=== PATIENT | male | born 1940 | race Caucasian/White ===

== ENCOUNTER 2017-01-02 13:23 | Inpatient (IN) | payer OTHER, MEDICARE ==
[~2017-01-02] VITALS: Ht 170.2 cm; Wt 98.6 kg
[~2017-01-02 13:23] MED LIST: AMIODARONE HCL200 M1 PO; ASPIRIN EC325 MG PO; ASPIRIN EC81 M1 PO; ATORVASTATIN CA80 M1 PO; CARDURA4 M1 PO; CLOPIDOGREL75 M1 PO; ECOTRIN81 MG PO; FOLIC ACID0.8 MG PO; FOLIC ACID1 M1 PO; HUMALOG 100U100 U/ML SC; HUMALOG100 UNIT/2 SC; LANTUS SOL100 UNIT/1 SC; LANTUS SOLOS100 U/ML SC; LANTUS100 UNIT/1 SC; LASIX20 M1 PO; LASIX80 M1 PO; LISINOPRIL40 M1 PO; LISINOPRIL40 MG PO; LOPRESSOR50 M1 PO; METOPROLOL TART50 MG PO; NITROGLYCERIN1 EACH TOP; NOVOLOG100 UNIT/2 SC; PHENAZOPYRIDIN100 M3 PO; VITAMIN B COMP1 EACH PO; VITAMIN B-650 M2 PO; VYTORIN 10 MG-81 TAB PO; VYTORIN 10-801 EACH PO; ZETIA10 M1 PO
--- NOTE | 2017-01-02 13:31 | NUR ---
76 Y/O MALE C/O "TOTAL EXHAUSTION" X 6-8 WEEKS S/P STARTING NEW MEDICATION (LASIX, AMIODARONE, METOPROLOL) S/P HEART ATTACK. STATES HE HAS BEEN FEELING WEAK, DIZZY AND TIRED. DENIES SOB. DENIES C/P. REPORTS HIGH BLOOD SUGARS WELL FINGERSTICK IN TRIAGE: 447
--- NOTE | 2017-01-02 13:31 | NUR ---
PT TAKEN FOR EKG - STATES HE HAD BLOODWORK DRAWN TODAY AT CHF CLINIC, APPROX NOONTIME. NO RESULTS LISTED IN COMPUTER YET.
--- NOTE | 2017-01-02 13:58 | ED GENERAL ADULT ---
History of Present Illness General Chief Complaint: General Adult Stated Complaint: WEAK, HIGH BLOOD SUGAR, Source: patient, family, old records Exam Limitations: no limitations Allergies Coded Allergies: NO KNOWN ALLERGIES (09/24/15) Reconcile Medications Amiodarone HCl 200 MG TABLET 1 TAB PO DAILY HEART (Reported) Aspirin (Ecotrin*) 81 MG TABLET.DR 2 TAB PO DAILY HEART/BLOOD Clopidogrel Bisulfate (Clopidogrel) 75 MG TABLET 1 TAB PO DAILY HEART HEALTH Doxazosin Mesylate (Cardura) 4 MG TABLET 4 MG PO DAILY BPH (Reported) Ezetimibe/Simvastatin (Vytorin 10-80 MG Tablet) 10 MG-80 MG TABLET 1 TAB PO DAILY CHOLESTEROL (Reported) Folic Acid 0.8 MG CAPSULE 1 CAP PO DAILY SUPPLEMENT (Reported) Furosemide (Lasix) 80 MG TABLET 1 TAB PO BID DIURETIC (Reported) Insulin Glargine,Hum.rec.anlog (Lantus Solostar) 100 UNIT/ML (3 ML) INSULN.PEN 22 UNITS SC BID DM (Reported) Insulin Lispro (Humalog) 100 UNIT/ML VIAL DM (Reported) Lisinopril 20 MG TABLET 1 TAB PO DAILY BP (Reported) Metoprolol Tartrate 25 MG TABLET 1 TAB PO BID HEART/BP (Reported) Nitroglycerin (Nitroglycerin Patch) 0.4 MG/HOUR PATCH.TD24 1 PATCH TOP DAILY HEART HEALTH 12 hours on, 12 hours off Vitamin B Complex 1 EACH CAPSULE 1 CAP PO DAILY SUPPLEMENT (Reported) Triage Note: 76 Y/O MALE C/O "TOTAL EXHAUSTION" X 6-8 WEEKS S/P STARTING NEW MEDICATION (LASIX, AMIODARONE, METOPROLOL) S/P HEART ATTACK. STATES HE HAS BEEN FEELING WEAK, DIZZY AND TIRED. DENIES SOB. DENIES C/P. REPORTS HIGH BLOOD SUGARS WELL FINGERSTICK IN TRIAGE: 447 Triage Nurses Notes Reviewed? yes Onset: Gradual Duration: getting worse Timing: recent history Injury Environment: home Severity: moderate Severity Numbers: 7 HPI: Patient is a 76-year-old male with a past medical history significant for CAD status post CABG, type 1 diabetes, chronic kidney disease stage IV, hypertension , bladder cancer status post TURBT who was recently admitted to [facility] on 08/28/2016 for concerns of non-STEMI CHF and DKA patient states that he has chronic dyspnea on exertion and leg swelling which she has no changes of his symptoms however patient was brought in to the emergency room for concerns of being at his CHF clinic today to receive IV Lasix in which blood work noted the patient had significant elevations of his BUN. Patient also has concerns of his elevated glucose where he noted today to be between 450 and 550 prior to arrival. Patient is insulin-dependent. Patient denies any fevers chills chest pain shortness of breath hemoptysis cough abdominal pain nausea vomiting Last bowel movement was in the last 24 hours no blood no melena noted. (CEM BURROWS) Vital Signs & Intake/Output Vital Signs & Intake/Output Vital Signs Date Time Temp Pulse Resp B/P B/P Pulse O2 O2 Flow FiO2 Mean Ox Delivery Rate 01/02 1534 97.1 63 24 163/70 98 Room Air 01/02 1327 96.7 57 18 109/47 97 Room Air Past History Travel History Traveled to [place] past 21 day No Medical History Any Pertinent Medical History? see below for history Neurological: NONE EENT: allergies Cardiovascular: hypertension, hyperlipidemia, CABG Respiratory: NONE Gastrointestinal: NONE Hepatic: NONE Renal: NONE Musculoskeletal: osteoarthritis Psychiatric: NONE Endocrine: diabetes Blood Disorders: NONE Cancer(s): bladder cancer DIGITAL MEDIA REPRESENTATIVE/Reproductive: NONE History of MRSA: No History of VRE: No History of CDIFF: No Pneumonia Vaccine: 09/21/15 Influenza Vaccine: 06/07/16 Surgical History Surgical History: CABG Psychosocial History Who do you live with Significant Other Services at Home None What is your primary language Luxembourgish Tobacco Use: Quit >30 days ago Family History Hx Contributory? No (CEM BURROWS) Review of Systems Review of Systems Constitutional: Reports: no symptoms. EENTM: Reports: no symptoms. Respiratory: Reports: see HPI. Cardiovascular: Reports: see HPI, peripheral edema. GI: Reports: no symptoms. Genitourinary: Reports: no symptoms. Musculoskeletal: Reports: no symptoms. Skin: Reports: no symptoms. Neurological/Psychological: Reports: no symptoms. Hematologic/Endocrine: Reports: no symptoms. Immunologic/Allergic: Reports: no symptoms. All Other Systems: Reviewed and Negative (CEM BURROWS) Physical Exam Physical Exam General Appearance: no apparent distress, obese Head: atraumatic Rectal: normal exam, heme negative stool, BROWN STOOL NOTED Comments: HEENT: Normal EENT exam, extraocular motion intact, no nystagmus. Pupils equally round and reactive to light and accommodation. Nose is atraumatic. External auditory canal and Tympanic membranes clear. Pharynx normal. No swelling or edema. Neck: Supple, no lymphadenopathy, normal range of motion without pain or tenderness Back: Nontender, no CVA tenderness. Cardiovascular: Regular rate and rhythms no murmurs rubs or gallops, normal JVP Respiratory: Chest nontender. No respiratory distress.breath sounds clear to auscultation bilaterally Abdomen: Soft, nontender nondistended, no appreciable organomegaly. Normal bowel sounds. No ascites Extremity: +2 bilateral pitting edema noted, no calf tenderness to palpation, normal and equal pulses. Neuro: Alert oriented x3, motor sensory normal, Skin: No appreciable rash on exposed skin, skin is warm and dry. Psych: Mood and affect is normal, memory and judgment is normal. Core Measures ACS in differential dx? Yes CVA/TIA Diagnosis: No Severe Sepsis Present: No Septic Shock Present: No (CEM BURROWS) Progress Differential Diagnoses I considered the following diagnoses in my evaluation of the patient: [CHF, anemia, DKA,, HHS, hyperglycemia, myocardial infarction, electrolyte abnormality , DVT] Diagnostic Imaging: Viewed by Me: Radiology Read. Radiology Impression: no acute abnormality Initial ED EKG: SINUS RHYTHM NOTED AT 57 BPM WITH FIRST-DEGREE av BLOCK Prior EKG: unchanged Comments: PATIENT: JACK WINTER PRESENT AGE: 76 PATIENT ACCOUNT NO: [id number] : 40 LOCATION: [facility] ORDERING PHYSICIAN: CEM RUIZ SERVICE DATE: 01/02/17 EXAM TYPE: RAD - XRY-PORTABLE CHEST XRAY EXAMINATION: CHEST 1 VIEW CLINICAL INFORMATION: Dyspnea upon exertion. COMPARISON: 08/29/2016. TECHNIQUE: An AP view of the chest is provided. FINDINGS: The cardiac silhouette is prominent, but stable. Intact midline sternal wires are present. The mediastinal and hilar contours are unremarkable. There are neither pleural effusions nor pneumothoraces. There are no consolidations. The osseous structures are unremarkable. IMPRESSION: No evidence for acute disease. Stable cardiomegaly. DICTATED BY: SAMIA MARTINEZ MD DATE/TIME DICTATED:01/02/17 1436 (CEM BURROWS) Plan of Care: Orders Procedure Date/time Status Consistent Carbohydrate 1 01/03 B Active LACTIC ACID 01/02 1712 Active Misc Message 01/02 1645 Active ED Holding Orders 01/02 1645 Active Admit to inpatient 01/02 1645 Active Vital Signs 01/02 1645 Active Code Status 01/02 1645 Active Patient Data 01/02 1625 Active Add-on Test (ER Only) 01/02 1514 Active PARTIAL THROMBOPLASTIN TIME 01/02 1442 Complete PROTHROMBIN TIME 01/02 1442 Complete TYPE & SCREEN (NOT X-MATCH) 01/02 1442 Complete MIXED VENOUS BLOOD GAS (GEN) 01/02 1412 Complete LACTIC ACID 01/02 1412 Complete URINALYSIS 01/02 1326 Complete TROPONIN LEVEL 01/02 1326 Complete LIPASE 01/02 1326 Complete COMPREHENSIVE METABOLIC PANEL 01/02 1326 Complete CBC WITHOUT DIFFERENTIAL 01/02 1326 Complete B-TYPE NATRIURETIC PEP (BNP) 01/02 1326 Complete AMYLASE 01/02 1326 Complete ACETONE 01/02 1326 Complete EKG 01/02 1326 Active Laboratory Tests 01/02/17 1536: Urine Color YEL, Urine Clarity CLEAR, Urine pH 6.0, Ur Specific [place] 1.010, Urine Protein NEG, Urine Ketones NEG, Urine Nitrite NEG, Urine Bilirubin NEG, Urine Urobilinogen 0.2, Ur Leukocyte Esterase LARGE H, Ur Microscopic SEDIMENT EXAMINED, Urine WBC 3-5 H, Ur Epithelial Cells FEW, Hyaline Casts RARE H, Urine Hemoglobin NEG, Urine Glucose 100 H 01/02/17 1442: Lactic Acid 1.7 01/02/17 144: Bicarbonate Actual 24, Mixed VBG pH 7.42 H, Mixed VBG pCO2 38 L, Mixed VBG O2 Saturation 36, P-50 (Temp Corrected) YES, Carboxyhemoglobin 1.3 L, O2 Concentration % RA, Temperature 96.7 L, O2 Delivery Method RA, Anion Gap 13, Estimated GFR 25 L, BUN/Creatinine Ratio 42.4 H, Glucose 407 H, Calcium 8.6, Total Bilirubin 0.9, AST 80 H, ALT 199 H, Alkaline Phosphatase 89, Troponin I 0.02, Ydb-X-Obsmuohceuw Pept 3690 H, Total Protein 5.6 L, Albumin 3.0 L, Globulin 2.6, Albumin/Globulin Ratio 1.2, Amylase 41, Lipase 276, PT 12.5, INR 1.19 H, APTT 27, CBC w Diff NO MAN DIFF REQ, RBC 2.48 L, MCV 91.3, MCH 30.1, RDW 15.7 H, MPV 9.7, Gran % 79.4 H, Lymphocytes % 9.0 L, Monocytes % 8.8, Eosinophils % 2.5, Basophils % 0.3, Absolute Granulocytes 4.4, Absolute Lymphocytes 0.5 L, Absolute Monocytes 0.5, Absolute Eosinophils 0.1, Absolute Basophils 0, PUBS MCHC 32.9 L, Phlebotomy Draw Site RAC, Acetone Level NEGATIVE Patient initially noted to have hypotension concerns and was concerned of DKA. On arrival in which she was given slow fluid resuscitation and was conservatively resuscitated due to his significant CHF concern however after her second vital sign was established patient had no concerns of hypotension and blood work was established showing no concerns of DKA. The IV fluid resuscitation was stopped Patient however did have consideration of symptomatic anemia where his hemoglobin at baseline is 12 and currently today it 7.4 and his BUN is approximately 70 at baseline and today it is 100. Cortney Garces MD was made aware of patient's admission to telemetry. Discussed patient with Dr. Gutierrez was aware of telemetry admission No source at this time of patient's anemia (CEM BURROWS) Departure Departure Disposition: STILL A PATIENT Condition: Stable Clinical Impression Primary Impression: Symptomatic anemia Secondary Impressions: Acute on chronic renal failure, Hyperglycemia Referrals: EPHRAIM VARMA,KATARZYNA Jones (PCP/Family) Departure Forms: Customer Survey General Discharge Information Admission Note Spoke With: OLVIN SANCHEZ MD Documentation of Exam: Documentation of any treatments & extenuating circumstances including Concerns Regarding Discharge (functional status, medication knowledge or non-compliance, living conditions, etc.) that warrant an admission rather than observation: [ Discussed patient with Dr. Sanchez who agrees with telemetry admission for concerns of symptomatic anemia. Patient requires telemetry monitoring, repeat labs, cardiology consultation, repeat hemoglobin and hematocrit endocrinology consultation and insulin treatment protocol. Outpatient treatment at this time would be medically harmful] (CEM BURROWS) PA/OPERATIONS AGENT Co-Sign Statement Statement: ED Attending supervision documentation- [X] I saw and evaluated the patient. I have also reviewed all the pertinent lab results and diagnostic results. I agree with the findings and the plan of care as documented in the PA's/OPERATIONS AGENT's documentation. [] I have reviewed the ED Record and agree with the PA's/OPERATIONS AGENT's documentation. [] Additions or exceptions (if any) to the PAs/OPERATIONS AGENT's note and plan are summarized below: [] (RAMOS VARMA,SHIRA Samaniego) Critical Care Note Critical Care Note Critical Care Time: 30-74 min (CEM BURROWS)
--- NOTE | 2017-01-02 14:40 | RADIOLOGY REPORT ---
EXAMINATION: CHEST 1 VIEW CLINICAL INFORMATION: Dyspnea upon exertion. COMPARISON: 08/29/2016. TECHNIQUE: An AP view of the chest is provided. FINDINGS: The cardiac silhouette is prominent, but stable. Intact midline sternal wires are present. The mediastinal and hilar contours are unremarkable. There are neither pleural effusions nor pneumothoraces. There are no consolidations. The osseous structures are unremarkable. IMPRESSION: No evidence for acute disease. Stable cardiomegaly.
[2017-01-02 15:01] LABS: ABSOLUTE BASOPHIL COUNT 0 /CUMM (0.0-0.2); ABSOLUTE EOSINOPHIL COUNT 0.1 /CUMM (0.0-0.7); ABSOLUTE GRANULOCYTE CT 4.4 /CUMM (1.4-6.5); ABSOLUTE LYMPH COUNT 0.5 /CUMM (1.2-3.4); ABSOLUTE MONOCYTE COUNT 0.5 /CUMM (0.10-0.60); BASOPHIL % 0.3 % (0.0-2.0); EOSINOPHIL % 2.5 % (0-5); GRANULOCYTE % 79.4 % (42.2-75.2); MEAN CORPUSCULAR HGB 30.1 PG (27.0-31.0); MEAN CORPUSCULAR HGB CONC 32.9 G/DL (33.0-37.0); MEAN CORPUSCULAR VOLUME 91.3 FL (80.0-94.0); MEAN PLATELET VOLUME 9.7 FL (7.4-10.4); PLATELET COUNT 213 /CUMM (130-400); RBC DISTRIBUTION WIDTH 15.7 % (11.5-14.5); RED BLOOD CELL CT 2.48 /CUMM (4.70-6.10); WHITE BLOOD CELL COUNT 5.5 /CUMM (4.8-10.8)
[2017-01-02 15:12] LABS: HEMATOCRIT 22.6 % (42-52)
--- NOTE | 2017-01-02 15:22 | NUR ---
CRITICAL TEST RESULTS [id number] JACK WINTER 76 M TESTS AND RESULTS: BUN 106 Results received and read back by: HAYDEE HDZ Results received date and time: 01/02/17 1522 The following provider was notified of the results, and read the results back: CEM White PA-C Notified date and time: 01/02/17 at 1522
[2017-01-02 15:50] LABS: PT 12.5 SEC (9.4-12.5); PTT 27 SEC (25-37)
--- NOTE | 2017-01-02 15:59 | NUR ---
PT SEEN AT BEDSIDE BY DR POZO TO DISCUSS POC. OOB WITHOUT ASSIST TO USE URINAL. NO C/O SOB OR CP. FAMILY AT BEDSIDE.
--- NOTE | 2017-01-02 16:13 | NUR ---
PER PA SETH [place] NEGATIVE. PT REPOSITIONED IN BED, RESTING COMFORTABLY ON RA. OFFERS NO OTHER COMPLAINTS AT THIS TIME
[2017-01-02] MEDS ORDERED: AMIODARONE HCL200 M1 PO (16:51)
[2017-01-02] MEDS ORDERED: VYTORIN 10-801 EACH PO (16:52)
[2017-01-02] MEDS ORDERED: FOLIC ACID0.8 M1 PO (16:53)
[2017-01-02] MEDS ORDERED: LASIX80 M1 PO (16:53)
[2017-01-02] MEDS ORDERED: HUMALOG100 UNIT/2 SC (16:54)
[2017-01-02] MEDS ORDERED: LANTUS SOL100 UNIT/1 SC (16:55)
[2017-01-02] MEDS ORDERED: METOPROLOL TART25 M1 PO (16:55)
[2017-01-02] MEDS ORDERED: LISINOPRIL20 M1 PO (16:55)
--- NOTE | 2017-01-02 16:59 | History & Physical ---
EVANGELISTA VARMA,JUAN RAMON 01/02/17 0107: General Information and [facility] MD Statement: I have seen and personally examined JACK WINTER and documented this H&P. The patient is a 76 year old M who was referred from the CHF clinic earlier today for complaints of high BUN and weakness/tiredness. Source of Information: patient, family Exam Limitations: no limitations History of Present Illness: 76-year-old male with past medical history of coronary artery disease status post CABG, recent and STEMI, type 1 diabetes uncontrolled, CK D stage IV, hypertension, bladder cancer status post TURBT, was referred from the CHF clinic earlier today after finding her BUN, high blood sugars, and worsening weakness. According to the patient, he was apparently in his usual state of health 2 months ago when he started having weakness, a little short of breath, and increased swelling of his legs. The patient found himself gradually getting weaker every day, and was visited his weekly CHF clinic earlier today when he was found to be very weak, high BUN and uncontrolled blood sugar, for which, he was immediately referred to the emergency department for further evaluation and management. He denies any chest pain, shortness of breath more than usual, palpitation, nausea, vomiting, fever, chills, abdominal pain, changes in bowel or bladder habit. Of note, he mentioned that his blood sugar has run as high as 571 and as low as 72 recently, with the lowest being last week. He follows Katarzyna Stubbs MD for his diabetes. Of note his workforce consultant is Dr. Taye Reyes. He receives 80 mg of oral Lasix twice daily and weekly visit to CHF clinic where he receives 40 mg of IV Lasix. He received only 80 mg of his oral Lasix this morning and did not receive any Lasix in the CHF clinic. Allergies/Medications Allergies: Coded Allergies: NO KNOWN ALLERGIES (09/24/15) Home Med list Amiodarone HCl 200 MG TABLET 1 TAB PO DAILY HEART (Reported) Aspirin (Ecotrin*) 81 MG TABLET. 2 TAB PO DAILY HEART/BLOOD Clopidogrel Bisulfate (Clopidogrel) 75 MG TABLET 1 TAB PO DAILY HEART HEALTH Doxazosin Mesylate (Cardura) 4 MG TABLET 4 MG PO DAILY BPH (Reported) Ezetimibe/Simvastatin (Vytorin 10-80 MG Tablet) 10 MG-80 MG TABLET 1 TAB PO DAILY CHOLESTEROL (Reported) Folic Acid 0.8 MG CAPSULE 1 CAP PO DAILY SUPPLEMENT (Reported) Furosemide (Lasix) 80 MG TABLET 1 TAB PO BID DIURETIC (Reported) Insulin Glargine,Hum.rec.anlog (Lantus Solostar) 100 UNIT/ML (3 ML) INSULN.PEN 22 UNITS SC BID DM (Reported) Insulin Lispro (Humalog) 100 UNIT/ML VIAL DM (Reported) Lisinopril 20 MG TABLET 1 TAB PO DAILY BP (Reported) Metoprolol Tartrate 25 MG TABLET 1 TAB PO BID HEART/BP (Reported) Nitroglycerin (Nitroglycerin Patch) 0.4 MG/HOUR PATCH.TD24 1 PATCH TOP DAILY HEART HEALTH 12 hours on, 12 hours off Vitamin B Complex 1 EACH CAPSULE 1 CAP PO DAILY SUPPLEMENT (Reported) Past History Travel History Traveled to [place] past 21 day No Medical History Neurological: NONE EENT: allergies Cardiovascular: hypertension, hyperlipidemia, CABG Respiratory: NONE Gastrointestinal: NONE Hepatic: NONE Renal: NONE Musculoskeletal: osteoarthritis Psychiatric: NONE Endocrine: diabetes Blood Disorders: NONE Cancer(s): bladder cancer CHEMICAL LAB TECHNICIAN/Reproductive: NONE History of MRSA: No History of VRE: No History of CDIFF: No Pneumonia Vaccine: 09/21/15 Influenza Vaccine: 06/07/16 Surgical History Surgical History: CABG Past Family/Social History Psychosocial History Where do you live? Home Who Do You Live With? spouse Services at Home: None Primary Language: [place] Smoking Status: Never Smoked ETOH Use: denies use Illicit Drug Use: denies illicit drug use Functional Ability Ambulation: cane, previously independent Review of Systems Review of Systems Constitutional: Reports: see HPI, weakness. EENTM: Reports: no symptoms. Cardiovascular: Reports: see HPI, edema, orthopena. Denies: chest pain, palpitations, syncope. Respiratory: Reports: no symptoms. GI: Reports: no symptoms. Genitourinary: Reports: no symptoms. Musculoskeletal: Reports: no symptoms. Skin: Reports: see HPI. Neurological/Psychological: Reports: no symptoms. Hematologic/Endocrine: Reports: no symptoms. All Other Systems: Reviewed and Negative Exam & Diagnostic Data Last 24 Hrs of Vital Signs/I&O Vital Signs Date Time Temp Pulse Resp B/P B/P Pulse O2 O2 Flow FiO2 Mean Ox Delivery Rate 01/023 98.0 65 20 110/48 95 Room Air 01/02 1834 97.3 64 22 144/66 97 Room Air 01/02 1534 97.1 63 24 163/70 98 Room Air 01/02 1327 96.7 57 18 109/47 97 Room Air Intake & Output 01/02 1600 01/02 0800 01/02 0000 Intake Total Output Total 250 Balance -250 Output, Urine 250 Patient 100.017 kg Weight Weight Reported by Patient Measurement Method Physical Exam General Appearance Alert, Oriented X3, Cooperative, Mild Distress Rectal Guiac Negative Last 24 Hrs of Labs/Ruben: Laboratory Tests 01/02/17 1712: Lactic Acid Cancelled 01/02/17 1536: Urine Color YEL, Urine Clarity CLEAR, Urine pH 6.0, Ur Specific [place] 1.010, Urine Protein NEG, Urine Ketones NEG, Urine Nitrite NEG, Urine Bilirubin NEG, Urine Urobilinogen 0.2, Ur Leukocyte Esterase LARGE H, Ur Microscopic SEDIMENT EXAMINED, Urine WBC 3-5 H, Ur Epithelial Cells FEW, Hyaline Casts RARE H, Urine Hemoglobin NEG, Urine Glucose 100 H 01/02/17 1442: Lactic Acid 1.7 01/02/17 1442: Bicarbonate Actual 24, Mixed VBG pH 7.42 H, Mixed VBG pCO2 38 L, Mixed VBG O2 Saturation 36, P-50 (Temp Corrected) YES, Carboxyhemoglobin 1.3 L, O2 Concentration % RA, Temperature 96.7 L, O2 Delivery Method RA, Anion Gap 13, Estimated GFR 25 L, BUN/Creatinine Ratio 42.4 H, Glucose 407 H, Hemoglobin A1c Pending, Calcium 8.6, Iron 35 L, TIBC 337, Ferritin 28.6, Total Bilirubin 0.9, AST 80 H, ALT 199 H, Alkaline Phosphatase 89, Troponin I 0.02, Pro-B- Natriuretic Pept 3690 H, Total Protein 5.6 L, Albumin 3.0 L, Globulin 2.6, Albumin/Globulin Ratio 1.2, Amylase 41, Lipase 276, Vitamin B12 339, PT 12.5, INR 1.19 H, APTT 27, CBC w Diff NO MAN DIFF REQ, RBC 2.48 L, MCV 91.3, MCH 30.1, RDW 15.7 H, MPV 9.7, Gran % 79.4 H, Lymphocytes % 9.0 L, Monocytes % 8.8, Eosinophils % 2.5, Basophils % 0.3, Absolute Granulocytes 4.4, Absolute Lymphocytes 0.5 L, Absolute Monocytes 0.5, Absolute Eosinophils 0.1, Absolute Basophils 0, PUBS MCHC 32.9 L, Phlebotomy Draw Site RAC, Acetone Level NEGATIVE Diagnostic Data EKG Results Sinus bradycardia, rate 57, QTC 483, MN prolongation 236 CXR Results IMPRESSION: No evidence for acute disease. Stable cardiomegaly. DICTATED BY: SAMIA MARTINEZ MD DATE/TIME DICTATED:01/02/171435 VEHICLE GLASS TECHNICIAN:RON DATE/TIME TRANSCRIBED:01/02/171435 Other Results Physical examnination: Head: Normocephalic, atraumatic Eyes: Pupils normal in size, regular, reacting to light and accommodation, EOM normal Ears: B/l normal on inspection Nose: Normal on inspection Throat/mouth: Moist mucosa Neck: Supple, full range of motion, no thyromegaly Heart: bradycardia, regular rhythm Lung: Decreased breath sound heard bilaterally Abd: Soft, non-tender, distention appreciated which is not new per patient Back: Normal range of motion Extremities: Normal knee exam bilaterally, pedal edema present b/l with some abrasions present, Distal neurovascular intact Neurologic: Alert, oriented x3, Cranial exam grossly intact, Speech is clear and coherent Skin: Warm and dry Psychiatric: Calm, cooperative, coherant Assessment/Plan Assessment: 76-year-old male with past medical history of coronary artery disease status post CABG, recent and STEMI, type 1 diabetes uncontrolled, CK D stage IV, hypertension, bladder cancer status post TURBT, was referred from the CHF clinic earlier today after finding her BUN, high blood sugars, and worsening weakness. He is currently being managed in the telemetry floor for the following issues: -Admit to telemetry #Symptomatic anemia -Awaiting cardiology consultation for blood transfusion, as this patient has extensive cardiac history and the target hemoglobin should be at 8 -Of note, guaiac test done in the emergency department was negative. However in this setting of symptomatic anemia with extensive history, guaiac all stools. Hold aspirin and Plavix after discussing with cardiology, awaiting cardiology input. Continue to monitor CBC, follow-up iron study. If guaiac positive at any time, consider calling gastrointestinal service STAT. #Diabetes mellitus, uncontrolled -Regular Accu-Cheks, insulin Levemir and NovoLog insulin sliding scale, and diabetic diet for now -Check his A1c -Call endocrinology consult in the morning #Acute kidney injury on CK D Patient's baseline creatinine is 2.0-2.1 considering the past 6 months, and is 2.5 currently does in acute kidney injury. Avoid nephrotoxic agents, maintain hydration, renal ultrasound in the morning to rule out any obstructions, follow- up BEP in the morning, hold RACHAEL inhibitor. Patient does not want to many consultation at this point including nephrology consultations, so please consider reassessing the need of nephrology consultation in the morning after getting the BEP results #Congestive heart failure Hold further diuretics, patient did not receive IV Lasix at CHF clinic, strict input and output monitoring, daily weight monitoring, lisinopril held due to acute kidney injury, need to resume later after ISAAC has resolved, cardiology consultation placed, will follow advice accordingly. #History of coronary artery disease, status post CABG Patient currently is not symptomatic/4 in acute coronary syndrome. The, but will trend troponin and EKG to rule out ACS. Aspirin and Plavix to hold due to concern of GI bleed. Continue beta holli and nitroglycerin patch. #History of paroxysmal atrial fibrillation Patient currently is in sinus bradycardia, was found to be in atrial fibrillation in August when he had NSTEMI, and was on amiodarone since then. Will continue for now. #Diabetic diet, mechanical DVT prophylaxis, full CODE STATUS. As Ranked By This Provider Problem List: 1. Symptomatic anemia 2. IDDM (insulin dependent diabetes mellitus) 3. Acute on chronic renal failure 4. CHF (congestive heart failure) 5. CAD (coronary artery disease) of artery bypass graft 6. Paroxysmal atrial fibrillation Core Measures/Miscellaneous Acute Coronary Syndrome ACS Diagnosis: No Cerebrovascular Accident CVA/TIA Diagnosis: No Congestive Heart Failure CHF Diagnosis: Yes Date of most recent Echo: 08/28/16 Last Known EF %: 45 Venous Thromboembolism VTE Risk Factors: Age > 40, Cancer/chemo/oth therapy, CHF or Resp failure [facility] prophylaxis d/t: No contraindications No VTE Pharm Prophylaxis d/t: No contraindications VTE Diagnosis: No VTE Type: NONE VTE Confirmed by (Test): NONE Severe Sepsis Severe Sepsis Present: No Septic Shock Septic Shock Present: No Miscellaneous Documentation Attending Case Discussed With: OLVIN WHITESIDE MD Primary Care Physician: KATARZYNA STUBBS MD Patient sees these Specialists Cardiology Level of Patient Care: Telemetry OLVIN WHITESIDE 01/02/17 1703: Attending MD Review Statement Attending Statement Attending MD Statement: examined this patient, discuss w/resident/PA/AVIATION NEUROPSYCHOLOGIST, agreed w/resident/PA/AVIATION NEUROPSYCHOLOGIST, discussed with family, reviewed EMR data (avail), discussed with nursing, discussed with case mgmt, reviewed images, amended to note Attending Assessment/Plan: 76 o/m with pmh of CAD s/p CABG, NSTEMI recently, DM on insulin poorly controlled, chronic kidney disease stage 4, htn, bladder ca s/p turp, presents with dyspnea on exertion, refererd from chf clinic after found to have high BUN. Patient found to have hyperglycemia. BNP remains elevated in past also. ASSESSMENT 1. Dyspnea on exertion. 2. Anemia 3. Acute on chronic kidney disease 4. chronic systolic CHF EF 45% 5. Elevated BUN 6. DM with hyperglycemia on insulin 7. Moderate to severe pulmonary hypertension. RVSP 55-60mm hg. 8. CAD on dual antiplatelet therapy. PLAN admit to telemetry obtain serial cardiac enzymes r/o [place], consult cardio. check guaic, serial h/h monitoring. NPO, gentle hydration. anemia multifactorial r/o blood loss. Transfuse hb target 7-8 d/w cardiology. resume antiplatlet therapy as per cards. basal insulin, RISS and titrate insulin as needed. monitor BMP and hemodynamics gi/dvt prophylaxis. full code. FAUSTINO SHELTON MD 01/02/17 9945: Resident Review Statement Resident Statement: examined this patient, discussed with internal combustion engine assembler, agreed with internal combustion engine assembler, discussed with family, reviewed EMR data (avail), reviewed images, amended to note Other Findings: This is 76-year-old male with past medical history of CAD status post CABG, HFrEF, stage IV COPD, type 2 diabetes, hypertension, transitional bladder cancer status post TURBT, chemotherapy and radiation was sent in from CHF clinic after patient home significantly anemic with elevated blood glucose level. As per the patient he has been having progressively worsening generalized weakness for pulse 2 months will show shifted with mild shortness of breath. This morning when he went to his CHF clinic for regular Lasix dose for his congestive heart failure patient formed very weak and mildly short of breath and lab workup revealed significant anemia and hyperglycemia and patient was sent to ER for further evaluation. In ER, patient denied any chest pain, shortness of breath, orthopnea, nausea, vomiting or abdominal pain. Patient reported that his blood sugar has been elevated for pulse couple weeks and he has been working with Katarzyna Stubbs MD to adjust his insulin regimen. He is on daily Lasix twice daily and goes to CHF clinic once a week and receives 40 mg every Lasix. He denies any blood in the stool or melena but also reports that she's been not watching his stool regularly. Patient has stage III CKD and but hasn't been seeing any calenderer. His vitals on admission were T 96.7, HR 57, RR 18, BP 163/70, O2 sat 97% on room air. On physical exam patient is alert oriented 3 in no acute distress, HEENT PERRLA EOMI, neck supple, no JVD, S2 NORMAL WITHOUT MURMUR, LUNGS CLEAR ON AUSCULTATION , ABDOMEN NOTED DISTENDED WITH PRESERVED BOWEL SOUNDS NONTENDER, NOTED bilateral frontal 2+ pitting edema to the level of knee, no focal request neuro deficit. Labs were significant for normocytic anemia with H&H 7.4/22.6 (baseline H&H 12.2 /36 in August 2016), MCV 91.3, platelet 213, BUN/creatinine 06, creatinine 2.5 (baseline creatinine 2.3/75), AST 80, AST 199, alkaline phosphatase 89, troponin 0.02, proBNP 3690, INR 1.19. vBG noted normal UA noted large leukocyte esterase with WBC of 3-5 and high glucose Chest x-ray was unremarkable EKG showed normal sinus rhythm with first degree AV block and T-wave flattening in the anterolateral lead Stool guaiac testing ER was negative Assessment and plan: This is a 76-year-old male with past medical history of CAD status post CABG, stage IV C daily, type I diabetes, 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 1. Symptomatic anemia ? Blood loss although patient refuses any episode of bloody stool or melena but significant drop in hematocrit to suggest blood loss as etiology. He should also help Ckd which could also be a contributing factor of anemia. - Monitor H&H - Stool guiac negative in ER, check all stool guaiac - Hold aspirin and Plavix - Repeat H&H in a.m. if it drops further consider gastroenterology evaluation - CHECK IRON STUDY 2. Hyperglycemia, type 1 diabetes - Accu-Cheks - Continue LEVEMIR 22 units twice a day and NovoLog sliding scale - check HBA1C - Endocrinology consult in a.m. 3. Acute on CKD stage 3 - Avoid nephrotoxic agent - monitor I & O's - Renal US inn am - watch renal function - Hold RACHAEL inhibitor - Consider nephrology consult 4. compensated systolic congestive heart failure - Strict I and O's - daily weight - hold diuretics due to isaac on ckd - readress diuresis regimen in am after reviewing kidney function - Held lisinopril due to ISAAC, resume if kidney function stable - Follow cardiology recommendation 5. History of CAD status post CABG Patient denies any chest pain, full set of troponin negative Serial troponin and EKG to rule out coronary event Held aspirin and Plavix due to concern of GI bleed Continue beta holli, NTG 6. History of paroxysmal A. fib - Currently normal sinus rhythm - Continue amiodarone 7. DVT prophylaxis Mechanical 8. Full code
--- NOTE | 2017-01-02 17:12 | Cons- Cardiology ---
General Information and HPI Consulting Request Date of Consult: 01/02/17 Requested By: OLVIN WHITESIDE MD Reason for Consult: LE edema; HFpEF; acute anemia of unclear etiology; hyperglycemia; worsening acute on chronic renal insufficiency Source of Information: patient, family, old records History of Present Illness: Mr Painting is a very nice 76 year old male who is known to me. 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 THe patient has a histor of HFpEF and has been going to the CHF clinic. I received a call from them today about the patient when he was there about his recent labs which have showed progressive increasing BUN and evidence of worsening hyperglycemia. In view of this fact, he was not given any IV lasix today despite his persistent LE edema. THe patient ultimately spoke to Dr. Stubbs and was sent to the ER for further evaluation. Inthe ER, the patient was noted to be hyperglycemic and significantly anemix with an elevated BUN of 106. The patient denies any new cardiovascular symptoms other than the persistent weakness, dyspnea and LE edema. Allergies/Medications Allergies: Coded Allergies: NO KNOWN ALLERGIES (09/24/15) Home Med List: Amiodarone HCl 200 MG TABLET 1 TAB PO DAILY HEART (Reported) Aspirin (Ecotrin*) 81 MG TABLET.DR 2 TAB PO DAILY HEART/BLOOD Clopidogrel Bisulfate (Clopidogrel) 75 MG TABLET 1 TAB PO DAILY HEART HEALTH Doxazosin Mesylate (Cardura) 4 MG TABLET 4 MG PO DAILY BPH (Reported) Ezetimibe/Simvastatin (Vytorin 10-80 MG Tablet) 10 MG-80 MG TABLET 1 TAB PO DAILY CHOLESTEROL (Reported) Folic Acid 0.8 MG CAPSULE 1 CAP PO DAILY SUPPLEMENT (Reported) Furosemide (Lasix) 80 MG TABLET 1 TAB PO BID DIURETIC (Reported) Insulin Glargine,Hum.rec.anlog (Lantus Solostar) 100 UNIT/ML (3 ML) INSULN.PEN 22 UNITS SC BID DM (Reported) Insulin Lispro (Humalog) 100 UNIT/ML VIAL DM (Reported) Lisinopril 20 MG TABLET 1 TAB PO DAILY BP (Reported) Metoprolol Tartrate 25 MG TABLET 1 TAB PO BID HEART/BP (Reported) Nitroglycerin (Nitroglycerin Patch) 0.4 MG/HOUR PATCH.TD24 1 PATCH TOP DAILY HEART HEALTH 12 hours on, 12 hours off Vitamin B Complex 1 EACH CAPSULE 1 CAP PO DAILY SUPPLEMENT (Reported) Past History Travel History Traveled to [place] past 21 day No Medical History Neurological: NONE EENT: allergies Cardiovascular: hypertension, hyperlipidemia, CABG Respiratory: NONE Gastrointestinal: NONE Hepatic: NONE Renal: NONE Musculoskeletal: osteoarthritis Psychiatric: NONE Endocrine: diabetes Blood Disorders: NONE Cancer(s): bladder cancer CIN[employer]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 Surgical History Surgical History: CABG Psychosocial History Services at Home: None Exam & Diagnostic Data Vital Signs and I&O Vital Signs Date Time Temp Pulse Resp B/P B/P Pulse O2 O2 Flow FiO2 Mean Ox Delivery Rate 01/02 1534 97.1 63 24 163/70 98 Room Air 01/02 1327 96.7 57 18 109/47 97 Room Air Intake & Output 01/02 1600 01/02 0800 01/02 0000 01/01 1600 01/01 0800 01/01 0000 Intake Total Output Total 250 Balance -250 Output, Urine 250 Patient 221 lb Weight Weight Reported by Patient Measurement Method Physical Exam: General: WD, WN, WM, NAD, A and O x3, VSS HEENT: Normal Neck: Supple, no lymphadenopathy, normal range of motion without pain or tenderness, JVP elevated 3 cm, carotids normal Back: Nontender, no CVA tenderness. Cardiovascular: Regular rate and rhythms , 2/6 systolc murmur Respiratory: Chest nontender. No respiratory distress.breath sounds clear to auscultation bilaterally Abdomen: Soft, nontender nondistended, no appreciable organomegaly. Normal bowel sounds. No ascites Extremity: +2 bilateral pitting edema noted, non tender , stasis changes present. Neuro: non focal Skin: No appreciable rash on exposed skin, skin is warm and dry. Labs/Ruben Results: Laboratory Tests 01/02 01/02 1536 1442 Chemistry Lactic Acid (0.7 - 2.1 mmol/L) 1.7 Urines Urine Color (YEL,AMB,STR) YEL Urine Clarity (CLEAR) CLEAR Urine pH (5.0 - 8.0) 6.0 Ur Specific [place] (1.001 - 1.035) 1.010 Urine Protein (NEG,<30 MG/DL) NEG Urine Ketones (NEG) NEG Urine Nitrite (NEG) NEG Urine Bilirubin (NEG) NEG Urine Urobilinogen (0.1 - 1.0 EU/dl) 0.2 Ur Leukocyte Esterase (NEG) LARGE H Ur Microscopic SEDIMENT EXAMINED Urine WBC (0 - 2 /HPF) 3-5 H Ur Epithelial Cells (NONE,FEW) FEW Hyaline Casts (0/LPF) RARE H Urine Hemoglobin (NEG) NEG Urine Glucose (N MG/DL) 100 H 01/02 1442 Blood Gas Bicarbonate Actual (22 - 26 MEQ/L) 24 Mixed VBG pH (7.31 - 7.41 PH) 7.42 H Mixed VBG pCO2 (41 - 51 TORR) 38 L Mixed VBG O2 Saturation (35 - 45 TORR) 36 P-50 (Temp Corrected) YES Carboxyhemoglobin (1.5 - 5.0 %) 1.3 L O2 Concentration % RA Temperature (97.0 - 100.0 FARH) 96.7 L O2 Delivery Method RA Chemistry Sodium (137 - 145 mmol/L) 135 L Potassium (3.5 - 5.1 mmol/L) 4.2 Chloride (98 - 107 mmol/L) 99 Carbon Dioxide (22 - 30 mmol/L) 23 Anion Gap (5 - 16) 13 BUN (9 - 20 mg/dL) 106 *H Creatinine (0.7 - 1.2 mg/dL) 2.5 H Estimated GFR (>60 ml/min) 25 L BUN/Creatinine Ratio (7 - 25 %) 42.4 H Glucose (65 - 99 mg/dL) 407 H Calcium (8.4 - 10.2 mg/dL) 8.6 Total Bilirubin (0.2 - 1.3 mg/dL) 0.9 AST (17 - 59 U/L) 80 H ALT (21 - 72 U/L) 199 H Alkaline Phosphatase (< 127 U/L) 89 Troponin I (<0.11 ng/ml) 0.02 Aly-V-Utgfzhpazau Pept (<125 pg/mL) 3690 H Total Protein (6.3 - 8.2 g/dL) 5.6 L Albumin (3.5 - 5.0 g/dL) 3.0 L Globulin (1.9 - 4.2 gm/dL) 2.6 Albumin/Globulin Ratio (1.1 - 2.2 %) 1.2 Amylase (30 - 110 U/L) 41 Lipase (23 - 300 U/L) 276 Coagulation PT (9.4 - 12.5 SEC) 12.5 INR (0.90 - 1.17) 1.19 H APTT (25 - 37 SEC) 27 Hematology CBC w Diff NO MAN DIFF REQ WBC (4.8 - 10.8 /CUMM) 5.5 RBC (4.70 - 6.10 /CUMM) 2.48 L Hgb (14.0 - 18.0 G/DL) 7.4 *L Hct (42 - 52 %) 22.6 L MCV (80.0 - 94.0 FL) 91.3 MCH (27.0 - 31.0 PG) 30.1 RDW (11.5 - 14.5 %) 15.7 H Plt Count (130 - 400 /CUMM) 213 MPV (7.4 - 10.4 FL) 9.7 Gran % (42.2 - 75.2 %) 79.4 H Lymphocytes % (20.5 - 51.1 %) 9.0 L Monocytes % (1.7 - 9.3 %) 8.8 Eosinophils % (0 - 5 %) 2.5 Basophils % (0.0 - 2.0 %) 0.3 Absolute Granulocytes (1.4 - 6.5 /CUMM) 4.4 Absolute Lymphocytes (1.2 - 3.4 /CUMM) 0.5 L Absolute Monocytes (0.10 - 0.60 /CUMM) 0.5 Absolute Eosinophils (0.0 - 0.7 /CUMM) 0.1 Absolute Basophils (0.0 - 0.2 /CUMM) 0 PUBS MCHC (33.0 - 37.0 G/DL) 32.9 L Miscellaneous Phlebotomy Draw Site RAC Toxicology Acetone Level (NEGATIVE) NEGATIVE Diagnostic Data CXR Results FINDINGS: The cardiac silhouette is prominent, but stable. Intact midline sternal wires are present. The mediastinal and hilar contours are unremarkable. There are neither pleural effusions nor pneumothoraces. There are no consolidations. The osseous structures are unremarkable. IMPRESSION: No evidence for acute disease. Stable cardiomegaly. Assessment/Plan Assessment/Plan Assessment: 1. Chronic HFpEF with dyspnea - no overt left heart failure on exam or CXR. 2. Stable LE edema 3. Acute anemia of unclear etiology 4. Acute on chronic renal insufficiency with worsening BUN. 5. Hyperglycemia 6. Transaminitis 7. Known significant pulmonary HTN 8. History of CAD Recommendations: - Admit to telemetry for further monitoring. - Serial troponins and ECGs - Full work up for new anemia, including labs, stool guaiac, etc. - Continue current meds if tolerated. - FOllowup BUN and Creat in am - HOld further lasix for now pending followup labs, etc. - COnsider Nephrology input - COnsider ultrasound / bladder scan to rule out any obstructive component to renal dysfunction - Endocrinology input from Dr. Stubbs for assistance with DM management. - Consider limited followup echo to reassess LV function and RVSP. Consult Acknowledgment - Thank you for your consult request.
--- NOTE | 2017-01-02 18:01 | NUR ---
PT TO ROOM 188 BED 1
--- NOTE | 2017-01-02 18:54 | NUR ---
PT GIVEN DINNER IN ER. ATE APPROXIMATELY 75%. NO CHANGE.
--- NOTE | 2017-01-02 19:03 | NUR ---
REPORT GIVEN TO ZAIRE SHEFFIELD ON 1N. PT STABLE, FAMILY REMAINS AT SIDE.
[2017-01-02 19:43] VITALS: BP 110/48
[2017-01-02 23:03] LABS: ABSOLUTE BASOPHIL COUNT 0 /CUMM (0.0-0.2); ABSOLUTE EOSINOPHIL COUNT 0.2 /CUMM (0.0-0.7); ABSOLUTE GRANULOCYTE CT 5.3 /CUMM (1.4-6.5); ABSOLUTE LYMPH COUNT 0.6 /CUMM (1.2-3.4); ABSOLUTE MONOCYTE COUNT 0.6 /CUMM (0.10-0.60); BASOPHIL % 0.3 % (0.0-2.0); EOSINOPHIL % 3.2 % (0-5); GRANULOCYTE % 79.1 % (42.2-75.2); HEMATOCRIT 22.9 % (42-52); MEAN CORPUSCULAR HGB CONC 32.8 G/DL (33.0-37.0); MEAN CORPUSCULAR VOLUME 91.7 FL (80.0-94.0); MEAN PLATELET VOLUME 10.2 FL (7.4-10.4); PLATELET COUNT 222 /CUMM (130-400); RBC DISTRIBUTION WIDTH 15.6 % (11.5-14.5); WHITE BLOOD CELL COUNT 6.7 /CUMM (4.8-10.8)
[2017-01-02 23:51] VITALS: BP 130/60
[2017-01-03] VITALS (15 sets, daily range): BP systolic 120–143; BP diastolic 40–58
--- NOTE | 2017-01-03 06:27 | PN- Housestaff ---
See Addendum Subjective Follow-up For: Symptomatic anemia CHF Complaints: no complaints Tele-Events Since Last Visit: SR-SB, no events Subjective: Patient is comfortably lying in bed. Patient denies any chest pain, shortness of breath, dizziness, palpitation, nausea, vomiting or abdominal pain.. He feels much better this morning, says he feels so energetic which he hasn't felt in past 2 weeks. Review of Systems Constitutional: Reports: see HPI. Objective Last 24 Hrs of Vital Signs/I&O Vital Signs Date Time Temp Pulse Resp B/P B/P Pulse O2 O2 Flow FiO2 Mean Ox Delivery Rate 01/02 2351 98.0 64 20 130/60 94 Room Air 01/02 2225 62 142/54 01/02 1943 98.0 65 20 110/48 95 Room Air 01/02 1940 Room Air 01/02 1834 97.3 64 22 144/66 97 Room Air 01/02 1534 97.1 63 24 163/70 98 Room Air 01/02 1327 96.7 57 18 109/47 97 Room Air Intake & Output 01/03 0800 01/03 0000 01/02 1600 Intake Total 540 Output Total 1 250 Balance 539 -250 Intake, IV 60 Intake, Oral 480 Number 1 Bowel Movements Output, Other 1 Output, Urine 250 Patient 220 lb 221 lb Weight Weight Reported by Patient Reported by Patient Measurement Method Physical Exam General Appearance: Alert, Oriented X3, Cooperative, No Acute Distress Skin: b/l le redness Skin Temp/Moisture Exam: Warm/Dry Sepsis Skin Exam (color): Normal for Ethnicity HEENT: Atraumatic, PERRLA, EOMI, Mucous Membr. moist/pink Neck: Supple Cardiovascular: Normal S1, Normal S2, No Murmurs Lungs: Normal Air Movement Abdomen: Normal Bowel Sounds, Soft, No Tenderness Neurological: Normal Speech, Strength at 5/5 X4 Ext, Normal Tone, Sensation Intact, Cranial Nerves 3-12 NL Extremities: 1-2+ pitting ledal edema b/l le Vascular: Pulses Symmetrical Current Medications: Current Medications Sig/Alejandra Start time Last Medication Dose Route Stop Time Status Admin Acetaminophen 650 MG Q6P PRN 01/02 2100 AC PO Amiodarone HCl 200 MG DAILY 01/03 1000 AC PO Atorvastatin Calcium 80 MG 1700 01/03 1700 AC PO Clopidogrel Bisulfate 75 MG DAILY 01/03 1000 AC PO Doxazosin Mesylate 4 MG DAILY 01/03 1000 AC PO Folic Acid 1 MG DAILY 01/03 1000 AC PO Furosemide 80 MG 7:30 AM, & 4:30 PM 01/03 0730 AC PO Insulin Aspart 0 TIDAC 01/03 0800 AC SC Insulin Aspart 8 UNITS ONCE ONE 01/03 0115 DC 01/03 SC 01/03 0116 0124 Insulin Detemir 22 UNITS BID 01/02 2200 AC 01/02 SC 2225 Insulin Human Regular 8 UNITS ONCE ONE 01/02 1415 DC 01/02 IV 01/02 1416 1527 Insulin Human Regular 10 UNITS ONCE ONE 01/02 1415 DC 01/02 SC 01/02 1416 1529 Metoprolol Tartrate 25 MG BID 01/02 2200 AC 01/02 PO 2225 Nitroglycerin 0.4 MG DAILY 01/03 1000 AC TOP Sodium Chloride 1,000 ML ONCE ONE 01/02 1415 DC 01/02 IV 01/02 2054 1529 Assessment/Plan Assessment: This is a 76-year-old male with past medical history of CAD status post CABG, stage IV C daily, type I diabetes, 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 1. Symptomatic anemia ? Blood loss (significant drop in Hct, elevated BUN) although patient refuses any episode of bloody stool or melena but significant drop in hematocrit to suggest blood loss as etiology. He should also help CkD which could also be a contributing factor of anemia. - Monitor H&H - Stool guiac negative in ER, check all stool guaiac - Hold aspirin and Plavix - Repeat H&H in a.m. if it drops further consider gastroenterology evaluation - IRON STUDY noted low iron, and normal ferritin suggestive of CKD etiology 2. Hyperglycemia, type 1 diabetes - Accu-Cheks - Continue LEVEMIR 22 units twice a day and NovoLog sliding scale - check HBA1C - Endocrinology consult in a.m. 3. Acute on CKD stage 3 - Avoid nephrotoxic agent - monitor I & O's - Renal US in am pending - watch renal function - Hold RACHAEL inhibitor - Consider nephrology consult 4. compensated systolic congestive heart failure - Strict I and O's - daily weight - hold diuretics due to isaac on ckd, can resume after reviewing morning kidney function - readress diuresis regimen in am after reviewing kidney function - Held lisinopril due to ISAAC, resume if kidney function stable - Follow cardiology recommendation 5. History of CAD status post CABG - Patient denies any chest pain, full set of troponin negative - Serial troponin and EKG , so far negative - Held aspirin and Plavix due to concern of GI bleed - Continue beta holli, NTG 6. History of paroxysmal A. fib - Currently normal sinus rhythm - Continue amiodarone 7. DVT prophylaxis Mechanical 8. Full code Problem List: 1. Symptomatic anemia 2. Acute on chronic renal failure 3. CAD (coronary artery disease) of artery bypass graft 4. Paroxysmal atrial fibrillation Pain Ratin Pain Location: back Pain Goal: Pain 4 or less Pain Plan: tylenol Tomorrow's Labs & Rationales: BEP, CBC
[2017-01-03 08:14] LABS: ABSOLUTE BASOPHIL COUNT 0 /CUMM (0.0-0.2); ABSOLUTE EOSINOPHIL COUNT 0.3 /CUMM (0.0-0.7); ABSOLUTE GRANULOCYTE CT 4.3 /CUMM (1.4-6.5); ABSOLUTE LYMPH COUNT 0.6 /CUMM (1.2-3.4); ABSOLUTE MONOCYTE COUNT 0.5 /CUMM (0.10-0.60); BASOPHIL % 0.3 % (0.0-2.0); EOSINOPHIL % 5.4 % (0-5); GRANULOCYTE % 74.8 % (42.2-75.2); HEMATOCRIT 21.8 % (42-52); MEAN CORPUSCULAR HGB 29.8 PG (27.0-31.0); MEAN CORPUSCULAR HGB CONC 32.9 G/DL (33.0-37.0); MEAN CORPUSCULAR VOLUME 90.6 FL (80.0-94.0); MEAN PLATELET VOLUME 9.7 FL (7.4-10.4); PLATELET COUNT 199 /CUMM (130-400); WHITE BLOOD CELL COUNT 5.8 /CUMM (4.8-10.8)
--- NOTE | 2017-01-03 09:46 | PN- Cardiology ---
Subjective Subjective: * No shortness of breath at rest although patient reports exercise intolerance characterized by shortness of breath. No chest discomfort or lightheadedness. * Persistent leg swelling * Known decreased EF * creatinine 2.4 with potassium 3.4 * sinus rhtyhm Objective Vital Signs and I&Os Vital Signs Date Time Temp Pulse Resp B/P B/P Pulse O2 O2 Flow FiO2 Mean Ox Delivery Rate 01/03 0855 98.8 57 17 121/58 97 Room Air 01/02 2351 98.0 64 20 130/60 94 Room Air 01/02 2225 62 142/54 01/02 1943 98.0 65 20 110/48 95 Room Air 01/02 1940 Room Air 01/02 1834 97.3 64 22 144/66 97 Room Air 01/02 1534 97.1 63 24 163/70 98 Room Air 01/02 1327 96.7 57 18 109/47 97 Room Air Intake & Output 01/03 1600 01/03 0800 01/03 0000 01/02 1600 01/02 0800 01/02 0000 Intake Total 540 Output Total 500 1 250 Balance -500 539 -250 Intake, IV 60 Intake, Oral 480 Number 1 Bowel Movements Output, Other 1 Output, Urine 500 250 Patient 220 lb 221 lb Weight Weight Reported by Patient Reported by Patient Measurement Method Physical Exam: General: WD/ WN male in NAD; alert and oriented x 3 Neck: no JVD Heart: RRR Lungs: clear Extremities: 2+ leg edema bilaterally Assessment/Plan Assessment/Plan * Severe anemia likely related to chronic renal insufficiency although bleeding cannot be excluded. This situation is likely causing his exercise intolerance and shortness of breath with activity. I recommend pursuing an anemia workup including a serum haptoglobin and reticulocyte count which would be elevated if bleeding. No recent chemotherapy to account for his anemia. Guaiac all stools. Continue aspirin and Plavix for now. * Elevated serum transaminases likely related to his statin since this rise was first noted on August 28 before beginning his Amiodarone. Worsening of these labs from Amiodarone cannot be excluded as a possibility. Considering his history of cancer this should also be included in the differention. This patient has no history of paroxysmal atrial fibrillation. The Amiodarone is for NSVT in the setting of a reduced EF. Continue Amiodarone for now. Hold his statin and follow his hepatic transaminases. Obtain an echocardiogram and consider an ultrasound of the liver. * Renal failure in the setting a aggressive diuresis with decreased EF. Begin a Dobutamine drip at 5mcg/kg/minute. Continue Lasix at 80mg IV daily after beginning his Dobutamine. Continue Lisinopril 20mg daily. Continue telemetry? Yes
--- NOTE | 2017-01-03 10:52 | NUR ---
TO ULTRASOUND VIA STRETCHER. OKAY TO BE OFF EKG/ECG TECHNICIAN PER DR ADHIKARI. PATIENT ALERT ORIENTED X3. NO COMPLAINTS.
--- NOTE | 2017-01-03 11:42 | ULTRASOUND REPORT ---
EXAMINATION: US RETROPERITONEAL COMPLETE (RENAL) CLINICAL INFORMATION: Renal failure. COMPARISON: None. TECHNIQUE: Real-time imaging of the kidneys and bladder. FINDINGS: RIGHT KIDNEY: 12.2 x 6.2 x 6.7 cm (SAG x AP x TRV). The kidney is normal in size, contour, and echogenicity. Renal cortical thickness is normal. No calculi or focal parenchymal lesions. No hydronephrosis. LEFT KIDNEY: 11.7 x 6.3 x 6.5 cm (SAG x AP x TRV). The kidney is normal in size, contour, and echogenicity. Renal cortical thickness is normal. No calculi or focal parenchymal lesions. No hydronephrosis. BLADDER: Well-distended and normal. There is a large prostatic impression upon the bladder base. Bilateral ureteral jets are not demonstrated. OTHER: There is prostatomegaly, with a estimated volume of 180.1 mL. IMPRESSION: 1. Unremarkable bilateral renal ultrasound examination. 2. There is marked prostatomegaly.
--- NOTE | 2017-01-03 11:50 | NUR ---
BACK FROM ULTRASOUND. PLACED BACK ON MONITOR, 1ST DEGREE AV BLOCK, HR 58. NO COMPLAINTS. PATIENT ALERT ORIENTED. SETTLED BACK INTO ROOM. CALL BEASLEY IN REACH.
--- NOTE | 2017-01-03 13:45 | NUR ---
PER [facility], ASSISTING PATIENT FROM RECLINER TO BED FOR EKG, PATIENT REPORTED DIZZINESS AND FEELING LIKE HE MAY PASS OUT. ASSISTED SAFELY TO BED. THIS NURSE IN TO ASSESS PATIENT. PATIENT REPORTED "IT FEELS LIKE AN INSULIN REACTION. BP 120/40, P 52, ACCU CHECK 281. PATIENT REPORTED FEELING BETTER ONCE BACK IN BED. EKG DONE, NOTIFIED LOCAL [place] TRUCK DRIVER DR ADHIKARI. REPORTED THIS EPISODE TO DR LIVE, AND HE REPORTS THAT IF BP DOES DROP FURTHER MAY REMOVE NTG PATCH. WILL CONTINUE TO MONITOR AND OKAY TO START DOBUTAMIN DRIP. CALL BEASLEY IN REACH. SPOUSE AT BEDSIDE FOR EMOTIONAL SUPPORT.
--- NOTE | 2017-01-03 13:58 | Cons- Endocrinology ---
General Information and HPI Consulting Request Date of Consult: 01/03/17 Requested By: medical team Reason for Consult: management of DM Source of Information: patient, old records Exam Limitations: no limitations History of Present Illness: 76-year-old male with past medical history of coronary artery disease status post CABG, recent and STEMI, diabetes uncontrolled, CK D stage IV, hypertension , bladder cancer status post TURBT, was admitted for elevated BUN, high blood sugars, and worsening weakness. He was put on Levemir 22 units twice a day, Novolog coverage before meals and his FSGs were 447, 440, 386, 381, 375, 400, 395, 234 and 273. He is going to be on Dobutamine drip to improve cardiac function. Allergies/Medications Allergies: Coded Allergies: NO KNOWN ALLERGIES (09/24/15) Home Med List: Amiodarone HCl 200 MG TABLET 1 TAB PO DAILY HEART (Reported) Aspirin (Ecotrin*) 81 MG TABLET.DR 2 TAB PO DAILY HEART/BLOOD Clopidogrel Bisulfate (Clopidogrel) 75 MG TABLET 1 TAB PO DAILY HEART HEALTH Doxazosin Mesylate (Cardura) 4 MG TABLET 4 MG PO DAILY BPH (Reported) Ezetimibe/Simvastatin (Vytorin 10-80 MG Tablet) 10 MG-80 MG TABLET 1 TAB PO DAILY CHOLESTEROL (Reported) Folic Acid 0.8 MG CAPSULE 1 CAP PO DAILY SUPPLEMENT (Reported) Furosemide (Lasix) 80 MG TABLET 1 TAB PO BID DIURETIC (Reported) Insulin Glargine,Hum.rec.anlog (Lantus Solostar) 100 UNIT/ML (3 ML) INSULN.PEN 22 UNITS SC BID DM (Reported) Insulin Lispro (Humalog) 100 UNIT/ML VIAL DM (Reported) Lisinopril 20 MG TABLET 1 TAB PO DAILY BP (Reported) Metoprolol Tartrate 25 MG TABLET 1 TAB PO BID HEART/BP (Reported) Nitroglycerin (Nitroglycerin Patch) 0.4 MG/HOUR PATCH.TD24 1 PATCH TOP DAILY HEART HEALTH 12 hours on, 12 hours off Vitamin B Complex 1 EACH CAPSULE 1 CAP PO DAILY SUPPLEMENT (Reported) Review of Systems Review of Systems Constitutional: Reports: see HPI, weakness. Cardiovascular: Reports: edema. Respiratory: Reports: short of breath. GI: Denies: abdominal pain. Hematologic/Endocrine: Denies: polyuria, polydipsia. Past History Travel History Traveled to [place] past 21 day No Medical History Blood Transfusion Hx: No Neurological: NONE EENT: allergies, hearing loss Cardiovascular: CHF, hypertension, hyperlipidemia, myocardial infarction, CABG Respiratory: NONE Gastrointestinal: NONE Hepatic: NONE Renal: NONE Musculoskeletal: osteoarthritis Psychiatric: NONE Endocrine: diabetes Blood Disorders: NONE Cancer(s): bladder cancer [employer]LEMENT[employer] SUB[employer] TE[employer]ER/Reproductive: NONE Surgical History Surgical History: CABG Psychosocial History Where Do You Live? Home Who Do You Live With? spouse Services at Home: None Primary Language: Georgian Smoking Status: Never Smoked ETOH Use: denies use Illicit Drug Use: denies illicit drug use Functional Ability Ambulation: cane, previously independent Exam & Diagnostic Data Last 24 Hrs of Vital Signs/I&O Vital Signs Date Time Temp Pulse Resp B/P B/P Pulse O2 O2 Flow FiO2 Mean Ox Delivery Rate 01/03 1021 60 130/50 01/03 0855 98.8 57 17 121/58 97 Room Air 01/02 2351 98.0 64 20 130/60 94 Room Air 01/02 2225 62 142/54 01/02 1943 98.0 65 20 110/48 95 Room Air 01/02 1940 Room Air 01/02 1834 97.3 64 22 144/66 97 Room Air 01/02 1534 97.1 63 24 163/70 98 Room Air Intake & Output 01/03 1600 01/03 0800 01/03 0000 Intake Total 540 Output Total 500 1 Balance -500 539 Intake, IV 60 Intake, Oral 480 Number 1 Bowel Movements Output, Other 1 Output, Urine 500 Patient 214 lb 220 lb Weight Weight Standing Scale Reported by Patient Measurement Method Physical Exam General Appearance: no apparent distress Respiratory: decreased breath sounds Cardiovascular: regular rate/rhythm Gastrointestinal: distention Extremities: swelling Labs/Ruben Results: Laboratory Tests 01/03 01/03 01/03 0630 0600 0500 Chemistry Sodium (137 - 145 mmol/L) 140 Potassium (3.5 - 5.1 mmol/L) 3.4 L Chloride (98 - 107 mmol/L) 103 Carbon Dioxide (22 - 30 mmol/L) 23 Anion Gap (5 - 16) 15 BUN (9 - 20 mg/dL) 104 *H Creatinine (0.7 - 1.2 mg/dL) 2.4 H Estimated GFR (>60 ml/min) 26 L BUN/Creatinine Ratio (7 - 25 %) 43.3 H Troponin I (<0.11 ng/ml) 0.03 Cancelled Hematology CBC w Diff NO MAN DIFF REQ WBC (4.8 - 10.8 /CUMM) 5.8 RBC (4.70 - 6.10 /CUMM) 2.40 L Hgb (14.0 - 18.0 G/DL) 7.2 *L Hct (42 - 52 %) 21.8 L MCV (80.0 - 94.0 FL) 90.6 MCH (27.0 - 31.0 PG) 29.8 RDW (11.5 - 14.5 %) 16.0 H Plt Count (130 - 400 /CUMM) 199 MPV (7.4 - 10.4 FL) 9.7 Gran % (42.2 - 75.2 %) 74.8 Lymphocytes % (20.5 - 51.1 %) 11.1 L Monocytes % (1.7 - 9.3 %) 8.4 Eosinophils % (0 - 5 %) 5.4 H Basophils % (0.0 - 2.0 %) 0.3 Absolute Granulocytes (1.4 - 6.5 /CUMM) 4.3 Absolute Lymphocytes (1.2 - 3.4 /CUMM) 0.6 L Absolute Monocytes (0.10 - 0.60 /CUMM) 0.5 Absolute Eosinophils (0.0 - 0.7 /CUMM) 0.3 Absolute Basophils (0.0 - 0.2 /CUMM) 0 PUBS MCHC (33.0 - 37.0 G/DL) 32.9 L Retic Count (0.5 - 2.0 %) 3.67 H Haptoglobin Pending 01/02 01/02 2220 1712 Chemistry Lactic Acid Cancelled Troponin I (<0.11 ng/ml) 0.04 Hematology CBC w Diff NO MAN DIFF REQ WBC (4.8 - 10.8 /CUMM) 6.7 RBC (4.70 - 6.10 /CUMM) 2.50 L Hgb (14.0 - 18.0 G/DL) 7.5 L Hct (42 - 52 %) 22.9 L MCV (80.0 - 94.0 FL) 91.7 MCH (27.0 - 31.0 PG) 30.0 RDW (11.5 - 14.5 %) 15.6 H Plt Count (130 - 400 /CUMM) 222 MPV (7.4 - 10.4 FL) 10.2 Gran % (42.2 - 75.2 %) 79.1 H Lymphocytes % (20.5 - 51.1 %) 8.7 L Monocytes % (1.7 - 9.3 %) 8.7 Eosinophils % (0 - 5 %) 3.2 Basophils % (0.0 - 2.0 %) 0.3 Absolute Granulocytes (1.4 - 6.5 /CUMM) 5.3 Absolute Lymphocytes (1.2 - 3.4 /CUMM) 0.6 L Absolute Monocytes (0.10 - 0.60 /CUMM) 0.6 Absolute Eosinophils (0.0 - 0.7 /CUMM) 0.2 Absolute Basophils (0.0 - 0.2 /CUMM) 0 PUBS MCHC (33.0 - 37.0 G/DL) 32.8 L 01/02 01/02 1536 1442 Chemistry Lactic Acid (0.7 - 2.1 mmol/L) 1.7 Urines Urine Color (YEL,AMB,STR) YEL Urine Clarity (CLEAR) CLEAR Urine pH (5.0 - 8.0) 6.0 Ur Specific [place] (1.001 - 1.035) 1.010 Urine Protein (NEG,<30 MG/DL) NEG Urine Ketones (NEG) NEG Urine Nitrite (NEG) NEG Urine Bilirubin (NEG) NEG Urine Urobilinogen (0.1 - 1.0 EU/dl) 0.2 Ur Leukocyte Esterase (NEG) LARGE H Ur Microscopic SEDIMENT EXAMINED Urine WBC (0 - 2 /HPF) 3-5 H Ur Epithelial Cells (NONE,FEW) FEW Hyaline Casts (0/LPF) RARE H Urine Hemoglobin (NEG) NEG Urine Glucose (N MG/DL) 100 H 01/02 1442 Blood Gas Bicarbonate Actual (22 - 26 MEQ/L) 24 Mixed VBG pH (7.31 - 7.41 PH) 7.42 H Mixed VBG pCO2 (41 - 51 TORR) 38 L Mixed VBG O2 Saturation (35 - 45 TORR) 36 P-50 (Temp Corrected) YES Carboxyhemoglobin (1.5 - 5.0 %) 1.3 L O2 Concentration % RA Temperature (97.0 - 100.0 FARH) 96.7 L O2 Delivery Method RA Chemistry Sodium (137 - 145 mmol/L) 135 L Potassium (3.5 - 5.1 mmol/L) 4.2 Chloride (98 - 107 mmol/L) 99 Carbon Dioxide (22 - 30 mmol/L) 23 Anion Gap (5 - 16) 13 BUN (9 - 20 mg/dL) 106 *H Creatinine (0.7 - 1.2 mg/dL) 2.5 H Estimated GFR (>60 ml/min) 25 L BUN/Creatinine Ratio (7 - 25 %) 42.4 H Glucose (65 - 99 mg/dL) 407 H Hemoglobin A1c (4.2 - 5.8 %) 9.6 H Calcium (8.4 - 10.2 mg/dL) 8.6 Iron (49 - 181 ug/dL) 35 L TIBC (261 - 462 ug/dL) 337 Ferritin (17.9 - 464 ng/mL) 28.6 Total Bilirubin (0.2 - 1.3 mg/dL) 0.9 AST (17 - 59 U/L) 80 H ALT (21 - 72 U/L) 199 H Alkaline Phosphatase (< 127 U/L) 89 Troponin I (<0.11 ng/ml) 0.02 [id number]-Tzciasszjux Pept (<125 pg/mL) 3690 H Total Protein (6.3 - 8.2 g/dL) 5.6 L Albumin (3.5 - 5.0 g/dL) 3.0 L Globulin (1.9 - 4.2 gm/dL) 2.6 Albumin/Globulin Ratio (1.1 - 2.2 %) 1.2 Amylase (30 - 110 U/L) 41 Lipase (23 - 300 U/L) 276 Vitamin B12 (239 - 931 pg/mL) 339 Coagulation PT (9.4 - 12.5 SEC) 12.5 INR (0.90 - 1.17) 1.19 H APTT (25 - 37 SEC) 27 Hematology CBC w Diff NO MAN DIFF REQ WBC (4.8 - 10.8 /CUMM) 5.5 RBC (4.70 - 6.10 /CUMM) 2.48 L Hgb (14.0 - 18.0 G/DL) 7.4 *L Hct (42 - 52 %) 22.6 L MCV (80.0 - 94.0 FL) 91.3 MCH (27.0 - 31.0 PG) 30.1 RDW (11.5 - 14.5 %) 15.7 H Plt Count (130 - 400 /CUMM) 213 MPV (7.4 - 10.4 FL) 9.7 Gran % (42.2 - 75.2 %) 79.4 H Lymphocytes % (20.5 - 51.1 %) 9.0 L Monocytes % (1.7 - 9.3 %) 8.8 Eosinophils % (0 - 5 %) 2.5 Basophils % (0.0 - 2.0 %) 0.3 Absolute Granulocytes (1.4 - 6.5 /CUMM) 4.4 Absolute Lymphocytes (1.2 - 3.4 /CUMM) 0.5 L Absolute Monocytes (0.10 - 0.60 /CUMM) 0.5 Absolute Eosinophils (0.0 - 0.7 /CUMM) 0.1 Absolute Basophils (0.0 - 0.2 /CUMM) 0 PUBS MCHC (33.0 - 37.0 G/DL) 32.9 L Miscellaneous Phlebotomy Draw Site RAC Toxicology Acetone Level (NEGATIVE) NEGATIVE Assessment/Plan Assessment/Plan 76-year-old male with past medical history of coronary artery disease status post CABG, recent and STEMI, diabetes uncontrolled, CK D stage IV, hypertension , bladder cancer status post TURBT, was admitted for elevated BUN, high blood sugars, and worsening weakness. his FSGs haven't been controlled. 1. continue Levemir 22 units twice a day; 2. adjust Novolog coverage before meals and add Novolog coverage at bedtime-- detail see the inpatient DM orders. 3. monitor FSGs will follow. Inpatient Diabetes Orders Before Each Meal: Bolus Insulin: Novolog < 80 mg/dl: no coverage 80-100 mg/dl: 6 units 101-120 mg/dl: 6 units 121-150 mg/dl: 6 units 151-200 mg/dl: 8 units 201-250 mg/dl: 10 units 251-300 mg/dl: 12 units 301-350 mg/dl: 14 units 351-400 mg/dl: 16 units > 400 mg/dl: 18 units Bedtime: Bolus Insulin: Novolog < 80 mg/dl: no coverage 80-100 mg/dl: no coverage 101-120 mg/dl: no coverage 121-150 mg/dl: no coverage 151-200 mg/dl: no coverage 201-250 mg/dl: no coverage 251-300 mg/dl: 2 units 301-350 mg/dl: 3 units 351-400 mg/dl: 4 units > 400 mg/dl: 5 units Consult Acknowledgment - Thank you for your consult request.
--- NOTE | 2017-01-03 14:45 | NUR ---
DOBUTAMINE DRIP STARTED 5 MCG/KG/HR, 29.1ML/HR. #20 LFA IV LOCK INTACT, NO COMPLAINTS WITH NS FLUSH. REVIEWED POC WITH PATIENT AND SPOUSE, REVIEWED MEDICATION, SIDE EFFECTS. EKG AND WEIGHT DONE PRIOR TO BEGINNING DRIP. WILL MAINTAIN PER PROTOCOL. SEE VITAL SIGN FLOWSHEET FOR FURTHER DOCUMENTATION.
[2017-01-04] VITALS (12 sets, daily range): BP systolic 80–136; BP diastolic 40–60
[2017-01-04 08:17] LABS: ABSOLUTE BASOPHIL COUNT 0 /CUMM (0.0-0.2); ABSOLUTE EOSINOPHIL COUNT 0.2 /CUMM (0.0-0.7); ABSOLUTE GRANULOCYTE CT 4.5 /CUMM (1.4-6.5); ABSOLUTE LYMPH COUNT 0.6 /CUMM (1.2-3.4); ABSOLUTE MONOCYTE COUNT 0.5 /CUMM (0.10-0.60); BASOPHIL % 0.3 % (0.0-2.0); EOSINOPHIL % 3.6 % (0-5); GRANULOCYTE % 76.7 % (42.2-75.2); HEMATOCRIT 21.9 % (42-52); MEAN CORPUSCULAR HGB 29.9 PG (27.0-31.0); MEAN CORPUSCULAR HGB CONC 32.6 G/DL (33.0-37.0); MEAN CORPUSCULAR VOLUME 91.6 FL (80.0-94.0); MEAN PLATELET VOLUME 9.7 FL (7.4-10.4); PLATELET COUNT 234 /CUMM (130-400); RBC DISTRIBUTION WIDTH 16.2 % (11.5-14.5); RED BLOOD CELL CT 2.39 /CUMM (4.70-6.10); WHITE BLOOD CELL COUNT 5.9 /CUMM (4.8-10.8)
--- NOTE | 2017-01-04 09:12 | PN- Housestaff ---
JULIO VARMA,[facility] [place] 01/04/17 0912: Subjective Follow-up For: Symptomatic anemia Acute on chronic HFpEF Uncontrolled T1DM Tele-Events Since Last Visit: Sinus rhythm HR 58-70 First degree heart block AK interval 0.22 Subjective: No acute events overnight. Patient seen and examined this morning. He feels well and has no complaints. He denies chest pain, palpitations and shortness of breath. Today around 1 PM while patient was still on IV dobutamine drip, his BP was measured at 80/40 while sitting in chair. Patient was subsequently being assisted back to bed by nursing staff, however he lost consciousness upon rising from the chair. Rapid response was called. BP was rechecked and was 56/40. HR was 58. Patient was satting 99% on room air. Accu-check was 154. Nitroglycerin patch was subsequently taken off. Patient woke up within five minutes and became responsive. Patient was seen by Dr. Aguiar at bedside and dobutamine IV drip and Lasix were discontinued according to his recommendations. 10 minutes later, repeat blood pressure was 92/40. Patient was awake, alert and interactive. Decision was made to transfer him to the ICU for closer monitoring. Once patient arrived in the ICU and settled into the bed, 20-second seizure activity was noted followed by bradycardia to low 40s and vomiting bloody emesis. Asystole was detected on the monitor. CPR was started and continued for four minutes with injection of epinephrine once. Patient regained consciousness but shortly after started vomiting again. Total volume of emesis was estimated around 1 L. Review of Systems Constitutional: Reports: see HPI. Objective Last 24 Hrs of Vital Signs/I&O Vital Signs Date Time Temp Pulse Resp B/P B/P Pulse O2 O2 Flow FiO2 Mean Ox Delivery Rate 01/05 0116 35 01/05 0000 99 Ventilator 35% 01/05 0000 96.8 63 18 110/70 99 Ventilator 35% 01/04 2200 35 01/04 2004 45 01/05 2000 99 Ventilator 45% 01/04 1618 45 01/04 1600 100 Ventilator 45% 01/04 1455 100 04 1320 92/40 04 1305 80/40 04 1140 72 124/50 01/04 1033 72 112/40 01/04 1032 72 112/40 01/04 1032 72 112/40 01/04 1030 72 112/40 04/30 0850 71 136/50 01/04 0850 70 136/50 01/04 0800 Room Air 01/04 0739 98.4 68 16 110/52 95 Room Air 01/04 0538 67 136/50 01/04 0449 71 130/60 01/04 0334 130/50 Intake & Output 05 0800 05/ 0000 01/04 1600 Intake Total 930 Output Total 280 550 Balance 650 -550 Intake, Blood 350 Product Intake, IV 580 Number 1 Bowel Movements Output, 0 Gastric Drainage Output, Urine 280 550 Physical Exam General Appearance: Alert, Oriented X3, No Acute Distress HEENT: Atraumatic, Mucous Membr. moist/pink Neck: Supple Cardiovascular: Regular Rate, Normal S1, Normal S2 Lungs: Clear to Auscultation Abdomen: Soft, No Tenderness, Positive Bowel Sounds Extremities: No Clubbing, No Cyanosis, Bilateral Lower Extremities with 2+ Pitting Edema Current Medications: Current Medications Sig/Alejandra Start time Last Medication Dose Route Stop Time Status Admin Acetaminophen 650 MG Q6P PRN 01/02 2100 AC PO Amiodarone HCl 200 MG DAILY 01/03 1000 DC 01/04 PO 1032 Ampicillin Sodium/ 1,500 MG Q12 01/04 1339 AC 01/04 Sulbactam Sodium IV 2201 Sodium Chloride 100 ML Aspirin 81 MG DAILY 01/04 1000 DC PO Clopidogrel Bisulfate 75 MG DAILY 01/03 1000 DC 01/03 PO 1253 Dextrose/Sodium 1,000 ML Q20H 01/04 1900 AC 01/04 Chloride IV 1905 Dobutamine HCl 250 MG Q9H 01/03 1300 DC 01/04 Sodium Chloride 250 ML IV 0850 Doxazosin Mesylate 4 MG DAILY 01/03 1000 AC 01/04 PO 1032 Epinephrine 1 MG ONCE ONE 01/04 1345 CAN IV 01/04 1346 Fentanyl Citrate 50 MCG ONCE ONE 01/04 1600 DC 01/04 IV 01/04 1601 1600 Fentanyl Citrate 1,000 MCG Q24H 01/04 1545 CAN Dextrose/Water 250 ML IV Fentanyl Citrate 2 MCG ONCE ONE 01/04 1545 CAN IV 01/04 1546 Fluocinonide 1 ROLAND BID 01/04 1146 AC 01/04 TOP 2159 Folic Acid 1 MG DAILY 01/03 1000 AC 01/04 PO 1032 Furosemide 80 MG DAILY 01/04 1000 DC 01/04 IV 1138 Glucagon 1 MG .Q3M 01/04 1445 DC 01/04 N/A 1 UNIT IV 01/04 1447 1445 Hydrocortisone 50 MG Q8 01/04 2200 CAN Sodium Succinate IV 01/05 1401 Hydrocortisone 50 MG Q8 01/04 1758 AC 01/04 Sodium Succinate IV 01/05 0601 2202 Hydrocortisone 100 MG Q8 01/04 1540 DC Sodium Succinate IV Insulin Aspart 0 TIDAC/HS 01/03 1700 DC 01/04 SC 1236 Insulin Detemir 20 UNITS BID 01/04 1000 AC 01/04 SC 2202 Insulin Detemir 22 UNITS BID 01/02 2200 DC 01/03 SC 2113 Insulin Human Regular 0 Q6 01/04 1800 AC 01/05 SC 0016 Levetiracetam 500 MG ONCE ONE 01/04 1545 DC 01/04 N/A 1 UNIT IV 01/04 1559 1757 Lisinopril 20 MG DAILY 01/03 1945 DC 01/04 PO 1033 Lorazepam 50 MG ONCE ONE 01/04 1445 CAN Sodium Chloride 500 ML IV 01/04 1446 Lorazepam 50 MG Q24H 01/04 1445 DC Sodium Chloride 500 ML IV Lorazepam 60 MG .STK-MED ONE 01/04 1443 DC IM 01/04 1444 Lorazepam 2 MG .STK-MED ONE 01/04 1405 DC IM 01/04 1406 Metoprolol Tartrate 25 MG BID 01/02 2200 DC 01/04 PO 1032 Nitroglycerin 0.4 MG DAILY 01/03 1000 AC 01/04 TOP 1033 Non-Formulary 0 SEE ADMIN CRITERIA 01/04 1415 CAN Medication ANY Non-Formulary 0 SEE ADMIN CRITERIA 01/04 1415 DC Medication ANY Norepinephrine 4 MG Q24H 01/04 1500 DC Sodium Chloride 250 ML IV Norepinephrine 4 MG .STK-MED ONE 01/04 1452 DC IV 01/04 1453 Ondansetron HCl 4 MG Q6P PRN 01/04 1345 AC 01/04 IV 1347 Pantoprazole Sodium 40 MG DAILY 01/04 1346 AC 01/04 IV 1622 Propofol 1,000 MG Q12H 01/04 1500 CAN N/A 100 ML IV Propofol 1,000 MG .STK-MED ONE 01/04 1415 DC IV 01/04 1416 Sodium Chloride 1,000 ML BOLUS ONE 01/04 1500 DC 01/04 IV 01/04 1559 1500 Sodium Chloride 1,000 ML BOLUS ONE 01/04 1345 DC IV 01/04 1444 Sodium Chloride 1,000 ML Q13H 01/04 1345 DC 01/04 IV 01/05 1544 1349 Last 24 Hrs of Lab/Ruben Results Last 24 Hrs of Labs/Mics: Laboratory Tests 01/05/17 0125: Troponin I 2.53 *H 01/04/17 1950: Anion Gap 11, Estimated GFR 26 L, Glucose 79, Lactic Acid 1.7, Calcium 8.9, Phosphorus 4.9 H, Magnesium 2.6 H, Total Bilirubin 2.8 H, AST 141 H, ALT 199 H, Troponin I 1.96 *H, Albumin 3.1 L, CBC w Diff NO MAN DIFF REQ, RBC 3.02 L, MCV 91.6, MCH 29.9, RDW 16.2 H, MPV 9.7, Gran % 86.5 H, Lymphocytes % 3.8 L, Monocytes % 8.7, Eosinophils % 0.7, Basophils % 0.3, Absolute Granulocytes 6.2, Absolute Lymphocytes 0.3 L, Absolute Monocytes 0.6, Absolute Eosinophils 0, Absolute Basophils 0, PUBS MCHC 32.7 L 01/04/17 1350: Total Bilirubin Cancelled, Direct Bilirubin Cancelled, AST Cancelled, ALT Cancelled, Alkaline Phosphatase Cancelled, Total Protein Cancelled, Albumin Cancelled 01/04/17 1350: pH 7.43, pCO2 28 L, pO2 96, HCO3 18 L, ABG O2 Sat (Measured) 95.0 L, P-50 ( Temp Corrected) N, Carboxyhemoglobin 1.4 L, O2 Concentration % .21, Temperature 98.4, O2 Delivery Method RA, Anion Gap 14, Estimated GFR 26 L, BUN/Creatinine Ratio 37.5 H, Lactic Acid 4.3 H, Magnesium 2.6 H, Total Bilirubin 0.9, Direct Bilirubin 0.3, AST 94 H, ALT 168 H, Alkaline Phosphatase 79, Troponin I 1.13 * H, Total Protein 5.7 L, Albumin 2.9 L, TSH 3.970, Free T4 1.30, PT 11.7, INR 1.12, CBC w Diff NO MAN DIFF REQ, RBC 2.27 L, MCV 92.4, MCH 29.8, RDW 16.2 H, MPV 9.8, Gran % 80.2 H, Lymphocytes % 9.5 L, Monocytes % 7.5, Eosinophils % 2.6, Basophils % 0.2, Absolute Granulocytes 5.2, Absolute Lymphocytes 0.6 L, Absolute Monocytes 0.5, Absolute Eosinophils 0.2, Absolute Basophils 0, PUBS MCHC 32.2 L, Phlebotomy Draw Site LEFT RADIAL 01/04/17 0650: Anion Gap 11, Estimated GFR 26 L, BUN/Creatinine Ratio 40.0 H, Cortisol AM Sample 13.0, CBC w Diff NO MAN DIFF REQ, RBC 2.39 L, MCV 91.6, MCH 29.9, RDW 16.2 H, MPV 9.7, Gran % 76.7 H, Lymphocytes % 10.2 L, Monocytes % 9.2, Eosinophils % 3.6, Basophils % 0.3, Absolute Granulocytes 4.5, Absolute Lymphocytes 0.6 L, Absolute Monocytes 0.5, Absolute Eosinophils 0.2, Absolute Basophils 0, PUBS MCHC 32.6 L Microbiology 01/04 2050 GI: Surveillance Culture - RECD 01/04 1628 LOWER RESP: Respiratory Culture - COLB 01/04 1628 LOWER RESP: Gram Stain - COLB 01/04 1440 UPPER RESP: Surveillance Culture - RECD 01/04 1440 BLOOD: Blood Culture - RECD 01/04 1422 URINE ROUT: Urine Culture - RECD 01/04 1400 BLOOD: Blood Culture - RECD Orders Radiology Findings: RUQ US: 1. There is mild hepatomegaly. 2. There is a relatively stable left hepatic lobe mass, previously described. Again, this can be more fully evaluated with dynamic MRI, if clinically indicated. 3. There is biliary sludge, without cholelithiasis, cholecystitis or choledocholithiasis. Assessment/Plan Assessment: 76 y/o M with PMHx of CAD s/b CABG, T1DM, CKD stage IV and HFpEF who is admitted for further evaluation of progressively increasing BUN and worsening hyperglycemia. #Cardiopulmonary arrest: Following syncopal episode. Patient was hypotensive during both episodes. S/p CPR. * Transfer to the ICU. Further management per ICU team. * Stat CBC, BMP, LFTs, Mg, troponin and EKG ordered. * Cardiology following. Appreciate their recs. #Symptomatic anemia: Likely multifactorial secondary to CKD with superimposed GI blood loss component in view of guaiac positive stools and increased reticulocyte count. Likely explanation for patient's dyspnea on exertion. * GI consulted. Appreciate their recs. * Hold off oral anticoagulation. Discontinue Plavix and aspirin. * Transfuse 2 units of pRBCs. * Guaiac all stools. #HFpEF: Most recent ECHO in August 2016 with LVEF of 45-50%. * ECHO pending. * Dobutamine IV drip and Lasix stopped secondary to hypotension. * Monitor I/Os and daily BMPs. #Elevated LFTs: Likely related to statin use although amiodarone toxicity is on the differential as well. RUQ US with mild hepatomegaly and relatively stable left hepatic lobe mass. * Hold statin. * Monitor LFTs. #CKD stage IV: Cr stable at 2.4 today. * Nephrology consulted. Appreciate their recs. * Avoid nephrotoxic agents. #T1DM: * Endocrinology following. Appreciate their recs. * Decrease Levemir to 20 units SQ daily. * Accu-checks and sliding scale insulin. Diet: NPO DVT PPx: ALPs CODE: FULL Problem List: 1. T1DM (type 1 diabetes mellitus) 2. HFrEF (heart failure with reduced ejection fraction) 3. Asystole 4. Cardiopulmonary arrest 5. Symptomatic anemia 6. Stage 4 chronic kidney disease 7. Transaminitis Pain Ratin Pain Location: N/A Pain Goal: Remain pain free Pain Plan: Tylenol 650 mg PO Q6H Tomorrow's Labs & Rationales: CBC and ICU bundle KARLI VARMA,[facility] 01/04/17 1352: Attending MD Review Statement Attending Statement Attending MD Statement: examined this patient, discuss w/resident/PA/RENT CONTROL OFFICE MANAGER, agreed w/resident/PA/RENT CONTROL OFFICE MANAGER, discussed with family, reviewed EMR data (avail), discussed with nursing, discussed with case mgmt, reviewed images, amended to note Attending Assessment/Plan: 76-year-old male with past medical history significant for CAD status post CABG, and STEMI, poorly controlled diabetes mellitus, CK D stage IV, hypertension, CA bladder status post TURP who has been admitted with shortness of breath in the setting of elevated BUN, hyperglycemia and symptomatic anemia. Patient was seen and examined on the bedside and reports no shortness of breath while sitting in chair in the morning. Vitals stable and labs were reviewed. Patient currently is being worked up for anemia, though he has CKD. His anemia is also contributing to his shortness of breath along with CHF exacerbation. Cardiology on board and recommended to continue with aspirin and Plavix for now. His statins were discontinued given his elevated LFTs. His amiodarone will be continued and will get a new echocardiogram. Patient was also begun on a low- dose dobutamine drip at 5 mcg/kg/m and continued on Lasix 80 mg IV daily. We will closely monitor the patient. update: pt had a rapid response around noon time while he was standing from a sitting position and passed out. He demonstrated no arrhythmias at the time of passing out. His dobutamine drip was discontinued and was transferred out to the ICU where he once again coded/passed out. Patient was hypotensice at the time and was flushed with IV saline. Patient also had bloody vomitus and given guaiac positive stools. CPR was done, patient was stabilized and the condition of the patient and further course of action discussed with the patient as well. We'll transfuse him 2 units of packed RBCs and will call GI consult for possible upper GI endoscopy. Will continue to follow up on H&H. We'll start him on a PPI, no beta blockers, no anticoagulation,
--- NOTE | 2017-01-04 09:53 | ULTRASOUND REPORT ---
EXAMINATION: US ABDOMEN LIMITED CLINICAL INFORMATION: Elevated transaminase levels; amiodarone therapy. COMPARISON: Renal ultrasound dated 01/03/2017; PET/CT dated 08/12/2016; abdominal ultrasound dated 07/18/0807/15/2016; CT abdomen and pelvis dated 05/20/2016. TECHNIQUE: Real-time imaging of the right upper quadrant abdominal viscera. FINDINGS: PANCREAS: Normal. LIVER: There is mild hepatomegaly, with a longitudinal dimension of 17.9 cm. Within the medial segment of the left hepatic lobe, an isoechoic 2.6 x 3.1 x 3.9 cm mass is seen. This shows no central scar. Ultrasound dimensions on 07/15/2016 were 2.8 x 2.0 x 4.7 cm. The liver demonstrates normal size, contour and echogenicity. No focal lesion or intrahepatic biliary duct dilatation. GALLBLADDER: There is echogenic layering, nonshadowing biliary sludge. The gallbladder is physiologically distended without evidence of stones, polyps, wall thickening or pericholecystic fluid. COMMON BILE DUCT: Normal in caliber measuring 0.4 cm in diameter. RIGHT KIDNEY: Normal. No hydronephrosis. No renal calculi or focal parenchymal lesions. The kidney measures 11.6 cm in maximum dimension. FREE FLUID: None. IMPRESSION: 1. There is mild hepatomegaly. 2. There is a relatively stable left hepatic lobe mass, previously described. Again, this can be more fully evaluated with dynamic MRI, if clinically indicated. 3. There is biliary sludge, without cholelithiasis, cholecystitis or choledocholithiasis.
--- NOTE | 2017-01-04 10:23 | PN- Diabetes ---
Assessment/Plan Assessment: 76-year-old male with past medical history of coronary artery disease status post CABG, recent and STEMI, diabetes uncontrolled, CK D stage IV, hypertension , bladder cancer status post TURBT, was admitted for elevated BUN, high blood sugars, and worsening weakness. He is on Dobutamine drip. He was put on Levemir 22 units twice a day. Novolog coverage before meals was adjusted. In addition, he is on Novolog coverage at bedtime. His FSGs were 281, 222, 231 and 90. Plan: 1. decrease Levemir to 20 units twice a day; 2. continue the current Novolog coverage before meals and Novolog coverage at bedtime; 3. monitor FSGs. will follow. Subjective Subjective: He is having ECHO done at this moment. Objective Last 24 Hrs of Vital Signs/I&O Vital Signs Date Time Temp Pulse Resp B/P B/P Pulse O2 O2 Flow FiO2 Mean Ox Delivery Rate 01/04 0850 71 136/50 01/04 0800 Room Air 01/04 0739 98.4 68 16 110/52 95 Room Air 01/04 0538 67 136/50 01/04 0449 71 130/60 01/04 0334 130/50 01/04 0238 67 114/46 01/04 0132 65 122/48 01/04 0023 62 108/42 01/03 2311 71 120/50 01/03 2300 71 120/50 01/03 2200 69 126/48 01/03 2120 79 138/54 01/03 2112 79 138/54 01/03 2112 79 138/54 01/03 2000 78 126/50 01/03 1900 74 132/56 01/03 1752 74 130/48 01/03 1700 74 138/56 01/03 1619 98.2 70 15 143/57 97 Room Air 01/03 1545 68 138/50 01/03 1530 70 134/44 01/03 1515 66 132/46 01/03 1500 62 130/46 01/03 1445 54 124/48 01/03 1443 54 124/48 01/03 1345 52 120/40 Intake & Output 01/04 1600 01/04 0800 01/04 0000 Intake Total 200 952 Output Total 600 1000 Balance -400 -48 Intake, IV 200 232 Intake, Oral 720 Number 1 Bowel Movements Output, Urine 600 1000 Findings Pertinent Lab/Ruben Results: Laboratory Tests 01/04 0650 Chemistry Sodium (137 - 145 mmol/L) 147 H Potassium (3.5 - 5.1 mmol/L) 4.0 Chloride (98 - 107 mmol/L) 111 H Carbon Dioxide (22 - 30 mmol/L) 24 Anion Gap (5 - 16) 11 BUN (9 - 20 mg/dL) 96 H Creatinine (0.7 - 1.2 mg/dL) 2.4 H Estimated GFR (>60 ml/min) 26 L BUN/Creatinine Ratio (7 - 25 %) 40.0 H Hematology CBC w Diff NO MAN DIFF REQ WBC (4.8 - 10.8 /CUMM) 5.9 RBC (4.70 - 6.10 /CUMM) 2.39 L Hgb (14.0 - 18.0 G/DL) 7.1 *L Hct (42 - 52 %) 21.9 L MCV (80.0 - 94.0 FL) 91.6 MCH (27.0 - 31.0 PG) 29.9 RDW (11.5 - 14.5 %) 16.2 H Plt Count (130 - 400 /CUMM) 234 MPV (7.4 - 10.4 FL) 9.7 Gran % (42.2 - 75.2 %) 76.7 H Lymphocytes % (20.5 - 51.1 %) 10.2 L Monocytes % (1.7 - 9.3 %) 9.2 Eosinophils % (0 - 5 %) 3.6 Basophils % (0.0 - 2.0 %) 0.3 Absolute Granulocytes (1.4 - 6.5 /CUMM) 4.5 Absolute Lymphocytes (1.2 - 3.4 /CUMM) 0.6 L Absolute Monocytes (0.10 - 0.60 /CUMM) 0.5 Absolute Eosinophils (0.0 - 0.7 /CUMM) 0.2 Absolute Basophils (0.0 - 0.2 /CUMM) 0 PUBS MCHC (33.0 - 37.0 G/DL) 32.6 L
--- NOTE | 2017-01-04 12:04 | PN- Cardiology ---
Subjective Subjective: * No shortness of breath at rest although patient reports exercise intolerance characterized by shortness of breath. No chest discomfort or lightheadedness. * Persistent leg swelling * Known decreased EF * creatinine 2.4 with potassium 4.0 * sinus rhtyhm * decreased H/H with increased reticulocyte count Objective Vital Signs and I&Os Vital Signs Date Time Temp Pulse Resp B/P B/P Pulse O2 O2 Flow FiO2 Mean Ox Delivery Rate 01/04 1140 72 124/50 01/04 1033 72 112/40 01/04 1032 72 112/40 01/04 1032 72 112/40 01/04 0850 71 136/50 01/04 0800 Room Air 01/04 0739 98.4 68 16 110/52 95 Room Air 01/04 0538 67 136/50 01/04 0449 71 130/60 01/04 0334 130/50 01/04 0238 67 114/46 01/04 0132 65 122/48 01/04 0023 62 108/42 01/03 2311 71 120/50 01/03 2300 71 120/50 01/03 2200 69 126/48 01/03 2120 79 138/54 01/03 2112 79 138/54 01/03 2112 79 138/54 01/03 2000 78 126/50 01/03 1900 74 132/56 01/03 1752 74 130/48 01/03 1700 74 138/56 01/03 1619 98.2 70 15 143/57 97 Room Air 01/03 1545 68 138/50 01/03 1530 70 134/44 01/03 1515 66 132/46 01/03 1500 62 130/46 01/03 1445 54 124/48 01/03 1443 54 124/48 01/03 1345 52 120/40 Intake & Output 01/04 1600 01/04 0000 01/03 1600 01/03 0000 Intake Total 200 952 560 540 Output Total 600 1000 500 500 1 Balance -400 -48 60 -500 539 Intake, IV 200 232 60 Intake, Oral 720 560 480 Number 1 1 1 Bowel Movements Output, Other 1 Output, Urine 600 1000 500 500 Patient 214 lb 220 lb Weight Weight Standing Scale Reported by Patient Measurement Method Physical Exam: General: WD/ WN male in NAD; alert and oriented x 3 Neck: no JVD Heart: RRR Lungs: clear Extremities: 2+ leg edema bilaterally Assessment/Plan Assessment/Plan * Severe anemia likely related to chronic renal insufficiency although bleeding cannot be excluded. An acute drop in his H/H with with guaiac positive stool and increased reticulocyte count argues in favor of bleeding although his anemia may be multifactorial. This situation is likely causing his exercise intolerance and shortness of breath with activity. No recent chemotherapy to account for his anemia. Continue to guaiac all stools. Continue aspirin and Plavix for now. * Elevated serum transaminases likely related to his statin since this rise was first noted on August 28 before beginning his Amiodarone. Worsening of these labs from Amiodarone cannot be excluded as a possibility. Considering his history of cancer this should also be included in the differention. This patient has no history of paroxysmal atrial fibrillation. The Amiodarone is for NSVT in the setting of a reduced EF. Continue Amiodarone for now. Hold his statin and follow his hepatic transaminases. Obtain an echocardiogram and consider an ultrasound of the liver. * Renal failure in the setting a aggressive diuresis with decreased EF. Begin a Dobutamine drip at 5mcg/kg/minute and continue concurrent diuresis with Lasix at 80mg IV BID to help his leg edema while avoiding a pre-renal state. Continue Lisinopril 20mg daily. Continue telemetry? Yes
[2017-01-04] MEDS ORDERED: TOPICORT60 G1 TOP (12:27)
--- NOTE | 2017-01-04 13:05 | NUR ---
1305: BP CHECKED PRIOR TO GIVING 2ND HALF OF TOTAL 80MG IV LASIX. PATIENT SITTING IN CHAIR, FINISHED LUNCH. BP SITTING IN CHAIR 80/40. ASSISTED BACK TO BED AND PATIENT LOST CONSCIOUSNESS. 1308: RAPID RESPONSE CALLED. SPOUSE AT BEDSIDE. BP CHECKED 56/40. HR 58. ACCU CHECK 154. 99 % ON ROOM AIR. NITROGLYCERIN PATCH TAKEN OFF. 1310: PATIENT AWAKE RESPONDING. DR LIVE ORDERING TO STOP DOBUTAMINE DRIP AND IV LASIX. 1320: REPEAT BP 92/40. PATIENT AWAKE RESPONDING AND TALKING. PATIENT TRANSFERED TO ICU ROOM 104. FAMILY ESCORTED TO WAITING AREA.
--- NOTE | 2017-01-04 13:20 | NUR ---
SONIA FROM 1N POST RAPID RESPONSE FOR SYNCOPAL EPISODE WITH HYPOTENSION. PT. SETTLED INTO BED, 20 SECOND SEIZURE ACTIVITY NOTED, PT. PAUL'D DOWN TO LOW 40'S, VOMITED, THEN PEA, CPR STARTED (SEE CODE SHEET) PT. STABILIZED. PT. THEN SEIZED AGAIN, MORE VOMITING, THEN PEA AGAIN, CPR STARTED AGAIN (SEE CODE SHEET) DR. LIVE RAN BOTH CODES. PT. INTUBATED BY ANESTHESIA WITH #8 TO RIGHT AT 24CM, SEE FLOW SHEET, OGT, FLOR PLACED; CHEST XRAY CONFIRMED PLACEMENT OF BOTH, 2L NS BOLUS FOR SYSTOLIC BP IN 70'S; CURRENT SYSTOLIC BP IN THE 90'S. 2U PRBC'S FOR H&h OF 6.8, 21.0. IV PROTONIX GIVEN, UNASYN GIVEN, IV ATIVAN FOR SEIZURES GIVEN. SOFT BILAT. UE RESTRAINTS STARTED ORDERED, FAMILY AWARE AND IN AGREEMENT WITH NEED. LABS DRAWN AND SENT, WITH MORE LABS AT 2000 TONITE. PT. HR STABLIZED IN 60'S-70'S, FAMILY AT BEDSIDE.
--- NOTE | 2017-01-04 13:44 | PN- Cardiology ---
Subjective Subjective: * Patient arose from a sitting position in the presence of his nurse and passed out. He did not demonstrate any dysrhythmia related to this event. After lying on his bed he improved but upon being transfered to the ICU he again passed out. No arrhythmias were noted on telemetry. In both instances the patient was hypotensive. He has been guaiac positive x 2 and demonstrated bloody vomitus. We will transfuse 2 units of pRBC's and give NS wide open x 1 liter. Follow H/H. No anticoagulation of any kind. GI consult. Objective Vital Signs and I&Os Vital Signs Date Time Temp Pulse Resp B/P B/P Pulse O2 O2 Flow FiO2 Mean Ox Delivery Rate 01/04 1140 72 124/50 01/04 1033 72 112/40 01/04 1032 72 112/40 01/04 1032 72 112/40 01/04 0850 71 136/50 01/04 0800 Room Air 01/04 0739 98.4 68 16 110/52 95 Room Air 01/04 0538 67 136/50 01/04 0449 71 130/60 01/04 0334 130/50 01/04 0238 67 114/46 01/04 0132 65 122/48 01/04 0023 62 108/42 01/03 2311 71 120/50 01/03 2300 71 120/50 01/03 2200 69 126/48 01/03 2120 79 138/54 01/03 2112 79 138/54 01/03 2112 79 138/54 01/03 2000 78 126/50 01/03 1900 74 132/56 01/03 1752 74 130/48 01/03 1700 74 138/56 01/03 1619 98.2 70 15 143/57 97 Room Air 01/03 1545 68 138/50 01/03 1530 70 134/44 01/03 1515 66 132/46 01/03 1500 62 130/46 01/03 1445 54 124/48 01/03 1443 54 124/48 01/03 1345 52 120/40 Intake & Output 01/04 1600 01/04 0801/04 0000 01/03 1600 01/03 0000 Intake Total 200 952 560 540 Output Total 014 560 2553 500 500 1 Balance -200 -600 -48 60 -500 539 Intake, IV 200 232 60 Intake, Oral 720 560 480 Number 1 1 1 Bowel Movements Output, Other 1 Output, Urine 872 573 4845 500 500 Patient 214 lb 220 lb Weight Weight Standing Scale Reported by Patient Measurement Method Assessment/Plan Assessment/Plan As above. Continue telemetry? Yes
--- NOTE | 2017-01-04 14:19 | Event Note ---
Event Note Event Note: Code 3: 1) 13:30 pm: Patient was just brought in from tele after a rapid response (due to LOC) that went asystole on the monitor. CPR was started and continued for 4 minutes with 1 injection of epinephrine at minute 2. He gained consciousness right after however started to vomit a few seconds later; he brought up gastric contents mixed with blood. Total of vomit was estimated at around 1L, accumulated in the suction. 2) 14:04 pm, patient became unresponsive and pulses became not palpable again. We were in the middle of putting an NG tube that he became unresponsive. He was pavel to 40s on the monitor and central pulses were absent. CPR was performed for two minutes during which he received one dose of Epinephrine and also Atropine. Pulses were palpated afterwards. Anesthesiology was called stat for intubation, patient was also started on pRBC infusion and bolus of IV NS. Patient is kept intubated, BP initially at 80s systolic which was brought up to 100s with IV boluses of NS. He also received total of 2 units of pRBC. He remains intubated, however alert and awake and following directions. * will order Fentanyl and Ativan as needed. * NPO, continued on maintenance fluids at 50 cc/hour, cautious as the pt has EF of 40-45% * OGT placed, suction is off to avoid injury to the stomach * CBC, ICU bundle, EKG, troponin, lactic acid ordered for 8 pm and will follow * rolfer, cardiology, GI, general Sx are on board (the latter for possible intra-abdominal bleed) * beta holli and anticoagulation are on hold * received IV hydrocortisone 50 mg IV Q8 * received on loading dose of Keppra (due to seizure like activity when had LOC on tele) * received Glucagon 1 mg IV * continue IV protonix * Continue unasyn continue zofran as needed for N/V Family were updated regarding the events.
[2017-01-04 14:31] LABS: ABSOLUTE BASOPHIL COUNT 0 /CUMM (0.0-0.2); ABSOLUTE EOSINOPHIL COUNT 0.2 /CUMM (0.0-0.7); ABSOLUTE GRANULOCYTE CT 5.2 /CUMM (1.4-6.5); ABSOLUTE LYMPH COUNT 0.6 /CUMM (1.2-3.4); ABSOLUTE MONOCYTE COUNT 0.5 /CUMM (0.10-0.60); BASOPHIL % 0.2 % (0.0-2.0); EOSINOPHIL % 2.6 % (0-5); GRANULOCYTE % 80.2 % (42.2-75.2); MEAN CORPUSCULAR HGB 29.8 PG (27.0-31.0); MEAN CORPUSCULAR HGB CONC 32.2 G/DL (33.0-37.0); MEAN CORPUSCULAR VOLUME 92.4 FL (80.0-94.0); MEAN PLATELET VOLUME 9.8 FL (7.4-10.4); PLATELET COUNT 216 /CUMM (130-400); RBC DISTRIBUTION WIDTH 16.2 % (11.5-14.5); RED BLOOD CELL CT 2.27 /CUMM (4.70-6.10); WHITE BLOOD CELL COUNT 6.4 /CUMM (4.8-10.8)
[2017-01-04 14:37] LABS: PT 11.7 SEC (9.4-12.5)
--- NOTE | 2017-01-04 15:07 | RADIOLOGY REPORT ---
EXAMINATION: XR PORTABLE CHEST CLINICAL INFORMATION: Status post aspiration. Evaluate for pneumonia. Placement of nasogastric tube. COMPARISON: Multiple priors, most recent chest radiograph dated 01/02/2017. TECHNIQUE: Portable AP semiupright view of the chest was obtained. FINDINGS: There has been interval placement of an endotracheal tube with its tip located approximately 4.3 cm proximal to the vicki. Sternal wires are unchanged. No nasogastric tube is identified. Evaluation of the right costophrenic angle is limited as it is not included on the examination. There are bibasilar atelectatic changes. There is no pneumothorax or significant left-sided pleural effusion. The heart appears mildly enlarged. IMPRESSION: 1. Interval placement of an endotracheal tube with its tip approximately 4.3 cm proximal to the vicki. 2. Bibasilar atelectasis. Mild cardiomegaly.
--- NOTE | 2017-01-04 16:00 | Cons- CRCU ---
General Information and HPI Consulting Request Date of Consult: 01/04/17 Requested By: med team History of Present Illness: Inital history upon admission 76-year-old male with past medical history of coronary artery disease status post CABG, recent and STEMI, type 1 diabetes uncontrolled, CK D stage IV, hypertension, bladder cancer status post TURBT, was referred from the CHF clinic earlier today after finding her BUN, high blood sugars, and worsening weakness. According to the patient, he was apparently in his usual state of health 2 months ago when he started having weakness, a little short of breath, and increased swelling of his legs. The patient found himself gradually getting weaker every day, and was visited his weekly CHF clinic earlier today when he was found to be very weak, high BUN and uncontrolled blood sugar, for which, he was immediately referred to the emergency department for further evaluation and management. He denies any chest pain, shortness of breath more than usual, palpitation, nausea, vomiting, fever, chills, abdominal pain, changes in bowel or bladder habit. Of note, he mentioned that his blood sugar has run as high as 571 and as low as 72 recently, with the lowest being last week. He follows Greg Stubbs MD for his diabetes. Of note his raw shellfish preparer is Dr. Taye Reyes. He receives 80 mg of oral Lasix twice daily and weekly visit to CHF clinic where he receives 40 mg of IV Lasix. He received only 80 mg of his oral Lasix this morning and did not receive any Lasix in the CHF clinic. SInce he came in He was started on dobutamine and was on amiodarone Pt had multiple episodes of near syncope today and in the ICU went into CPA with sig pavel noted. Pt receive cardiac resusitation now with return of sontaneous ventilation and is making urine. Now awake alert It was also noted that pt may have had seizure like acitivity or myoclonic jerks during the cpa When I saw him he was alert awake and oriented Following commands and was moving all ext No fever Pt also had sig vomiting during the cpr and og tube has yellow brown food material Vent setting reviewed as per flow sheet Allergies/Medications Allergies: Coded Allergies: NO KNOWN ALLERGIES (09/24/15) Home Med List: Amiodarone HCl 200 MG TABLET 1 TAB PO DAILY HEART (Reported) Aspirin (Ecotrin*) 81 MG TABLET.DR 2 TAB PO DAILY HEART/BLOOD Clopidogrel Bisulfate (Clopidogrel) 75 MG TABLET 1 TAB PO DAILY HEART HEALTH Desoximetasone (Topicort) 0.25 % OINT...G. 1 ROLAND TOP BID SKIN PROBLEMS ( Reported) apply to affected area(s) Doxazosin Mesylate (Cardura) 4 MG TABLET 4 MG PO DAILY BPH (Reported) Ezetimibe/Simvastatin (Vytorin 10-80 MG Tablet) 10 MG-80 MG TABLET 1 TAB PO DAILY CHOLESTEROL (Reported) Folic Acid 0.8 MG CAPSULE 1 CAP PO DAILY SUPPLEMENT (Reported) Furosemide (Lasix) 80 MG TABLET 1 TAB PO BID DIURETIC (Reported) Insulin Glargine,Hum.rec.anlog (Lantus Solostar) 100 UNIT/ML (3 ML) INSULN.PEN 22 UNITS SC BID DM (Reported) Insulin Lispro (Humalog) 100 UNIT/ML VIAL DM (Reported) Lisinopril 20 MG TABLET 1 TAB PO DAILY BP (Reported) Metoprolol Tartrate 25 MG TABLET 1 TAB PO BID HEART/BP (Reported) Nitroglycerin (Nitroglycerin Patch) 0.4 MG/HOUR PATCH.TD24 1 PATCH TOP DAILY HEART HEALTH 12 hours on, 12 hours off Vitamin B Complex 1 EACH CAPSULE 1 CAP PO DAILY SUPPLEMENT (Reported) Review of Systems Review of Systems Constitutional: Reports: see HPI. Comments could not be obtained pt intubated Past History Travel History Traveled to [place] past 21 day No Medical History Blood Transfusion Hx: No Neurological: NONE EENT: allergies, hearing loss Cardiovascular: CHF, hypertension, hyperlipidemia, myocardial infarction, CABG Respiratory: NONE Gastrointestinal: NONE Hepatic: NONE Renal: NONE Musculoskeletal: osteoarthritis Psychiatric: NONE Endocrine: diabetes Blood Disorders: NONE Cancer(s): bladder cancer [employer] WORK[employer]/Reproductive: NONE Surgical History Surgical History: CABG Psychosocial History Where Do You Live? Home Who Do You Live With? spouse Services at Home: None Primary Language: Telugu Smoking Status: Never Smoked ETOH Use: denies use Illicit Drug Use: denies illicit drug use Functional Ability Ambulation: cane, previously independent Exam & Diagnostic Data Last 24 Hrs of Vital Signs/I&O Vital Signs Date Time Temp Pulse Resp B/P B/P Pulse O2 O2 Flow FiO2 Mean Ox Delivery Rate 01/04 1455 100 01/04 1320 92/40 01/04 1305 80/40 01/04 1140 72 124/50 01/04 1033 72 112/40 01/04 1032 72 112/40 01/04 1032 72 112/40 01/04 0850 71 136/50 01/04 0850 70 136/50 01/04 0800 Room Air 01/04 0739 98.4 68 16 110/52 95 Room Air 01/04 0538 67 136/50 01/04 0449 71 130/60 01/04 0334 130/50 01/04 0238 67 114/46 01/04 0132 65 122/48 01/04 0023 62 108/42 01/03 2311 71 120/50 01/03 2300 71 120/50 01/03 2200 69 126/48 01/03 2120 79 138/54 01/03 2112 79 138/54 01/03 2112 79 138/54 01/03 2000 78 126/50 01/03 1900 74 132/56 01/03 1752 74 130/48 01/03 1700 74 138/56 01/03 1619 98.2 70 15 143/57 97 Room Air 01/03 1545 68 138/50 Intake & Output 01/04 1600 01/04 0800 01/04 0000 Intake Total 200 952 Output Total 732 971 8571 Balance -200 -600 -48 Intake, IV 200 232 Intake, Oral 720 Number 1 Bowel Movements Output, Urine 699 004 3670 Last 48 Hrs of Labs/Ruben: Laboratory Tests 01/04/17 1350: Total Bilirubin Cancelled, Direct Bilirubin Cancelled, AST Cancelled, ALT Cancelled, Alkaline Phosphatase Cancelled, Total Protein Cancelled, Albumin Cancelled 01/04/17 1350: pH 7.43, pCO2 28 L, pO2 96, HCO3 18 L, ABG O2 Sat (Measured) 95.0 L, P-50 ( Temp Corrected) N, Carboxyhemoglobin 1.4 L, O2 Concentration % .21, Temperature 98.4, O2 Delivery Method RA, Anion Gap 14, Estimated GFR 26 L, BUN/Creatinine Ratio 37.5 H, Lactic Acid 4.3 H, Magnesium 2.6 H, Total Bilirubin 0.9, Direct Bilirubin 0.3, AST 94 H, ALT 168 H, Alkaline Phosphatase 79, Troponin I 1.13 * H, Total Protein 5.7 L, Albumin 2.9 L, TSH Pending, Free T4 Pending, PT 11.7, INR 1.12, CBC w Diff NO MAN DIFF REQ, RBC 2.27 L, MCV 92.4, MCH 29.8, RDW 16.2 H, MPV 9.8, Gran % 80.2 H, Lymphocytes % 9.5 L, Monocytes % 7.5, Eosinophils % 2.6, Basophils % 0.2, Absolute Granulocytes 5.2, Absolute Lymphocytes 0.6 L, Absolute Monocytes 0.5, Absolute Eosinophils 0.2, Absolute Basophils 0, PUBS MCHC 32.2 L, Phlebotomy Draw Site LEFT RADIAL 01/04/17 0650: Anion Gap 11, Estimated GFR 26 L, BUN/Creatinine Ratio 40.0 H, CBC w Diff NO MAN DIFF REQ, RBC 2.39 L, MCV 91.6, MCH 29.9, RDW 16.2 H, MPV 9.7, Gran % 76.7 H, Lymphocytes % 10.2 L, Monocytes % 9.2, Eosinophils % 3.6, Basophils % 0.3, Absolute Granulocytes 4.5, Absolute Lymphocytes 0.6 L, Absolute Monocytes 0.5, Absolute Eosinophils 0.2, Absolute Basophils 0, PUBS MCHC 32.6 L 01/03/17 0630: Anion Gap 15, Estimated GFR 26 L, BUN/Creatinine Ratio 43.3 H, Troponin I 0.03 , CBC w Diff NO MAN DIFF REQ, RBC 2.40 L, MCV 90.6, MCH 29.8, RDW 16.0 H, MPV 9.7, Gran % 74.8, Lymphocytes % 11.1 L, Monocytes % 8.4, Eosinophils % 5.4 H, Basophils % 0.3, Absolute Granulocytes 4.3, Absolute Lymphocytes 0.6 L, Absolute Monocytes 0.5, Absolute Eosinophils 0.3, Absolute Basophils 0, PUBS MCHC 32.9 L, Retic Count 3.67 H 01/03/17 0600: Haptoglobin Pending 01/03/17 0500: Troponin I Cancelled 01/02/17 2220: Troponin I 0.04, CBC w Diff NO MAN DIFF REQ, RBC 2.50 L, MCV 91.7, MCH 30.0, RDW 15.6 H, MPV 10.2, Gran % 79.1 H, Lymphocytes % 8.7 L, Monocytes % 8.7, Eosinophils % 3.2, Basophils % 0.3, Absolute Granulocytes 5.3, Absolute Lymphocytes 0.6 L, Absolute Monocytes 0.6, Absolute Eosinophils 0.2, Absolute Basophils 0, PUBS MCHC 32.8 L 01/02/171711: Lactic Acid Cancelled Assessment/Plan Impression/Plan: General Appearance: Alert, Oriented X3, Cooperative, No Acute Distress, Intubated Skin: b/l le redness Skin Temp/Moisture Exam: Warm/Dry Sepsis Skin Exam (color): Normal for Ethnicity HEENT: Atraumatic, PERRLA, EOMI, Mucous Membr. 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 Pt was being treated with dobutamine and was on amiodarone etc and was sig anemic with heme positive stool. Pt did appear to be stable this am but went into syncope and upon transfer to the icu went into sig pavel prob asystole with cpa ISSues * S/P CPR due to sig pavel and asytole now with rapid recovery and improvement * Pt has Sig history of low ef and diastolic chf aswell with recurrent chf, with pafib with multiple episodes of nstmi and his cardiac cath did not reveal stentable disease (s/p cabg) * Sig pulm htn (secondary) * Sig anemia unclear etiology - pt has agg bladder ca and on chemo and this could be the main issue for anemia. he also has heme positive stool * Seizure like activity related to low flow state now fully stable * Insulin requring DM with previous ketosis * Previous steroid use and prob cortisol def * Bladder Ca * Transaminitis with lesions in the liver in the recent pet scan * CKD with Arf * CAD sig REC COnt vent Low dose ativan Low dose fentanyl if bp is low Increase vt to 550 Reduce fio2 Cont prbc and dc ivf after the current litre if pt is stable Follow [place] loading dose for now Hold dobutamine and amio (due to sig pavel) Rule out mi Iv hydrocortizone 50 q r x 3 doses Add random cortisol to this mornings lab Strict sugar control with frequent sugar monitoring Hold anti htn meds and anti platelets and anticoag Sputum culture Recheck all his blood work and keep potassium more than 4 and mag at 2 Keep intubated OG tube and decompressi stomach and if no sig discharge then keep to air Rpt cxr TLC cath if he decompensates and would need norepi if needed PRBC Watch for pulm edema Rule out mi EKG again Will follow Pt critically ill TTS 60 mins Consult Acknowledgment - Thank you for your consult request.
--- NOTE | 2017-01-04 16:29 | RADIOLOGY REPORT ---
EXAMINATION: XR PORTABLE CHEST CLINICAL INFORMATION: Evaluate orogastric tube placement. COMPARISON: Multiple priors, most recent chest radiograph done 01/04/2017 at 1:41 PM. TECHNIQUE: Portable frontal view of the chest was obtained. FINDINGS: An endotracheal tube is redemonstrated with its tip approximately 5.5 cm proximal to the vicki. There has been interval placement of an orogastric tube with its tip terminating below the left hemidiaphragm. Sternal wires are redemonstrated. Evaluation of the upper lung aponte is limited secondary to technique. There is no airspace consolidation or pleural effusion. The cardiomediastinal silhouette and osseous structures are unchanged. IMPRESSION: Interval placement of an orogastric tube with its tip terminating below the left hemidiaphragm. Endotracheal tube in similar position when compared to the prior examination.
--- NOTE | 2017-01-04 17:23 | ECHOCARDIOGRAM REPORT ---
JACK WINTER Age: 76 : 1940 Gender: M Exam Date: 01/04/2017 11:01 Exam Location: [place] Ht (in): 67 Wt (lb): 213 BSA: 2.17 BP: 110 / 52 Ordering Physician: FAUSTINO SHELTON MD Referring Physician: Taye Reyes MD Chief, SoC Technologist: Brenna Kinney [facility] Room Number: 189-01 Indications: PULMONARY HYPERTENSION Rhythm: Sinus Technical Quality: FINDINGS Left Ventricle Normal size left ventricle. Left ventricular wall thickness increased. Hypokinetic inferior wall. Emerado hypokinetic. Mildly abnormal left ventricular ejection fraction estimated at 45-50%. Right Ventricle Right ventricle not well visualized, grossly normal. Right Atrium Right atrium not well visualized, grossly normal. Left Atrium Left atrial dilatation. Mitral Valve Mitral valve thickened. Mild thickening/calcification of the anterior mitral valve leaflet. [id number] mitral regurgitation. Aortic Valve Trileaflet aortic valve. Diffuse thickening (sclerosis) of the aortic valve cusps without reduced excursion. No aortic stenosis. No aortic regurgitation. Tricuspid Valve Tricuspid valve not well visualized, grossly normal. Mild-to- moderate tricuspid regurgitation. Right ventricular systolic pressure estimated at 40 mmHg. Pulmonic Valve Pulmonic valve not well visualized, grossly normal. Pericardium No pericardial effusion. Great Vessels Aortic root and proximal ascending aorta not well visualized, grossly normal. CONCLUSIONS 1. MIld aortic sclerosis is present with no valvular stenosis or insufficiency. 2. Thickening and calcification of the mitral leaflets is present with mild to moderate mitral insuffciiency and left atrial enlargement. 3. There is no significnat pericardail fluid present. 4. The left ventricular chamber size is normal. There is hypokinesia of the inferoposterior and inferoapical segments with an ejectino fraction of 40-45%. 5. THe right heart structures are grossly normal with mild to moderate tricuspid insufficiency and an estimated RV systolic pressure of 40 mmHg. Cortney Garces M.D. (Electronically Signed) Final Date: 04 January 2017 17:23 MEASUREMENTS (Male / Female) Normal Values 2D ECHO LV Diastolic Diameter PLAX 5.1 cm 4.2 - 5.9 / 3.9 - 5.3 cm LV Systolic Diameter PLAX 3.6 cm 2.1 - 4.0 cm LV Fractional Shortening PLAX 29.4 % 25 - 46 % LV Ejection Fraction 2D Teich 56.0 % IVS Diastolic Thickness 1.4 cm LVPW Diastolic Thickness 1.2 cm LV Relative Wall Thickness 0.5 RV Internal Dim ED PLAX 2.6 cm 1.9 - 3.8 cm LA Volume 57.0 cm 18 - 58 / 22 - 52 cm DOPPLER MV Peak Velocity 157.0 cm/s MV Peak Gradient 9.9 mmHg MV Mean Velocity 79.3 cm/s MV Mean Gradient 3.0 mmHg Mitral E Point Velocity 136.0 cm/s Mitral A Point Velocity 52.1 cm/s Mitral E to A Ratio 2.6 MV PHT Velocity 158.0 cm/s MV Deceleration Alger 654.0 cm/s MV Pressure Half Time 72.5 ms MV Area PHT 3.0 cm MV Deceleration Time 158.0 ms TR Peak Velocity 315.0 cm/s TR Peak Gradient 39.7 mmHg Right Atrial Pressure 5.0 mmHg Pulmonary Artery Systolic Pressu 44.7 mmHg Right Ventricular Systolic Press 44.7 mmHg LV E' Lateral Velocity 10.0 cm/s Mitral E to LV E' Lateral Ratio 13.6 LV E' Septal Velocity 4.7 cm/s Mitral E to LV E' Septal Ratio 29.1
--- NOTE | 2017-01-04 18:29 | Cons- Gastroenterology ---
General Information and HPI Consulting Request Date of Consult: 01/04/17 Requested By: MIESHA VARMA,OLVIN Reason for Consult: Anemia. Source of Information: patient Exam Limitations: no limitations History of Present Illness: 76-year-old male with past medical history of coronary artery disease status post CABG, recent and STEMI, type 1 diabetes uncontrolled, CK D stage IV, hypertension, bladder cancer status post TURBT, was referred from the CHF clinic earlier today after finding her BUN, high blood sugars, and worsening weakness. From chart. Patient started having weakness, a little short of breath, and increased swelling of his legs gradually over the last 2 months. The patient found himself gradually getting weaker every day, and was visited his weekly CHF clinic earlier today when he was found to be very weak, high BUN and uncontrolled blood sugar, for which, he was immediately referred to the emergency department for further evaluation and management. He denies any chest pain, shortness of breath more than usual, palpitation, nausea, vomiting, fever, chills, abdominal pain, changes in bowel or bladder habit. Of note, he mentioned that his blood sugar has run as high as 571 and as low as 72 recently, with the lowest being last week. He follows Greg Stubbs MD for his diabetes. Of note his linter drier operator is Dr. Taye Reyes. Allergies/Medications Allergies: Coded Allergies: NO KNOWN ALLERGIES (09/24/15) Home Med List: Amiodarone HCl 200 MG TABLET 1 TAB PO DAILY HEART (Reported) Aspirin (Ecotrin*) 81 MG TABLET.DR 2 TAB PO DAILY HEART/BLOOD Clopidogrel Bisulfate (Clopidogrel) 75 MG TABLET 1 TAB PO DAILY HEART HEALTH Desoximetasone (Topicort) 0.25 % OINT...G. 1 ROLAND TOP BID SKIN PROBLEMS ( Reported) apply to affected area(s) Doxazosin Mesylate (Cardura) 4 MG TABLET 4 MG PO DAILY BPH (Reported) Ezetimibe/Simvastatin (Vytorin 10-80 MG Tablet) 10 MG-80 MG TABLET 1 TAB PO DAILY CHOLESTEROL (Reported) Folic Acid 0.8 MG CAPSULE 1 CAP PO DAILY SUPPLEMENT (Reported) Furosemide (Lasix) 80 MG TABLET 1 TAB PO BID DIURETIC (Reported) Insulin Glargine,Hum.rec.anlog (Lantus Solostar) 100 UNIT/ML (3 ML) INSULN.PEN 22 UNITS SC BID DM (Reported) Insulin Lispro (Humalog) 100 UNIT/ML VIAL DM (Reported) Lisinopril 20 MG TABLET 1 TAB PO DAILY BP (Reported) Metoprolol Tartrate 25 MG TABLET 1 TAB PO BID HEART/BP (Reported) Nitroglycerin (Nitroglycerin Patch) 0.4 MG/HOUR PATCH.TD24 1 PATCH TOP DAILY HEART HEALTH 12 hours on, 12 hours off Vitamin B Complex 1 EACH CAPSULE 1 CAP PO DAILY SUPPLEMENT (Reported) Past History Travel History Traveled to [place] past 21 day No Medical History Blood Transfusion Hx: No Neurological: NONE EENT: allergies, hearing loss Cardiovascular: CHF, hypertension, hyperlipidemia, myocardial infarction, CABG Respiratory: NONE Gastrointestinal: NONE Hepatic: NONE Renal: NONE Musculoskeletal: osteoarthritis Psychiatric: NONE Endocrine: diabetes Blood Disorders: NONE Cancer(s): bladder cancer REPAIR SERVICE CLERK/Reproductive: NONE Surgical History Surgical History: CABG Psychosocial History Where Do You Live? Home Who Do You Live With? spouse Services at Home: None Primary Language: Djiboutian Smoking Status: Never Smoked ETOH Use: denies use Illicit Drug Use: denies illicit drug use Functional Ability Ambulation: dmitri, sujit independent Review of Systems Review of Systems: Patient in medical ICU intubated. Exam & Diagnostic Data Vital Signs and I&O Vital Signs Date Time Temp Pulse Resp B/P B/P Pulse O2 O2 Flow FiO2 Mean Ox Delivery Rate 01/04 1618 45 01/04 1600 100 Ventilator 45% 01/04 1455 100 01/04 1320 92/40 01/04 1305 80/40 01/04 1140 72 124/50 01/04 1033 72 112/40 01/04 1032 72 112/40 01/04 1032 72 112/40 01/04 1030 72 112/40 01/04 0850 71 136/50 01/04 0850 70 136/50 01/04 0800 Room Air 01/04 0739 98.4 68 16 110/52 95 Room Air 01/04 0538 67 136/50 01/04 0449 71 130/60 01/04 0334 130/50 01/04 0238 67 114/46 01/04 0132 65 122/48 01/04 0023 62 108/42 01/03 2311 71 120/50 01/03 2300 71 120/50 01/03 2200 69 126/48 01/03 2120 79 138/54 04/29 2112 79 138/54 01/04 2112 79 138/54 01/04 2000 78 126/50 01/03 1900 74 132/56 Intake & Output 01/04 0400 Intake Total 200 952 560 540 Output Total 1150 1000 1000 1 250 Balance -950 -48 -440 539 -250 Intake, IV 200 232 60 Intake, Oral 720 560 480 Number 1 1 1 1 Bowel Movements Output, Other 1 Output, Urine 1150 1000 1000 250 Patient 214 lb 220 lb 221 lb Weight Weight Standing Scale Reported by Patient Reported by Patient Measurement Method Patient intubated. Head: Normocephalic, atraumatic Eyes: Pupils normal in size, regular, reacting to light and accommodation, EOM normal Ears: B/l normal on inspection Nose: Normal on inspection Neck: Supple, full range of motion, no thyromegaly Heart: bradycardia, regular rhythm Lung: Decreased breath sound heard bilaterally. Ventilator sounds Abd: Soft, non-tender, distended Extremities: Normal knee exam bilaterally, pedal edema present b/l with some abrasions present, Distal neurovascular intact Skin: Warm and dry Assessment/Plan Assessment/Recommendations: In summary we have a 76-year-old gentleman who was on aspirin and Plavix and presents with anemia over a period of 3 months. Clinically this is a presentation of chronic anemia. Likely due to slow GI blood loss as the patient is on aspirin and Plavix. Patient has been guaiac negative on a number of occasions and this admission further confirming the slow nature of this blood loss.. Today the patient had a significant hypotensive episode which required resuscitation. During recovery from the resuscitation patient vomited up his last meal. This did not contain any bloody material. Subsequently the patient was bagged and intubated. At this time Yankauer suction did produce bloody material from the oropharynx. This however is likely due to trauma and not a significant GI bleed. As patient is unable to give a history, and there is no medical record of any endoscopic procedures it is uncertain when the patient's most recent colonoscopy was. As there is no evidence for an acute GI bleed, agree with current plans for stopping aspirin and Plavix, transfusing to hematocrit above 27. We will continue to follow with you but at present there is no urgency for an endoscopic exam. Consult Acknowledgment - Thank you for your consult request.
[2017-01-04 20:20] LABS: ABSOLUTE BASOPHIL COUNT 0 /CUMM (0.0-0.2); ABSOLUTE EOSINOPHIL COUNT 0 /CUMM (0.0-0.7); ABSOLUTE GRANULOCYTE CT 6.2 /CUMM (1.4-6.5); ABSOLUTE LYMPH COUNT 0.3 /CUMM (1.2-3.4); ABSOLUTE MONOCYTE COUNT 0.6 /CUMM (0.10-0.60); BASOPHIL % 0.3 % (0.0-2.0); EOSINOPHIL % 0.7 % (0-5); GRANULOCYTE % 86.5 % (42.2-75.2); MEAN CORPUSCULAR HGB 29.9 PG (27.0-31.0); MEAN CORPUSCULAR HGB CONC 32.7 G/DL (33.0-37.0); MEAN CORPUSCULAR VOLUME 91.6 FL (80.0-94.0); MEAN PLATELET VOLUME 9.7 FL (7.4-10.4); PLATELET COUNT 211 /CUMM (130-400); RBC DISTRIBUTION WIDTH 16.2 % (11.5-14.5); WHITE BLOOD CELL COUNT 7.2 /CUMM (4.8-10.8)
[2017-01-04 20:23] LABS: RED BLOOD CELL CT 3.02 /CUMM (4.70-6.10)
[2017-01-04 20:31] LABS: HEMATOCRIT 27.6 % (42-52)
--- NOTE | 2017-01-04 20:45 | NUR ---
PATIENT TO CAT SCAN FOR ABD, PELVIS AND HEAD CT. RN AND RT IN ATTENDANCE DURING TRANSPORT AND PROCEDURE. PATIENT TOLERATED TRANSPORT AND PROCEDURE WELL. VS STABLE OXYGEN SATS STABLE AT 98%. MONITOR REMAINED NSR ENTIRE TIME AND BP STABLE. RETURNED TO ROOM 104.
--- NOTE | 2017-01-04 21:16 | CT SCAN REPORT ---
EXAMINATION: CT HEAD WITHOUT CONTRAST CLINICAL INFORMATION: Confusion. Cardiac arrest. COMPARISON: None TECHNIQUE: Contiguous axial imaging was performed from the skull base to vertex without intravenous administration of contrast. DLP: 600.71 mGy-cm FINDINGS: There is no evidence of acute intracranial hemorrhage or territorial infarction. No abnormal mass effect or midline shift is seen. Green to white matter differentiation is well preserved. No extra-axial fluid collections are identified. There is atrophy with prominence of the ventricles and the sulci and hypodensity of the periventricular white matter due to chronic small vessel ischemic disease. There is vascular calcifications of the internal carotid arteries bilaterally. The osseous structures and soft tissues are normal. There is air-fluid level in the left maxillary and left sphenoid sinus. Mucosal thickening in the ethmoid sinuses bilateral. The mastoid air cells and middle ear cavities are normally aerated. IMPRESSION: 1. No acute intracranial pathology. 2. Sinus disease.
--- NOTE | 2017-01-04 21:23 | CT SCAN REPORT ---
EXAMINATION: CT ABDOMEN AND PELVIS WITHOUT CONTRAST CLINICAL INFORMATION: Decreasing H\T\H. Abdominal distention. Bloody vomitus. COMPARISON: CT abdomen pelvis 05/20/2016 TECHNIQUE: Multidetector volumetric imaging was performed from the superior aspect of the liver through the pubic symphysis. Sagittal and coronal reformatted images were obtained on the technologist's workstation. DLP: 1214.44 mGy-cm FINDINGS: Patient was scanned with hands over the abdomen. This causes artifact in the upper abdomen. LUNG BASES: Layering bilateral pleural effusions with bibasilar consolidation/atelectasis. Coronary artery calcifications present calcifications of aorta wall. Nasogastric tube in stomach. LIVER, GALLBLADDER, AND BILIARY TREE: No focal liver lesion. The area of low attenuation in the peripheral left lobe of liver seen on the CAT scan of 05/20/2016 is not apparent on current study. No intrahepatic bile duct dilatation. The gallbladder is unremarkable with no evidence of radiopaque gallstones, gallbladder wall thickening, or obvious pericholecystic inflammatory changes. PANCREAS: Unremarkable. SPLEEN: Unremarkable. ADRENAL GLANDS: Unremarkable. KIDNEYS AND URETERS: The kidneys are normal in size, shape, and attenuation. No hydronephrosis, hydroureter, or calculi seen. No perinephric stranding. BLADDER: Diaz catheter within the bladder. GASTROINTESTINAL TRACT: There is mild diverticulosis of left colon sigmoid. No diverticulitis. No bowel wall thickening or obstruction. No bowel obstruction. No dilated bowel loops. Small volume of stool in the colon. The appendix is not seen. The small bowel loops are unremarkable. Nasogastric tube in stomach. MESENTERY AND RETROPERITONEUM: No free air or free fluid. No intraabdominal or intrapelvic hematoma. ABDOMINAL WALL: No significant hernia is appreciated. Small amount of edema in the subcutaneous tissue anterior abdomen. No air or abscess. This is similar to prior CAT scan of 05/20/2016. LYMPH NODES: Normal. VASCULAR: Atherosclerotic vascular calcifications of the aorta iliac vessels SMA and celiac axis PELVIC VISCERA: Prostate enlarged. OSSEOUS STRUCTURES: Degenerative disc height narrowing L4-L5. Status post median sternotomy. IMPRESSION: 1. No intra-abdominal or intrapelvic hematoma. No acute abnormality of the abdomen or the pelvis. 2. Layering bilateral pleural effusions with bibasilar consolidation. 3. Enlarged prostate. Diaz catheter within the bladder.
--- NOTE | 2017-01-04 21:37 | Event Note ---
Event Note Event Note: Troponin up to 1.96 from 1.13, his H&H improved after a total of 2 unit of blood to 06/03.6. Case was discussed with oncall sanitation worker cleaning machinery was informed, the increase in troponin is mild, will hold on anticoagulation for now. A troponin and EKG was ordered at 1:30 am, will F/U
[2017-01-05] VITALS: BP 110/70
--- NOTE | 2017-01-05 00:48 | NUR ---
0000 PATIENT RECEIVED ALERT AND RESPONDING APPROPRIATELY, SKIN PALE, WARM AND DRY, HOUSE CLEANER SUPERVISOR SINUS WITHOUT ECTOPY, HEART RATE 60'S/MIN, ETT TO VENTILATOR WITH FIO2 35%, BREATHE SOUNDS COARSE BUT NO AUDIBLE CRACKLES/WHEEZES, , ABDOMEN DISTENDED BUT SOFT, +BS, OGT IN PLACE AND CLAMPED ORDERED, FLOR TO GRAVITY WITH CLEAR YELLOW UO NOTED, PATIENT DENIES PAIN OTHER THAN MIDSTERNAL SORENESS NOTED EARLIER- HS AWARE, SETTLED FOR SLEEP, AT BEDSIDE
[2017-01-05 05:17] LABS: ABSOLUTE BASOPHIL COUNT 0 /CUMM (0.0-0.2); ABSOLUTE EOSINOPHIL COUNT 0 /CUMM (0.0-0.7); ABSOLUTE GRANULOCYTE CT 8.4 /CUMM (1.4-6.5); ABSOLUTE LYMPH COUNT 0.2 /CUMM (1.2-3.4); ABSOLUTE MONOCYTE COUNT 0.4 /CUMM (0.10-0.60); BASOPHIL % 0.1 % (0.0-2.0); EOSINOPHIL % 0.1 % (0-5); HEMATOCRIT 25.5 % (42-52); MEAN CORPUSCULAR HGB 30.1 PG (27.0-31.0); MEAN CORPUSCULAR VOLUME 91.2 FL (80.0-94.0); MEAN PLATELET VOLUME 10.8 FL (7.4-10.4); RBC DISTRIBUTION WIDTH 16.2 % (11.5-14.5); RED BLOOD CELL CT 2.79 /CUMM (4.70-6.10)
--- NOTE | 2017-01-05 05:36 | NUR ---
ETS DONE PRN- SECRETIONS THIS AM OLD BLOOD TINGED, ALSO ORAL SECRETIONS OLD BLOODY AT TIMES, MILD EXPIRATORY WHEEZE ALSO NOTED ON EXERTION OF MOVING AND TURNING- AM CXR SCHEDULED
[2017-01-05 05:53] LABS: GRANULOCYTE % 93.3 % (42.2-75.2); PLATELET COUNT 158 /CUMM (130-400)
--- NOTE | 2017-01-05 06:11 | RADIOLOGY REPORT ---
EXAMINATION: XR PORTABLE CHEST CLINICAL INFORMATION: Intubation COMPARISON: 01/04/2017 TECHNIQUE: Portable frontal view of the chest was obtained. FINDINGS: Endotracheal tube tip lies approximately 5 cm above the vicki. Enteric tube is also present, though the tip is not well delineated. Lung volumes are symmetric. There is mild haziness at the bilateral lung bases. No pneumothorax is seen. Small pleural effusions are suspected. The cardiac silhouette is mildly enlarged for technique. No acute osseous findings are seen. IMPRESSION: Endotracheal tube tip approximately 5 cm above the vicki. Hazy bibasilar opacities and suspected small pleural effusions. Enlarged cardiac silhouette.
--- NOTE | 2017-01-05 06:46 | NUR ---
POLYSOMNOGRAPHIC TECHNICIAN CONTINUES SINUS WITHOUT ECTOPY, HOWEVER VT INTERVAL VARIES BETWEEN .20 AND .22 FOR FIRST DEGREE AVB AT TIMES, PATIENT SLEEPING IN NAPS, REMAINS APPROPRIATE AND COOPERATIVE WITH CARE, FAMILY AT BEDSIDE, AWAITING AM MD ROUNDS
--- NOTE | 2017-01-05 07:23 | PN- Resident CRCU ---
Subjective HPI/CRCU Issues: 1. s/p asystole and cardiopulmonary arrest 2. Symptomatic anemia and bloody vomitus 3. HFrEF (heart failure with reduced ejection fraction) 4. Stage 4 chronic kidney disease 5. T1DM (type 1 diabetes mellitus) 6. Transaminitis 24 Hour Events: Patient has been hemodynamically stable overnight. Intubated, no overnight events reported. He is alert and awake and oriented, in no distress. Is able to follow commands. Objective Vital Signs & I&O Last 8 Hrs of Vitals and I&O: Intake & Output 01/05 1600 Intake Total Output Total Balance Patient 98.6 kg Weight Max temp 97.6 OK 63-67/SR BP 110 to 146 systolic BP 58-67 diastolic Ventilator setting: rate 18/VT 500/FiO2 35/PEEP 5/ 98-100% SO2 Exam General Appearance: well developed/nourished, no apparent distress, intubated, obese Head: atraumatic, normal appearance, small amount of blood tinged discharge around the mouth and at the site of the OG tube. Ears, Nose, Throat: normal ENT inspection Neck: normal inspection, supple, full range of motion Respiratory: chest non-tender, no respiratory distress, quiet respiration, spontaneous respiration, scattered rhonchi on both sides. Cardiovascular: regular rate/rhythm Gastrointestinal: soft, non-tender, distended Extremities: normal capillary refill, normal range of motion, 2+ pitting edema on both lower extremities Cranial Nerves: normal hearing, normal speech, PERRL Skin: intact, normal color, warm/dry Skin Temp/Moisture Exam: Warm/Dry Sepsis Skin Exam (color): Normal for Ethnicity Back: normal range of motion Current Medications: Current Medications Sig/Alejandra Start time Last Medication Dose Route Stop Time Status Admin Acetaminophen 650 MG Q6P PRN 01/02 2100 AC PO Amiodarone HCl 200 MG DAILY 01/03 1000 DC 01/04 PO 1032 Ampicillin Sodium/ 1,500 MG Q12 01/04 1339 AC 01/05 Sulbactam Sodium IV 0837 Sodium Chloride 100 ML Aspirin 81 MG DAILY 01/04 1000 DC PO Clopidogrel Bisulfate 75 MG DAILY 01/03 1000 DC 01/03 PO 1253 Dextrose/Sodium 1,000 ML Q20H 01/04 1900 AC 01/05 Chloride IV 1200 Doxazosin Mesylate 2 MG DAILY 01/06 1000 AC PO Doxazosin Mesylate 4 MG DAILY 01/03 1000 DC 01/04 PO 1032 Fentanyl Citrate 50 MCG ONCE ONE 01/04 1600 DC 01/04 IV 01/04 1601 1600 Fentanyl Citrate 1,000 MCG Q24H 01/04 1545 CAN Dextrose/Water 250 ML IV Fentanyl Citrate 2 MCG ONCE ONE 01/04 1545 CAN IV 01/04 1546 Fluocinonide 1 ROLAND BID 01/04 1146 AC 01/05 TOP 1056 Folic Acid 1 MG DAILY 01/03 1000 AC 01/04 PO 1032 Furosemide 40 MG ONCE ONE 01/05 1015 DC 01/05 IV 01/05 1016 1056 Hydrocortisone 50 MG Q8 01/04 2200 CAN Sodium Succinate IV 01/05 1401 Hydrocortisone 50 MG Q8 01/04 1758 DC 01/05 Sodium Succinate IV 01/05 0601 0602 Hydrocortisone 100 MG Q8 01/04 1540 DC Sodium Succinate IV Insulin Aspart 0 TIDAC/HS 01/03 1700 DC 01/04 SC 1236 Insulin Detemir 20 UNITS BID 01/04 1000 AC 01/05 SC 0841 Insulin Human Regular 0 Q6 01/04 1800 AC 01/05 SC 1200 Levetiracetam 500 MG ONCE ONE 01/04 1545 DC 01/04 N/A 1 UNIT IV 01/04 1559 1757 Lisinopril 20 MG DAILY 01/03 1945 DC 01/04 PO 1033 Nitroglycerin 0.4 MG DAILY 01/03 1000 AC 01/04 TOP 1033 Norepinephrine 4 MG Q24H 01/04 1500 DC Sodium Chloride 250 ML IV Ondansetron HCl 4 MG Q6P PRN 01/04 1345 AC 01/04 IV 1347 Pantoprazole Sodium 40 MG DAILY 01/04 1346 AC 01/05 IV 0837 Sodium Chloride 1,000 ML BOLUS ONE 01/04 1500 DC 01/04 IV 01/04 1559 1500 Sodium Chloride 1,000 ML Q13H 01/04 1345 DC 01/04 IV 01/05 1544 1349 Impression/Plan Impression/Problem List Impression: 76 y/o M with PMHx of CAD s/b CABG, T1DM, CKD stage IV and HFpEF who was admitted to [facility] for further evaluation of progressively increasing BUN and worsening hyperglycemia. He was brought in to the ICU after episodes of syncope, accompanied by bradycardia and hypotension. Diaz insertion day: 01/04/17 - day 2 Intubated on 01/04/17 and extubated on 01/05/17 Respiratory Patient started vomiting after the first CPR (for 4 min duration), we attempted to put the NGT but in the meantime he became unresponsive and coded for a second time. He received CPR and was intubated right after to secure the airway. He became completely alert and oriented after 2 min of CPR. * Patient is extubated today, he is breathing comfortably, kept on 3L NC * repeat CXR tomorrow for follow up of pleural effusion and also for possible aspiration PNA (he was vomiting when lost consciousness on 01/04/17) Cardiac #Cardiopulmonary arrest: Following syncopal episode. Patient was hypotensive during both episodes. Transferred to the ICU from [facility]. Received CPR twice, please see the event note. Currently hemodynamically stable, did not require pressors. max BP 146/67 today. Troponin elevated to 2.53, trended down to 2.40 * Cardiology following. Appreciate their recs. #HFpEF: Most recent ECHO in August 2016 with LVEF of 40-45%. * ECHO pending. * Dobutamine IV drip and Lasix stopped secondary to hypotension, patient became unresponsive right after, required CPR. please see event note. * Monitor I/Os and daily BMPs. * Will give one dose of IV lasix as the patient received 4 liters of NS and 2 units of pRBC yesterday and CXR this am reports mild pleural effusion. Heme/Onc #Symptomatic anemia: -Likely multifactorial secondary to CKD with superimposed GI blood loss component in view of guaiac positive stools and increased reticulocyte count. -Also underlying malignancy may contribute to anemia,. Patient is recently diagnosed with bladder cancer, has got two cycles of chemotherapy. -Transfused 2 units of pRBCs on 01/04/17 post-resuscitation. -H/H 8.4/25.5 today, slightly lower than yesterday. GI consulted. We talked to Dr. Reyes today, he is not planning for an EGD right now. * Hold off oral anticoagulation. Discontinued Plavix and aspirin. * Guaiac all stools. * monitor CBC this pm * follow up GI recommendations #Bladder cancer: Underwent TURBT on 06/09/16, received 2 cycles of chemotherapy last session was 2 -3 weeks prior to admission. * follow up outpatient with Heme/Onc Metabolic #Hypernatremia * Na up to 148 this afternoon. * recheck BEP at 10 pm * continue D5W 1/2 NS at 50 cc/hour, will adjust fluids per Na #CKD stage IV: Cr improved from 2.4 to 2.3 today * Nephrology consulted. Appreciate their recs. * Avoid nephrotoxic agents. #T1DM: * Endocrinology following * Levemir to 20 units SQ daily * Accu-checks and sliding scale insulin #Questionable hypothyroidism: was considered as the patient was bradycardic, TFT is in normal range, we also confirmed with Dr. Kaplan's office, the patients TFTs have been WNL in the past as well. Diet: NPO DVT PPx: ALPs CODE: FULL Problem List: 1. Transaminitis 2. Stage 4 chronic kidney disease 3. Cardiopulmonary arrest 4. Asystole 5. HFrEF (heart failure with reduced ejection fraction) 6. T1DM (type 1 diabetes mellitus) 7. CAD (coronary artery disease) of artery bypass graft 8. Bladder cancer Pain Ratin Tomorrow's Labs & Rationales: CBC (anemia) ICU bundle (monitor electrolytes and kidney function) Plan DVT/Prophylaxis: mechanical
[2017-01-05 08:00] VITALS: BP 130/60
--- NOTE | 2017-01-05 09:44 | NUR ---
PER DRIVING SCHOOL INSTRUCTOR DR. LIVE, DO NOT GIVE TRANSDERM NITOBID FOR TODAY
--- NOTE | 2017-01-05 10:02 | PN- Diabetes ---
See Addendum Assessment/Plan Assessment: 76-year-old male with past medical history of coronary artery disease status post CABG, recent and STEMI, diabetes uncontrolled, CK D stage IV, hypertension , bladder cancer status post TURBT, was admitted for elevated BUN, high blood sugars, and worsening weakness. He is on Dobutamine drip. He was put on Levemir 22 units twice a day, Novolog coverage before meals and Novolog coverage at bedtime. patient had cardiac arrest and was transfered to ICU. He was intubated. Currently he is on D5 1/2 NS at 50 ml/hour. He is still on Levemir 20 units twice a day, RISS every 6 hours. His FSGs were 132, 132, 132 , 133 and 224. Currently he is alert and awake and most likely he will be extubated. Plan: continue the current insulin regimen for now; please let me know after he is extubated and then his insulin regimen will be adjusted. will follow. Subjective Subjective: He remains intubated at this [facility] [place]. Bu he is alert and awake. Objective Last 24 Hrs of Vital Signs/I&O Vital Signs Date Time Temp Pulse Resp B/P B/P Pulse O2 O2 Flow FiO2 Mean Ox Delivery Rate 01/05 0810 35 01/05 0800 100 Ventilator 35% 01/05 0800 97.1 68 20 130/60 100 Ventilator 35% 01/05 0601 35 01/05 0400 98 Ventilator 35% 01/05 0351 35 01/05 0116 35 05/ 0000 99 Ventilator 35% 05 0000 96.8 63 18 110/70 99 Ventilator 35% 01/04 2200 35 01/04 2004 45 01/04 2000 99 Ventilator 45% 01/04 1618 45 01/04 1600 100 Ventilator 45% 01/04 1455 100 01/04 1320 92/40 01/04 1305 80/40 01/04 1140 72 124/50 01/04 1033 72 112/40 01/04 1032 72 112/40 01/04 1032 72 112/40 01/04 1030 72 112/40 Intake & Output 01/05 1600 01/05 0800 05 0000 Intake Total 392 930 Output Total 720 280 Balance -328 650 Intake, Blood 350 Product Intake, IV 392 580 Number 0 Bowel Movements Output, 0 Gastric Drainage Output, Urine 720 280 Patient 217 lb 217 lb Weight Weight Bed scale Measurement Method Findings Pertinent Lab/Ruben Results: Laboratory Tests 01/05 01/05 01/05 0758 0600 0445 Chemistry Sodium (137 - 145 mmol/L) Cancelled 144 Potassium (3.5 - 5.1 mmol/L) Cancelled 5.2 H Chloride (98 - 107 mmol/L) Cancelled 111 H Carbon Dioxide (22 - 30 mmol/L) Cancelled 21 L Anion Gap (5 - 16) Cancelled 12 BUN (9 - 20 mg/dL) Cancelled 88 H Creatinine (0.7 - 1.2 mg/dL) Cancelled 2.3 H Estimated GFR (>60 ml/min) 28 L BUN/Creatinine Ratio Cancelled Glucose (65 - 99 mg/dL) 169 H Calcium (8.4 - 10.2 mg/dL) 8.9 Phosphorus (2.5 - 4.5 mg/dL) 5.3 H Magnesium (1.6 - 2.3 mg/dL) 2.5 H Total Bilirubin (0.2 - 1.3 mg/dL) 2.7 H AST (17 - 59 U/L) 106 H ALT (21 - 72 U/L) 180 H Troponin I (<0.11 ng/ml) 2.40 *H Albumin (3.5 - 5.0 g/dL) 3.0 L Hematology CBC w Diff NO MAN DIFF REQ WBC (4.8 - 10.8 /CUMM) 9.0 RBC (4.70 - 6.10 /CUMM) 2.79 L Hgb (14.0 - 18.0 G/DL) 8.4 L Hct (42 - 52 %) 25.5 L MCV (80.0 - 94.0 FL) 91.2 MCH (27.0 - 31.0 PG) 30.1 RDW (11.5 - 14.5 %) 16.2 H Plt Count (130 - 400 /CUMM) 158 MPV (7.4 - 10.4 FL) 10.8 H Gran % (42.2 - 75.2 %) 93.3 H Lymphocytes % (20.5 - 51.1 %) 2.0 L Monocytes % (1.7 - 9.3 %) 4.5 Eosinophils % (0 - 5 %) 0.1 Basophils % (0.0 - 2.0 %) 0.1 Absolute Granulocytes (1.4 - 6.5 /CUMM) 8.4 H Absolute Lymphocytes (1.2 - 3.4 /CUMM) 0.2 L Absolute Monocytes (0.10 - 0.60 /CUMM) 0.4 Absolute Eosinophils (0.0 - 0.7 /CUMM) 0 Absolute Basophils (0.0 - 0.2 /CUMM) 0 PUBS MCHC (33.0 - 37.0 G/DL) 33.0 01/05 01/04 01/04 0125 1950 1350 Chemistry Sodium (137 - 145 mmol/L) 145 Potassium (3.5 - 5.1 mmol/L) 4.5 Chloride (98 - 107 mmol/L) 110 H Carbon Dioxide (22 - 30 mmol/L) 23 Anion Gap (5 - 16) 11 BUN (9 - 20 mg/dL) 88 H Creatinine (0.7 - 1.2 mg/dL) 2.4 H Estimated GFR (>60 ml/min) 26 L Glucose (65 - 99 mg/dL) 79 Lactic Acid (0.7 - 2.1 mmol/L) 1.7 Calcium (8.4 - 10.2 mg/dL) 8.9 Phosphorus (2.5 - 4.5 mg/dL) 4.9 H Magnesium (1.6 - 2.3 mg/dL) 2.6 H Total Bilirubin (0.2 - 1.3 mg/dL) 2.8 H Cancelled Direct Bilirubin Cancelled AST (17 - 59 U/L) 141 H Cancelled ALT (21 - 72 U/L) 199 H Cancelled Alkaline Phosphatase Cancelled Troponin I (<0.11 ng/ml) 2.53 *H 1.96 *H Total Protein Cancelled Albumin (3.5 - 5.0 g/dL) 3.1 L Cancelled Hematology CBC w Diff NO MAN DIFF REQ WBC (4.8 - 10.8 /CUMM) 7.2 RBC (4.70 - 6.10 /CUMM) 3.02 L Hgb (14.0 - 18.0 G/DL) 9.0 L Hct (42 - 52 %) 27.6 L MCV (80.0 - 94.0 FL) 91.6 MCH (27.0 - 31.0 PG) 29.9 RDW (11.5 - 14.5 %) 16.2 H Plt Count (130 - 400 /CUMM) 211 MPV (7.4 - 10.4 FL) 9.7 Gran % (42.2 - 75.2 %) 86.5 H Lymphocytes % (20.5 - 51.1 %) 3.8 L Monocytes % (1.7 - 9.3 %) 8.7 Eosinophils % (0 - 5 %) 0.7 Basophils % (0.0 - 2.0 %) 0.3 Absolute Granulocytes (1.4 - 6.5 /CUMM) 6.2 Absolute Lymphocytes (1.2 - 3.4 /CUMM) 0.3 L Absolute Monocytes (0.10 - 0.60 /CUMM) 0.6 Absolute Eosinophils (0.0 - 0.7 /CUMM) 0 Absolute Basophils (0.0 - 0.2 /CUMM) 0 PUBS MCHC (33.0 - 37.0 G/DL) 32.7 L 01/04 1350 Blood Gas pH (7.35 - 7.45 PH) 7.43 pCO2 (35 - 45 TORR) 28 L pO2 (80 - 100 TORR) 96 HCO3 (21 - 28 MEQ/L) 18 L ABG O2 Sat (Measured) (>96.0 %) 95.0 L P-50 (Temp Corrected) N Carboxyhemoglobin (1.5 - 5.0 %) 1.4 L O2 Concentration % .21 Temperature (97.0 - 100.0 FARH) 98.4 O2 Delivery Method RA Chemistry Sodium (137 - 145 mmol/L) 144 Potassium (3.5 - 5.1 mmol/L) 4.0 Chloride (98 - 107 mmol/L) 109 H Carbon Dioxide (22 - 30 mmol/L) 20 L Anion Gap (5 - 16) 14 BUN (9 - 20 mg/dL) 90 H Creatinine (0.7 - 1.2 mg/dL) 2.4 H Estimated GFR (>60 ml/min) 26 L BUN/Creatinine Ratio (7 - 25 %) 37.5 H Lactic Acid (0.7 - 2.1 mmol/L) 4.3 H Magnesium (1.6 - 2.3 mg/dL) 2.6 H Total Bilirubin (0.2 - 1.3 mg/dL) 0.9 Direct Bilirubin (< 0.4 mg/dL) 0.3 AST (17 - 59 U/L) 94 H ALT (21 - 72 U/L) 168 H Alkaline Phosphatase (< 127 U/L) 79 Troponin I (<0.11 ng/ml) 1.13 *H Total Protein (6.3 - 8.2 g/dL) 5.7 L Albumin (3.5 - 5.0 g/dL) 2.9 L TSH (0.270 - 4.200 uIU/mL) 3.970 Free T4 (0.78 - 2.44 ng/dL) 1.30 Coagulation PT (9.4 - 12.5 SEC) 11.7 INR (0.90 - 1.17) 1.12 Hematology CBC w Diff NO MAN DIFF REQ WBC (4.8 - 10.8 /CUMM) 6.4 RBC (4.70 - 6.10 /CUMM) 2.27 L Hgb (14.0 - 18.0 G/DL) 6.8 *L Hct (42 - 52 %) 21.0 L MCV (80.0 - 94.0 FL) 92.4 MCH (27.0 - 31.0 PG) 29.8 RDW (11.5 - 14.5 %) 16.2 H Plt Count (130 - 400 /CUMM) 216 MPV (7.4 - 10.4 FL) 9.8 Gran % (42.2 - 75.2 %) 80.2 H Lymphocytes % (20.5 - 51.1 %) 9.5 L Monocytes % (1.7 - 9.3 %) 7.5 Eosinophils % (0 - 5 %) 2.6 Basophils % (0.0 - 2.0 %) 0.2 Absolute Granulocytes (1.4 - 6.5 /CUMM) 5.2 Absolute Lymphocytes (1.2 - 3.4 /CUMM) 0.6 L Absolute Monocytes (0.10 - 0.60 /CUMM) 0.5 Absolute Eosinophils (0.0 - 0.7 /CUMM) 0.2 Absolute Basophils (0.0 - 0.2 /CUMM) 0 PUBS MCHC (33.0 - 37.0 G/DL) 32.2 L Miscellaneous Phlebotomy Draw Site LEFT RADIAL
--- NOTE | 2017-01-05 10:05 | PN- CRCU ---
Subjective HPI/Critical Care Issues: Doing much better Awake alert and oriented 3 Does not complain of anything other than being thirsty Afebrile Adequate urine output Family was at the bedside Patient was intubated and could not give any history No nausea vomiting or diarrhea Review of symptoms otherwise unremarkable All the blood work was reviewed As noted below his anion gap is normal his acetone was negative his liver enzymes are still elevated troponin did peak at 2.53 now it's trending down his A1c was 9.6 his cortisol level yesterday in the morning was 13 His BNP was 3690. Hemoglobin and hematocrit has relatively been stabilized but patient did get 2 units of transfusion Objective Current Medications: Current Medications Sig/Alejandra Start time Last Medication Dose Route Stop Time Status Admin Acetaminophen 650 MG Q6P PRN 01/02 2100 AC PO Amiodarone HCl 200 MG DAILY 01/03 1000 DC 01/04 PO 1032 Ampicillin Sodium/ 1,500 MG Q12 01/04 1339 AC 01/05 Sulbactam Sodium IV 0837 Sodium Chloride 100 ML Aspirin 81 MG DAILY 01/04 1000 DC PO Clopidogrel Bisulfate 75 MG DAILY 01/03 1000 DC 01/03 PO 1253 Dextrose/Sodium 1,000 ML Q20H 01/04 1900 AC 01/04 Chloride IV 1905 Dobutamine HCl 250 MG Q9H 01/03 1300 DC 01/04 Sodium Chloride 250 ML IV 0850 Doxazosin Mesylate 4 MG DAILY 01/03 1000 AC 01/04 PO 1032 Epinephrine 1 MG ONCE ONE 01/04 1345 CAN IV 01/04 1346 Fentanyl Citrate 50 MCG ONCE ONE 01/04 1600 DC 01/04 IV 01/04 1601 1600 Fentanyl Citrate 1,000 MCG Q24H 01/04 1545 CAN Dextrose/Water 250 ML IV Fentanyl Citrate 2 MCG ONCE ONE 01/04 1545 CAN IV 01/04 1546 Fluocinonide 1 ROLAND BID 01/04 1146 AC 01/04 TOP 2159 Folic Acid 1 MG DAILY 01/03 1000 AC 01/04 PO 1032 Furosemide 80 MG DAILY 01/04 1000 DC 01/04 IV 1138 Glucagon 1 MG .Q3M 01/04 1445 DC 01/04 N/A 1 UNIT IV 01/04 1447 1445 Hydrocortisone 50 MG Q8 01/04 2200 CAN Sodium Succinate IV 01/05 1401 Hydrocortisone 50 MG Q8 01/04 1758 DC 01/05 Sodium Succinate IV 01/05 0601 0602 Hydrocortisone 100 MG Q8 01/04 1540 DC Sodium Succinate IV Insulin Aspart 0 TIDAC/HS 01/03 1700 DC 01/04 SC 1236 Insulin Detemir 20 UNITS BID 01/04 1000 AC 01/05 SC 0841 Insulin Human Regular 0 Q6 01/04 1800 AC 01/05 SC 0554 Levetiracetam 500 MG ONCE ONE 01/04 1545 DC 01/04 N/A 1 UNIT IV 01/04 1559 1757 Lisinopril 20 MG DAILY 01/03 1945 DC 01/04 PO 1033 Lorazepam 50 MG ONCE ONE 01/04 1445 CAN Sodium Chloride 500 ML IV 01/04 1446 Lorazepam 50 MG Q24H 01/04 1445 DC Sodium Chloride 500 ML IV Lorazepam 60 MG .STK-MED ONE 01/04 1443 DC IM 01/04 1444 Lorazepam 2 MG .STK-MED ONE 01/04 1405 DC IM 01/04 1406 Metoprolol Tartrate 25 MG BID 01/02 2200 DC 01/04 PO 1032 Nitroglycerin 0.4 MG DAILY 01/03 1000 AC 01/04 TOP 1033 Non-Formulary 0 SEE ADMIN CRITERIA 01/04 1415 CAN Medication ANY Non-Formulary 0 SEE ADMIN CRITERIA 01/04 1415 DC Medication ANY Norepinephrine 4 MG Q24H 01/04 1500 DC Sodium Chloride 250 ML IV Norepinephrine 4 MG .STK-MED ONE 01/04 1452 DC IV 01/04 1453 Ondansetron HCl 4 MG Q6P PRN 01/04 1345 AC 01/04 IV 1347 Pantoprazole Sodium 40 MG DAILY 01/04 1346 AC 01/05 IV 0837 Propofol 1,000 MG Q12H 01/04 1500 CAN N/A 100 ML IV Propofol 1,000 MG .STK-MED ONE 01/04 1415 DC IV 01/04 1416 Sodium Chloride 1,000 ML BOLUS ONE 01/04 1500 DC 01/04 IV 01/04 1559 1500 Sodium Chloride 1,000 ML BOLUS ONE 01/04 1345 DC IV 01/04 1444 Sodium Chloride 1,000 ML Q13H 01/04 1345 DC 01/04 IV 01/05 1544 1349 Vital Signs & I&O Last 24 Hrs of Vitals and I&O: Laboratory Tests 01/05 01/05 01/05 0758 0600 0445 Chemistry Sodium (137 - 145 mmol/L) Cancelled 144 Potassium (3.5 - 5.1 mmol/L) Cancelled 5.2 H Chloride (98 - 107 mmol/L) Cancelled 111 H Carbon Dioxide (22 - 30 mmol/L) Cancelled 21 L Anion Gap (5 - 16) Cancelled 12 BUN (9 - 20 mg/dL) Cancelled 88 H Creatinine (0.7 - 1.2 mg/dL) Cancelled 2.3 H Estimated GFR (>60 ml/min) 28 L BUN/Creatinine Ratio Cancelled Glucose (65 - 99 mg/dL) 169 H Calcium (8.4 - 10.2 mg/dL) 8.9 Phosphorus (2.5 - 4.5 mg/dL) 5.3 H Magnesium (1.6 - 2.3 mg/dL) 2.5 H Total Bilirubin (0.2 - 1.3 mg/dL) 2.7 H AST (17 - 59 U/L) 106 H ALT (21 - 72 U/L) 180 H Troponin I (<0.11 ng/ml) 2.40 *H Albumin (3.5 - 5.0 g/dL) 3.0 L Hematology CBC w Diff NO MAN DIFF REQ WBC (4.8 - 10.8 /CUMM) 9.0 RBC (4.70 - 6.10 /CUMM) 2.79 L Hgb (14.0 - 18.0 G/DL) 8.4 L Hct (42 - 52 %) 25.5 L MCV (80.0 - 94.0 FL) 91.2 MCH (27.0 - 31.0 PG) 30.1 RDW (11.5 - 14.5 %) 16.2 H Plt Count (130 - 400 /CUMM) 158 MPV (7.4 - 10.4 FL) 10.8 H Gran % (42.2 - 75.2 %) 93.3 H Lymphocytes % (20.5 - 51.1 %) 2.0 L Monocytes % (1.7 - 9.3 %) 4.5 Eosinophils % (0 - 5 %) 0.1 Basophils % (0.0 - 2.0 %) 0.1 Absolute Granulocytes (1.4 - 6.5 /CUMM) 8.4 H Absolute Lymphocytes (1.2 - 3.4 /CUMM) 0.2 L Absolute Monocytes (0.10 - 0.60 /CUMM) 0.4 Absolute Eosinophils (0.0 - 0.7 /CUMM) 0 Absolute Basophils (0.0 - 0.2 /CUMM) 0 PUBS MCHC (33.0 - 37.0 G/DL) 33.0 0501/04 0125 1950 1350 Chemistry Sodium (137 - 145 mmol/L) 145 Potassium (3.5 - 5.1 mmol/L) 4.5 Chloride (98 - 107 mmol/L) 110 H Carbon Dioxide (22 - 30 mmol/L) 23 Anion Gap (5 - 16) 11 BUN (9 - 20 mg/dL) 88 H Creatinine (0.7 - 1.2 mg/dL) 2.4 H Estimated GFR (>60 ml/min) 26 L Glucose (65 - 99 mg/dL) 79 Lactic Acid (0.7 - 2.1 mmol/L) 1.7 Calcium (8.4 - 10.2 mg/dL) 8.9 Phosphorus (2.5 - 4.5 mg/dL) 4.9 H Magnesium (1.6 - 2.3 mg/dL) 2.6 H Total Bilirubin (0.2 - 1.3 mg/dL) 2.8 H Cancelled Direct Bilirubin Cancelled AST (17 - 59 U/L) 141 H Cancelled ALT (21 - 72 U/L) 199 H Cancelled Alkaline Phosphatase Cancelled Troponin I (<0.11 ng/ml) 2.53 *H 1.96 *H Total Protein Cancelled Albumin (3.5 - 5.0 g/dL) 3.1 L Cancelled Hematology CBC w Diff NO MAN DIFF REQ WBC (4.8 - 10.8 /CUMM) 7.2 RBC (4.70 - 6.10 /CUMM) 3.02 L Hgb (14.0 - 18.0 G/DL) 9.0 L Hct (42 - 52 %) 27.6 L MCV (80.0 - 94.0 FL) 91.6 MCH (27.0 - 31.0 PG) 29.9 RDW (11.5 - 14.5 %) 16.2 H Plt Count (130 - 400 /CUMM) 211 MPV (7.4 - 10.4 FL) 9.7 Gran % (42.2 - 75.2 %) 86.5 H Lymphocytes % (20.5 - 51.1 %) 3.8 L Monocytes % (1.7 - 9.3 %) 8.7 Eosinophils % (0 - 5 %) 0.7 Basophils % (0.0 - 2.0 %) 0.3 Absolute Granulocytes (1.4 - 6.5 /CUMM) 6.2 Absolute Lymphocytes (1.2 - 3.4 /CUMM) 0.3 L Absolute Monocytes (0.10 - 0.60 /CUMM) 0.6 Absolute Eosinophils (0.0 - 0.7 /CUMM) 0 Absolute Basophils (0.0 - 0.2 /CUMM) 0 PUBS MCHC (33.0 - 37.0 G/DL) 32.7 L 01/04 01/04 1350 0650 Blood Gas pH (7.35 - 7.45 PH) 7.43 pCO2 (35 - 45 TORR) 28 L pO2 (80 - 100 TORR) 96 HCO3 (21 - 28 MEQ/L) 18 L ABG O2 Sat (Measured) (>96.0 %) 95.0 L P-50 (Temp Corrected) N Carboxyhemoglobin (1.5 - 5.0 %) 1.4 L O2 Concentration % .21 Temperature (97.0 - 100.0 FARH) 98.4 O2 Delivery Method RA Chemistry Sodium (137 - 145 mmol/L) 144 147 H Potassium (3.5 - 5.1 mmol/L) 4.0 4.0 Chloride (98 - 107 mmol/L) 109 H 111 H Carbon Dioxide (22 - 30 mmol/L) 20 L 24 Anion Gap (5 - 16) 14 11 BUN (9 - 20 mg/dL) 90 H 96 H Creatinine (0.7 - 1.2 mg/dL) 2.4 H 2.4 H Estimated GFR (>60 ml/min) 26 L 26 L BUN/Creatinine Ratio (7 - 25 %) 37.5 H 40.0 H Lactic Acid (0.7 - 2.1 mmol/L) 4.3 H Magnesium (1.6 - 2.3 mg/dL) 2.6 H Total Bilirubin (0.2 - 1.3 mg/dL) 0.9 Direct Bilirubin (< 0.4 mg/dL) 0.3 AST (17 - 59 U/L) 94 H ALT (21 - 72 U/L) 168 H Alkaline Phosphatase (< 127 U/L) 79 Troponin I (<0.11 ng/ml) 1.13 *H Total Protein (6.3 - 8.2 g/dL) 5.7 L Albumin (3.5 - 5.0 g/dL) 2.9 L TSH (0.270 - 4.200 uIU/mL) 3.970 Free T4 (0.78 - 2.44 ng/dL) 1.30 Cortisol AM Sample (4.46 - 22.7 ug/dL) 13.0 Coagulation PT (9.4 - 12.5 SEC) 11.7 INR (0.90 - 1.17) 1.12 Hematology CBC w Diff NO MAN DIFF REQ NO MAN DIFF REQ WBC (4.8 - 10.8 /CUMM) 6.4 5.9 RBC (4.70 - 6.10 /CUMM) 2.27 L 2.39 L Hgb (14.0 - 18.0 G/DL) 6.8 *L 7.1 *L Hct (42 - 52 %) 21.0 L 21.9 L MCV (80.0 - 94.0 FL) 92.4 91.6 MCH (27.0 - 31.0 PG) 29.8 29.9 RDW (11.5 - 14.5 %) 16.2 H 16.2 H Plt Count (130 - 400 /CUMM) 216 234 MPV (7.4 - 10.4 FL) 9.8 9.7 Gran % (42.2 - 75.2 %) 80.2 H 76.7 H Lymphocytes % (20.5 - 51.1 %) 9.5 L 10.2 L Monocytes % (1.7 - 9.3 %) 7.5 9.2 Eosinophils % (0 - 5 %) 2.6 3.6 Basophils % (0.0 - 2.0 %) 0.2 0.3 Absolute Granulocytes (1.4 - 6.5 /CUMM) 5.2 4.5 Absolute Lymphocytes (1.2 - 3.4 /CUMM) 0.6 L 0.6 L Absolute Monocytes (0.10 - 0.60 /CUMM) 0.5 0.5 Absolute Eosinophils (0.0 - 0.7 /CUMM) 0.2 0.2 Absolute Basophils (0.0 - 0.2 /CUMM) 0 0 PUBS MCHC (33.0 - 37.0 G/DL) 32.2 L 32.6 L Miscellaneous Phlebotomy Draw Site LEFT RADIAL Microbiology Date/Time Procedure - Status Source Growth 01/04 2050 Surveillance Culture - RECD GI 01/04 162 Respiratory Culture - COLB LOWER RESP 01/04 162 Gram Stain - COLB LOWER RESP 01/04 144 Surveillance Culture - RECD UPPER RESP 01/04 144 Blood Culture - RECD BLOOD 01/04 142 Urine Culture - RECD URINE ROUT 01/04 1400 Blood Culture - RECD BLOOD Vital Signs Date Time Temp Pulse Resp B/P B/P Pulse O2 O2 Flow FiO2 Mean Ox Delivery Rate 01/05 0810 35 01/05 0800 100 Ventilator 35% 01/05 08 97.1 68 20 130/60 100 Ventilator 35% 01/05 0601 35 01/05 0400 98 Ventilator 35% 01/05 0351 35 01/05 0116 35 05 0000 99 Ventilator 35% 01/05 0000 96.8 63 18 110/70 99 Ventilator 35% 01/04 2200 35 01/04 2004 45 01/04 2000 99 Ventilator 45% 01/04 1618 45 01/04 1600 100 Ventilator 45% 01/04 1455 100 01/04 1320 92/40 01/04 1305 80/40 01/04 1140 72 124/50 01/04 1033 72 112/40 01/04 1032 72 112/40 01/04 1032 72 112/40 01/04 1030 72 112/40 Intake & Output 01/05 1600 01/05 0800 05 0000 Intake Total 392 930 Output Total 720 280 Balance -328 650 Intake, Blood 350 Product Intake, IV 392 580 Number 0 Bowel Movements Output, 0 Gastric Drainage Output, Urine 720 280 Patient 217 lb 217 lb Weight Weight Bed scale Measurement Method Impression/Plan Impression/Plan Impression/Plan: General Appearance: Alert, Oriented X3, Cooperative, No Acute Distress, Intubated Skin: b/l le redness Skin Temp/Moisture Exam: Warm/Dry Sepsis Skin Exam (color): Normal for Ethnicity HEENT: Atraumatic, PERRLA, EOMI, Mucous Membr. 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 Pt was being treated with dobutamine and was on amiodarone etc and was sig anemic with heme positive stool. Pt did appear to be stable this am but went into syncope and upon transfer to the icu went into sig pavel prob asystole with cpa ISSues * S/P CPR due to sig pavel and asytole now with rapid recovery and improvement * Pt has Sig history of low ef and diastolic chf aswell with recurrent chf, with pafib with multiple episodes of nstmi and his cardiac cath did not reveal stentable disease (s/p cabg) * Sig pulm htn (secondary) * Sig anemia unclear etiology - pt has agg bladder ca and on chemo and this could be the main issue for anemia. he also has heme positive stool. Now has coffee ground in the og tube * Seizure like activity related to low flow state now fully stable * Insulin requring DM with previous ketosis * Previous steroid use and prob cortisol def * Bladder Ca * Transaminitis with lesions in the liver in the recent pet scan * CKD with Arf * CAD sig REC COnt vent and extubate Watch for seizures One dose of lasix GI has no plans for endoscopy Follow crit keppra loading dose for now cont random cortisol Strict sugar control with frequent sugar monitoring Hold anti htn meds and anti platelets and anticoag Sputum culture Will eval for anemia with GI on board aswell Cont all meds Reduce dose of doxazosin to 2 Cont bagley for now COnt iv ppi Watch for pulm edema Rule out mi Pt critically ill [id number]
[2017-01-05 14:23] LABS: ABSOLUTE BASOPHIL COUNT 0 /CUMM (0.0-0.2); ABSOLUTE EOSINOPHIL COUNT 0 /CUMM (0.0-0.7); ABSOLUTE GRANULOCYTE CT 7.8 /CUMM (1.4-6.5); ABSOLUTE LYMPH COUNT 0.2 /CUMM (1.2-3.4); ABSOLUTE MONOCYTE COUNT 0.4 /CUMM (0.10-0.60); BASOPHIL % 0 % (0.0-2.0); EOSINOPHIL % 0 % (0-5); HEMATOCRIT 26.8 % (42-52); MEAN CORPUSCULAR HGB 29.5 PG (27.0-31.0); MEAN CORPUSCULAR HGB CONC 32.7 G/DL (33.0-37.0); MEAN CORPUSCULAR VOLUME 90.4 FL (80.0-94.0); MEAN PLATELET VOLUME 10.3 FL (7.4-10.4); PLATELET COUNT 215 /CUMM (130-400); RBC DISTRIBUTION WIDTH 16.4 % (11.5-14.5); RED BLOOD CELL CT 2.97 /CUMM (4.70-6.10); WHITE BLOOD CELL COUNT 8.4 /CUMM (4.8-10.8)
[2017-01-05 14:55] LABS: GRANULOCYTE % 92.2 % (42.2-75.2)
[2017-01-05 16:00] VITALS: BP 118/50
--- NOTE | 2017-01-05 18:45 | PN- Cardiology ---
Subjective Subjective: The patient is feeling much better. No further syncope or hypotension. Shortness of breath improving. The patient reports mild chest discomfort secondary to CPR. Objective Vital Signs and I&Os Vital Signs Date Time Temp Pulse Resp B/P B/P Pulse O2 O2 Flow FiO2 Mean Ox Delivery Rate 01/05 1600 97 Nasal 2.0L Cannula 01/05 1600 97.5 64 27 118/50 97 Nasal 2.0L Cannula 01/05 1200 96 Nasal 2.0L Cannula 01/05 1127 Nasal 3.0L Cannula 01/05 0810 35 01/05 0800 100 Ventilator 35% 01/05 0800 97.1 68 20 130/60 100 Ventilator 35% 01/05 0601 35 01/05 0400 98 Ventilator 35% 01/05 0351 35 01/05 0116 35 01/05 0000 99 Ventilator 35% 01/05 0000 96.8 63 18 110/70 99 Ventilator 35% 01/04 2200 35 01/04 2004 45 01/04 2000 99 Ventilator 45% Intake & Output 01/05 1600 01/05 0800 01/05 0000 01/04 1600 01/04 0800 01/04 0000 Intake Total 540 392 930 200 952 Output Total 1000 720 280 271 807 8330 Balance -460 -328 650 -350 -600 -48 Intake, Blood 350 Product Intake, IV 540 392 580 200 232 Intake, Oral 0 720 Number 0 0 1 1 Bowel Movements Output, 0 Gastric Drainage Output, Urine 1000 720 280 802 304 9530 Patient 217 lb 217 lb Weight Weight Bed scale Measurement Method Physical Exam: Gen: NAD HEENT: normal Lungs: clear to auscultation, normal resp. effort Heart: RRR, S1, S2, no murmurs Abdomen: Soft, nontender, no masses Extremities: No clubbing, cyanosis, or edema. Neuro: Alert and oriented x 3, cranial nerves intact Current Medications: Current Medications Sig/Alejandra Start time Last Medication Dose Route Stop Time Status Admin Acetaminophen 650 MG Q6P PRN 01/02 2100 AC PO Ampicillin Sodium/ 1,500 MG Q12 01/04 1339 AC 01/05 Sulbactam Sodium IV 0837 Sodium Chloride 100 ML Dextrose/Sodium 1,000 ML Q20H 01/04 1900 AC 01/05 Chloride IV 1838 Doxazosin Mesylate 2 MG DAILY 01/06 1000 AC PO Doxazosin Mesylate 4 MG DAILY 01/03 1000 DC 01/04 PO 1032 Fluocinonide 1 ROLAND BID 01/04 1146 AC 01/05 TOP 1056 Folic Acid 1 MG DAILY 01/03 1000 AC 01/04 PO 1032 Furosemide 40 MG ONCE ONE 01/05 1015 DC 01/05 IV 01/05 1016 1056 Hydrocortisone 50 MG Q8 01/04 1758 DC 01/05 Sodium Succinate IV 01/05 0601 0602 Insulin Aspart 0 Q4 01/05 1800 AC 01/05 SC 1839 Insulin Detemir 15 UNITS BID 01/05 2200 AC SC Insulin Detemir 20 UNITS BID 01/04 1000 DC 01/05 SC 0841 Insulin Human Regular 0 Q6 01/04 1800 DC 01/05 SC 1200 Nitroglycerin 0.4 MG DAILY 01/03 1000 AC 01/04 TOP 1033 Ondansetron HCl 4 MG Q6P PRN 01/04 1345 AC 01/04 IV 1347 Pantoprazole Sodium 40 MG DAILY 01/04 1346 AC 01/05 IV 0837 Results Last 48 Hrs of Labs/Mics: Laboratory Tests 01/05/17 1300: Anion Gap 13, Estimated GFR 28 L, Glucose 206 H, Calcium 9.0, Phosphorus 5.5 H, Magnesium 2.4 H, Total Bilirubin 1.9 H, AST 81 H, ALT 168 H, Albumin 3.0 L, Cortisol PM Sample 36.0 H, CBC w Diff NO MAN DIFF REQ, RBC 2.97 L, MCV 90.4 , MCH 29.5, RDW 16.4 H, MPV 10.3, Gran % 92.2 H, Lymphocytes % 2.5 L, Monocytes % 5.3, Eosinophils % 0, Basophils % 0 L, Absolute Granulocytes 7.8 H , Absolute Lymphocytes 0.2 L, Absolute Monocytes 0.4, Absolute Eosinophils 0, Absolute Basophils 0, PUBS MCHC 32.7 L 01/05/17 1025: pH 7.45, pCO2 30 L, pO2 98, HCO3 20 L, ABG O2 Sat (Measured) 98.0, P-50 (Temp Corrected) YES, Carboxyhemoglobin 0.9 L, O2 Concentration % 35, Temperature 97.1, O2 Delivery Method VENT, Vent Mode CPAP, Expiratory Pressure 5, Pressure Support 6, Phlebotomy Draw Site RIGHT BRACHIAL 01/05/17 0758: Lactate Dehydrogenase 779 H, Troponin I 2.40 *H 01/05/17 0600: Sodium Cancelled, Potassium Cancelled, Chloride Cancelled, Carbon Dioxide Cancelled, Anion Gap Cancelled, BUN Cancelled, Creatinine Cancelled, BUN/ Creatinine Ratio Cancelled 01/05/17 0445: Anion Gap 12, Estimated GFR 28 L, Glucose 169 H, Calcium 8.9, Phosphorus 5.3 H, Magnesium 2.5 H, Total Bilirubin 2.7 H, AST 106 H, ALT 180 H, Albumin 3.0 L, CBC w Diff NO MAN DIFF REQ, RBC 2.79 L, MCV 91.2, MCH 30.1, RDW 16.2 H, MPV 10.8 H, Gran % 93.3 H, Lymphocytes % 2.0 L, Monocytes % 4.5, Eosinophils % 0.1, Basophils % 0.1, Absolute Granulocytes 8.4 H, Absolute Lymphocytes 0.2 L, Absolute Monocytes 0.4, Absolute Eosinophils 0, Absolute Basophils 0, PUBS MCHC 33.0 01/05/17 0125: Troponin I 2.53 *H 01/04/17 1950: Anion Gap 11, Estimated GFR 26 L, Glucose 79, Lactic Acid 1.7, Calcium 8.9, Phosphorus 4.9 H, Magnesium 2.6 H, Total Bilirubin 2.8 H, AST 141 H, ALT 199 H, Troponin I 1.96 *H, Albumin 3.1 L, CBC w Diff NO MAN DIFF REQ, RBC 3.02 L, MCV 91.6, MCH 29.9, RDW 16.2 H, MPV 9.7, Gran % 86.5 H, Lymphocytes % 3.8 L, Monocytes % 8.7, Eosinophils % 0.7, Basophils % 0.3, Absolute Granulocytes 6.2, Absolute Lymphocytes 0.3 L, Absolute Monocytes 0.6, Absolute Eosinophils 0, Absolute Basophils 0, PUBS MCHC 32.7 L 01/04/17 1350: Total Bilirubin Cancelled, Direct Bilirubin Cancelled, AST Cancelled, ALT Cancelled, Alkaline Phosphatase Cancelled, Total Protein Cancelled, Albumin Cancelled 01/04/17 1350: pH 7.43, pCO2 28 L, pO2 96, HCO3 18 L, ABG O2 Sat (Measured) 95.0 L, P-50 ( Temp Corrected) N, Carboxyhemoglobin 1.4 L, O2 Concentration % .21, Temperature 98.4, O2 Delivery Method RA, Anion Gap 14, Estimated GFR 26 L, BUN/Creatinine Ratio 37.5 H, Lactic Acid 4.3 H, Magnesium 2.6 H, Total Bilirubin 0.9, Direct Bilirubin 0.3, AST 94 H, ALT 168 H, Alkaline Phosphatase 79, Troponin I 1.13 * H, Total Protein 5.7 L, Albumin 2.9 L, TSH 3.970, Free T4 1.30, PT 11.7, INR 1.12, CBC w Diff NO MAN DIFF REQ, RBC 2.27 L, MCV 92.4, MCH 29.8, RDW 16.2 H, MPV 9.8, Gran % 80.2 H, Lymphocytes % 9.5 L, Monocytes % 7.5, Eosinophils % 2.6, Basophils % 0.2, Absolute Granulocytes 5.2, Absolute Lymphocytes 0.6 L, Absolute Monocytes 0.5, Absolute Eosinophils 0.2, Absolute Basophils 0, PUBS MCHC 32.2 L, Phlebotomy Draw Site LEFT RADIAL 01/04/17 0650: Anion Gap 11, Estimated GFR 26 L, BUN/Creatinine Ratio 40.0 H, Cortisol AM Sample 13.0, CBC w Diff NO MAN DIFF REQ, RBC 2.39 L, MCV 91.6, MCH 29.9, RDW 16.2 H, MPV 9.7, Gran % 76.7 H, Lymphocytes % 10.2 L, Monocytes % 9.2, Eosinophils % 3.6, Basophils % 0.3, Absolute Granulocytes 4.5, Absolute Lymphocytes 0.6 L, Absolute Monocytes 0.5, Absolute Eosinophils 0.2, Absolute Basophils 0, PUBS MCHC 32.6 L Recent Imaging Studies: Chest x-ray: Endotracheal tube tip approximately 5 cm above the vicki. Hazy bibasilar opacities and suspected small pleural effusions. Enlarged cardiac silhouette. Echocardiogram: 1. MIld aortic sclerosis is present with no valvular stenosis or insufficiency. 2. Thickening and calcification of the mitral leaflets is present with mild to moderate mitral insuffciiency and left atrial enlargement. 3. There is no significnat pericardail fluid present. 4. The left ventricular chamber size is normal. There is hypokinesia of the inferoposterior and inferoapical segments with an ejectino fraction of 40-45%. 5. THe right heart structures are grossly normal with mild to moderate tricuspid insufficiency and an estimated RV systolic pressure of 40 mmHg. Assessment/Plan Assessment/Plan Assessment: 1. CAD, status post CABG 2. Diabetes mellitus 3. Chronic kidney disease 4. Bladder cancer 5. Chronic heart failure with reduced ejection fraction 6. Recent bradycardia and asystole, improved Plan: * Continue current cardiac medications. * Continue to monitor for further with this. Continue telemetry? Yes
--- NOTE | 2017-01-05 20:28 | PN- Gastroenterology ---
Assessment/Plan Assessment/Recommendations: 1. Anemia, with low iron saturation. H/H stable after transfusion. No overt bleeding, and indeed apparently Hemoccult negative stool during this admission. Hematemesis was reported. The anemia is early multifactorial, including components of CKD, chemotherapy, etc. 2. Abnormal liver function tests. Probably related to flow/hemodynamics ( congestive heart failure, pulmonary hypertension, new ischemia, etc.). Differential diagnoses includes medication induced such as chemotherapy; infiltrative disease; etc. 3. Liver lesion on PET scan and ultrasound, not demonstrated on most recent noncontrast CT. Recommendations * Regular diet as tolerated * MRI of the liver with IV contrast/mass protocol * Alpha-fetoprotein * Follow-up liver function tests including alkaline phosphatase and direct bilirubin * Follow-up INR * CBC in the morning * Eventual EGD and colonoscopy although this is not urgent. Will clear with cardiology beforehand. Subjective Subjective: The patient has been extubated. He denies preadmission heartburn, nausea, dysphagia, dyspepsia, abdominal pain, abnormal or altered bowel habits, melena, blood per rectum. He has never had colonoscopy/colorectal cancer screening or endoscopy. Objective Vital Signs and I&Os Vital Signs Date Time Temp Pulse Resp B/P B/P Pulse O2 O2 Flow FiO2 Mean Ox Delivery Rate 01/06 2000 99 Nasal 2.0L Cannula 01/05 1600 97 Nasal 2.0L Cannula 01/05 1600 97.5 64 27 118/50 97 Nasal 2.0L Cannula 01/05 1200 96 Nasal 2.0L Cannula 01/05 1127 Nasal 3.0L Cannula 01/05 0810 35 01/05 0800 100 Ventilator 35% 01/05 0800 97.1 68 20 130/60 100 Ventilator 35% 01/05 0601 35 01/05 0400 98 Ventilator 35% 01/05 0351 35 01/05 0116 35 01/05 0000 99 Ventilator 35% 01/05 0000 96.8 63 18 110/70 99 Ventilator 35% 01/04 2200 35 Intake & Output 01/05 04001/040 01/03 040 Intake Total 932 930 200 952 560 540 Output Total 1375 633 9433 1000 1000 1 Balance -788 650 -950 -48 -440 539 Intake, Blood 350 Product Intake, IV 932 580 200 232 60 Intake, Oral 0 720 560 480 Number 0 1 1 1 1 Bowel Movements Output, 0 Gastric Drainage Output, Other 1 Output, Urine 5338 825 0262 1000 1000 Patient 217 lb 214 lb 220 lb Weight Weight Bed scale Standing Scale Reported by Patient Measurement Method Physical Exam: Sclera anicteric. Abdomen is soft and nondistended with normal bowel sounds, and no tenderness, masses or organomegaly Current Medications: Current Medications Sig/Alejandra Start time Last Medication Dose Route Stop Time Status Admin Acetaminophen 650 MG Q6P PRN 01/02 2100 AC PO Ampicillin Sodium/ 1,500 MG Q12 01/04 1339 AC 01/05 Sulbactam Sodium IV 0837 Sodium Chloride 100 ML Dextrose/Sodium 1,000 ML Q20H 01/04 1900 AC 01/05 Chloride IV 1838 Doxazosin Mesylate 2 MG DAILY 01/06 1000 AC PO Doxazosin Mesylate 4 MG DAILY 01/03 1000 DC 01/04 PO 1032 Fluocinonide 1 ROLAND BID 01/04 1146 AC 01/05 TOP 1056 Folic Acid 1 MG DAILY 01/03 1000 AC 01/04 PO 1032 Furosemide 40 MG ONCE ONE 01/05 1015 DC 01/05 IV 01/05 1016 1056 Hydrocortisone 50 MG Q8 01/04 1758 DC 01/05 Sodium Succinate IV 01/05 0601 0602 Insulin Aspart 0 Q4 01/05 1800 AC 01/05 SC 1839 Insulin Detemir 15 UNITS BID 01/05 2200 AC SC Insulin Detemir 20 UNITS BID 01/04 1000 DC 01/05 NV 0841 Insulin Human Regular 0 Q6 01/04 1800 HI 01/05 SC 1200 Nitroglycerin 0.4 MG DAILY 01/03 1000 AC 01/04 TOP 1033 Ondansetron HCl 4 MG Q6P PRN 01/04 1345 AC 01/04 IV 1347 Pantoprazole Sodium 40 MG DAILY 01/04 1346 AC 01/05 IV 0837 Results Pertinent Lab Results: Laboratory Tests 01/05 01/05 1900 1300 Chemistry Sodium (137 - 145 mmol/L) Cancelled 148 H Potassium (3.5 - 5.1 mmol/L) Cancelled 4.4 Chloride (98 - 107 mmol/L) Cancelled 112 H Carbon Dioxide (22 - 30 mmol/L) Cancelled 23 Anion Gap (5 - 16) Cancelled 13 BUN (9 - 20 mg/dL) Cancelled 78 H Creatinine (0.7 - 1.2 mg/dL) Cancelled 2.3 H Estimated GFR (>60 ml/min) 28 L Glucose (65 - 99 mg/dL) Cancelled 206 H Calcium (8.4 - 10.2 mg/dL) Cancelled 9.0 Phosphorus (2.5 - 4.5 mg/dL) Cancelled 5.5 H Magnesium (1.6 - 2.3 mg/dL) Cancelled 2.4 H Total Bilirubin (0.2 - 1.3 mg/dL) Cancelled 1.9 H AST (17 - 59 U/L) Cancelled 81 H ALT (21 - 72 U/L) Cancelled 168 H Albumin (3.5 - 5.0 g/dL) Cancelled 3.0 L Cortisol PM Sample (1.7 - 14.1) 36.0 H Hematology CBC w Diff NO MAN DIFF REQ WBC (4.8 - 10.8 /CUMM) 8.4 RBC (4.70 - 6.10 /CUMM) 2.97 L Hgb (14.0 - 18.0 G/DL) 8.8 L Hct (42 - 52 %) 26.8 L MCV (80.0 - 94.0 FL) 90.4 MCH (27.0 - 31.0 PG) 29.5 RDW (11.5 - 14.5 %) 16.4 H Plt Count (130 - 400 /CUMM) 215 MPV (7.4 - 10.4 FL) 10.3 Gran % (42.2 - 75.2 %) 92.2 H Lymphocytes % (20.5 - 51.1 %) 2.5 L Monocytes % (1.7 - 9.3 %) 5.3 Eosinophils % (0 - 5 %) 0 Basophils % (0.0 - 2.0 %) 0 L Absolute Granulocytes (1.4 - 6.5 /CUMM) 7.8 H Absolute Lymphocytes (1.2 - 3.4 /CUMM) 0.2 L Absolute Monocytes (0.10 - 0.60 /CUMM) 0.4 Absolute Eosinophils (0.0 - 0.7 /CUMM) 0 Absolute Basophils (0.0 - 0.2 /CUMM) 0 PUBS MCHC (33.0 - 37.0 G/DL) 32.7 L 01/05 01/05 01/05 1025 0968 0600 Blood Gas pH (7.35 - 7.45 PH) 7.45 pCO2 (35 - 45 TORR) 30 L pO2 (80 - 100 TORR) 98 HCO3 (21 - 28 MEQ/L) 20 L ABG O2 Sat (Measured) (>96.0 %) 98.0 P-50 (Temp Corrected) YES Carboxyhemoglobin (1.5 - 5.0 %) 0.9 L O2 Concentration % 35 Temperature (97.0 - 100.0 FARH) 97.1 O2 Delivery Method VENT Vent Mode CPAP Expiratory Pressure (CMH2O/P) 5 Pressure Support (CMH2O/P) 6 Chemistry Sodium Cancelled Potassium Cancelled Chloride Cancelled Carbon Dioxide Cancelled Anion Gap Cancelled BUN Cancelled Creatinine Cancelled BUN/Creatinine Ratio Cancelled Lactate Dehydrogenase (313 - 618 U/L) 779 H Troponin I (<0.11 ng/ml) 2.40 *H Miscellaneous Phlebotomy Draw Site RIGHT BRACHIAL 01/05 01/05 7956 0121 Chemistry Sodium (137 - 145 mmol/L) 144 Potassium (3.5 - 5.1 mmol/L) 5.2 H Chloride (98 - 107 mmol/L) 111 H Carbon Dioxide (22 - 30 mmol/L) 21 L Anion Gap (5 - 16) 12 BUN (9 - 20 mg/dL) 88 H Creatinine (0.7 - 1.2 mg/dL) 2.3 H Estimated GFR (>60 ml/min) 28 L Glucose (65 - 99 mg/dL) 169 H Calcium (8.4 - 10.2 mg/dL) 8.9 Phosphorus (2.5 - 4.5 mg/dL) 5.3 H Magnesium (1.6 - 2.3 mg/dL) 2.5 H Total Bilirubin (0.2 - 1.3 mg/dL) 2.7 H AST (17 - 59 U/L) 106 H ALT (21 - 72 U/L) 180 H Troponin I (<0.11 ng/ml) 2.53 *H Albumin (3.5 - 5.0 g/dL) 3.0 L Hematology CBC w Diff NO MAN DIFF REQ WBC (4.8 - 10.8 /CUMM) 9.0 RBC (4.70 - 6.10 /CUMM) 2.79 L Hgb (14.0 - 18.0 G/DL) 8.4 L Hct (42 - 52 %) 25.5 L MCV (80.0 - 94.0 FL) 91.2 MCH (27.0 - 31.0 PG) 30.1 RDW (11.5 - 14.5 %) 16.2 H Plt Count (130 - 400 /CUMM) 158 MPV (7.4 - 10.4 FL) 10.8 H Gran % (42.2 - 75.2 %) 93.3 H Lymphocytes % (20.5 - 51.1 %) 2.0 L Monocytes % (1.7 - 9.3 %) 4.5 Eosinophils % (0 - 5 %) 0.1 Basophils % (0.0 - 2.0 %) 0.1 Absolute Granulocytes (1.4 - 6.5 /CUMM) 8.4 H Absolute Lymphocytes (1.2 - 3.4 /CUMM) 0.2 L Absolute Monocytes (0.10 - 0.60 /CUMM) 0.4 Absolute Eosinophils (0.0 - 0.7 /CUMM) 0 Absolute Basophils (0.0 - 0.2 /CUMM) 0 PUBS MCHC (33.0 - 37.0 G/DL) 33.0 30 01/04 1950 1350 Chemistry Sodium (137 - 145 mmol/L) 145 Potassium (3.5 - 5.1 mmol/L) 4.5 Chloride (98 - 107 mmol/L) 110 H Carbon Dioxide (22 - 30 mmol/L) 23 Anion Gap (5 - 16) 11 BUN (9 - 20 mg/dL) 88 H Creatinine (0.7 - 1.2 mg/dL) 2.4 H Estimated GFR (>60 ml/min) 26 L Glucose (65 - 99 mg/dL) 79 Lactic Acid (0.7 - 2.1 mmol/L) 1.7 Calcium (8.4 - 10.2 mg/dL) 8.9 Phosphorus (2.5 - 4.5 mg/dL) 4.9 H Magnesium (1.6 - 2.3 mg/dL) 2.6 H Total Bilirubin (0.2 - 1.3 mg/dL) 2.8 H Cancelled Direct Bilirubin Cancelled AST (17 - 59 U/L) 141 H Cancelled ALT (21 - 72 U/L) 199 H Cancelled Alkaline Phosphatase Cancelled Troponin I (<0.11 ng/ml) 1.96 *H Total Protein Cancelled Albumin (3.5 - 5.0 g/dL) 3.1 L Cancelled Hematology CBC w Diff NO MAN DIFF REQ WBC (4.8 - 10.8 /CUMM) 7.2 RBC (4.70 - 6.10 /CUMM) 3.02 L Hgb (14.0 - 18.0 G/DL) 9.0 L Hct (42 - 52 %) 27.6 L MCV (80.0 - 94.0 FL) 91.6 MCH (27.0 - 31.0 PG) 29.9 RDW (11.5 - 14.5 %) 16.2 H Plt Count (130 - 400 /CUMM) 211 MPV (7.4 - 10.4 FL) 9.7 Gran % (42.2 - 75.2 %) 86.5 H Lymphocytes % (20.5 - 51.1 %) 3.8 L Monocytes % (1.7 - 9.3 %) 8.7 Eosinophils % (0 - 5 %) 0.7 Basophils % (0.0 - 2.0 %) 0.3 Absolute Granulocytes (1.4 - 6.5 /CUMM) 6.2 Absolute Lymphocytes (1.2 - 3.4 /CUMM) 0.3 L Absolute Monocytes (0.10 - 0.60 /CUMM) 0.6 Absolute Eosinophils (0.0 - 0.7 /CUMM) 0 Absolute Basophils (0.0 - 0.2 /CUMM) 0 PUBS MCHC (33.0 - 37.0 G/DL) 32.7 L 01/04 01/04 1350 0650 Blood Gas pH (7.35 - 7.45 PH) 7.43 pCO2 (35 - 45 TORR) 28 L pO2 (80 - 100 TORR) 96 HCO3 (21 - 28 MEQ/L) 18 L ABG O2 Sat (Measured) (>96.0 %) 95.0 L P-50 (Temp Corrected) N Carboxyhemoglobin (1.5 - 5.0 %) 1.4 L O2 Concentration % .21 Temperature (97.0 - 100.0 FARH) 98.4 O2 Delivery Method RA Chemistry Sodium (137 - 145 mmol/L) 144 147 H Potassium (3.5 - 5.1 mmol/L) 4.0 4.0 Chloride (98 - 107 mmol/L) 109 H 111 H Carbon Dioxide (22 - 30 mmol/L) 20 L 24 Anion Gap (5 - 16) 14 11 BUN (9 - 20 mg/dL) 90 H 96 H Creatinine (0.7 - 1.2 mg/dL) 2.4 H 2.4 H Estimated GFR (>60 ml/min) 26 L 26 L BUN/Creatinine Ratio (7 - 25 %) 37.5 H 40.0 H Lactic Acid (0.7 - 2.1 mmol/L) 4.3 H Magnesium (1.6 - 2.3 mg/dL) 2.6 H Total Bilirubin (0.2 - 1.3 mg/dL) 0.9 Direct Bilirubin (< 0.4 mg/dL) 0.3 AST (17 - 59 U/L) 94 H ALT (21 - 72 U/L) 168 H Alkaline Phosphatase (< 127 U/L) 79 Troponin I (<0.11 ng/ml) 1.13 *H Total Protein (6.3 - 8.2 g/dL) 5.7 L Albumin (3.5 - 5.0 g/dL) 2.9 L TSH (0.270 - 4.200 uIU/mL) 3.970 Free T4 (0.78 - 2.44 ng/dL) 1.30 Cortisol AM Sample (4.46 - 22.7 ug/dL) 13.0 Coagulation PT (9.4 - 12.5 SEC) 11.7 INR (0.90 - 1.17) 1.12 Hematology CBC w Diff NO MAN DIFF REQ NO MAN DIFF REQ WBC (4.8 - 10.8 /CUMM) 6.4 5.9 RBC (4.70 - 6.10 /CUMM) 2.27 L 2.39 L Hgb (14.0 - 18.0 G/DL) 6.8 *L 7.1 *L Hct (42 - 52 %) 21.0 L 21.9 L MCV (80.0 - 94.0 FL) 92.4 91.6 MCH (27.0 - 31.0 PG) 29.8 29.9 RDW (11.5 - 14.5 %) 16.2 H 16.2 H Plt Count (130 - 400 /CUMM) 216 234 MPV (7.4 - 10.4 FL) 9.8 9.7 Gran % (42.2 - 75.2 %) 80.2 H 76.7 H Lymphocytes % (20.5 - 51.1 %) 9.5 L 10.2 L Monocytes % (1.7 - 9.3 %) 7.5 9.2 Eosinophils % (0 - 5 %) 2.6 3.6 Basophils % (0.0 - 2.0 %) 0.2 0.3 Absolute Granulocytes (1.4 - 6.5 /CUMM) 5.2 4.5 Absolute Lymphocytes (1.2 - 3.4 /CUMM) 0.6 L 0.6 L Absolute Monocytes (0.10 - 0.60 /CUMM) 0.5 0.5 Absolute Eosinophils (0.0 - 0.7 /CUMM) 0.2 0.2 Absolute Basophils (0.0 - 0.2 /CUMM) 0 0 PUBS MCHC (33.0 - 37.0 G/DL) 32.2 L 32.6 L Miscellaneous Phlebotomy Draw Site LEFT RADIAL 01/03 01/03 01/03 0630 0600 0500 Chemistry Sodium (137 - 145 mmol/L) 140 Potassium (3.5 - 5.1 mmol/L) 3.4 L Chloride (98 - 107 mmol/L) 103 Carbon Dioxide (22 - 30 mmol/L) 23 Anion Gap (5 - 16) 15 BUN (9 - 20 mg/dL) 104 *H Creatinine (0.7 - 1.2 mg/dL) 2.4 H Estimated GFR (>60 ml/min) 26 L BUN/Creatinine Ratio (7 - 25 %) 43.3 H Troponin I (<0.11 ng/ml) 0.03 Cancelled Hematology CBC w Diff NO MAN DIFF REQ WBC (4.8 - 10.8 /CUMM) 5.8 RBC (4.70 - 6.10 /CUMM) 2.40 L Hgb (14.0 - 18.0 G/DL) 7.2 *L Hct (42 - 52 %) 21.8 L MCV (80.0 - 94.0 FL) 90.6 MCH (27.0 - 31.0 PG) 29.8 RDW (11.5 - 14.5 %) 16.0 H Plt Count (130 - 400 /CUMM) 199 MPV (7.4 - 10.4 FL) 9.7 Gran % (42.2 - 75.2 %) 74.8 Lymphocytes % (20.5 - 51.1 %) 11.1 L Monocytes % (1.7 - 9.3 %) 8.4 Eosinophils % (0 - 5 %) 5.4 H Basophils % (0.0 - 2.0 %) 0.3 Absolute Granulocytes (1.4 - 6.5 /CUMM) 4.3 Absolute Lymphocytes (1.2 - 3.4 /CUMM) 0.6 L Absolute Monocytes (0.10 - 0.60 /CUMM) 0.5 Absolute Eosinophils (0.0 - 0.7 /CUMM) 0.3 Absolute Basophils (0.0 - 0.2 /CUMM) 0 PUBS MCHC (33.0 - 37.0 G/DL) 32.9 L Retic Count (0.5 - 2.0 %) 3.67 H Haptoglobin Pending 01/020 Chemistry Troponin I (<0.11 ng/ml) 0.04 Hematology CBC w Diff NO MAN DIFF REQ WBC (4.8 - 10.8 /CUMM) 6.7 RBC (4.70 - 6.10 /CUMM) 2.50 L Hgb (14.0 - 18.0 G/DL) 7.5 L Hct (42 - 52 %) 22.9 L MCV (80.0 - 94.0 FL) 91.7 MCH (27.0 - 31.0 PG) 30.0 RDW (11.5 - 14.5 %) 15.6 H Plt Count (130 - 400 /CUMM) 222 MPV (7.4 - 10.4 FL) 10.2 Gran % (42.2 - 75.2 %) 79.1 H Lymphocytes % (20.5 - 51.1 %) 8.7 L Monocytes % (1.7 - 9.3 %) 8.7 Eosinophils % (0 - 5 %) 3.2 Basophils % (0.0 - 2.0 %) 0.3 Absolute Granulocytes (1.4 - 6.5 /CUMM) 5.3 Absolute Lymphocytes (1.2 - 3.4 /CUMM) 0.6 L Absolute Monocytes (0.10 - 0.60 /CUMM) 0.6 Absolute Eosinophils (0.0 - 0.7 /CUMM) 0.2 Absolute Basophils (0.0 - 0.2 /CUMM) 0 PUBS MCHC (33.0 - 37.0 G/DL) 32.8 L
[2017-01-06] VITALS: BP 126/64
[2017-01-06 04:20] LABS: ABSOLUTE BASOPHIL COUNT 0 /CUMM (0.0-0.2); ABSOLUTE EOSINOPHIL COUNT 0.1 /CUMM (0.0-0.7); ABSOLUTE GRANULOCYTE CT 4.9 /CUMM (1.4-6.5); ABSOLUTE LYMPH COUNT 0.6 /CUMM (1.2-3.4); ABSOLUTE MONOCYTE COUNT 0.8 /CUMM (0.10-0.60); BASOPHIL % 0.3 % (0.0-2.0); EOSINOPHIL % 1.7 % (0-5); GRANULOCYTE % 75.2 % (42.2-75.2); HEMATOCRIT 26.3 % (42-52); MEAN CORPUSCULAR HGB 29.8 PG (27.0-31.0); MEAN CORPUSCULAR HGB CONC 32.6 G/DL (33.0-37.0); MEAN CORPUSCULAR VOLUME 91.6 FL (80.0-94.0); MEAN PLATELET VOLUME 9.7 FL (7.4-10.4); PLATELET COUNT 216 /CUMM (130-400); RED BLOOD CELL CT 2.88 /CUMM (4.70-6.10); WHITE BLOOD CELL COUNT 6.5 /CUMM (4.8-10.8)
--- NOTE | 2017-01-06 07:14 | PN- Resident CRCU ---
Subjective HPI/CRCU Issues: 1. s/p asystole and cardiopulmonary arrest 2. chest tenderness and soreness post CPR 3. anemia and upper GIB/bloody vomitus 4. bibasilar crackles in the lungs- HFrEF (heart failure with reduced ejection fraction) 5. Stage 4 chronic kidney disease - stable 6. T1DM (type 1 diabetes mellitus) 7. Transaminitis - improving 24 Hour Events: Patient is alert and oriented, no overnight events reported except for soreness in the lower chest for which he was given tramadol which helped him. Patient reported to me that he is claustrophobic and is unwilling to do an MRI ( recommended by GI), but will be probably ok with an open MRI. Patient is kept NPO pending swallow eval s/p extubation since yesterday. He still reports edema in the lower legs but improved compared to yesterday. Telemetry recorded bradycardia to 50s at 5-6 am this morning. Vital Signs Date Time Temp Pulse Resp B/P B/P Pulse O2 O2 Flow FiO2 Mean Ox Delivery Rate 01/07 800 96 Nasal 2.0L Cannula 01/06 08 96.7 54 30 122/68 96 Nasal 2.0L Cannula 01/06 0420 99 Nasal 2.0L Cannula 01/06 0000 99 Nasal 2.0L Cannula 01/06 0000 97.9 60 16 126/64 99 Nasal 2.0L Cannula 01/05 2000 99 Nasal 2.0L Cannula 01/05 1600 97 Nasal 2.0L Cannula 01/05 1600 97.5 64 27 118/50 97 Nasal 2.0L Cannula 01/05 1200 96 Nasal 2.0L Cannula 01/05 1127 Nasal 3.0L Cannula Intake & Output 01/06 1600 01/06 0800 01/06 0000 Intake Total 641 939 Output Total 390 655 Balance 251 284 Intake, IV 521 839 Intake, Oral 120 100 Number 0 0 Bowel Movements Output, 0 Gastric Drainage Output, Urine 390 655 Objective Vital Signs & I&O Last 8 Hrs of Vitals and I&O: Max temp 97.9 NH 52-60 RR 14-24 first degree AVB BP 96/48 to 125/53 SO2 95-99% on 2L NC I 641 O 390 Exam General Appearance: well developed/nourished, no apparent distress, alert, awake , comfortable Head: atraumatic, normal appearance Ears, Nose, Throat: normal pharynx, normal ENT inspection, hearing grossly normal Neck: normal inspection, supple, full range of motion Respiratory: no respiratory distress, bibasilar crackles, chest tenderness on the ribs of on the lower chest , Right more than left. Cardiovascular: regular rate/rhythm Gastrointestinal: soft, non-tender, decreased bowel sounds, distended (present from before admission) Extremities: normal inspection, normal capillary refill, normal range of motion, 2+ pitting edema on both lower extremities Cranial Nerves: normal hearing, normal speech, PERRL Skin: intact, normal color, warm/dry Skin Temp/Moisture Exam: Warm/Dry Sepsis Skin Exam (color): Normal for Ethnicity Back: normal inspection, normal range of motion Weaning Parameters NIF: 40 Minute Volume: 8.0 Resp rate: 19 Vt: 550 Heart Rate: 75 Weaning Schedule Start Time: 0815 Minute Volume: 8.0 Resp Rate: 18 Vt: 550 Heart Rate: 75 End Time: 1110 Minute Volume: 7.63 Resp Rate: 22 Vt: 590 Heart Rate: 75 Current Medications: Current Medications Sig/Alejandra Start time Last Medication Dose Route Stop Time Status Admin Acetaminophen 650 MG Q6P PRN 01/02 2100 AC PO Ampicillin Sodium/ 1,500 MG Q12 01/04 1339 AC 01/05 Sulbactam Sodium IV 2102 Sodium Chloride 100 ML Dextrose 25 GM ONCE ONE 01/06 0600 DC 01/06 IV 01/06 0601 0652 Dextrose/Sodium 1,000 ML Q20H 01/04 1900 AC 01/05 Chloride IV 1838 Doxazosin Mesylate 2 MG DAILY 01/06 1000 AC PO Doxazosin Mesylate 4 MG DAILY 01/03 1000 DC 01/04 PO 1032 Fluocinonide 1 ROLAND BID 01/04 1146 AC 01/05 TOP 2101 Folic Acid 1 MG DAILY 01/03 1000 AC 01/04 PO 1032 Furosemide 40 MG ONCE ONE 01/05 1015 DC 01/05 IV 01/05 1016 1056 Insulin Aspart 0 Q4 01/05 1800 AC 01/05 SC 2141 Insulin Detemir 12 UNITS BID 01/06 1000 AC SC Insulin Detemir 15 UNITS BID 01/05 2200 DC 01/05 SC 2101 Insulin Detemir 20 UNITS BID 01/04 1000 DC 01/05 SC 0841 Insulin Human Regular 0 Q6 01/04 1800 DC 01/05 SC 1200 Melatonin 5 MG .STK-MED ONE 01/06 0006 DC PO 01/06 0007 Melatonin 5 MG ONCE ONE 01/05 2345 DC 01/06 PO 01/05 234 0006 Nitroglycerin 0.4 MG DAILY 01/03 1000 AC 01/04 TOP 1033 Ondansetron HCl 4 MG Q6P PRN 01/04 1345 AC 01/04 IV 1347 Oxycodone/ 1 TAB ONCE ONE 01/06 330 CAN Acetaminophen PO 01/06 033 Pantoprazole Sodium 40 MG DAILY 01/04 1346 AC 01/05 IV 0837 Tramadol HCl 50 MG ONCE ONE 01/06 0330 DC 01/06 PO 01/06 033 0336 Impression/Plan Impression/Problem List Impression: 76 y/o M with PMHx of CAD s/b CABG, T1DM, CKD stage IV and HFpEF who was admitted to [facility] for further evaluation of progressively increasing BUN and worsening hyperglycemia. He was brought in to the ICU after episodes of syncope, accompanied by bradycardia and hypotension. Diaz insertion day: 01/04/17 - DC'd today Intubated on 01/04/17 and extubated on 01/05/17 Respiratory Breathing comfortably, on 2L NC Repeat CXR today: Bony structures unremarkable (for possible rib fracture), there is increasing bibasilar opacities with small effusions. Mild central vascular congestion. No overt pulmonary edema. * one dose of IV lasix 40 mg * Unasyn for possible aspiration PNA, will discontinue if continues to be afebrile and WBC in normal range * Lidocaine patch for the chest soreness * Will give tramadol PRN for severe pain Cardiac #Cardiopulmonary arrest on 01/04/17 Currently hemodynamically stable. max BP 125/53 today. No events on the monitor overnight except for bradycardia to 50s around 5-6 am. Patient had Troponin elevated to 2.53 after CPR which trended down. * Cardiology following. Appreciate their recs. #HFpEF: Echo: ejection fraction of 40-45%. Estimated RV systolic pressure of 40 mmHg. Stopped Dobutamine IV drip and Lasix On 01/04/17, secondary to hypotension and bradycardia, patient became unresponsive right after and required CPR. please see the event note. * Monitor I/Os, daily weight and daily BMPs * One dose of IV lasix 40 mg today * Per cardiology will eventually need to restart lasix when BP stabilizes Heme/Onc #Symptomatic anemia - stable Likely multifactorial: CKD, GI blood loss, underlying malignancy Transfused 2 units of pRBCs on 01/04/17 post-resuscitation. H/H stable GI consulted. Dr. Reyes reccomended EGD/colonoscopy outpatient, also MRI of the liver. Patient reports claustrophobia and refuses to get MRI while in the hospital, he will have it done as outpatient as well. * continue to hold oral anticoagulation, Plavix and aspirin. * Guaiac all stools. * monitor CBC in am #Bladder cancer: Underwent TURBT on 06/09/16, received 2 cycles of chemotherapy before his heart attack in August. Then he did 7 weeks of radiotherapy until 2 weeks prior to admission. * continue to follow up outpatient with Heme/Onc (Dr. Meléndez) and Urology (Dr. Proctor) Metabolic #Hypernatremia * Na up to 149 today * discontinued IV fludis as the pt is starting diet this am * will monitor BEP and repeat in am #CKD stage IV: Cr improved from 2.3 to 2.2 today * Nephrology consulted. Appreciate their recs * Avoid nephrotoxic agents #T1DM: * Endocrinology following * Levemir to decreased to 12 units SQ BID * Novolog insulin ordered per Dr. Kaplan recommendations * Accu-checks TID AC and HS #Questionable hypothyroidism: was considered as the patient was bradycardic, TFT is in normal range, we also confirmed with Dr. Kaplan's office, the patients TFTs have been WNL in the past as well. Diet: NPO DVT PPx: ALPs CODE: FULL Problem List: 1. Transaminitis 2. Cardiopulmonary arrest 3. Stage 4 chronic kidney disease 4. HFrEF (heart failure with reduced ejection fraction) 5. T1DM (type 1 diabetes mellitus) 6. Paroxysmal atrial fibrillation 7. CAD (coronary artery disease) of artery bypass graft 8. Symptomatic anemia 9. Bladder cancer Pain Ratin Pain Location: lower chest with tenderness Pain Goal: Pain 4 or less Pain Plan: Lidocaine patch for chest soreness, if severe pain will give tramadol. Tomorrow's Labs & Rationales: CBC (anemia) BEP and Mg (monitor electrolytes) LFTs (monitor liver enzymes) Plan DVT/Prophylaxis: mechanical
[2017-01-06 08:00] VITALS: BP 122/68
--- NOTE | 2017-01-06 08:05 | PN- Gastroenterology ---
Assessment/Plan Assessment/Recommendations: 1. Anemia, with low iron saturation. No overt bleeding, and indeed apparently Hemoccult negative stool during this admission. Hematemesis was reported. The anemia is early multifactorial, including components of CKD, chemotherapy, etc. H/H stable today. 2. Abnormal liver function tests. Probably related to flow/hemodynamics ( congestive heart failure, pulmonary hypertension, new ischemia, etc.). Improved today. 3. Liver lesion on PET scan and ultrasound, not demonstrated on most recent noncontrast CT. Recommendations * Regular diet as tolerated * MRI of the liver with IV contrast/mass protocol * Alpha-fetoprotein * Follow-up liver function tests tomorrow * Follow-up INR * CBC tomorrow * Eventual EGD and colonoscopy although this is not urgent. Will clear with cardiology beforehand. Subjective Subjective: Patient denies nausea, abdominal pain, movement/blood per rectum. Objective Vital Signs and I&Os Vital Signs Date Time Temp Pulse Resp B/P B/P Pulse O2 O2 Flow FiO2 Mean Ox Delivery Rate 01/06 0420 99 Nasal 2.0L Cannula 01/06 0000 99 Nasal 2.0L Cannula 01/06 0000 97.9 60 16 126/64 99 Nasal 2.0L Cannula 01/05 2000 99 Nasal 2.0L Cannula 01/05 1600 97 Nasal 2.0L Cannula 01/05 1600 97.5 64 27 118/50 97 Nasal 2.0L Cannula 01/05 1200 96 Nasal 2.0L Cannula 01/05 1127 Nasal 3.0L Cannula 01/05 0810 35 Intake & Output 01/06 1600 01/06 0400 01/05 1600 01/05 0400 01/04 1600 01/04 0400 Intake Total 641 939 932 930 200 952 Output Total 691 451 6984 280 1150 1000 Balance 251 284 -788 650 -950 -48 Intake, Blood 350 Product Intake, IV 521 839 932 580 200 232 Intake, Oral 120 100 0 720 Number 0 0 0 1 1 Bowel Movements Output, 0 0 Gastric Drainage Output, Urine 962 009 9211 280 1150 1000 Patient 217 lb Weight Weight Bed scale Measurement Method Physical Exam: Sclera anicteric. Abdomen obese, benign. Positive pretibial edema. Current Medications: Current Medications Sig/Alejandra Start time Last Medication Dose Route Stop Time Status Admin Acetaminophen 650 MG Q6P PRN 01/02 2100 AC PO Ampicillin Sodium/ 1,500 MG Q12 01/04 1339 AC 01/05 Sulbactam Sodium IV 2102 Sodium Chloride 100 ML Dextrose 25 GM ONCE ONE 01/06 0600 DC 01/06 IV 01/06 0601 0652 Dextrose/Sodium 1,000 ML Q20H 01/04 1900 AC 01/05 Chloride IV 1838 Doxazosin Mesylate 2 MG DAILY 01/06 1000 AC PO Doxazosin Mesylate 4 MG DAILY 01/03 1000 DC 01/04 PO 1032 Fluocinonide 1 ROLAND BID 01/04 1146 AC 01/05 TOP 2101 Folic Acid 1 MG DAILY 01/03 1000 AC 01/04 PO 1032 Furosemide 40 MG ONCE ONE 01/05 1015 DC 01/05 IV 01/05 1016 1056 Insulin Aspart 0 Q4 01/05 1800 AC 01/05 SC 2141 Insulin Detemir 12 UNITS BID 01/06 1000 AC SC Insulin Detemir 15 UNITS BID 01/05 2200 DC 01/05 SC 2101 Insulin Detemir 20 UNITS BID 01/04 1000 DC 01/05 FL 0841 Insulin Human Regular 0 Q6 01/04 1800 CA 01/05 FL 1200 Melatonin 5 MG ONCE ONE 01/05 2345 DC 01/06 PO 01/05 2346 0006 Nitroglycerin 0.4 MG DAILY 01/03 1000 AC 01/04 TOP 1033 Ondansetron HCl 4 MG Q6P PRN 01/04 1345 AC 01/04 IV 1347 Oxycodone/ 1 TAB ONCE ONE 01/06 0330 CAN Acetaminophen PO 01/06 0331 Pantoprazole Sodium 40 MG DAILY 01/04 1346 AC 01/05 IV 0837 Tramadol HCl 50 MG ONCE ONE 01/06 0330 DC 01/06 PO 01/06 0331 0336 Results Pertinent Lab Results: Laboratory Tests 01/06 01/06 01/06 0400 0345 0345 Chemistry Sodium (137 - 145 mmol/L) 149 H Potassium (3.5 - 5.1 mmol/L) 3.8 Chloride (98 - 107 mmol/L) 114 H Carbon Dioxide (22 - 30 mmol/L) 23 Anion Gap (5 - 16) 12 BUN (9 - 20 mg/dL) 75 H Creatinine (0.7 - 1.2 mg/dL) 2.2 H Estimated GFR (>60 ml/min) 29 L BUN/Creatinine Ratio (7 - 25 %) 34.1 H Total Bilirubin (0.2 - 1.3 mg/dL) Cancelled 1.3 Direct Bilirubin (< 0.4 mg/dL) Cancelled 0.3 AST (17 - 59 U/L) Cancelled 54 ALT (21 - 72 U/L) Cancelled 143 H Alkaline Phosphatase (< 127 U/L) Cancelled 76 Total Protein (6.3 - 8.2 g/dL) Cancelled 5.8 L Albumin (3.5 - 5.0 g/dL) Cancelled 2.8 L Vit D 1,25-Dihyd Total Pending 1,25 Dihydroxy Vit D2 Pending 1,25 Dihydroxy Vit D3 Pending Hematology CBC w Diff NO MAN DIFF REQ WBC (4.8 - 10.8 /CUMM) 6.5 RBC (4.70 - 6.10 /CUMM) 2.88 L Hgb (14.0 - 18.0 G/DL) 8.6 L Hct (42 - 52 %) 26.3 L MCV (80.0 - 94.0 FL) 91.6 MCH (27.0 - 31.0 PG) 29.8 RDW (11.5 - 14.5 %) 17.0 H Plt Count (130 - 400 /CUMM) 216 MPV (7.4 - 10.4 FL) 9.7 Gran % (42.2 - 75.2 %) 75.2 Lymphocytes % (20.5 - 51.1 %) 9.8 L Monocytes % (1.7 - 9.3 %) 13.0 H Eosinophils % (0 - 5 %) 1.7 Basophils % (0.0 - 2.0 %) 0.3 Absolute Granulocytes (1.4 - 6.5 /CUMM) 4.9 Absolute Lymphocytes (1.2 - 3.4 /CUMM) 0.6 L Absolute Monocytes (0.10 - 0.60 /CUMM) 0.8 H Absolute Eosinophils (0.0 - 0.7 /CUMM) 0.1 Absolute Basophils (0.0 - 0.2 /CUMM) 0 PUBS MCHC (33.0 - 37.0 G/DL) 32.6 L 01/05 01/05 01/05 2140 1900 1300 Chemistry Sodium (137 - 145 mmol/L) 145 Cancelled 148 H Potassium (3.5 - 5.1 mmol/L) 4.1 Cancelled 4.4 Chloride (98 - 107 mmol/L) 108 H Cancelled 112 H Carbon Dioxide (22 - 30 mmol/L) 26 Cancelled 23 Anion Gap (5 - 16) 11 Cancelled 13 BUN (9 - 20 mg/dL) 78 H Cancelled 78 H Creatinine (0.7 - 1.2 mg/dL) 2.3 H Cancelled 2.3 H Estimated GFR (>60 ml/min) 28 L 28 L Glucose (65 - 99 mg/dL) 140 H Cancelled 206 H Calcium (8.4 - 10.2 mg/dL) 9.0 Cancelled 9.0 Phosphorus (2.5 - 4.5 mg/dL) 5.1 H Cancelled 5.5 H Magnesium (1.6 - 2.3 mg/dL) 2.6 H Cancelled 2.4 H Total Bilirubin (0.2 - 1.3 mg/dL) 1.4 H Cancelled 1.9 H AST (17 - 59 U/L) 65 H Cancelled 81 H ALT (21 - 72 U/L) 156 H Cancelled 168 H Albumin (3.5 - 5.0 g/dL) 3.0 L Cancelled 3.0 L Cortisol PM Sample (1.7 - 14.1) 36.0 H Hematology CBC w Diff NO MAN DIFF REQ WBC (4.8 - 10.8 /CUMM) 8.4 RBC (4.70 - 6.10 /CUMM) 2.97 L Hgb (14.0 - 18.0 G/DL) 8.8 L Hct (42 - 52 %) 26.8 L MCV (80.0 - 94.0 FL) 90.4 MCH (27.0 - 31.0 PG) 29.5 RDW (11.5 - 14.5 %) 16.4 H Plt Count (130 - 400 /CUMM) 215 MPV (7.4 - 10.4 FL) 10.3 Gran % (42.2 - 75.2 %) 92.2 H Lymphocytes % (20.5 - 51.1 %) 2.5 L Monocytes % (1.7 - 9.3 %) 5.3 Eosinophils % (0 - 5 %) 0 Basophils % (0.0 - 2.0 %) 0 L Absolute Granulocytes (1.4 - 6.5 /CUMM) 7.8 H Absolute Lymphocytes (1.2 - 3.4 /CUMM) 0.2 L Absolute Monocytes (0.10 - 0.60 /CUMM) 0.4 Absolute Eosinophils (0.0 - 0.7 /CUMM) 0 Absolute Basophils (0.0 - 0.2 /CUMM) 0 PUBS MCHC (33.0 - 37.0 G/DL) 32.7 L 01/05 01/05 01/05 1025 0758 0600 Blood Gas pH (7.35 - 7.45 PH) 7.45 pCO2 (35 - 45 TORR) 30 L pO2 (80 - 100 TORR) 98 HCO3 (21 - 28 MEQ/L) 20 L ABG O2 Sat (Measured) (>96.0 %) 98.0 P-50 (Temp Corrected) YES Carboxyhemoglobin (1.5 - 5.0 %) 0.9 L O2 Concentration % 35 Temperature (97.0 - 100.0 FARH) 97.1 O2 Delivery Method VENT Vent Mode CPAP Expiratory Pressure (CMH2O/P) 5 Pressure Support (CMH2O/P) 6 Chemistry Sodium Cancelled Potassium Cancelled Chloride Cancelled Carbon Dioxide Cancelled Anion Gap Cancelled BUN Cancelled Creatinine Cancelled BUN/Creatinine Ratio Cancelled Lactate Dehydrogenase (313 - 618 U/L) 779 H Troponin I (<0.11 ng/ml) 2.40 *H Miscellaneous Phlebotomy Draw Site RIGHT BRACHIAL 01/05 01/05 8589 3079 Chemistry Sodium (137 - 145 mmol/L) 144 Potassium (3.5 - 5.1 mmol/L) 5.2 H Chloride (98 - 107 mmol/L) 111 H Carbon Dioxide (22 - 30 mmol/L) 21 L Anion Gap (5 - 16) 12 BUN (9 - 20 mg/dL) 88 H Creatinine (0.7 - 1.2 mg/dL) 2.3 H Estimated GFR (>60 ml/min) 28 L Glucose (65 - 99 mg/dL) 169 H Calcium (8.4 - 10.2 mg/dL) 8.9 Phosphorus (2.5 - 4.5 mg/dL) 5.3 H Magnesium (1.6 - 2.3 mg/dL) 2.5 H Total Bilirubin (0.2 - 1.3 mg/dL) 2.7 H AST (17 - 59 U/L) 106 H ALT (21 - 72 U/L) 180 H Troponin I (<0.11 ng/ml) 2.53 *H Albumin (3.5 - 5.0 g/dL) 3.0 L Hematology CBC w Diff NO MAN DIFF REQ WBC (4.8 - 10.8 /CUMM) 9.0 RBC (4.70 - 6.10 /CUMM) 2.79 L Hgb (14.0 - 18.0 G/DL) 8.4 L Hct (42 - 52 %) 25.5 L MCV (80.0 - 94.0 FL) 91.2 MCH (27.0 - 31.0 PG) 30.1 RDW (11.5 - 14.5 %) 16.2 H Plt Count (130 - 400 /CUMM) 158 MPV (7.4 - 10.4 FL) 10.8 H Gran % (42.2 - 75.2 %) 93.3 H Lymphocytes % (20.5 - 51.1 %) 2.0 L Monocytes % (1.7 - 9.3 %) 4.5 Eosinophils % (0 - 5 %) 0.1 Basophils % (0.0 - 2.0 %) 0.1 Absolute Granulocytes (1.4 - 6.5 /CUMM) 8.4 H Absolute Lymphocytes (1.2 - 3.4 /CUMM) 0.2 L Absolute Monocytes (0.10 - 0.60 /CUMM) 0.4 Absolute Eosinophils (0.0 - 0.7 /CUMM) 0 Absolute Basophils (0.0 - 0.2 /CUMM) 0 PUBS MCHC (33.0 - 37.0 G/DL) 33.0 30 01/04 1950 1350 Chemistry Sodium (137 - 145 mmol/L) 145 Potassium (3.5 - 5.1 mmol/L) 4.5 Chloride (98 - 107 mmol/L) 110 H Carbon Dioxide (22 - 30 mmol/L) 23 Anion Gap (5 - 16) 11 BUN (9 - 20 mg/dL) 88 H Creatinine (0.7 - 1.2 mg/dL) 2.4 H Estimated GFR (>60 ml/min) 26 L Glucose (65 - 99 mg/dL) 79 Lactic Acid (0.7 - 2.1 mmol/L) 1.7 Calcium (8.4 - 10.2 mg/dL) 8.9 Phosphorus (2.5 - 4.5 mg/dL) 4.9 H Magnesium (1.6 - 2.3 mg/dL) 2.6 H Total Bilirubin (0.2 - 1.3 mg/dL) 2.8 H Cancelled Direct Bilirubin Cancelled AST (17 - 59 U/L) 141 H Cancelled ALT (21 - 72 U/L) 199 H Cancelled Alkaline Phosphatase Cancelled Troponin I (<0.11 ng/ml) 1.96 *H Total Protein Cancelled Albumin (3.5 - 5.0 g/dL) 3.1 L Cancelled Hematology CBC w Diff NO MAN DIFF REQ WBC (4.8 - 10.8 /CUMM) 7.2 RBC (4.70 - 6.10 /CUMM) 3.02 L Hgb (14.0 - 18.0 G/DL) 9.0 L Hct (42 - 52 %) 27.6 L MCV (80.0 - 94.0 FL) 91.6 MCH (27.0 - 31.0 PG) 29.9 RDW (11.5 - 14.5 %) 16.2 H Plt Count (130 - 400 /CUMM) 211 MPV (7.4 - 10.4 FL) 9.7 Gran % (42.2 - 75.2 %) 86.5 H Lymphocytes % (20.5 - 51.1 %) 3.8 L Monocytes % (1.7 - 9.3 %) 8.7 Eosinophils % (0 - 5 %) 0.7 Basophils % (0.0 - 2.0 %) 0.3 Absolute Granulocytes (1.4 - 6.5 /CUMM) 6.2 Absolute Lymphocytes (1.2 - 3.4 /CUMM) 0.3 L Absolute Monocytes (0.10 - 0.60 /CUMM) 0.6 Absolute Eosinophils (0.0 - 0.7 /CUMM) 0 Absolute Basophils (0.0 - 0.2 /CUMM) 0 PUBS MCHC (33.0 - 37.0 G/DL) 32.7 L 01/04 01/04 1350 0650 Blood Gas pH (7.35 - 7.45 PH) 7.43 pCO2 (35 - 45 TORR) 28 L pO2 (80 - 100 TORR) 96 HCO3 (21 - 28 MEQ/L) 18 L ABG O2 Sat (Measured) (>96.0 %) 95.0 L P-50 (Temp Corrected) N Carboxyhemoglobin (1.5 - 5.0 %) 1.4 L O2 Concentration % .21 Temperature (97.0 - 100.0 FARH) 98.4 O2 Delivery Method RA Chemistry Sodium (137 - 145 mmol/L) 144 147 H Potassium (3.5 - 5.1 mmol/L) 4.0 4.0 Chloride (98 - 107 mmol/L) 109 H 111 H Carbon Dioxide (22 - 30 mmol/L) 20 L 24 Anion Gap (5 - 16) 14 11 BUN (9 - 20 mg/dL) 90 H 96 H Creatinine (0.7 - 1.2 mg/dL) 2.4 H 2.4 H Estimated GFR (>60 ml/min) 26 L 26 L BUN/Creatinine Ratio (7 - 25 %) 37.5 H 40.0 H Lactic Acid (0.7 - 2.1 mmol/L) 4.3 H Magnesium (1.6 - 2.3 mg/dL) 2.6 H Total Bilirubin (0.2 - 1.3 mg/dL) 0.9 Direct Bilirubin (< 0.4 mg/dL) 0.3 AST (17 - 59 U/L) 94 H ALT (21 - 72 U/L) 168 H Alkaline Phosphatase (< 127 U/L) 79 Troponin I (<0.11 ng/ml) 1.13 *H Total Protein (6.3 - 8.2 g/dL) 5.7 L Albumin (3.5 - 5.0 g/dL) 2.9 L TSH (0.270 - 4.200 uIU/mL) 3.970 Free T4 (0.78 - 2.44 ng/dL) 1.30 Cortisol AM Sample (4.46 - 22.7 ug/dL) 13.0 Coagulation PT (9.4 - 12.5 SEC) 11.7 INR (0.90 - 1.17) 1.12 Hematology CBC w Diff NO MAN DIFF REQ NO MAN DIFF REQ WBC (4.8 - 10.8 /CUMM) 6.4 5.9 RBC (4.70 - 6.10 /CUMM) 2.27 L 2.39 L Hgb (14.0 - 18.0 G/DL) 6.8 *L 7.1 *L Hct (42 - 52 %) 21.0 L 21.9 L MCV (80.0 - 94.0 FL) 92.4 91.6 MCH (27.0 - 31.0 PG) 29.8 29.9 RDW (11.5 - 14.5 %) 16.2 H 16.2 H Plt Count (130 - 400 /CUMM) 216 234 MPV (7.4 - 10.4 FL) 9.8 9.7 Gran % (42.2 - 75.2 %) 80.2 H 76.7 H Lymphocytes % (20.5 - 51.1 %) 9.5 L 10.2 L Monocytes % (1.7 - 9.3 %) 7.5 9.2 Eosinophils % (0 - 5 %) 2.6 3.6 Basophils % (0.0 - 2.0 %) 0.2 0.3 Absolute Granulocytes (1.4 - 6.5 /CUMM) 5.2 4.5 Absolute Lymphocytes (1.2 - 3.4 /CUMM) 0.6 L 0.6 L Absolute Monocytes (0.10 - 0.60 /CUMM) 0.5 0.5 Absolute Eosinophils (0.0 - 0.7 /CUMM) 0.2 0.2 Absolute Basophils (0.0 - 0.2 /CUMM) 0 0 PUBS MCHC (33.0 - 37.0 G/DL) 32.2 L 32.6 L Miscellaneous Phlebotomy Draw Site LEFT RADIAL
--- NOTE | 2017-01-06 09:09 | PN- Diabetes ---
Assessment/Plan Assessment: 76-year-old male with past medical history of coronary artery disease status post CABG, recent and STEMI, diabetes uncontrolled, CK D stage IV, hypertension , bladder cancer status post TURBT, was admitted for elevated BUN, high blood sugars, and worsening weakness. patient had cardiac arrest and was transfered to ICU. He was extubated yesterday. Currently he is on D5 1/2 NS at 50 ml/hour and is waiting for swallow evaluation. Levemir was decreased to 15 units twice a day and he is on NISS every 4 hours. His FSGs were 192, 79, 55 and 84. Plan: 1. decrease Levemir to 12 units twice a day; 2. if he passes swallow evaulation, IVF and NISS every 4 hours will be discontinued. 3. will start him on Novolog coverage before meals and Novolog coverage at bedtime when he is ready to eat-- detail see the inpatient insulin orders. 4. monitor FSGs. will follow. Inpatient Diabetes Orders Before Each Meal: Bolus Insulin: Novolog < 80 mg/dl: no coverage 80-100 mg/dl: 4 units 101-120 mg/dl: 4 units 121-150 mg/dl: 4 units 151-200 mg/dl: 6 units 201-250 mg/dl: 8 units 251-300 mg/dl: 10 units 301-350 mg/dl: 12 units 351-400 mg/dl: 14 units > 400 mg/dl: 16 units Bedtime: Bolus Insulin: Novolog < 80 mg/dl: no coverage 80-100 mg/dl: no coverage 101-120 mg/dl: no coverage 121-150 mg/dl: no coverage 151-200 mg/dl: no coverage 201-250 mg/dl: no coverage 251-300 mg/dl: 2 units 301-350 mg/dl: 3 units 351-400 mg/dl: 4 units > 400 mg/dl: 5 units Subjective Subjective: He feels hungry and would like to eat. Objective Last 24 Hrs of Vital Signs/I&O Vital Signs Date Time Temp Pulse Resp B/P B/P Pulse O2 O2 Flow FiO2 Mean Ox Delivery Rate 01/07 800 96 Nasal 2.0L Cannula 01/06 08 96.7 54 30 122/68 96 Nasal 2.0L Cannula 01/06 0420 99 Nasal 2.0L Cannula 01/06 0000 99 Nasal 2.0L Cannula 01/06 0000 97.9 60 16 126/64 99 Nasal 2.0L Cannula 01/06 2000 99 Nasal 2.0L Cannula 01/06 1600 97 Nasal 2.0L Cannula 01/06 1600 97.5 64 27 118/50 97 Nasal 2.0L Cannula 01/05 1200 96 Nasal 2.0L Cannula 01/05 1127 Nasal 3.0L Cannula Intake & Output 01/06 1600 01/06 0800 01/06 0000 Intake Total 641 939 Output Total 390 655 Balance 251 284 Intake, IV 521 839 Intake, Oral 120 100 Number 0 0 Bowel Movements Output, 0 Gastric Drainage Output, Urine 390 655
--- NOTE | 2017-01-06 09:28 | PN- Pulmonary ---
Subjective HPI/Critical Care Issues: DOing well extubated fatigued afebrile Complains of chest pain in the rt side from chest compressions Objective Current Medications: Current Medications Sig/Alejandra Start time Last Medication Dose Route Stop Time Status Admin Acetaminophen 650 MG Q6P PRN 01/02 2100 AC PO Ampicillin Sodium/ 1,500 MG Q12 01/04 1339 AC 01/05 Sulbactam Sodium IV 2102 Sodium Chloride 100 ML Dextrose 25 GM ONCE ONE 01/06 0600 DC 01/06 IV 01/06 0601 0652 Dextrose/Sodium 1,000 ML Q20H 01/04 1900 AC 01/05 Chloride IV 1838 Doxazosin Mesylate 2 MG DAILY 01/06 1000 AC PO Doxazosin Mesylate 4 MG DAILY 01/03 1000 DC 01/04 PO 1032 Fluocinonide 1 ROLAND BID 01/04 1146 AC 01/05 TOP 2101 Folic Acid 1 MG DAILY 01/03 1000 AC 01/04 PO 1032 Furosemide 40 MG ONCE ONE 01/05 1015 DC 01/05 IV 01/05 1016 1056 Insulin Aspart 0 Q4 01/05 1800 AC 01/05 SC 2141 Insulin Detemir 12 UNITS BID 01/06 1000 AC SC Insulin Detemir 15 UNITS BID 01/05 2200 DC 01/05 SC 2101 Insulin Detemir 20 UNITS BID 01/04 1000 DC 01/05 SC 0841 Insulin Human Regular 0 Q6 01/04 1800 DC 01/05 SC 1200 Melatonin 5 MG .STK-MED ONE 01/06 0006 DC PO 01/06 0007 Melatonin 5 MG ONCE ONE 01/05 2345 DC 01/06 PO 01/05 2346 0006 Nitroglycerin 0.4 MG DAILY 01/03 1000 AC 01/04 TOP 1033 Ondansetron HCl 4 MG Q6P PRN 01/04 1345 AC 01/04 IV 1347 Oxycodone/ 1 TAB ONCE ONE 01/06 0330 CAN Acetaminophen PO 01/06 0331 Pantoprazole Sodium 40 MG DAILY 01/04 1346 AC 01/05 IV 0837 Tramadol HCl 50 MG ONCE ONE 01/06 0330 DC 01/06 PO 01/06 0331 0336 Vital Signs & I&O Last 24 Hrs of Vitals and I&O: Vital Signs Date Time Temp Pulse Resp B/P B/P Pulse O2 O2 Flow FiO2 Mean Ox Delivery Rate 01/06 0800 96 Nasal 2.0L Cannula 01/06 0800 96.7 54 30 122/68 96 Nasal 2.0L Cannula 01/06 0420 99 Nasal 2.0L Cannula 01/06 0000 99 Nasal 2.0L Cannula 01/06 0000 97.9 60 16 126/64 99 Nasal 2.0L Cannula 01/05 2000 99 Nasal 2.0L Cannula 01/05 1600 97 Nasal 2.0L Cannula 01/05 1600 97.5 64 27 118/50 97 Nasal 2.0L Cannula 01/05 1200 96 Nasal 2.0L Cannula 01/05 1127 Nasal 3.0L Cannula Intake & Output 01/06 1600 01/06 0800 05 0000 Intake Total 641 939 Output Total 390 655 Balance 251 284 Intake, IV 521 839 Intake, Oral 120 100 Number 0 0 Bowel Movements Output, 0 Gastric Drainage Output, Urine 390 655 Impression/Plan Impression/Plan Impression/Plan: General Appearance: Alert, Oriented X3, Cooperative, No Acute Distress, Skin: b/l le redness Skin Temp/Moisture Exam: Warm/Dry Sepsis Skin Exam (color): Normal for Ethnicity HEENT: Atraumatic, PERRLA, EOMI, Mucous Membr. 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 Pt was being treated with dobutamine and was on amiodarone etc and was sig anemic with heme positive stool. Pt did appear to be stable this am but went into syncope and upon transfer to the icu went into sig pavel prob asystole with cpa now intubated and subsequently extubated ISSues * S/P CPR due to sig pavel and asytole now with rapid recovery and improvement s /p extubation now has mild chest pain from the chest compression * Pt has Sig history of low ef and diastolic chf aswell with recurrent chf, with pafib with multiple episodes of nstmi and his cardiac cath did not reveal stentable disease (s/p cabg) * Sig pulm htn (secondary) * Sig anemia unclear etiology - pt has agg bladder ca and on chemo and this could be the main issue for anemia. he also has heme positive stool. Had coffee ground in the og tube while intubated and gi onboard * Seizure like activity related to low flow state now fully stable * Insulin requring DM with previous ketosis * Previous steroid use and prob cortisol def * Bladder Ca * Transaminitis with lesions in the liver in the recent pet scan * CKD with Arf * CAD sig REC Cxr Wean oxygen DC bagley and cont doxazosin INsulin per endo Watch for seizures Increase free water po IF swallowing ok does not need a swallow eval GI following and see their rec Follow crit Slowly resume cardiac meds - ask cardio for guidance Anticoag and antiplatelet rx per cardio and gi PPI per gi Watch for pulm edema, use lasix prn for now When able to take po adequately dc ivf OK to the floor tele under hospitalist and cardio
--- NOTE | 2017-01-06 09:51 | RADIOLOGY REPORT ---
EXAMINATION: XR PORTABLE CHEST CLINICAL INFORMATION: Extubated. Rhonchi on exam. Follow-up of pleural effusion. Possible atelectasis. COMPARISON: Several prior chest x-rays, most recent of which is dated 01/05/2017. TECHNIQUE: Portable AP semierect view of the chest was obtained. FINDINGS: Previously seen endotracheal and enteric tubes have been removed. Multiple extrinsic EKG leads overlie the chest obscuring assessment. The patient is status post median sternotomy. Cardiomediastinal silhouette is enlarged, unchanged. Low lung volumes are again noted with bibasilar opacities, which lead to obscuration of the hemidiaphragms. Findings have progressed when compared to prior exam and may be related to atelectasis/pneumonia with associated small effusions. Upper lungs remain clear. Central vascular congestion is seen. Bony structures are unremarkable. IMPRESSION: 1. Increasing bibasilar opacities, nonspecific, possibly due to atelectasis/pneumonia with associated small effusions. 2. Mild central vascular congestion. No overt pulmonary edema. 3. Enlarged cardiac mediastinal silhouette, unchanged.
--- NOTE | 2017-01-06 11:49 | PN- Cardiology ---
Subjective Subjective: The patient is feeling better. He is awake and alert. He is taking some by mouth nourishment. He is eager to get out of bed. His blood pressure is maintained today. Amiodarone and Lasix have been discontinued. He is also no longer on his lipid-lowering medications due to elevated liver functions tests. BUN is slowly improving. The creatinine is stable. Troponin was elevated to a maximum of 2.53. Objective Vital Signs and I&Os Vital Signs Date Time Temp Pulse Resp B/P B/P Pulse O2 O2 Flow FiO2 Mean Ox Delivery Rate 01/07 800 96 Nasal 2.0L Cannula 01/06 08 96.7 54 30 122/68 96 Nasal 2.0L Cannula 01/06 0420 99 Nasal 2.0L Cannula 01/06 0000 99 Nasal 2.0L Cannula 01/06 0000 97.9 60 16 126/64 99 Nasal 2.0L Cannula 01/05 2000 99 Nasal 2.0L Cannula 01/05 1600 97 Nasal 2.0L Cannula 01/05 1600 97.5 64 27 118/50 97 Nasal 2.0L Cannula 01/05 1200 96 Nasal 2.0L Cannula Intake & Output 01/06 1600 01/06 0800 01/06 0000 01/05 1600 01/05 0800 05 0000 Intake Total 641 939 540 392 930 Output Total 567 089 0487 720 280 Balance 251 284 -460 -328 650 Intake, Blood 350 Product Intake, IV 521 839 540 392 580 Intake, Oral 120 100 0 Number 0 0 0 0 Bowel Movements Output, 0 0 Gastric Drainage Output, Urine 711 900 8494 720 280 Patient 217 lb 217 lb Weight Weight Bed scale Measurement Method Physical Exam: He is in no distress. HEENT exam is normal Chest reveals decreased breath sounds otherwise clear Heart reveals regular rhythm and no murmurs Extremities reveal 1+ edema Current Medications: Current Medications Sig/Alejandra Start time Last Medication Dose Route Stop Time Status Admin Acetaminophen 650 MG Q6P PRN 01/02 2100 AC PO Ampicillin Sodium/ 1,500 MG Q12 01/04 1339 AC 01/06 Sulbactam Sodium IV 0944 Sodium Chloride 100 ML Dextrose 25 GM ONCE ONE 01/06 06 DC 01/06 IV 01/06 0601 0652 Dextrose/Sodium 1,000 ML Q20H 01/04 1900 DC 01/05 Chloride IV 1838 Doxazosin Mesylate 2 MG DAILY 01/06 1000 AC 01/06 PO 0944 Fluocinonide 1 ROLAND BID 01/04 1146 AC 01/06 TOP 0944 Folic Acid 1 MG DAILY 01/03 1000 AC 01/06 PO 0944 Furosemide 40 MG ONCE ONE 01/06 1030 DC IV 01/06 1031 Insulin Aspart 0 AT BEDTIME 01/06 2200 AC SC Insulin Aspart 0 TIDAC 01/06 1200 AC SC Insulin Aspart 0 Q4 01/05 1800 DC 01/05 SC 2141 Insulin Detemir 12 UNITS BID 01/06 1000 AC 01/06 SC 0947 Insulin Detemir 15 UNITS BID 01/05 2200 DC 01/05 SC 2101 Insulin Detemir 20 UNITS BID 01/04 1000 DC 01/05 SC 0841 Insulin Human Regular 0 Q6 01/04 1800 DC 01/05 SC 1200 Lidocaine 1 PAT DAILY 01/06 1000 AC 01/06 EXT 1141 Melatonin 5 MG .STK-MED ONE 01/06 0006 DC PO 01/06 0007 Melatonin 5 MG ONCE ONE 01/05 2345 DC 01/06 PO 01/05 2346 0006 Nitroglycerin 0.4 MG DAILY 01/03 1000 AC 01/04 TOP 1033 Ondansetron HCl 4 MG Q6P PRN 01/04 1345 AC 01/04 IV 1347 Oxycodone/ 1 TAB ONCE ONE 01/06 0330 CAN Acetaminophen PO 01/06 0331 Pantoprazole Sodium 40 MG DAILY 01/04 1346 AC 01/06 IV 0944 Tramadol HCl 25 MG Q12 PRN 01/06 1115 AC PO Tramadol HCl 50 MG ONCE ONE 01/06 0330 DC 01/06 PO 01/06 0331 0336 Results Last 48 Hrs of Labs/Mics: Laboratory Tests 01/06/17 0400: Total Bilirubin Cancelled, Direct Bilirubin Cancelled, AST Cancelled, ALT Cancelled, Alkaline Phosphatase Cancelled, Total Protein Cancelled, Albumin Cancelled 01/06/17 0345: Anion Gap 12, Estimated GFR 29 L, BUN/Creatinine Ratio 34.1 H, Total Bilirubin 1.3, Direct Bilirubin 0.3, AST 54, ALT 143 H, Alkaline Phosphatase 76, Total Protein 5.8 L, Albumin 2.8 L 01/06/17 0345: Vit D 1,25-Dihyd Total Pending, 1,25 Dihydroxy Vit D2 Pending, 1,25 Dihydroxy Vit D3 Pending, CBC w Diff NO MAN DIFF REQ, RBC 2.88 L, MCV 91.6, MCH 29.8, RDW 17.0 H, MPV 9.7, Gran % 75.2, Lymphocytes % 9.8 L, Monocytes % 13.0 H, Eosinophils % 1.7, Basophils % 0.3, Absolute Granulocytes 4.9, Absolute Lymphocytes 0.6 L, Absolute Monocytes 0.8 H, Absolute Eosinophils 0.1, Absolute Basophils 0, PUBS MCHC 32.6 L 01/05/17 2140: Anion Gap 11, Estimated GFR 28 L, Glucose 140 H, Calcium 9.0, Phosphorus 5.1 H, Magnesium 2.6 H, Total Bilirubin 1.4 H, AST 65 H, ALT 156 H, Albumin 3.0 L 01/05/17 1900: Sodium Cancelled, Potassium Cancelled, Chloride Cancelled, Carbon Dioxide Cancelled, Anion Gap Cancelled, BUN Cancelled, Creatinine Cancelled, Glucose Cancelled, Calcium Cancelled, Phosphorus Cancelled, Magnesium Cancelled, Total Bilirubin Cancelled, AST Cancelled, ALT Cancelled, Albumin Cancelled 01/05/17 1300: Anion Gap 13, Estimated GFR 28 L, Glucose 206 H, Calcium 9.0, Phosphorus 5.5 H, Magnesium 2.4 H, Total Bilirubin 1.9 H, AST 81 H, ALT 168 H, Albumin 3.0 L, Cortisol PM Sample 36.0 H, CBC w Diff NO MAN DIFF REQ, RBC 2.97 L, MCV 90.4 , MCH 29.5, RDW 16.4 H, MPV 10.3, Gran % 92.2 H, Lymphocytes % 2.5 L, Monocytes % 5.3, Eosinophils % 0, Basophils % 0 L, Absolute Granulocytes 7.8 H , Absolute Lymphocytes 0.2 L, Absolute Monocytes 0.4, Absolute Eosinophils 0, Absolute Basophils 0, PUBS MCHC 32.7 L 01/05/17 1025: pH 7.45, pCO2 30 L, pO2 98, HCO3 20 L, ABG O2 Sat (Measured) 98.0, P-50 (Temp Corrected) YES, Carboxyhemoglobin 0.9 L, O2 Concentration % 35, Temperature 97.1, O2 Delivery Method VENT, Vent Mode CPAP, Expiratory Pressure 5, Pressure Support 6, Phlebotomy Draw Site RIGHT BRACHIAL 01/05/17 0758: Lactate Dehydrogenase 779 H, Troponin I 2.40 *H 01/05/17 0600: Sodium Cancelled, Potassium Cancelled, Chloride Cancelled, Carbon Dioxide Cancelled, Anion Gap Cancelled, BUN Cancelled, Creatinine Cancelled, BUN/ Creatinine Ratio Cancelled 01/05/17 0445: Anion Gap 12, Estimated GFR 28 L, Glucose 169 H, Calcium 8.9, Phosphorus 5.3 H, Magnesium 2.5 H, Total Bilirubin 2.7 H, AST 106 H, ALT 180 H, Albumin 3.0 L, CBC w Diff NO MAN DIFF REQ, RBC 2.79 L, MCV 91.2, MCH 30.1, RDW 16.2 H, MPV 10.8 H, Gran % 93.3 H, Lymphocytes % 2.0 L, Monocytes % 4.5, Eosinophils % 0.1, Basophils % 0.1, Absolute Granulocytes 8.4 H, Absolute Lymphocytes 0.2 L, Absolute Monocytes 0.4, Absolute Eosinophils 0, Absolute Basophils 0, PUBS MCHC 33.0 01/05/17 0125: Troponin I 2.53 *H 01/04/17 1950: Anion Gap 11, Estimated GFR 26 L, Glucose 79, Lactic Acid 1.7, Calcium 8.9, Phosphorus 4.9 H, Magnesium 2.6 H, Total Bilirubin 2.8 H, AST 141 H, ALT 199 H, Troponin I 1.96 *H, Albumin 3.1 L, CBC w Diff NO MAN DIFF REQ, RBC 3.02 L, MCV 91.6, MCH 29.9, RDW 16.2 H, MPV 9.7, Gran % 86.5 H, Lymphocytes % 3.8 L, Monocytes % 8.7, Eosinophils % 0.7, Basophils % 0.3, Absolute Granulocytes 6.2, Absolute Lymphocytes 0.3 L, Absolute Monocytes 0.6, Absolute Eosinophils 0, Absolute Basophils 0, PUBS MCHC 32.7 L 01/04/17 1350: Total Bilirubin Cancelled, Direct Bilirubin Cancelled, AST Cancelled, ALT Cancelled, Alkaline Phosphatase Cancelled, Total Protein Cancelled, Albumin Cancelled 01/04/17 1350: pH 7.43, pCO2 28 L, pO2 96, HCO3 18 L, ABG O2 Sat (Measured) 95.0 L, P-50 ( Temp Corrected) N, Carboxyhemoglobin 1.4 L, O2 Concentration % .21, Temperature 98.4, O2 Delivery Method RA, Anion Gap 14, Estimated GFR 26 L, BUN/Creatinine Ratio 37.5 H, Lactic Acid 4.3 H, Magnesium 2.6 H, Total Bilirubin 0.9, Direct Bilirubin 0.3, AST 94 H, ALT 168 H, Alkaline Phosphatase 79, Troponin I 1.13 * H, Total Protein 5.7 L, Albumin 2.9 L, TSH 3.970, Free T4 1.30, PT 11.7, INR 1.12, CBC w Diff NO MAN DIFF REQ, RBC 2.27 L, MCV 92.4, MCH 29.8, RDW 16.2 H, MPV 9.8, Gran % 80.2 H, Lymphocytes % 9.5 L, Monocytes % 7.5, Eosinophils % 2.6, Basophils % 0.2, Absolute Granulocytes 5.2, Absolute Lymphocytes 0.6 L, Absolute Monocytes 0.5, Absolute Eosinophils 0.2, Absolute Basophils 0, PUBS MCHC 32.2 L, Phlebotomy Draw Site LEFT RADIAL Microbiology 01/04 2050 GI: Surveillance Culture - COMP 01/04 1440 UPPER RESP: Surveillance Culture - COMP Recent Imaging Studies: PATIENT: JACK WINTER PRESENT AGE: 76 PATIENT ACCOUNT NO: [id number] : 40 LOCATION: [facility] ORDERING PHYSICIAN: HAZEL MOSES MD SERVICE DATE: 01/06/17-06 EXAM TYPE: RAD - XRY-PORTABLE CHEST XRAY EXAMINATION: XR PORTABLE CHEST CLINICAL INFORMATION: Extubated. Rhonchi on exam. Follow-up of pleural effusion. Possible atelectasis. COMPARISON: Several prior chest x-rays, most recent of which is dated 01/05/2017. TECHNIQUE: Portable AP semierect view of the chest was obtained. FINDINGS: Previously seen endotracheal and enteric tubes have been removed. Multiple extrinsic EKG leads overlie the chest obscuring assessment. The patient is status post median sternotomy. Cardiomediastinal silhouette is enlarged, unchanged. Low lung volumes are again noted with bibasilar opacities, which lead to obscuration of the hemidiaphragms. Findings have progressed when compared to prior exam and may be related to atelectasis/pneumonia with associated small effusions. Upper lungs remain clear. Central vascular congestion is seen. Bony structures are unremarkable. IMPRESSION: 1. Increasing bibasilar opacities, nonspecific, possibly due to atelectasis/pneumonia with associated small effusions. 2. Mild central vascular congestion. No overt pulmonary edema. 3. Enlarged cardiac mediastinal silhouette, unchanged. DICTATED BY: DANILO CROUCH MD DATE/TIME DICTATED:01/06/17944 FREIGHT ADJUSTER:RON DATE/TIME TRANSCRIBED:01/06/17944 CONFIDENTIAL, DO NOT COPY WITHOUT APPROPRIATE AUTHORIZATION. <Electronically signed in Other Vendor System> SIGNED BY: DANILO CROUCH MD. 0951 Assessment/Plan Assessment/Plan The patient is improved at this point. His renal function and liver functions are improving slowly. His blood pressure is maintained. He has chronic edema but I don't think this is due to congestive heart failure. His LV function was stable and his pulmonary artery pressures mildly elevated. I recommend continuing the same treatment for now. Eventually we will have to restart him on Lasix as he has a tendency to retain a lot of fluid. His activity should be increased gradually. There is no indication for cardiac catheterization at this point as we know that he has inoperable disease from previous catheterizations. Continue telemetry? Yes
[2017-01-06 16:00] VITALS: BP 110/52
[2017-01-07 00:01] VITALS: BP 132/58
[2017-01-07 06:40] LABS: ABSOLUTE BASOPHIL COUNT 0 /CUMM (0.0-0.2); ABSOLUTE EOSINOPHIL COUNT 0.3 /CUMM (0.0-0.7); ABSOLUTE GRANULOCYTE CT 3.7 /CUMM (1.4-6.5); ABSOLUTE LYMPH COUNT 0.5 /CUMM (1.2-3.4); ABSOLUTE MONOCYTE COUNT 0.6 /CUMM (0.10-0.60); BASOPHIL % 0.4 % (0.0-2.0); EOSINOPHIL % 5.4 % (0-5); GRANULOCYTE % 73.1 % (42.2-75.2); HEMATOCRIT 26.4 % (42-52); MEAN CORPUSCULAR HGB 29.7 PG (27.0-31.0); MEAN CORPUSCULAR HGB CONC 32.3 G/DL (33.0-37.0); MEAN PLATELET VOLUME 9.4 FL (7.4-10.4); PLATELET COUNT 224 /CUMM (130-400); RBC DISTRIBUTION WIDTH 16.5 % (11.5-14.5); RED BLOOD CELL CT 2.87 /CUMM (4.70-6.10); WHITE BLOOD CELL COUNT 5.1 /CUMM (4.8-10.8)
[2017-01-07 07:02] LABS: PT 11.5 SEC (9.4-12.5); PTT 24 SEC (25-37)
--- NOTE | 2017-01-07 07:11 | PN- Housestaff ---
Subjective Follow-up For: 1. chest tenderness and soreness post CPR 2. Bibasilar crackles in lungs and b/l LE edema 3. Anemia - stable 4. Stage 4 chronic kidney disease - stable 5. T1DM (type 1 diabetes mellitus) 6. Transaminitis - improving 7. Hypernatremia - improving Tele-Events Since Last Visit: no overnight events on telemetry. Subjective: I saw and examined Mr. Painting this am, he is sitting in bed, alert and oriented , in no distress, he is eating breakfast. states he has 6/10 pain when moving on the right side of the chest, lidocaine patch did not work for the pain but Tylenol did. States no other complaints. Review of Systems Constitutional: Denies: chills, fever. EENTM: Reports: no symptoms. Cardiovascular: Reports: peripheral edema (improving). Denies: chest pain, palpitations. Respiratory: Reports: cough, sputum production. Denies: short of breath (white phlegm). Gastrointestinal: Denies: abdominal pain, changes in stool. Genitourinary: Reports: no symptoms. Skin: Reports: no symptoms. Neurological/Psychological: Reports: no symptoms. Objective Last 24 Hrs of Vital Signs/I&O Vital Signs Date Time Temp Pulse Resp B/P B/P Pulse O2 O2 Flow FiO2 Mean Ox Delivery Rate 01/07 0001 98.2 65 20 132/58 95 Nasal 2.0L Cannula 01/07 0000 95 Nasal 2.0L Cannula 01/06 1600 96.8 57 22 110/52 95 Nasal 2.0L Cannula Intake & Output 01/07 1600 /03 0800 01/07 0000 Intake Total 400 530 Output Total 300 350 Balance 100 180 Intake, IV 130 Intake, Oral 400 400 Number 0 Bowel Movements Output, Urine 300 350 Physical Exam General Appearance: Alert, Oriented X3, Cooperative, No Acute Distress Skin: No Significant Lesion Skin Temp/Moisture Exam: Warm/Dry Sepsis Skin Exam (color): Normal for Ethnicity HEENT: Atraumatic, Mucous Membr. moist/pink Neck: Supple Cardiovascular: Regular Rate, Normal S1, Normal S2 Lungs: Normal Air Movement, crackles bibasilar Abdomen: Soft, No Tenderness, distended, chronic Neurological: Normal Speech, Normal Tone Extremities: Normal Pulses, 2+ pitting edema, slightly improved compared to yesterday Vascular: Pulses Symmetrical Current Medications: Current Medications Sig/Alejandra Start time Last Medication Dose Route Stop Time Status Admin Acetaminophen 650 MG .STK-MED ONE 01/06 2353 DC PO 01/06 2354 Acetaminophen 650 MG Q6P PRN 01/02 2100 AC 01/06 PO 2352 Ampicillin Sodium/ 1,500 MG Q12 01/04 1339 AC 01/06 Sulbactam Sodium IV 2132 Sodium Chloride 100 ML Dextrose/Sodium 1,000 ML Q20H 01/04 1900 DC 01/05 Chloride IV 1838 Doxazosin Mesylate 2 MG DAILY 01/06 1000 AC 01/06 PO 0944 Fluocinonide 1 ROLAND BID 01/04 1146 AC 01/06 TOP 2131 Folic Acid 1 MG DAILY 01/03 1000 AC 01/06 PO 0944 Furosemide 40 MG ONCE ONE 01/06 1030 DC 01/06 IV 01/06 1031 1201 Insulin Aspart 0 AT BEDTIME 01/06 2200 AC SC Insulin Aspart 0 TIDAC 01/06 1200 AC 01/06 SC 1158 Insulin Aspart 0 Q4 01/05 1800 DC 01/05 SC 2141 Insulin Detemir 10 UNITS BID 01/07 1000 AC SC Insulin Detemir 12 UNITS BID 01/06 1000 DC 01/06 SC 2131 Lidocaine 1 PAT DAILY 01/06 1000 AC 01/06 EXT 1141 Nitroglycerin 0.4 MG DAILY 01/03 1000 AC 01/04 TOP 1033 Ondansetron HCl 4 MG Q6P PRN 01/04 1345 AC 01/04 IV 1347 Pantoprazole Sodium 40 MG DAILY 01/04 1346 AC 01/06 IV 0944 Tramadol HCl 25 MG Q12 PRN 01/06 1115 AC PO Last 24 Hrs of Lab/Ruben Results Last 24 Hrs of Labs/Mics: Laboratory Tests 01/07/17 0610: Anion Gap 9, Estimated GFR 28 L, BUN/Creatinine Ratio 32.6 H, Magnesium 2.6 H , Total Bilirubin 1.0, Direct Bilirubin 0.3, AST 49, ALT 133 H, Alkaline Phosphatase 74, Total Protein 5.7 L, Albumin 2.9 L, PT 11.5, INR 1.10, APTT 24 L, CBC w Diff NO MAN DIFF REQ, RBC 2.87 L, MCV 92.0, MCH 29.7, RDW 16.5 H, MPV 9.4, Gran % 73.1, Lymphocytes % 9.7 L, Monocytes % 11.4 H, Eosinophils % 5.4 H, Basophils % 0.4, Absolute Granulocytes 3.7, Absolute Lymphocytes 0.5 L, Absolute Monocytes 0.6, Absolute Eosinophils 0.3, Absolute Basophils 0, PUBS MCHC 32.3 L 01/06/17 1000: Alpha Fetoprotein Pending Assessment/Plan Assessment: 76 y/o M with PMHx of CAD s/b CABG, T1DM, CKD stage IV and HFpEF who was admitted to [facility] for further evaluation of progressively increasing BUN and worsening hyperglycemia. He was brought in to the ICU after episodes of syncope, accompanied by bradycardia and hypotension. Diaz insertion day: 01/04/17 - 01/05/17 Intubated on 01/04/17 and extubated on 01/05/17 Respiratory Breathing comfortably on 2L NC Lung exam still has bibasilar crarckles * Will give 40 mg IV lasix again today * changed Unasyn to Augmentin today (day 4 of antibiotic therapy), will DC ABx tomorrow * Will give tramadol PRN if severe pain on the chest (post CPR) Cardiac #Cardiopulmonary arrest on 01/04/17 Remains hemodynamically stable. max BP 132/58 today. No events on the monitor overnight. * Per cardiology we are restarting him on home dose of metoprolol, furosemide 40 mg PO BID, aspirin 81 mg daily. will keep off amiodarone and plavix. * Regarding lisinopril we consulted nephrology, per Dr. Cedillo we can restart it at a lower dose and repeat K and Cr in 2 weeks and have him follow up with him in the office. #HFpEF: Echo: ejection fraction of 40-45%. Estimated RV systolic pressure of 40 mmHg. * restarted on lasix at a lower dose of 40 mg PO BID Heme/Onc #Symptomatic anemia - stable Likely multifactorial: CKD, GI blood loss, underlying malignancy Transfused 2 units of pRBCs on 01/04/17 post-resuscitation. H/H stable GI consulted. Dr. Reyes reccomended EGD/colonoscopy outpatient, also MRI of the liver (to better assess the hypodense lesion in the liver) will be done outpt with open MRI as he is claustrophobic and refused to get MRI while in the hospital. * continue to hold oral anticoagulation and Plavix, restarted aspirin * Guaiac all stools * monitor CBC in am #Bladder cancer: Underwent TURBT on 06/09/16, received 2 cycles of chemotherapy before his heart attack in August. Then he did 7 weeks of radiotherapy until 2 weeks prior to admission. * continue to follow up outpatient with Heme/Onc (Dr. Meléndez) and Urology (Dr. Proctor) Metabolic #Hypernatremia * Na 146 today down from 149 * off IV fludis and eating and drinking adequately * will repeat BEP in am #CKD stage IV: Cr 2.3 today * Nephrology consulted. Appreciate their recs * Avoid nephrotoxic agents #T1DM: * BS during the last 12 hours: 76-126 * Endocrinology following * Levemir 12 units SQ BID * Novolog insulin ordered per Dr. Kaplan recommendations * Accu-checks TID AC and HS #Questionable hypothyroidism: was considered as the patient was bradycardic, TFT is in normal range, we also confirmed with Dr. Kaplan's office, the patients TFTs have been WNL in the past as well. Diet: Regular DVT PPx: ALPs CODE: FULL Problem List: 1. Acute exacerbation of congestive heart failure 2. Bladder cancer 3. Diabetes mellitus 4. Hypertension 5. Transaminitis 6. Stage 4 chronic kidney disease 7. Cardiopulmonary arrest 8. HFrEF (heart failure with reduced ejection fraction) Pain Ratin Pain Location: right sided chest pain and tenderness post CPR Pain Goal: Pain 4 or less Pain Plan: Tylenol adn IV acetaminophen for mild-mod pain Traamdol for severe pain Tomorrow's Labs & Rationales: CBC (anemia) BEP and Mg (monitor kidney function and electrolytes on diuresis)
[2017-01-07 08:00] VITALS: BP 132/58
--- NOTE | 2017-01-07 08:46 | PN- Diabetes ---
Assessment/Plan Assessment: 76-year-old male with past medical history of coronary artery disease status post CABG, recent and STEMI, diabetes uncontrolled, CK D stage IV, hypertension , bladder cancer status post TURBT, was admitted for elevated BUN, high blood sugars, and worsening weakness. patient had cardiac arrest and was transfered to ICU. Now he is alert and awake. His appetite is not great. Levemir was decreased to 12 units twice a day and he is on Novolog coverage before meals and Novolog coverage at bedtime. His FSGs were 84, 76, 126 and 84. Plan: 1. decrease Levemir to 10 units twice a day; 2. monitor FSGs; 3. continue the current Novolog coverage before meals and Novolog coverage at bedtime; 4. monitor FSGs; will follow. Subjective Subjective: Overall, he feels better. Objective Last 24 Hrs of Vital Signs/I&O Vital Signs Date Time Temp Pulse Resp B/P B/P Pulse O2 O2 Flow FiO2 Mean Ox Delivery Rate 01/07 0001 98.2 65 20 132/58 95 Nasal 2.0L Cannula 01/07 0000 95 Nasal 2.0L Cannula 01/06 1600 96.8 57 22 110/52 95 Nasal 2.0L Cannula Intake & Output 01/07 1600 01/07 0800 01/07 0000 Intake Total 400 530 Output Total 300 350 Balance 100 180 Intake, IV 130 Intake, Oral 400 400 Number 0 Bowel Movements Output, Urine 300 350 Findings Pertinent Lab/Ruben Results: Laboratory Tests 01/07 01/06 0610 UNK Chemistry Sodium (137 - 145 mmol/L) 146 H Potassium (3.5 - 5.1 mmol/L) 4.2 Chloride (98 - 107 mmol/L) 114 H Carbon Dioxide (22 - 30 mmol/L) 23 Anion Gap (5 - 16) 9 BUN (9 - 20 mg/dL) 75 H Creatinine (0.7 - 1.2 mg/dL) 2.3 H Estimated GFR (>60 ml/min) 28 L BUN/Creatinine Ratio (7 - 25 %) 32.6 H Magnesium (1.6 - 2.3 mg/dL) 2.6 H Total Bilirubin (0.2 - 1.3 mg/dL) 1.0 Direct Bilirubin (< 0.4 mg/dL) 0.3 AST (17 - 59 U/L) 49 ALT (21 - 72 U/L) 133 H Alkaline Phosphatase (< 127 U/L) 74 Total Protein (6.3 - 8.2 g/dL) 5.7 L Albumin (3.5 - 5.0 g/dL) 2.9 L Alpha Fetoprotein Pending Coagulation PT (9.4 - 12.5 SEC) 11.5 INR (0.90 - 1.17) 1.10 APTT (25 - 37 SEC) 24 L Hematology CBC w Diff NO MAN DIFF REQ WBC (4.8 - 10.8 /CUMM) 5.1 RBC (4.70 - 6.10 /CUMM) 2.87 L Hgb (14.0 - 18.0 G/DL) 8.5 L Hct (42 - 52 %) 26.4 L MCV (80.0 - 94.0 FL) 92.0 MCH (27.0 - 31.0 PG) 29.7 RDW (11.5 - 14.5 %) 16.5 H Plt Count (130 - 400 /CUMM) 224 MPV (7.4 - 10.4 FL) 9.4 Gran % (42.2 - 75.2 %) 73.1 Lymphocytes % (20.5 - 51.1 %) 9.7 L Monocytes % (1.7 - 9.3 %) 11.4 H Eosinophils % (0 - 5 %) 5.4 H Basophils % (0.0 - 2.0 %) 0.4 Absolute Granulocytes (1.4 - 6.5 /CUMM) 3.7 Absolute Lymphocytes (1.2 - 3.4 /CUMM) 0.5 L Absolute Monocytes (0.10 - 0.60 /CUMM) 0.6 Absolute Eosinophils (0.0 - 0.7 /CUMM) 0.3 Absolute Basophils (0.0 - 0.2 /CUMM) 0 PUBS MCHC (33.0 - 37.0 G/DL) 32.3 L
--- NOTE | 2017-01-07 09:31 | PN- Cardiology ---
Subjective Subjective: The patient is feeling better. He is still having some right-sided chest pain from his CPR. He is not short of breath. He's had no other chest pains. His vital signs are stable. He has not yet been out of bed. The BUN is 75, which is just slightly over his baseline. Objective Vital Signs and I&Os Vital Signs Date Time Temp Pulse Resp B/P B/P Pulse O2 O2 Flow FiO2 Mean Ox Delivery Rate 01/07 0001 98.2 65 20 132/58 95 Nasal 2.0L Cannula 01/07 0000 95 Nasal 2.0L Cannula 01/06 1600 96.8 57 22 110/52 95 Nasal 2.0L Cannula Intake & Output 01/07 1600 01/07 0800 01/07 0000 01/06 1600 01/06 0800 01/06 0000 Intake Total 055 749 1826 641 939 Output Total 300 350 120 390 655 Balance 100 180 880 251 284 Intake, IV 130 200 521 839 Intake, Oral 400 400 800 120 100 Number 0 0 0 0 Bowel Movements Output, 0 Gastric Drainage Output, Urine 300 350 120 390 655 Physical Exam: He is in no distress Chest is clear Heart reveals regular rhythm and soft heart sounds and no murmurs Extremities reveal 1-2+ edema of the ankles Current Medications: Current Medications Sig/Alejandra Start time Last Medication Dose Route Stop Time Status Admin Acetaminophen 650 MG .STK-MED ONE 01/08 0147 DC PO 01/08 0148 Acetaminophen 650 MG .STK-MED ONE 01/07 1533 DC PO 01/07 1534 Acetaminophen 650 MG Q6P PRN 01/02 2100 AC 01/08 PO 0146 Amoxicillin/ 500 MG Q12 01/07 1000 AC 01/08 Clavulanate Potassium PO 01/09 0000 0957 Aspirin 81 MG DAILY 01/07 1000 AC 01/08 PO 0957 Atorvastatin Calcium 80 MG 1700 01/07 1700 AC 01/07 PO 1534 Doxazosin Mesylate 2 MG DAILY 01/06 1000 AC 01/08 PO 0957 Ezetimibe 10 MG DAILY 01/07 1000 AC 01/08 PO 0957 Fluocinonide 1 ROLAND BID 01/04 1146 AC 01/08 TOP 0958 Folic Acid 1 MG DAILY 01/03 1000 AC 01/08 PO 0957 Furosemide 40 MG 7:30 AM, & 4:30 PM 01/07 0930 AC 01/08 PO 0738 Insulin Aspart 0 AT BEDTIME 01/06 2200 AC SC Insulin Aspart 0 TIDAC 01/06 1200 AC 01/07 SC 1636 Insulin Detemir 10 UNITS DAILY 01/08 1000 AC 01/08 SC 0957 Insulin Detemir 10 UNITS BID 01/07 1000 DC 01/07 SC 2144 Lisinopril 10 MG DAILY 01/08 1000 AC 01/08 PO 1001 Lisinopril 5 MG DAILY 01/07 1457 DC 01/07 PO 1534 Metoprolol Tartrate 25 MG BID 01/07 1000 AC 01/08 PO 0957 Nitroglycerin 0.4 MG DAILY 01/03 1000 AC 01/08 TOP 1001 Ondansetron HCl 4 MG Q6P PRN 01/04 1345 AC 01/04 IV 1347 Oxycodone/ 1 TAB Q6P PRN 01/08 0845 AC Acetaminophen PO Oxycodone/ 1 TAB ONCE ONE 01/08 0430 DC 01/08 Acetaminophen PO 01/08 0431 0435 Pantoprazole Sodium 40 MG DAILY 01/04 1346 AC 01/07 IV 0928 Tramadol HCl 25 MG Q12 PRN 01/06 1115 DC PO Results Last 48 Hrs of Labs/Mics: Laboratory Tests 01/08/17 0446: Anion Gap 10, Estimated GFR 29 L, BUN/Creatinine Ratio 31.8 H, Magnesium 2.5 H, Total Bilirubin 1.2, Direct Bilirubin 0.4, AST 52, ALT 130 H, Alkaline Phosphatase 83, Total Protein 5.7 L, Albumin 2.8 L, CBC w Diff NO MAN DIFF REQ , RBC 2.77 L, MCV 91.4, MCH 29.8, RDW 16.3 H, MPV 9.3, Gran % 76.2 H, Lymphocytes % 7.1 L, Monocytes % 11.0 H, Eosinophils % 5.3 H, Basophils % 0.4 , Absolute Granulocytes 4.4, Absolute Lymphocytes 0.4 L, Absolute Monocytes 0.6 , Absolute Eosinophils 0.3, Absolute Basophils 0, PUBS MCHC 32.6 L, Ur Random Creatinine 27.9, Ur Random Sodium 96 H, Ur Random Potassium 21.1, Fraction Sodium Excret 5.2 H 01/07/17 0610: Anion Gap 9, Estimated GFR 28 L, BUN/Creatinine Ratio 32.6 H, Magnesium 2.6 H , Total Bilirubin 1.0, Direct Bilirubin 0.3, AST 49, ALT 133 H, Alkaline Phosphatase 74, Total Protein 5.7 L, Albumin 2.9 L, PT 11.5, INR 1.10, APTT 24 L, CBC w Diff NO MAN DIFF REQ, RBC 2.87 L, MCV 92.0, MCH 29.7, RDW 16.5 H, MPV 9.4, Gran % 73.1, Lymphocytes % 9.7 L, Monocytes % 11.4 H, Eosinophils % 5.4 H, Basophils % 0.4, Absolute Granulocytes 3.7, Absolute Lymphocytes 0.5 L, Absolute Monocytes 0.6, Absolute Eosinophils 0.3, Absolute Basophils 0, PUBS MCHC 32.3 L Assessment/Plan Assessment/Plan The patient is improved at this point. His renal function and liver functions are improving slowly. His blood pressure is maintained. He has chronic edema but I don't think this is due to congestive heart failure. His LV function was stable and his pulmonary artery pressures mildly elevated. I recommend restarting him on most of his usual medications. I would discontinue amiodarone. I think we can restart him on his statin and oral Lasix. I don't think he needs clopidogrel at this point. I recommend a nephrology consultation and opinion on whether we can restart him on RACHAEL inhibitor or not. For now I would hold it. I recommend getting him out of bed and ambulating him. Hopefully he can be discharged in the next couple of days. Continue telemetry? Yes
--- NOTE | 2017-01-07 10:12 | PN- Pulmonary ---
Subjective HPI/Critical Care Issues: I saw and examined Mr. Painting this am, he is sitting in bed, alert and oriented , in no distress, he is eating breakfast. states he has 6/10 pain when moving on the right side of the chest, lidocaine patch did not work for the pain but Tylenol did. States no other complaints. Review of Systems Constitutional: Denies: chills, fever. EENTM: Reports: no symptoms. Cardiovascular: Reports: peripheral edema (improving). Denies: chest pain, palpitations. Respiratory: Reports: cough, sputum production. Denies: short of breath (white phlegm). Gastrointestinal: Denies: abdominal pain, changes in stool. Genitourinary: Reports: no symptoms. Skin: Reports: no symptoms. Neurological/Psychological: Reports: no symptoms. Objective Current Medications: Current Medications Sig/Alejandra Start time Last Medication Dose Route Stop Time Status Admin Acetaminophen 650 MG .STK-MED ONE 01/06 2353 DC PO 01/06 2354 Acetaminophen 650 MG Q6P PRN 01/02 2100 AC 01/06 PO 2352 Amoxicillin/ 500 MG Q12 01/07 1000 AC Clavulanate Potassium PO Ampicillin Sodium/ 1,500 MG Q12 01/04 1339 DC 01/06 Sulbactam Sodium IV 2132 Sodium Chloride 100 ML Aspirin 81 MG DAILY 01/07 1000 AC PO Atorvastatin Calcium 80 MG 1700 01/07 1700 AC PO Dextrose/Sodium 1,000 ML Q20H 01/04 1900 DC 01/05 Chloride IV 1838 Doxazosin Mesylate 2 MG DAILY 01/06 1000 AC 01/07 PO 0928 Ezetimibe 10 MG DAILY 01/07 1000 AC PO Fluocinonide 1 ROLAND BID 01/04 1146 AC 01/07 TOP 0929 Folic Acid 1 MG DAILY 01/03 1000 AC 01/07 PO 0928 Furosemide 40 MG 7:30 AM, & 4:30 PM 01/07 0930 AC PO Furosemide 40 MG ONCE ONE 01/06 1030 DC 01/06 IV 01/06 1031 1201 Insulin Aspart 0 AT BEDTIME 01/06 2200 AC SC Insulin Aspart 0 TIDAC 01/06 1200 AC 01/07 SC 0929 Insulin Aspart 0 Q4 01/05 1800 DC 01/05 SC 2141 Insulin Detemir 10 UNITS BID 01/07 1000 AC 01/07 SC 0928 Insulin Detemir 12 UNITS BID 01/06 1000 DC 01/06 SC 2131 Lidocaine 1 PAT DAILY 01/06 1000 DC 01/06 EXT 1141 Metoprolol Tartrate 25 MG DAILY 01/07 1000 UNVr PO Nitroglycerin 0.4 MG DAILY 01/03 1000 AC 01/07 TOP 0928 Ondansetron HCl 4 MG Q6P PRN 01/04 1345 AC 01/04 IV 1347 Pantoprazole Sodium 40 MG DAILY 01/04 1346 AC 01/07 IV 0928 Tramadol HCl 25 MG Q12 PRN 01/06 1115 AC PO Vital Signs & I&O Last 24 Hrs of Vitals and I&O: Vital Signs Date Time Temp Pulse Resp B/P B/P Pulse O2 O2 Flow FiO2 Mean Ox Delivery Rate 01/07 0001 98.2 65 20 132/58 95 Nasal 2.0L Cannula 01/07 0000 95 Nasal 2.0L Cannula 01/06 1600 96.8 57 22 110/52 95 Nasal 2.0L Cannula Intake & Output 01/07 1600 01/07 0800 01/07 0000 Intake Total 400 530 Output Total 300 350 Balance 100 180 Intake, IV 130 Intake, Oral 400 400 Number 0 Bowel Movements Output, Urine 300 350 Laboratory Tests 01/07 01/06 01/06 0610 UNK 0400 Chemistry Sodium (137 - 145 mmol/L) 146 H Potassium (3.5 - 5.1 mmol/L) 4.2 Chloride (98 - 107 mmol/L) 114 H Carbon Dioxide (22 - 30 mmol/L) 23 Anion Gap (5 - 16) 9 BUN (9 - 20 mg/dL) 75 H Creatinine (0.7 - 1.2 mg/dL) 2.3 H Estimated GFR (>60 ml/min) 28 L BUN/Creatinine Ratio (7 - 25 %) 32.6 H Magnesium (1.6 - 2.3 mg/dL) 2.6 H Total Bilirubin (0.2 - 1.3 mg/dL) 1.0 Cancelled Direct Bilirubin (< 0.4 mg/dL) 0.3 Cancelled AST (17 - 59 U/L) 49 Cancelled ALT (21 - 72 U/L) 133 H Cancelled Alkaline Phosphatase (< 127 U/L) 74 Cancelled Total Protein (6.3 - 8.2 g/dL) 5.7 L Cancelled Albumin (3.5 - 5.0 g/dL) 2.9 L Cancelled Alpha Fetoprotein Pending Coagulation PT (9.4 - 12.5 SEC) 11.5 INR (0.90 - 1.17) 1.10 APTT (25 - 37 SEC) 24 L Hematology CBC w Diff NO MAN DIFF REQ WBC (4.8 - 10.8 /CUMM) 5.1 RBC (4.70 - 6.10 /CUMM) 2.87 L Hgb (14.0 - 18.0 G/DL) 8.5 L Hct (42 - 52 %) 26.4 L MCV (80.0 - 94.0 FL) 92.0 MCH (27.0 - 31.0 PG) 29.7 RDW (11.5 - 14.5 %) 16.5 H Plt Count (130 - 400 /CUMM) 224 MPV (7.4 - 10.4 FL) 9.4 Gran % (42.2 - 75.2 %) 73.1 Lymphocytes % (20.5 - 51.1 %) 9.7 L Monocytes % (1.7 - 9.3 %) 11.4 H Eosinophils % (0 - 5 %) 5.4 H Basophils % (0.0 - 2.0 %) 0.4 Absolute Granulocytes (1.4 - 6.5 /CUMM) 3.7 Absolute Lymphocytes (1.2 - 3.4 /CUMM) 0.5 L Absolute Monocytes (0.10 - 0.60 /CUMM) 0.6 Absolute Eosinophils (0.0 - 0.7 /CUMM) 0.3 Absolute Basophils (0.0 - 0.2 /CUMM) 0 PUBS MCHC (33.0 - 37.0 G/DL) 32.3 L 01/06 01/06 01/05 0345 0345 2140 Chemistry Sodium (137 - 145 mmol/L) 149 H 145 Potassium (3.5 - 5.1 mmol/L) 3.8 4.1 Chloride (98 - 107 mmol/L) 114 H 108 H Carbon Dioxide (22 - 30 mmol/L) 23 26 Anion Gap (5 - 16) 12 11 BUN (9 - 20 mg/dL) 75 H 78 H Creatinine (0.7 - 1.2 mg/dL) 2.2 H 2.3 H Estimated GFR (>60 ml/min) 29 L 28 L BUN/Creatinine Ratio (7 - 25 %) 34.1 H Glucose (65 - 99 mg/dL) 140 H Calcium (8.4 - 10.2 mg/dL) 9.0 Phosphorus (2.5 - 4.5 mg/dL) 5.1 H Magnesium (1.6 - 2.3 mg/dL) 2.6 H Total Bilirubin (0.2 - 1.3 mg/dL) 1.3 1.4 H Direct Bilirubin (< 0.4 mg/dL) 0.3 AST (17 - 59 U/L) 54 65 H ALT (21 - 72 U/L) 143 H 156 H Alkaline Phosphatase (< 127 U/L) 76 Total Protein (6.3 - 8.2 g/dL) 5.8 L Albumin (3.5 - 5.0 g/dL) 2.8 L 3.0 L Vit D 1,25-Dihyd Total Pending 1,25 Dihydroxy Vit D2 Pending 1,25 Dihydroxy Vit D3 Pending Hematology CBC w Diff NO MAN DIFF REQ WBC (4.8 - 10.8 /CUMM) 6.5 RBC (4.70 - 6.10 /CUMM) 2.88 L Hgb (14.0 - 18.0 G/DL) 8.6 L Hct (42 - 52 %) 26.3 L MCV (80.0 - 94.0 FL) 91.6 MCH (27.0 - 31.0 PG) 29.8 RDW (11.5 - 14.5 %) 17.0 H Plt Count (130 - 400 /CUMM) 216 MPV (7.4 - 10.4 FL) 9.7 Gran % (42.2 - 75.2 %) 75.2 Lymphocytes % (20.5 - 51.1 %) 9.8 L Monocytes % (1.7 - 9.3 %) 13.0 H Eosinophils % (0 - 5 %) 1.7 Basophils % (0.0 - 2.0 %) 0.3 Absolute Granulocytes (1.4 - 6.5 /CUMM) 4.9 Absolute Lymphocytes (1.2 - 3.4 /CUMM) 0.6 L Absolute Monocytes (0.10 - 0.60 /CUMM) 0.8 H Absolute Eosinophils (0.0 - 0.7 /CUMM) 0.1 Absolute Basophils (0.0 - 0.2 /CUMM) 0 PUBS MCHC (33.0 - 37.0 G/DL) 32.6 L 01/05 01/05 1900 1300 Chemistry Sodium (137 - 145 mmol/L) Cancelled 148 H Potassium (3.5 - 5.1 mmol/L) Cancelled 4.4 Chloride (98 - 107 mmol/L) Cancelled 112 H Carbon Dioxide (22 - 30 mmol/L) Cancelled 23 Anion Gap (5 - 16) Cancelled 13 BUN (9 - 20 mg/dL) Cancelled 78 H Creatinine (0.7 - 1.2 mg/dL) Cancelled 2.3 H Estimated GFR (>60 ml/min) 28 L Glucose (65 - 99 mg/dL) Cancelled 206 H Calcium (8.4 - 10.2 mg/dL) Cancelled 9.0 Phosphorus (2.5 - 4.5 mg/dL) Cancelled 5.5 H Magnesium (1.6 - 2.3 mg/dL) Cancelled 2.4 H Total Bilirubin (0.2 - 1.3 mg/dL) Cancelled 1.9 H AST (17 - 59 U/L) Cancelled 81 H ALT (21 - 72 U/L) Cancelled 168 H Albumin (3.5 - 5.0 g/dL) Cancelled 3.0 L Cortisol PM Sample (1.7 - 14.1) 36.0 H Hematology CBC w Diff NO MAN DIFF REQ WBC (4.8 - 10.8 /CUMM) 8.4 RBC (4.70 - 6.10 /CUMM) 2.97 L Hgb (14.0 - 18.0 G/DL) 8.8 L Hct (42 - 52 %) 26.8 L MCV (80.0 - 94.0 FL) 90.4 MCH (27.0 - 31.0 PG) 29.5 RDW (11.5 - 14.5 %) 16.4 H Plt Count (130 - 400 /CUMM) 215 MPV (7.4 - 10.4 FL) 10.3 Gran % (42.2 - 75.2 %) 92.2 H Lymphocytes % (20.5 - 51.1 %) 2.5 L Monocytes % (1.7 - 9.3 %) 5.3 Eosinophils % (0 - 5 %) 0 Basophils % (0.0 - 2.0 %) 0 L Absolute Granulocytes (1.4 - 6.5 /CUMM) 7.8 H Absolute Lymphocytes (1.2 - 3.4 /CUMM) 0.2 L Absolute Monocytes (0.10 - 0.60 /CUMM) 0.4 Absolute Eosinophils (0.0 - 0.7 /CUMM) 0 Absolute Basophils (0.0 - 0.2 /CUMM) 0 PUBS MCHC (33.0 - 37.0 G/DL) 32.7 L 01/05 1025 Blood Gas pH (7.35 - 7.45 PH) 7.45 pCO2 (35 - 45 TORR) 30 L pO2 (80 - 100 TORR) 98 HCO3 (21 - 28 MEQ/L) 20 L ABG O2 Sat (Measured) (>96.0 %) 98.0 P-50 (Temp Corrected) YES Carboxyhemoglobin (1.5 - 5.0 %) 0.9 L O2 Concentration % 35 Temperature (97.0 - 100.0 FARH) 97.1 O2 Delivery Method VENT Vent Mode CPAP Expiratory Pressure (CMH2O/P) 5 Pressure Support (CMH2O/P) 6 Miscellaneous Phlebotomy Draw Site RIGHT BRACHIAL Microbiology Date/Time Procedure - Status Source Growth 01/04 2050 Surveillance Culture - COMP GI 01/04 1628 Respiratory Culture - CAN LOWER RESP Cancelled: SPECIMEN NOT RECEIVED IN LABORATORY 01/04 162 Gram Stain - CAN LOWER RESP Cancelled: SPECIMEN NOT RECEIVED IN LABORATORY 01/04 1440 Surveillance Culture - COMP UPPER RESP 01/04 1440 Blood Culture - RES BLOOD 01/04 1422 Urine Culture - COMP URINE ROUT ENTEROCOCCUS 01/04 1400 Blood Culture - RES BLOOD Impression/Plan Impression/Plan Impression/Plan: General Appearance: Alert, Oriented X3, Cooperative, No Acute Distress, Skin: b/l le redness Skin Temp/Moisture Exam: Warm/Dry Sepsis Skin Exam (color): Normal for Ethnicity HEENT: Atraumatic, PERRLA, EOMI, Mucous Membr. 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 Pt was being treated with dobutamine and was on amiodarone etc and was sig anemic with heme positive stool. Pt did appear to be stable this am but went into syncope and upon transfer to the icu went into sig pavel prob asystole with cpa now intubated and subsequently extubated ISSues * S/P CPR due to sig pavel and asytole now with rapid recovery and improvement s /p extubation now has mild chest pain from the chest compression, rule out rib fracture * Pt has Sig history of low ef and diastolic chf aswell with recurrent chf, with pafib with multiple episodes of nstmi and his cardiac cath did not reveal stentable disease (s/p cabg) * Sig pulm htn (secondary) * Sig anemia unclear etiology - pt has agg bladder ca and on chemo and this could be the main issue for anemia. he also has heme positive stool. Had coffee ground in the og tube while intubated and gi onboard * Seizure like activity related to low flow state now fully stable * Insulin requring DM with previous ketosis * Previous steroid use and prob cortisol def * Bladder Ca * Transaminitis with lesions in the liver in the recent pet scan * CKD with Arf * CAD sig REC Cxr Wean oxygen Cont current meds INsulin per endo Watch for seizures Increase free water po GI following and see their rec Follow crit Slowly resume cardiac meds - ask cardio for guidance Anticoag and antiplatelet rx per cardio and gi PPI per gi Watch for pulm edema, use lasix prn for now DC ivf OK to the floor tele under hospitalist and cardio
--- NOTE | 2017-01-07 14:55 | NUR ---
RECEIVED PT IN BED. A+OX3, ON 2L NC, TITRATED DOWN TO 1L NC SAT 94%, ON RA PT SAT 90%, PLACED BACK ON 1L NC. FIRST DEGREE AV BLOCK AND BBB. VSS. AFEBRILE. LUNGS CLEAR. ABDOMEN D/S +BS. DENIES NAUSEA. TOLERATING PO. VOIDING IN URINAL, PO LASIX, SOME SCROTAL EDEMA NOTED. BLE EDEMA +3. PT OOB TO [facility] WITH ASSISTANCE.
[2017-01-07 16:00] VITALS: BP 130/70
--- NOTE | 2017-01-07 19:06 | Cons- Nephrology ---
General Information and HPI Consulting Request Date of Consult: 01/07/17 Requested By: JENNIFER VARMA,ANT Meredith Reason for Consult: Elevated serum creatinine History of Present Illness: 76-year-old man with known chronic kidney disease stage IV with baseline serum creatinine level in the low to mid 2 mg percent range, with no apparent previous renal workup (nor has he ever seen a green material value added assessor), admitted on 01/02/17 with exacerbation of congestive heart failure and worsening renal failure. BUN was 106 although it has since come down to 75. Creatinine was 2.5 and has come down slightly to 2.3. Electrolytes have not been a problem. Because of the elevation in BUN and creatinine, his lisinopril was held and I'm being asked to assess whether it can or should be restarted. Past medical history is extensive and includes coronary artery disease status post CABG, recent non-ST elevation CA, HFrEF(40-50%), poorly controlled diabetes mellitus, CKD as noted, hypertension and bladder cancer status post TURBT. Current medications: See below Allergies: No known drug allergies Family history: Positive for end-stage renal disease in his father who is , no other family history for kidney disease Social history: Retired salesman, lives with his , former smoker (very remote), no history of alcohol or drug abuse Allergies/Medications Allergies: Coded Allergies: NO KNOWN ALLERGIES (09/24/15) Home Med List: Amiodarone HCl 200 MG TABLET 1 TAB PO DAILY HEART (Reported) Aspirin (Ecotrin*) 81 MG TABLET.DR 2 TAB PO DAILY HEART/BLOOD Clopidogrel Bisulfate (Clopidogrel) 75 MG TABLET 1 TAB PO DAILY HEART HEALTH Desoximetasone (Topicort) 0.25 % OINT...G. 1 ROLAND TOP BID SKIN PROBLEMS ( Reported) apply to affected area(s) Doxazosin Mesylate (Cardura) 4 MG TABLET 4 MG PO DAILY BPH (Reported) Ezetimibe/Simvastatin (Vytorin 10-80 MG Tablet) 10 MG-80 MG TABLET 1 TAB PO DAILY CHOLESTEROL (Reported) Folic Acid 0.8 MG CAPSULE 1 CAP PO DAILY SUPPLEMENT (Reported) Furosemide (Lasix) 80 MG TABLET 1 TAB PO BID DIURETIC (Reported) Insulin Glargine,Hum.rec.anlog (Lantus Solostar) 100 UNIT/ML (3 ML) INSULN.PEN 22 UNITS SC BID DM (Reported) Insulin Lispro (Humalog) 100 UNIT/ML VIAL DM (Reported) Lisinopril 20 MG TABLET 1 TAB PO DAILY BP (Reported) Metoprolol Tartrate 25 MG TABLET 1 TAB PO BID HEART/BP (Reported) Nitroglycerin (Nitroglycerin Patch) 0.4 MG/HOUR PATCH.TD24 1 PATCH TOP DAILY HEART HEALTH 12 hours on, 12 hours off Vitamin B Complex 1 EACH CAPSULE 1 CAP PO DAILY SUPPLEMENT (Reported) Review of Systems Review of Systems: Constitutional: Reports: see HPI, weakness. EENTM: Reports: no symptoms. Cardiovascular: Reports: see HPI, edema, orthopena. Denies: chest pain, palpitations, syncope. Respiratory: Reports: no symptoms. GI: Reports: no symptoms. Genitourinary: Reports: no symptoms. Musculoskeletal: Reports: no symptoms. Skin: Reports: see HPI. Neurological/Psychological: Reports: no symptoms. Hematologic/Endocrine: Reports: no symptoms. All Other Systems: Reviewed and Negative Past History Travel History Traveled to [place] past 21 day No Medical History Blood Transfusion Hx: No Neurological: NONE EENT: allergies, hearing loss Cardiovascular: CHF, hypertension, hyperlipidemia, myocardial infarction, CABG Respiratory: NONE Gastrointestinal: NONE Hepatic: NONE Renal: NONE Musculoskeletal: osteoarthritis Psychiatric: NONE Endocrine: diabetes Blood Disorders: NONE Cancer(s): bladder cancer GROUP HOME SUPERVISOR/Reproductive: NONE Surgical History Surgical History: CABG Psychosocial History Where Do You Live? Home Who Do You Live With? spouse Services at Home: None Primary Language: Singaporean Smoking Status: Never Smoked ETOH Use: denies use Illicit Drug Use: denies illicit drug use Functional Ability Ambulation: cane, previously independent Exam & Diagnostic Data Vital Signs and I&O Vital Signs Date Time Temp Pulse Resp B/P B/P Pulse O2 O2 Flow FiO2 Mean Ox Delivery Rate 01/07 1600 Nasal 1.0L Cannula 01/07 1600 96.9 54 18 130/70 93 Nasal 1.0L Cannula 01/07 1534 54 130/70 01/07 1228 62 122/60 01/07 0800 Nasal 2.0L Cannula 01/07 0800 96.8 59 20 132/58 95 Nasal 2.0L Cannula 01/07 0001 98.2 65 20 132/58 95 Nasal 2.0L Cannula 01/07 0000 95 Nasal 2.0L Cannula Intake & Output 01/07 01/07 0400 01/06 0400 01/05 1600 01/05 0400 Intake Total 8630 212 5324 939 932 930 Output Total 1195 350 033 874 2244 280 Balance -238 298 7267 284 -788 650 Intake, Blood 350 Product Intake, IV 20 130 721 839 932 580 Intake, Oral 1000 400 920 100 0 Number 0 0 0 0 0 Bowel Movements Output, 0 0 Gastric Drainage Output, Urine 1195 350 555 918 7000 280 Patient 217 lb Weight Weight Bed scale Measurement Method Physical Exam: General: Well-developed white male in NAD Skin: No rash or jaundice HEENT: Conjunctivae pink, sclerae anicteric, mucous membranes moist Neck: Without masses or thyromegaly, no supraclavicular or cervical adenopathy Chest: Few rales left base, otherwise clear Heart: Regular rate and rhythm without S3 or rub Abdomen: Obese, soft and nontender without palpable masses or organomegaly Extremities: 2-3+ lower extremity edema without cyanosis or livedo Neuro: No focal findings, no asterixis or myoclonus Assessment/Plan Assessment/Recommendations Assessment: 76-year-old man with a multitude of comorbidities as noted above including coronary artery disease, congestive heart failure with reduced EF (40-50%) and chronic kidney disease stage IV, who was now admitted with worsening of CHF and an elevation in his BUN likely related to prerenal factors - in this case primarily CHF. He has improved both symptomatically and chemically. Given his cardiac status, he should benefit from reintroduction of RACHAEL inhibitor therapy. However at CKD stage IV, we have to be vigilant about any significant change in creatinine or potassium levels. With regard to his CKD, etiology remains to be determined but is likely on the basis of his underlying diabetes and hypertension - presumably nephrosclerosis. No evidence for diabetic nephropathy in the absence of proteinuria on current urine analysis. No obstructive disease based on recent CT scan. Recommendations: 1. Can reintroduce lisinopril therapy at a dose of 10 mg daily 2. Recheck BMP in 1-2 weeks 3. Spot urine for protein to creatinine ratio 4. Anemia workup if not already done 5. Patient should have outpatient renal follow-up. This has been discussed with the patient and his family. Thank you. Will follow with you while he is in the hospital.
--- NOTE | 2017-01-07 20:43 | NUR ---
@2000 PT AWAKE AND ORIENTED, FAMILY AT BEDSIDE VISITING. HR 1ST DEGREE AV BLOCK W/BBB RATE OF 57, NO C/O PAIN AT THIS TIME. ON 1LNC SAT 94% NO DISTRESS. BLLE +3 EDEMA, BUE TRACE TO +1 EDEMA. DISCUSSED POC FOR NIGHT, PT VERBALIZED UNDERSTANDING.
[2017-01-08] VITALS: BP 132/54
[2017-01-08 05:03] LABS: ABSOLUTE BASOPHIL COUNT 0 /CUMM (0.0-0.2); ABSOLUTE EOSINOPHIL COUNT 0.3 /CUMM (0.0-0.7); ABSOLUTE GRANULOCYTE CT 4.4 /CUMM (1.4-6.5); ABSOLUTE LYMPH COUNT 0.4 /CUMM (1.2-3.4); ABSOLUTE MONOCYTE COUNT 0.6 /CUMM (0.10-0.60); BASOPHIL % 0.4 % (0.0-2.0); EOSINOPHIL % 5.3 % (0-5); GRANULOCYTE % 76.2 % (42.2-75.2); HEMATOCRIT 25.3 % (42-52); MEAN CORPUSCULAR HGB 29.8 PG (27.0-31.0); MEAN CORPUSCULAR HGB CONC 32.6 G/DL (33.0-37.0); MEAN CORPUSCULAR VOLUME 91.4 FL (80.0-94.0); MEAN PLATELET VOLUME 9.3 FL (7.4-10.4); PLATELET COUNT 234 /CUMM (130-400); RBC DISTRIBUTION WIDTH 16.3 % (11.5-14.5); RED BLOOD CELL CT 2.77 /CUMM (4.70-6.10); WHITE BLOOD CELL COUNT 5.8 /CUMM (4.8-10.8)
--- NOTE | 2017-01-08 07:14 | PN- Housestaff ---
JOSUÉ VARMA,[facility] 01/08/17 0714: Subjective Follow-up For: 1. Chest tenderness post CPR 2. Diastolic CHF. LE edema 3. Stage 4 chronic kidney disease - stable 4. Chronic anemia of unclear etiology - stable 5. PAF, CAD s/p CABGs 6. T1DM (type 1 diabetes mellitus) 7. Transaminitis - improving 8. Hypernatremia - improved Tele-Events Since Last Visit: no overnight events on tele. 12:35 pm today patient had 6 seconds of Vtach 8 beats total. asymptomatic during that period, vital signs remains stable. Subjective: I saw and examined Mr. Painting this am, he is alert and oriented in no distress, comfortably sitting in bed. Reports he had pain on the right side of the chest last night that did not go away with tylenol but percocet helped him and he could sleep afterwards. reports left hand swelling is improving and has been elevating using pillows most of the time. Review of Systems Constitutional: Denies: chills, fever, weakness. EENTM: Reports: no symptoms. Cardiovascular: Reports: peripheral edema (improving). Denies: chest pain, palpitations. Respiratory: Denies: cough, short of breath, sputum production. Gastrointestinal: Reports: distention (chronic). Denies: abdominal pain, changes in stool. Genitourinary: Reports: no symptoms. Musculoskeletal: Reports: no symptoms. Skin: Reports: no symptoms. Objective Last 24 Hrs of Vital Signs/I&O Vital Signs Date Time Temp Pulse Resp B/P B/P Pulse O2 O2 Flow FiO2 Mean Ox Delivery Rate 01/08 1001 67 138/70 01/08 0957 67 138/70 01/08 0810 97.6 61 20 136/60 95 Nasal 1.0L Cannula 01/08 0800 Nasal 1.0L Cannula 01/08 0000 95 Nasal 1.0L Cannula 01/08 0000 98.1 65 26 132/54 95 Nasal 1.0L Cannula 01/07 1600 Nasal 1.0L Cannula 01/07 1600 96.9 54 18 130/70 93 Nasal 1.0L Cannula 01/07 1534 54 130/70 Intake & Output 01/08 1600 01/08 0800 01/08 0000 Intake Total 120 720 Output Total 860 007 3036 Balance -500 -705 -505 Intake, IV 0 0 Intake, Oral 120 720 Number 0 0 Bowel Movements Output, Urine 288 577 1457 Physical Exam General Appearance: Alert, Oriented X3, Cooperative, No Acute Distress Skin: No Significant Lesion Skin Temp/Moisture Exam: Warm/Dry Sepsis Skin Exam (color): Normal for Ethnicity HEENT: Atraumatic, Mucous Membr. moist/pink Neck: Supple, No JVD Cardiovascular: Regular Rate, Normal S1, Normal S2, No Murmurs Lungs: fine bibasilar crackles Abdomen: Soft, No Tenderness, distended Neurological: Normal Speech, Normal Tone Extremities: 2+ pitting edema, slightly improved comapred to yesterday Vascular: Pulses Symmetrical Last 24 Hrs of Lab/Ruben Results Last 24 Hrs of Labs/Mics: Laboratory Tests 01/08/17 0446: Anion Gap 10, Estimated GFR 29 L, BUN/Creatinine Ratio 31.8 H, Magnesium 2.5 H, Total Bilirubin 1.2, Direct Bilirubin 0.4, AST 52, ALT 130 H, Alkaline Phosphatase 83, Total Protein 5.7 L, Albumin 2.8 L, CBC w Diff NO MAN DIFF REQ , RBC 2.77 L, MCV 91.4, MCH 29.8, RDW 16.3 H, MPV 9.3, Gran % 76.2 H, Lymphocytes % 7.1 L, Monocytes % 11.0 H, Eosinophils % 5.3 H, Basophils % 0.4 , Absolute Granulocytes 4.4, Absolute Lymphocytes 0.4 L, Absolute Monocytes 0.6 , Absolute Eosinophils 0.3, Absolute Basophils 0, PUBS MCHC 32.6 L, Ur Random Creatinine 27.9, Ur Random Sodium 96 H, Ur Random Potassium 21.1, Fraction Sodium Excret 5.2 H Assessment/Plan Assessment: 76 y/o M with PMHx of CAD s/b CABG, T1DM, CKD stage IV and HFpEF who was admitted to [facility] for further evaluation of progressively increasing BUN and worsening hyperglycemia. He was brought in to the ICU after episodes of syncope, accompanied by bradycardia and hypotension. Respiratory Post CPR on 01/04/17 Breathing comfortably on 1L O2 NC Lung exam has fine bibasilar crackles * Continue 40 mg BID with close monitoring of BP * discontinue augmentin tonight (was given as continuation of Unasyn for possible aspiration PNA) * Percocet, if severe chest wall pain * ordered Xray of the ribs for fracture and CXR due to bibasilar crackles, will follow Cardiac #Cardiopulmonary arrest on 01/04/17 Remains hemodynamically stable. max BP 138/70 today. No events on the monitor overnight. 12:35 pm today patient had 6 seconds of Vtach, 8 beats total. asymptomatic during that period, vital signs remains stable. * yesterday restarted Metoprolol 25 mg BID, Furosemide 40 mg PO BID, aspirin 81 mg daily. will keep him off of amiodarone and plavix. * yesterday restarted lisinopril at a lower dose of 10 mg daily per nephrology #HFpEF: Echo: ejection fraction of 40-45%. Pulmonary HTN with Estimated RV systolic pressure of 40 mmHg. * continue lasix 40 mg PO BID with close monitoring Heme/Onc #Symptomatic anemia - stable Likely multifactorial: CKD, GI blood loss, underlying malignancy Transfused 2 units of pRBCs on 01/04/17 post-resuscitation. H/H stable GI consulted. Dr. Reyes reccomended EGD/colonoscopy outpatient, also MRI of the liver (to better assess the hypodense lesion in the liver) will be done outpt with open MRI as he is claustrophobic and refused to get MRI while in the hospital. * continue to hold oral anticoagulation and Plavix, restarted aspirin * will continue to monitor H/H #Bladder cancer: Underwent TURBT on 06/09/16, received 2 cycles of chemotherapy before his heart attack in August. Then he did 7 weeks of radiotherapy until 2 weeks prior to admission. * continue to follow up outpatient with Heme/Onc (Dr. Meléndez) and Urology (Dr. Proctor) Metabolic #Hypernatremia - improved * Na 146 today - stable * off IV fludis and eating and drinking adequately * will monitor BEP #CKD stage IV: Cr 2.2 today (improved) * Nephrology on board * Avoid nephrotoxic agents #T1DM: * BS during the last 12 hours: 63-209 * Endocrinology following * Levemir decreased to 10 units SQ BID * Novolog insulin ordered per Dr. Kaplan recommendations * Accu-checks TID AC and HS #Questionable hypothyroidism: was considered as the patient was bradycardic, TFT is in normal range, we also confirmed with Dr. Kaplan's office, the patients TFTs have been WNL in the past as well. Diet: Regular DVT PPx: ALPs CODE: FULL Problem List: 1. Transaminitis 2. Stage 4 chronic kidney disease 3. Cardiopulmonary arrest 4. Asystole 5. HFrEF (heart failure with reduced ejection fraction) 6. T1DM (type 1 diabetes mellitus) 7. Paroxysmal atrial fibrillation 8. CAD (coronary artery disease) of artery bypass graft Pain Ratin Pain Location: right chest wall pain Pain Goal: Pain 4 or less Pain Plan: mild-mod pain with acetaminophen severe pain with percocet Tomorrow's Labs & Rationales: CBC (anemia) BEP, LFT and Mg (monitor electrolytes, pt has transaminitis) JENNIFER VARMA,[facility] 01/08/17 1356: Attending MD Review Statement Attending Statement Attending MD Statement: examined this patient, discuss w/resident/PA/PHYSICIAN OFFICE REP, agreed w/resident/PA/PHYSICIAN OFFICE REP, discussed with family, reviewed EMR data (avail), discussed with nursing, discussed with case mgmt, reviewed images, amended to note Attending Assessment/Plan: General Appearance: Alert, Oriented X3, Cooperative, No Acute Distress, Skin: b/l le redness Skin Temp/Moisture Exam: Warm/Dry Sepsis Skin Exam (color): Normal for Ethnicity HEENT: Atraumatic, PERRLA, EOMI, Mucous Membr. 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 Pt was being treated with dobutamine and was on amiodarone etc and was sig anemic with heme positive stool. Pt did appear to be stable this am but went into syncope and upon transfer to the icu went into sig pavel prob asystole with cpa now intubated and subsequently extubated ISSues * S/P CPR due to sig pavel and asytole now with rapid recovery and improvement s /p extubation now has mild chest pain from the chest compression, rule out rib fracture * Pt has Sig history of low ef and diastolic chf aswell with recurrent chf, with pafib with multiple episodes of nstmi and his cardiac cath did not reveal stentable disease (s/p cabg) * Sig pulm htn (secondary) * Sig anemia unclear etiology - pt has agg bladder ca and on chemo and this could be the main issue for anemia. he also has heme positive stool. Had coffee ground in the og tube while intubated and gi onboard * Seizure like activity related to low flow state now fully stable * Insulin requring DM with previous ketosis * Previous steroid use and prob cortisol def * Bladder Ca * Transaminitis with lesions in the liver in the recent pet scan * CKD with Arf * CAD sig REC Cxr with rib films Wean oxygen Cont current meds INsulin per endo Watch for seizures Follow renal eval GI following Follow crit cardiac meds and anticoag per cardio PPI per gi Watch for pulm edema, use lasix daily OK to the floor tele under hospitalist and cardio OK to the floor tele under hospitalist and cardio
[2017-01-08 08:10] VITALS: BP 136/60
--- NOTE | 2017-01-08 08:19 | PN- Diabetes ---
Assessment/Plan Assessment: 76-year-old male with past medical history of coronary artery disease status post CABG, recent and STEMI, diabetes uncontrolled, CK D stage IV, hypertension , bladder cancer status post TURBT, was admitted for elevated BUN, high blood sugars, and worsening weakness. patient had cardiac arrest and was transfered to ICU. Now he is alert and awake. His appetite is not great. Levemir was decreased to 10 units twice a day and he is on Novolog coverage before meals and Novolog coverage at bedtime. His FSGs were 84, 176, 111, 130 and 63. Plan: 1. decrease Levemir to 10 units daily; 2. continue the current Novolog coverage before meals and Novolog coverage at bedtime; 3. monitor FSGs. will follow. Subjective Subjective: His am FSG was only 63. Objective Last 24 Hrs of Vital Signs/I&O Vital Signs Date Time Temp Pulse Resp B/P B/P Pulse O2 O2 Flow FiO2 Mean Ox Delivery Rate 01/08 0810 97.6 61 20 136/60 95 Nasal 1.0L Cannula 01/08 0000 95 Nasal 1.0L Cannula 01/08 0000 98.1 65 26 132/54 95 Nasal 1.0L Cannula 01/07 1600 Nasal 1.0L Cannula 01/07 1600 96.9 54 18 130/70 93 Nasal 1.0L Cannula 01/07 1534 54 130/70 01/07 1228 62 122/60 Intake & Output 01/08 1600 01/08 0800 01/08 0000 Intake Total 120 720 Output Total 825 1225 Balance -705 -505 Intake, IV 0 0 Intake, Oral 120 720 Number 0 0 Bowel Movements Output, Urine 825 1225 Findings Pertinent Lab/Ruben Results: Laboratory Tests 01/08 0446 Chemistry Sodium (137 - 145 mmol/L) 146 H Potassium (3.5 - 5.1 mmol/L) 3.8 Chloride (98 - 107 mmol/L) 111 H Carbon Dioxide (22 - 30 mmol/L) 25 Anion Gap (5 - 16) 10 BUN (9 - 20 mg/dL) 70 H Creatinine (0.7 - 1.2 mg/dL) 2.2 H Estimated GFR (>60 ml/min) 29 L BUN/Creatinine Ratio (7 - 25 %) 31.8 H Magnesium (1.6 - 2.3 mg/dL) 2.5 H Total Bilirubin (0.2 - 1.3 mg/dL) 1.2 Direct Bilirubin (< 0.4 mg/dL) 0.4 AST (17 - 59 U/L) 52 ALT (21 - 72 U/L) 130 H Alkaline Phosphatase (< 127 U/L) 83 Total Protein (6.3 - 8.2 g/dL) 5.7 L Albumin (3.5 - 5.0 g/dL) 2.8 L Hematology CBC w Diff NO MAN DIFF REQ WBC (4.8 - 10.8 /CUMM) 5.8 RBC (4.70 - 6.10 /CUMM) 2.77 L Hgb (14.0 - 18.0 G/DL) 8.2 L Hct (42 - 52 %) 25.3 L MCV (80.0 - 94.0 FL) 91.4 MCH (27.0 - 31.0 PG) 29.8 RDW (11.5 - 14.5 %) 16.3 H Plt Count (130 - 400 /CUMM) 234 MPV (7.4 - 10.4 FL) 9.3 Gran % (42.2 - 75.2 %) 76.2 H Lymphocytes % (20.5 - 51.1 %) 7.1 L Monocytes % (1.7 - 9.3 %) 11.0 H Eosinophils % (0 - 5 %) 5.3 H Basophils % (0.0 - 2.0 %) 0.4 Absolute Granulocytes (1.4 - 6.5 /CUMM) 4.4 Absolute Lymphocytes (1.2 - 3.4 /CUMM) 0.4 L Absolute Monocytes (0.10 - 0.60 /CUMM) 0.6 Absolute Eosinophils (0.0 - 0.7 /CUMM) 0.3 Absolute Basophils (0.0 - 0.2 /CUMM) 0 PUBS MCHC (33.0 - 37.0 G/DL) 32.6 L Urines Ur Random Creatinine (mg/dL) 27.9 Ur Random Sodium (30 - 90 mmol/L) 96 H Ur Random Potassium (mmol/L) 21.1 Fraction Sodium Excret (<1% %) 5.2 H
--- NOTE | 2017-01-08 08:23 | NUR ---
0800: RECEIVED PT IN BED. A+OX3, ON 1L NC. IN 1ST DEGREE AV BLOCK WITH BBB ON MONITOR, RATE IN THE 50-60'S. B/P WNL. AFEBRILE. LUNGS CLEAR IN UPPER LOBES, SLIGHT CRACKLES IN BASES, SLIGHT SOB WITH EXERTION. ON PO LASIX. ABDOMEN D/S +BS. DENIES NAUSEA. COMPLAINS OF SOME CHEST SORENESS TO THE RIGHT SIDE. VOIDING IN TOILET/URINAL. BLE +3, SLIGHT EDEMA UNDERNEATH PENIS. PT OOB TO CHAIR WITH ROLLING WALKER WITH MINIMAL ASSIST. ACCU CHECK 63, DENIES LIGHTHEADEDNESS. GIVEN BREAKFAST, WILL REASSES.
--- NOTE | 2017-01-08 10:10 | PN- Cardiology ---
Subjective Subjective: The patient is feeling better today. He is up in a chair. He is not having any shortness of breath. He remains on nasal oxygen. His edema is improving. He is still moderately anemic. His BUN is down to 70 and creatinine is 2.2 today. Objective Vital Signs and I&Os Vital Signs Date Time Temp Pulse Resp B/P B/P Pulse O2 O2 Flow FiO2 Mean Ox Delivery Rate 01/08 1001 67 138/70 01/08 0957 67 138/70 01/08 0810 97.6 61 20 136/60 95 Nasal 1.0L Cannula 01/08 0800 Nasal 1.0L Cannula 01/08 0000 95 Nasal 1.0L Cannula 01/08 0000 98.1 65 26 132/54 95 Nasal 1.0L Cannula 01/07 1600 Nasal 1.0L Cannula 01/07 1600 96.9 54 18 130/70 93 Nasal 1.0L Cannula 01/07 1534 54 130/70 01/07 1228 62 122/60 Intake & Output 01/08 1600 01/08 0800 01/08 0000 01/07 1600 01/07 0800 01/07 0000 Intake Total 120 720 620 400 530 Output Total 825 1225 895 300 350 Balance -705 -505 -275 100 180 Intake, IV 0 0 20 130 Intake, Oral 120 720 600 400 400 Number 0 0 0 0 Bowel Movements Output, Urine 825 1225 895 300 350 Physical Exam: He is in no distress HEENT exam is normal Chest is clear Heart reveals regular rhythm and no murmurs Extremities reveal 1+ edema Current Medications: Current Medications Sig/Alejandra Start time Last Medication Dose Route Stop Time Status Admin Acetaminophen 650 MG .STK-MED ONE 01/08 0147 DC PO 01/08 0148 Acetaminophen 650 MG .STK-MED ONE 01/07 1533 DC PO 01/07 1534 Acetaminophen 650 MG Q6P PRN 01/02 2100 AC 01/08 PO 0146 Amoxicillin/ 500 MG Q12 01/07 1000 AC 01/08 Clavulanate Potassium PO 01/09 0000 0957 Aspirin 81 MG DAILY 01/07 1000 AC 01/08 PO 0957 Atorvastatin Calcium 80 MG 1700 / 1700 AC 01/07 PO 1534 Doxazosin Mesylate 2 MG DAILY 01/06 1000 AC 01/08 PO 0957 Ezetimibe 10 MG DAILY 05/03 1000 AC 01/08 PO 0957 Fluocinonide 1 ROLAND BID 01/04 1146 AC 01/08 TOP 0958 Folic Acid 1 MG DAILY 01/03 1000 AC 01/08 PO 0957 Furosemide 40 MG 7:30 AM, & 4:30 PM 01/07 0930 AC 01/08 PO 0738 Insulin Aspart 0 AT BEDTIME 01/06 2200 AC SC Insulin Aspart 0 TIDAC 01/06 1200 AC 01/07 SC 1636 Insulin Detemir 10 UNITS DAILY 01/08 1000 AC 01/08 SC 0957 Insulin Detemir 10 UNITS BID 01/07 1000 DC 01/07 SC 2144 Lisinopril 10 MG DAILY 01/08 1000 AC 01/08 PO 1001 Lisinopril 5 MG DAILY 01/07 1457 DC 01/07 PO 1534 Metoprolol Tartrate 25 MG BID 01/07 1000 AC 01/08 PO 0957 Nitroglycerin 0.4 MG DAILY 01/03 1000 AC 01/08 TOP 1001 Ondansetron HCl 4 MG Q6P PRN 01/04 1345 AC 01/04 IV 1347 Oxycodone/ 1 TAB Q6P PRN 01/08 0845 AC Acetaminophen PO Oxycodone/ 1 TAB ONCE ONE 01/08 0430 DC 01/08 Acetaminophen PO 01/08 0431 0435 Pantoprazole Sodium 40 MG DAILY 01/04 1346 AC 01/07 IV 0928 Tramadol HCl 25 MG Q12 PRN 01/06 1115 DC PO Results Last 48 Hrs of Labs/Mics: Laboratory Tests 01/08/17 0446: Anion Gap 10, Estimated GFR 29 L, BUN/Creatinine Ratio 31.8 H, Magnesium 2.5 H, Total Bilirubin 1.2, Direct Bilirubin 0.4, AST 52, ALT 130 H, Alkaline Phosphatase 83, Total Protein 5.7 L, Albumin 2.8 L, CBC w Diff NO MAN DIFF REQ , RBC 2.77 L, MCV 91.4, MCH 29.8, RDW 16.3 H, MPV 9.3, Gran % 76.2 H, Lymphocytes % 7.1 L, Monocytes % 11.0 H, Eosinophils % 5.3 H, Basophils % 0.4 , Absolute Granulocytes 4.4, Absolute Lymphocytes 0.4 L, Absolute Monocytes 0.6 , Absolute Eosinophils 0.3, Absolute Basophils 0, PUBS MCHC 32.6 L, Ur Random Creatinine 27.9, Ur Random Sodium 96 H, Ur Random Potassium 21.1, Fraction Sodium Excret 5.2 H 01/07/17 0610: Anion Gap 9, Estimated GFR 28 L, BUN/Creatinine Ratio 32.6 H, Magnesium 2.6 H , Total Bilirubin 1.0, Direct Bilirubin 0.3, AST 49, ALT 133 H, Alkaline Phosphatase 74, Total Protein 5.7 L, Albumin 2.9 L, PT 11.5, INR 1.10, APTT 24 L, CBC w Diff NO MAN DIFF REQ, RBC 2.87 L, MCV 92.0, MCH 29.7, RDW 16.5 H, MPV 9.4, Gran % 73.1, Lymphocytes % 9.7 L, Monocytes % 11.4 H, Eosinophils % 5.4 H, Basophils % 0.4, Absolute Granulocytes 3.7, Absolute Lymphocytes 0.5 L, Absolute Monocytes 0.6, Absolute Eosinophils 0.3, Absolute Basophils 0, PUBS MCHC 32.3 L Assessment/Plan Assessment/Plan The patient is improved at this point. His renal function and liver functions are improving slowly. His blood pressure is maintained. He has chronic edema but I don't think this is due to congestive heart failure. His LV function was stable and his pulmonary artery pressures mildly elevated. He has been ambulatory and. He is still in the ICU as a telemetry hold. He is back on most of his usual medications and tolerating them well. His vital signs are normal. His labs are improving. I recommend continuing to ambulate him. Hopefully he will continue to improve and be ready for discharge in a day or 2. Continue telemetry? Yes
--- NOTE | 2017-01-08 12:39 | NUR ---
PATIENT HAD A 4 BEAT RUN OF V-TACH, FOLLOWED BY 2 SETS OF 2 BEATS OF V-TACH. STRIP PRINTED AND SHOWN TO MD MOSES. PATIENT SITTING IN CHAIR AT TIME OF EPISODE, ASYMPTOMATIC. DENIES CHEST PAIN.
--- NOTE | 2017-01-08 12:55 | RADIOLOGY REPORT ---
EXAMINATION: XR RIBS, BILATERAL XR CHEST CLINICAL INFORMATION: Crackles in lung bases, tenderness on the left chest wall. Status post CPR. Presumptive diagnosis of pulmonary edema, atelectasis and rib fracture. COMPARISON: Chest x-ray dated 01/06/2017. TECHNIQUE: Frontal and lateral views of the chest and 5 views of the bilateral ribs. FINDINGS: BILATERAL RIBS AND CHEST: The patient is status post median sternotomy and CABG surgery. Cardiomediastinal silhouette is enlarged, unchanged. Low lung volumes are seen with bibasilar subsegmental atelectasis again noted. Central vascular congestion and bilateral small pleural effusions are seen. No pulmonary edema. No pneumothorax or significant pleural effusion. Osseous structures are unremarkable. Ribs are intact. No fractures are identified. IMPRESSION: 1. No rib fracture or pneumothorax identified. 2. Cardiomegaly with central vascular congestion and small bilateral pleural effusions. No overt pulmonary edema. 3. Bibasilar mild subsegmental atelectasis.
[2017-01-08 16:00] VITALS: BP 128/60
[2017-01-08 23:19] VITALS: BP 148/60
[2017-01-09 05:26] LABS: ABSOLUTE BASOPHIL COUNT 0 /CUMM (0.0-0.2); ABSOLUTE EOSINOPHIL COUNT 0.3 /CUMM (0.0-0.7); ABSOLUTE GRANULOCYTE CT 3.2 /CUMM (1.4-6.5); ABSOLUTE LYMPH COUNT 0.7 /CUMM (1.2-3.4); ABSOLUTE MONOCYTE COUNT 0.6 /CUMM (0.10-0.60); BASOPHIL % 0.3 % (0.0-2.0); EOSINOPHIL % 5.9 % (0-5); GRANULOCYTE % 66.4 % (42.2-75.2); HEMATOCRIT 27.1 % (42-52); MEAN CORPUSCULAR HGB 29.7 PG (27.0-31.0); MEAN CORPUSCULAR HGB CONC 32.6 G/DL (33.0-37.0); MEAN CORPUSCULAR VOLUME 91.2 FL (80.0-94.0); PLATELET COUNT 266 /CUMM (130-400); RBC DISTRIBUTION WIDTH 15.5 % (11.5-14.5); RED BLOOD CELL CT 2.97 /CUMM (4.70-6.10); WHITE BLOOD CELL COUNT 4.8 /CUMM (4.8-10.8)
--- NOTE | 2017-01-09 07:11 | PN- Housestaff ---
See Addendum Subjective Follow-up For: 1. Chest tenderness post CPR 2. Diastolic CHF. LE edema 3. Stage 4 chronic kidney disease - stable 4. Chronic anemia of unclear etiology - stable 5. PAF, CAD s/p CABGs 6. T1DM (type 1 diabetes mellitus) 7. Transaminitis - improving 8. Hypernatremia - improved Tele-Events Since Last Visit: no events overnight on telemonitoring Subjective: I saw and examined Mr. Painting at bedside today. He is alert and oriented in no distress, reports he had a good night sleep and percocet is controlling the pain. Reports breathing comfortably, however sometimes feels he has crackles. Reports sporadic coughs with some phlegm. Left arm swelling has improved, IV line site was changed yesterday evening. Also Lower extremity edema has improved. Review of Systems Constitutional: Denies: chills, fever, malaise, weakness. EENTM: Reports: no symptoms. Cardiovascular: Reports: peripheral edema. Denies: chest pain, palpitations. Respiratory: Reports: cough, sputum production. Denies: short of breath. Gastrointestinal: Denies: abdominal pain, changes in stool. Genitourinary: Reports: no symptoms. Musculoskeletal: Reports: see HPI (pain on right chest wall). Objective Last 24 Hrs of Vital Signs/I&O Vital Signs Date Time Temp Pulse Resp B/P B/P Pulse O2 O2 Flow FiO2 Mean Ox Delivery Rate 01/09 0800 93 Nasal 1.0L Cannula 01/09 0800 97.9 63 18 138/72 93 Nasal 1.0L Cannula 01/09 0000 93 Nasal 1.0L Cannula 01/08 2319 98.2 60 19 148/60 93 Nasal 1.0L Cannula 01/08 2108 67 25 122/52 / 2000 91 Nasal 1.0L Cannula 01/08 1600 Nasal 1.0L Cannula 01/08 1600 97.7 57 19 128/60 94 Nasal 1.0L Cannula 01/08 1001 67 138/70 01/08 0957 67 138/70 Intake & Output 01/09 1600 01/09 0800 01/09 0000 Intake Total 120 720 Output Total 400 775 Balance -280 -55 Intake, IV 0 Intake, Oral 120 720 Number 0 Bowel Movements Output, Urine 400 775 Physical Exam General Appearance: Alert, Oriented X3, Cooperative, No Acute Distress Skin: No Significant Lesion Skin Temp/Moisture Exam: Warm/Dry Sepsis Skin Exam (color): Normal for Ethnicity HEENT: Atraumatic, EOMI, Mucous Membr. moist/pink Neck: Supple Cardiovascular: Regular Rate, Normal S1, Normal S2, No Murmurs Lungs: Normal Air Movement, left basilar crackles Abdomen: Soft, No Tenderness, distended Neurological: Normal Speech, Normal Tone Extremities: 2+pitting edema Vascular: Pulses Symmetrical Current Medications: Current Medications Sig/Alejandra Start time Last Medication Dose Route Stop Time Status Admin Acetaminophen 650 MG Q6P PRN 01/02 2100 AC 01/08 PO 0146 Amoxicillin/ 500 MG Q12 01/07 1000 DC 01/08 Clavulanate Potassium PO 01/09 0000 2108 Aspirin 81 MG DAILY 01/07 1000 AC 01/08 PO 0957 Atorvastatin Calcium 80 MG 1700 01/07 1700 AC 01/08 PO 1615 Doxazosin Mesylate 2 MG DAILY 01/06 1000 AC 01/08 PO 0957 Ezetimibe 10 MG DAILY 01/07 1000 AC 01/08 PO 0957 Fluocinonide 1 ROLAND BID 01/04 1146 AC 01/08 TOP 2109 Folic Acid 1 MG DAILY 01/03 1000 AC 01/08 PO 0957 Furosemide 40 MG 7:30 AM, & 4:30 PM 01/07 0930 AC 01/09 PO 0758 Insulin Aspart 0 AT BEDTIME 01/06 2200 AC SC Insulin Aspart 0 TIDAC 01/06 1200 AC 01/09 SC 0758 Insulin Detemir 10 UNITS DAILY 01/08 1000 AC 01/08 SC 0957 Lisinopril 10 MG DAILY 01/08 1000 AC 01/08 PO 1001 Metoprolol Tartrate 25 MG BID 01/07 1000 AC 01/08 PO 2108 Nitroglycerin 0.4 MG DAILY 01/03 1000 AC 01/08 TOP 1001 Omeprazole 40 MG DAILY AC 01/08 1131 AC 01/09 PO 0648 Ondansetron HCl 4 MG Q6P PRN 01/04 1345 AC 01/04 IV 1347 Oxycodone/ 1 TAB Q6P PRN 01/08 0845 AC 01/09 [place] PO 0650 Pantoprazole Sodium 40 MG DAILY 01/04 1346 DC 05 IV 0928 Last 24 Hrs of Lab/Ruben Results Last 24 Hrs of Labs/Mics: Laboratory Tests 01/09/17 0514: Anion Gap 14, Estimated GFR 31 L, BUN/Creatinine Ratio 31.0 H, Magnesium 2.5 H, Total Bilirubin 1.7 H, Direct Bilirubin 0.4, AST 42, ALT 120 H, Alkaline Phosphatase 89, Total Protein 6.1 L, Albumin 3.2 L, CBC w Diff NO MAN DIFF REQ , RBC 2.97 L, MCV 91.2, MCH 29.7, RDW 15.5 H, MPV 9.0, Gran % 66.4, Lymphocytes % 14.0 L, Monocytes % 13.4 H, Eosinophils % 5.9 H, Basophils % 0.3, Absolute Granulocytes 3.2, Absolute Lymphocytes 0.7 L, Absolute Monocytes 0.6, Absolute Eosinophils 0.3, Absolute Basophils 0, PUBS MCHC 32.6 L Assessment/Plan Assessment: 76 y/o M with PMHx of CAD s/b CABG, T1DM, CKD stage IV and HFpEF who was admitted [facility] for further evaluation of progressively increasing BUN and worsening hyperglycemia. He was brought in to the ICU after episodes of syncope, accompanied by bradycardia and hypotension. Respiratory Post CPR on 01/04/17 * Breathing comfortably on 1L O2 NC, will take him off O2 supplementation and see how he does * Less crackles are heard today, only some fine crackles on the left lung base * Continue lasix 40 mg BID with close monitoring of BP * Off antibiotics * Percocet for severe chest wall pain, pain has subsided and percocet has been very effective - no rib fracture noticed on the Xray Cardiac #HFpEF s/p Cardiopulmonary arrest on 01/04/17 Echo: ejection fraction of 40-45%. Pulmonary HTN with Estimated RV systolic pressure of 40 mmHg. Remains hemodynamically stable. max BP 148/60 today. No events on the monitor overnight. 12:35 pm yesterday patient had 6 seconds of Vtach, 8 beats total. asymptomatic during that period, vital signs remains stable. * Continue Metoprolol 25 mg BID, Furosemide 40 mg PO BID, aspirin 81 mg daily. will keep him off of amiodarone and plavix. (per cardiology) * Continue lisinopril 10 mg daily per nephrology Heme/Onc #Symptomatic anemia - stable Likely multifactorial: CKD, GI blood loss (bloody vomitus on 01/04/17 with prior guaiac (+) stool), underlying malignancy Transfused 2 units of pRBCs on 01/04/17 post-resuscitation. H/H remains stable. GI consulted. Dr. Reyes reccomended EGD/colonoscopy outpatient, also MRI of the liver (to better assess the hypodense lesion in the liver) will be done outpt with open MRI as he is claustrophobic and refused to get MRI while in the hospital. * continue to hold oral anticoagulation and Plavix, restarted aspirin * will continue to monitor H/H #Bladder cancer: Underwent TURBT on 06/09/16, received 2 cycles of chemotherapy before his heart attack in August. Then he did 7 weeks of radiotherapy until 2 weeks prior to admission. * continue to follow up outpatient with Heme/Onc (Dr. Meléndez) and Urology (Dr. Proctor) Metabolic #Hypernatremia - improved * Na 147 today - stable * off IV fludis and eating and drinking adequately * will monitor BEP #CKD stage IV: Cr 2.1 today (improved from 2.2) * Nephrology on board * Avoid nephrotoxic agents #T1DM: * BS during the last 12 hours: 63-209 * Endocrinology following * Levemir decreased to 10 units SQ BID * Novolog insulin ordered per Dr. Kaplan recommendations * Accu-checks TID AC and HS #Questionable hypothyroidism: was considered as the patient was bradycardic, TFT is in normal range, we also confirmed with Dr. Kaplan's office, the patients TFTs have been WNL in the past as well. Diet: CC2 with 2 gram Na restriction DVT PPx: ALPs CODE: FULL Problem List: 1. Transaminitis 2. Stage 4 chronic kidney disease 3. Cardiopulmonary arrest 4. HFrEF (heart failure with reduced ejection fraction) 5. T1DM (type 1 diabetes mellitus) 6. Paroxysmal atrial fibrillation 7. Bladder cancer 8. Chronic anemia Pain Ratin Pain Location: right sided chest wall pain Pain Goal: Pain 4 or less Pain Plan: percocet for severe pain, acetaminophen Tomorrow's Labs & Rationales: CBC (monitor anemia) and BEP and Mg (monitor kidney function and electrolytes)
[2017-01-09 08:00] VITALS: BP 138/72
--- NOTE | 2017-01-09 10:05 | PN- Cardiology ---
Subjective Subjective: The patient is feeling okay today. He is still on oxygen 1 L and satting at rest in the mid 90s. However he apparently dropped his saturation with ambulation. He has no chest pain and is not excessively short of breath. His BUN is down to 65 and creatinine 2.1. He is back on lisinopril at a lower dose as per nephrology recommendation. Objective Vital Signs and I&Os Vital Signs Date Time Temp Pulse Resp B/P B/P Pulse O2 O2 Flow FiO2 Mean Ox Delivery Rate 01/10 800 93 Nasal 1.0L Cannula 01/10 800 97.9 63 18 138/72 93 Nasal 1.0L Cannula 01/09 0000 93 Nasal 1.0L Cannula 01/08 2319 98.2 60 19 148/60 93 Nasal 1.0L Cannula 01/08 2108 67 25 122/52 01/08 2000 91 Nasal 1.0L Cannula 01/08 1600 Nasal 1.0L Cannula 01/08 1600 97.7 57 19 128/60 94 Nasal 1.0L Cannula Intake & Output 01/09 0801/09 0000 01/08 1600 01/08 0800 01/08 0000 Intake Total 120 720 720 120 720 Output Total 400 775 144 081 0923 Balance -280 -55 -30 -705 -505 Intake, IV 0 0 0 Intake, Oral 120 720 720 120 720 Number 0 0 0 0 Bowel Movements Output, Urine 400 775 487 107 8107 Physical Exam: He is in no distress HEENT exam is normal Chest reveals a few bibasilar crackles Heart reveals regular rhythm and no murmurs Extremities trace to 1+ edema Current Medications: Current Medications Sig/Alejandra Start time Last Medication Dose Route Stop Time Status Admin Acetaminophen 650 MG Q6P PRN 01/02 2100 AC 01/08 PO 0146 Amoxicillin/ 500 MG Q12 01/07 1000 DC 01/08 Clavulanate Potassium PO 01/09 0000 2108 Aspirin 81 MG DAILY 01/07 1000 AC 01/08 PO 0957 Atorvastatin Calcium 80 MG 1700 01/07 1700 AC 01/08 PO 1615 Doxazosin Mesylate 2 MG DAILY 01/06 1000 AC 01/08 PO 0957 Ezetimibe 10 MG DAILY 01/07 1000 AC 01/08 PO 0957 Fluocinonide 1 ROLAND BID 01/04 1146 AC 01/08 TOP 2109 Folic Acid 1 MG DAILY 01/03 1000 AC 01/08 PO 0957 Furosemide 40 MG 7:30 AM, & 4:30 PM 01/07 0930 AC 01/09 PO 0758 Insulin Aspart 0 AT BEDTIME 01/06 2200 [facility] Insulin Aspart 0 TIDAC 01/06 1200 AC 01/09 SC 0758 Insulin Detemir 10 UNITS DAILY 01/08 1000 AC 01/08 SC 0957 Lisinopril 10 MG DAILY 01/08 1000 AC 01/08 PO 1001 Metoprolol Tartrate 25 MG BID 01/07 1000 AC 01/08 PO 2108 Nitroglycerin 0.4 MG DAILY 01/03 1000 AC 01/08 TOP 1001 Omeprazole 40 MG DAILY AC 01/08 1131 AC 01/09 PO 0648 Ondansetron HCl 4 MG Q6P PRN 01/04 1345 AC 01/04 IV 1347 Oxycodone/ 1 TAB Q6P PRN 01/08 0845 AC 01/09 Acetaminophen PO 0650 Pantoprazole Sodium 40 MG DAILY 01/04 1346 DC 01/07 IV 0928 Results Last 48 Hrs of Labs/Mics: Laboratory Tests 01/09/17 0514: Anion Gap 14, Estimated GFR 31 L, BUN/Creatinine Ratio 31.0 H, Magnesium 2.5 H, Total Bilirubin 1.7 H, Direct Bilirubin 0.4, AST 42, ALT 120 H, Alkaline Phosphatase 89, Total Protein 6.1 L, Albumin 3.2 L, CBC w Diff NO MAN DIFF REQ , RBC 2.97 L, MCV 91.2, MCH 29.7, RDW 15.5 H, MPV 9.0, Gran % 66.4, Lymphocytes % 14.0 L, Monocytes % 13.4 H, Eosinophils % 5.9 H, Basophils % 0.3, Absolute Granulocytes 3.2, Absolute Lymphocytes 0.7 L, Absolute Monocytes 0.6, Absolute Eosinophils 0.3, Absolute Basophils 0, PUBS MCHC 32.6 L 01/08/17 0446: Anion Gap 10, Estimated GFR 29 L, BUN/Creatinine Ratio 31.8 H, Magnesium 2.5 H, Total Bilirubin 1.2, Direct Bilirubin 0.4, AST 52, ALT 130 H, Alkaline Phosphatase 83, Total Protein 5.7 L, Albumin 2.8 L, CBC w Diff NO MAN DIFF REQ , RBC 2.77 L, MCV 91.4, MCH 29.8, RDW 16.3 H, MPV 9.3, Gran % 76.2 H, Lymphocytes % 7.1 L, Monocytes % 11.0 H, Eosinophils % 5.3 H, Basophils % 0.4 , Absolute Granulocytes 4.4, Absolute Lymphocytes 0.4 L, Absolute Monocytes 0.6 , Absolute Eosinophils 0.3, Absolute Basophils 0, PUBS MCHC 32.6 L, Ur Random Creatinine 27.9, Ur Random Sodium 96 H, Ur Random Potassium 21.1, Fraction Sodium Excret 5.2 H Recent Imaging Studies: PATIENT: JACK WINTER PRESENT AGE: 76 PATIENT ACCOUNT NO: [id number] : 40 LOCATION: [facility] ORDERING PHYSICIAN: HAZEL MOSES MD SERVICE DATE: 01/08/17- EXAM TYPE: RAD - XRY-CHEST XRAY, PA AND LATERAL; XRY-RIBS BILATERAL EXAMINATION: XR RIBS, BILATERAL XR CHEST CLINICAL INFORMATION: Crackles in lung bases, tenderness on the left chest wall. Status post CPR. Presumptive diagnosis of pulmonary edema, atelectasis and rib fracture. COMPARISON: Chest x-ray dated 01/06/2017. TECHNIQUE: Frontal and lateral views of the chest and 5 views of the bilateral ribs. FINDINGS: BILATERAL RIBS AND CHEST: The patient is status post median sternotomy and CABG surgery. Cardiomediastinal silhouette is enlarged, unchanged. Low lung volumes are seen with bibasilar subsegmental atelectasis again noted. Central vascular congestion and bilateral small pleural effusions are seen. No pulmonary edema. No pneumothorax or significant pleural effusion. Osseous structures are unremarkable. Ribs are intact. No fractures are identified. IMPRESSION: 1. No rib fracture or pneumothorax identified. 2. Cardiomegaly with central vascular congestion and small bilateral pleural effusions. No overt pulmonary edema. 3. Bibasilar mild subsegmental atelectasis. DICTATED BY: DANILO CROUCH MD DATE/TIME DICTATED:01/08/171245 HEEL SEAT TRIMMER:RON DATE/TIME TRANSCRIBED:01/08/171245 CONFIDENTIAL, DO NOT COPY WITHOUT APPROPRIATE AUTHORIZATION. <Electronically signed in Other Vendor System> SIGNED BY: DANILO CROUCH MD 1255 Assessment/Plan Assessment/Plan The patient is improved at this point. His renal function and liver functions continue to improve. His blood pressure is maintained. He has chronic edema but I don't think this is due to congestive heart failure. His LV function was stable and his pulmonary artery pressures mildly elevated. He has been ambulatory. He is still in the ICU as a telemetry hold. He is back on most of his usual medications and tolerating them well. Lisinopril has been restarted and he is on oral Lasix twice daily. He is still desaturating with ambulation. He probably will need oxygen on discharge. I recommend continuing to ambulate him. Hopefully he will continue to improve and be ready for discharge in a day or 2. Continue telemetry? Yes
--- NOTE | 2017-01-09 11:29 | NUR ---
Patient is drowsey but easily arousable to verbal stimuli, SAS 3-4, able to follow commands and can shake head yes and no appropriately to questions. Hx of paraplegia. Fentanyl gtt infusing at 100mcg and a one time dose of 1mg IV ativan given this morning for c/o anxiety. Soft bilateral wrist restraints are in place. ST on tele monitor, HR= 100-120's. SBP: 120-150's- patient denies chest pain. Left radial a-line in place and site is WNL but is positional. CVP raning from 13-15. Remains intubated with a #7.5 ETT taped to the right at 24cm, Vent settings currently AC 16/500/35/5. Lungs clear and some scattered rhonchi. O2 sats stable at 95-99%. Suctioned frequently for a moderate amount of thick montoya secretions. OGT in place to low wall suction with green output. Abdomen is distended and soft with very hypoactive bowel sounds. Remains NPO. Diaz in place draining clear yellow urine. A healing wound is noted to the right flores. A surgical dressing is noted at the perineum and extends around to the left ischium and buttocks. Dressing is intact at this time. A full thickness wound is also noted to the right ischium which was present on admission. Patient is followed by Dr. Mera in the wound care center for chronic non healing wounds. Scrotum appears macerated. He was placed on a clinatron bed yesterday. TPN and lipids infusing per order. NS has been d/c. Iv abx per ID. Plan is for another debridement with a dressing change in the OR this afternoon followed by a spurapubic tube placement. PICC line placement also being discussed by house staff with Dr. Lozano. Fentanyl gtt was titrated up for c/o pain. Vitals currently stable. Will continue to closely monitor patient.
--- NOTE | 2017-01-09 11:51 | PN- Diabetes ---
Assessment/Plan Assessment: 76-year-old male with past medical history of coronary artery disease status post CABG, recent and STEMI, diabetes uncontrolled, CK D stage IV, hypertension , bladder cancer status post TURBT, was admitted for elevated BUN, high blood sugars, and worsening weakness. patient had cardiac arrest and was transfered to ICU. Now he is alert and awake. Levemir was decreased to 10 units once a day and he is on Novolog coverage before meals and Novolog coverage at bedtime. His FSGs were 63, 130, 209, 276, 147 and 92. Plan: continue the current insulin regimen for now; monitor FSGs; will follow. Subjective Subjective: He feels improving. Objective Last 24 Hrs of Vital Signs/I&O Vital Signs Date Time Temp Pulse Resp B/P B/P Pulse O2 O2 Flow FiO2 Mean Ox Delivery Rate 01/09 1032 65 142/60 01/09 1031 65 142/60 01/09 0800 93 Nasal 1.0L Cannula 01/09 0800 97.9 63 18 138/72 93 Nasal 1.0L Cannula 01/09 0000 93 Nasal 1.0L Cannula 01/08 2319 98.2 60 19 148/60 93 Nasal 1.0L Cannula 01/08 2108 67 25 122/52 01/08 2000 91 Nasal 1.0L Cannula 01/08 1600 Nasal 1.0L Cannula 01/08 1600 97.7 57 19 128/60 94 Nasal 1.0L Cannula Intake & Output 01/09 1600 01/09 0800 01/09 0000 Intake Total 120 720 Output Total 400 775 Balance -280 -55 Intake, IV 0 Intake, Oral 120 720 Number 0 Bowel Movements Output, Urine 400 775 Findings Pertinent Lab/Ruben Results: Laboratory Tests 01/09 0514 Chemistry Sodium (137 - 145 mmol/L) 147 H Potassium (3.5 - 5.1 mmol/L) 3.9 Chloride (98 - 107 mmol/L) 108 H Carbon Dioxide (22 - 30 mmol/L) 25 Anion Gap (5 - 16) 14 BUN (9 - 20 mg/dL) 65 H Creatinine (0.7 - 1.2 mg/dL) 2.1 H Estimated GFR (>60 ml/min) 31 L BUN/Creatinine Ratio (7 - 25 %) 31.0 H Magnesium (1.6 - 2.3 mg/dL) 2.5 H Total Bilirubin (0.2 - 1.3 mg/dL) 1.7 H Direct Bilirubin (< 0.4 mg/dL) 0.4 AST (17 - 59 U/L) 42 ALT (21 - 72 U/L) 120 H Alkaline Phosphatase (< 127 U/L) 89 Total Protein (6.3 - 8.2 g/dL) 6.1 L Albumin (3.5 - 5.0 g/dL) 3.2 L Hematology CBC w Diff NO MAN DIFF REQ WBC (4.8 - 10.8 /CUMM) 4.8 RBC (4.70 - 6.10 /CUMM) 2.97 L Hgb (14.0 - 18.0 G/DL) 8.8 L Hct (42 - 52 %) 27.1 L MCV (80.0 - 94.0 FL) 91.2 MCH (27.0 - 31.0 PG) 29.7 RDW (11.5 - 14.5 %) 15.5 H Plt Count (130 - 400 /CUMM) 266 MPV (7.4 - 10.4 FL) 9.0 Gran % (42.2 - 75.2 %) 66.4 Lymphocytes % (20.5 - 51.1 %) 14.0 L Monocytes % (1.7 - 9.3 %) 13.4 H Eosinophils % (0 - 5 %) 5.9 H Basophils % (0.0 - 2.0 %) 0.3 Absolute Granulocytes (1.4 - 6.5 /CUMM) 3.2 Absolute Lymphocytes (1.2 - 3.4 /CUMM) 0.7 L Absolute Monocytes (0.10 - 0.60 /CUMM) 0.6 Absolute Eosinophils (0.0 - 0.7 /CUMM) 0.3 Absolute Basophils (0.0 - 0.2 /CUMM) 0 PUBS MCHC (33.0 - 37.0 G/DL) 32.6 L
[2017-01-09] MEDS ORDERED: DOXAZOSIN MESYLA2 M1 PO (14:34)
[2017-01-09] MEDS ORDERED: LISINOPRIL10 M1 PO (14:34)
[2017-01-09] MEDS ORDERED: LASIX40 M1 PO (14:34)
[2017-01-09] MEDS ORDERED: OMEPRAZOLE20 M2 PO (14:34)
[2017-01-09] MEDS ORDERED: PERCOCET 5-3251 EACH PO (14:34)
--- NOTE | 2017-01-09 14:41 | NUR ---
Patient oxygen saturation was noted to be 84% on room air at rest and with ambulation. Patient was then placed on 1L nc- O2 sats increased to 93% on 1L nc at rest, and 91% with ambulation.
--- NOTE | 2017-01-09 14:42 | Patient Discharge Instructions ---
Discharge Instructions General Discharge Information You were seen/treated for: Acute CHF ecaxerbation Hypotension and bradycardia, status post CPR Hyperglycemia Chronic kidney disease Acute on chronic anemia Special Instructions: Please: 1. Follow up with Dr. Taye Reyes, cardiology, in the office in 1 week. Your amiodarone and plavix are stopped during this hospital stay, also you are on a lower dose of lasix, please see below for instructions. 2. Use O2 on ambulation and follow up with Dr. Stahl, pulmonary and critical care, in a week of discharge. 3. Follow up with Dr. Jim Reyes, Gastroenterology regarding possible endoscopy as well as an open MRI for the evaluation of the lesion previously seen in the liver. 4. We have adjusted you insulin coverage, please follow instructions below. Also , follow up with Dr. Stubbs, endocrinology and PCP within 1-2 weeks after discharge 5. Have a blood work done for kidney function in a week and follow up with Dr. Cedillo, nephrology, within 2 weeks 6. Come back to the ED if you experience dizziness, shortness of breath, chest pain, palpitations. Diet Recommended Diet: Diabetic, Heart Healthy, CHF diet with 2 gr sodium restriction Activity Activity Self Limited: Yes Activity Limited to: Walking with Assistance Acute Coronary Syndrome Inclusion Criteria At DC or during hospital stay patient has or had the following: ACS DIAGNOSIS No Discharge Core Measures Meds if any: Prescribed or Continued at Discharge Meds if any: NOT Prescribed or Continued at Discharge Congestive Heart Failure Inclusion Criteria At DC or during hospital stay patient has or had the following: CHF DIAGNOSIS Yes Discharge Core Measures Meds if any: Prescribed or Continued at Discharge RACHAEL/ARB for EF <40% No Meds if any: NOT Prescribed or Continued at Discharge Cerebrovascular accident Inclusion Criteria At DC or during hospital stay patient has or had the following: CVA/TIA Diagnosis No Discharge Core Measures Meds if any: Prescribed or Continued at Discharge Meds if any: NOT Prescribed or Continued at Discharge Venous thromboembolism Inclusion Criteria VTE Diagnosis No VTE Type NONE VTE Confirmed by (Test) NONE Discharge Core Measures - Per Current guidelines, there needs to be overlap - treatment for the first 5 days of Warfarin therapy. - If discharged on Warfarin prior to 5 days of - overlap therapy, the patient will need to be - assessed for post discharge needs including - *Post discharge parental anticoagulation - *Warfarin and/or parental anticoagulation education - *Follow up date to check INR post discharge At least 5 days overlap therapy as Inpatient No Meds if any: Prescribed or Continued at Discharge Note: Overlap Therapy is Warfarin and Anticoagulant Meds if any: NOT Prescribed or Continued at Discharge
[2017-01-09 16:00] VITALS: BP 116/60
[2017-01-10] VITALS: BP 138/68
[2017-01-10 06:35] LABS: ABSOLUTE BASOPHIL COUNT 0 /CUMM (0.0-0.2); ABSOLUTE EOSINOPHIL COUNT 0.4 /CUMM (0.0-0.7); ABSOLUTE GRANULOCYTE CT 3.4 /CUMM (1.4-6.5); ABSOLUTE LYMPH COUNT 0.7 /CUMM (1.2-3.4); ABSOLUTE MONOCYTE COUNT 0.7 /CUMM (0.10-0.60); BASOPHIL % 0.4 % (0.0-2.0); EOSINOPHIL % 7.3 % (0-5); GRANULOCYTE % 64.7 % (42.2-75.2); HEMATOCRIT 26.6 % (42-52); MEAN CORPUSCULAR HGB 29.9 PG (27.0-31.0); MEAN CORPUSCULAR VOLUME 90.7 FL (80.0-94.0); MEAN PLATELET VOLUME 9.3 FL (7.4-10.4); PLATELET COUNT 273 /CUMM (130-400); RED BLOOD CELL CT 2.93 /CUMM (4.70-6.10); WHITE BLOOD CELL COUNT 5.2 /CUMM (4.8-10.8)
--- NOTE | 2017-01-10 08:05 | PN- Housestaff ---
JOSUÉ VARMA,[facility] 01/10/17 0805: Subjective Follow-up For: 1. Chest tenderness post CPR 2. Diastolic CHF. LE edema 3. Stage 4 chronic kidney disease - stable 4. Chronic anemia of unclear etiology - stable 5. PAF, CAD s/p CABGs 6. T1DM (type 1 diabetes mellitus) with hyperglycemia 7. Transaminitis - improving 8. Hypernatremia - improved Tele-Events Since Last Visit: bradycardia to 46 overnight Subjective: I saw and examined Mr Painting this morning, he is doing well and comfortably sitting in bed, he still reports some pain on the right side of the chest when moving. LE edema has improved, also his left hand edema has resolved after IV line position was changed. Reports no SOB at rest on ambulation, reports no dizziness, chest pain, palpitations. Review of Systems Constitutional: Denies: chills, fever, malaise, weakness. EENTM: Reports: no symptoms. Cardiovascular: Reports: peripheral edema. Denies: chest pain, palpitations. Respiratory: Denies: cough, short of breath, sputum production. Gastrointestinal: Reports: no symptoms. Genitourinary: Reports: no symptoms. Musculoskeletal: Reports: see HPI (pain on the Rt chest wall). Skin: Reports: no symptoms. Objective Last 24 Hrs of Vital Signs/I&O Vital Signs Date Time Temp Pulse Resp B/P B/P Pulse O2 O2 Flow FiO2 Mean Ox Delivery Rate 01/10 0808 97.0 60 19 132/58 93 Nasal 1.0L Cannula 01/10 0800 93 Nasal 1.0L Cannula 01/10 0000 94 Nasal 1.0L Cannula 01/10 0000 98.1 74 22 138/68 94 Nasal 1.0L Cannula 01/09 2250 78 138/68 01/09 1600 99 Nasal 1.0L Cannula 01/09 1600 97.1 61 18 116/60 99 Nasal 1.0L Cannula Intake & Output 01/10 1600 / 0800 05/06 0000 Intake Total 240 480 Output Total 1200 400 Balance -960 80 Intake, Oral 240 480 Output, Urine 1200 400 Physical Exam General Appearance: Alert, Oriented X3, Cooperative, No Acute Distress Skin: No Significant Lesion Skin Temp/Moisture Exam: Warm/Dry Sepsis Skin Exam (color): Normal for Ethnicity HEENT: Atraumatic, EOMI, Mucous Membr. moist/pink Neck: No JVD Cardiovascular: Normal S1, Normal S2, No Murmurs Lungs: Normal Air Movement, no crackles heard at bases, no wheezing or rhonchi Abdomen: Normal Bowel Sounds, Soft Neurological: Normal Speech, Normal Tone Extremities: Normal Pulses, 2+ pitting edema, improved compared to yesterday Vascular: Pulses Symmetrical Current Medications: Current Medications Sig/Alejandra Start time Last Medication Dose Route Stop Time Status Admin Acetaminophen 650 MG Q6P PRN 01/02 2100 AC 01/08 PO 0146 Aspirin 81 MG DAILY 01/07 1000 AC 01/10 PO 0918 Atorvastatin Calcium 80 MG 1700 01/07 1700 AC 01/09 PO 1712 Doxazosin Mesylate 2 MG DAILY 01/06 1000 AC 01/10 PO 0918 Ezetimibe 10 MG DAILY 01/07 1000 AC 01/10 PO 0918 Fluocinonide 1 ROLAND BID 01/04 1146 AC 01/10 TOP 0919 Folic Acid 1 MG DAILY 01/03 1000 AC 01/10 PO 0918 Furosemide 40 MG 7:30 AM, & 4:30 PM 01/07 0930 AC 01/10 PO 0808 Insulin Aspart 0 AT BEDTIME 01/06 2200 AC AR Insulin Aspart 0 TIDAC 01/06 1200 AC 01/10 SC 1301 Insulin Detemir 10 UNITS DAILY 01/08 1000 AC 01/10 SC 0919 Lisinopril 10 MG DAILY 01/08 1000 AC 01/10 PO 0918 Metoprolol Tartrate 25 MG BID 01/07 1000 AC 01/10 PO 0918 Nitroglycerin 0.4 MG DAILY 01/03 1000 AC 01/10 TOP 0918 Omeprazole 40 MG DAILY AC 01/08 1131 AC 01/10 PO 0604 Ondansetron HCl 4 MG Q6P PRN 01/04 1345 AC 01/04 IV 1347 Oxycodone/ 1 TAB Q6P PRN 01/08 0845 AC 01/09 Acetaminophen PO 2251 Last 24 Hrs of Lab/Ruben Results Last 24 Hrs of Labs/Mics: Laboratory Tests 01/10/17 0600: Anion Gap 14, Estimated GFR 33 L, BUN/Creatinine Ratio 30.5 H, Magnesium 2.4 H, Total Bilirubin 1.3, Direct Bilirubin 0.4, AST 33, ALT 106 H, CBC w Diff NO MAN DIFF REQ, RBC 2.93 L, MCV 90.7, MCH 29.9, RDW 16.0 H, MPV 9.3, Gran % 64.7 , Lymphocytes % 14.0 L, Monocytes % 13.6 H, Eosinophils % 7.3 H, Basophils % 0.4, Absolute Granulocytes 3.4, Absolute Lymphocytes 0.7 L, Absolute Monocytes 0.7 H, Absolute Eosinophils 0.4, Absolute Basophils 0, PUBS MCHC 33.0 Assessment/Plan Assessment: 76 y/o M with PMHx of CAD s/b CABG, T1DM, CKD stage IV and HFpEF who [facility] evaluation of progressively increasing BUN and worsening hyperglycemia. He was brought in to the ICU after episodes of syncope, accompanied by bradycardia and hypotension. Respiratory Post CPR on 01/04/17, intubated on 01/04/17 and extubated the next day. Kept On 1L O2 NC as he desaturates on ambulation No crackles heard today in lung exam * will be discharged today on home oxygen * ontinue lasix 40 mg BID at discharge * Percocet for severe chest wall pain - no rib fracture noticed on the Xray Cardiac #HFpEF Echo: ejection fraction of 40-45%. Pulmonary HTN with Estimated RV systolic pressure of 40 mmHg. Remains hemodynamically stable. max BP 132/58 today. * Continue Metoprolol 25 mg BID, Furosemide 40 mg PO BID, aspirin 81 mg daily. will keep him off of amiodarone and plavix. (per cardiology), will follow up with cardio in 1 week * Continue lisinopril 10 mg daily per nephrology, will follow up with nephro in 2 weeks Heme/Onc #Symptomatic anemia - stable Likely multifactorial: CKD, GI blood loss (bloody vomitus on 01/04/17 with prior guaiac (+) stool), underlying malignancy Transfused 2 units of pRBCs on 01/04/17 post-resuscitation. H/H remains stable. GI consulted. Dr. Reyes reccomended EGD/colonoscopy outpatient, also MRI of the liver (to better assess the hypodense lesion in the liver) will be done outpt with open MRI as he is claustrophobic and refused to get MRI while in the hospital. * continue to hold oral anticoagulation and Plavix, continued aspirin at discharge #Bladder cancer: Underwent TURBT on 06/09/16, received 2 cycles of chemotherapy before his heart attack in August. Then he did 7 weeks of radiotherapy until 2 weeks prior to admission. * continue to follow up outpatient with Heme/Onc (Dr. Meléndez) and Urology (Dr. Proctor) Metabolic #Hypernatremia - improved * Na 147 today - stable * off IV fludis and eating and drinking adequately * will check BEP in 1 week and follow up with nephrology in 2 weeks #CKD stage IV: consistently improving, Cr 2.0 today * Avoid nephrotoxic agents * will check BEP in 1 week and follow up with nephrology in 2 weeks #T1DM: * Endocrinology following * Levemir decreased to 10 units SC daily, will be discharged on lantus 10 units daily in the am * Continue Humalog sliding scale at discharge according to current dose of Novolog #Questionable hypothyroidism: was considered as the patient was bradycardic, TFT is in normal range, we also confirmed with Dr. Kaplan's office, the patients TFTs have been WNL in the past as well. Diet: CC2 with 2 gram Na restriction DVT PPx: ALPs CODE: FULL Problem List: 1. Chronic anemia 2. Transaminitis 3. Stage 4 chronic kidney disease 4. Cardiopulmonary arrest 5. HFrEF (heart failure with reduced ejection fraction) 6. T1DM (type 1 diabetes mellitus) 7. CAD (coronary artery disease) of artery bypass graft 8. Bladder cancer Pain Ratin Pain Location: right sided chest wall pain Pain Goal: Pain 4 or less Pain Plan: percocet for severe pain Tomorrow's Labs & Rationales: no labs JOSHUA MCDOWELL MD 01/10/172054: Attending MD Review Statement Attending Statement Attending MD Statement: examined this patient, discuss w/resident/PA/AIR SUPPORT OPERATIONS OPERATOR, agreed w/resident/PA/AIR SUPPORT OPERATIONS OPERATOR, reviewed EMR data (avail) Attending Assessment/Plan: Patient is breathing comfortably and able to ambulate without difficulty, dyspnea, or chest pain. He has no complaints at this time and feels well. He appears to be euvolemic. Patient is stable for discharge home with outpatient follow up. Continue home oxygen, see CMR for medication changes, see resident note for full details.
[2017-01-10 08:08] VITALS: BP 132/58
--- NOTE | 2017-01-10 11:21 | PN- Diabetes ---
Assessment/Plan Assessment: 76-year-old male with past medical history of coronary artery disease status post CABG, recent and STEMI, diabetes uncontrolled, CK D stage IV, hypertension , bladder cancer status post TURBT, was admitted for elevated BUN, high blood sugars, and worsening weakness. patient had cardiac arrest and was transfered to ICU. Levemir was decreased to 10 units once a day and he is on Novolog coverage before meals and Novolog coverage at bedtime. His FSGs were 92, 338, 265, 138 and 121. Patient probably will go home today. Plan: continue the current insulin regimen for now; monitor FSGs; if he is medically stable for discharge, the discharge plan for DM --- Lantus 10 units daily in the morning; ---Humalog coverage before meals-- same Novolog coverage before meals as inpatient; ---monitor FSGs; ---f/u in office with Dr. Stubbs after discharge. Subjective Subjective: He feels well this morning Objective Last 24 Hrs of Vital Signs/I&O Vital Signs Date Time Temp Pulse Resp B/P B/P Pulse O2 O2 Flow FiO2 Mean Ox Delivery Rate 01/10 0808 97.0 60 19 132/58 93 Nasal 1.0L Cannula 01/10 0800 93 Nasal 1.0L Cannula 01/10 0000 94 Nasal 1.0L Cannula 01/10 0000 98.1 74 22 138/68 94 Nasal 1.0L Cannula 01/09 2250 78 138/68 01/09 1600 99 Nasal 1.0L Cannula 01/09 1600 97.1 61 18 116/60 99 Nasal 1.0L Cannula Intake & Output 01/10 1600 / 0800 05/ 0000 Intake Total 240 480 Output Total 1200 400 Balance -960 80 Intake, Oral 240 480 Output, Urine 1200 400 Findings Pertinent Lab/Ruben Results: Laboratory Tests 01/10 0600 Chemistry Sodium (137 - 145 mmol/L) 147 H Potassium (3.5 - 5.1 mmol/L) 4.0 Chloride (98 - 107 mmol/L) 108 H Carbon Dioxide (22 - 30 mmol/L) 25 Anion Gap (5 - 16) 14 BUN (9 - 20 mg/dL) 61 H Creatinine (0.7 - 1.2 mg/dL) 2.0 H Estimated GFR (>60 ml/min) 33 L BUN/Creatinine Ratio (7 - 25 %) 30.5 H Magnesium (1.6 - 2.3 mg/dL) 2.4 H Total Bilirubin (0.2 - 1.3 mg/dL) 1.3 Direct Bilirubin (< 0.4 mg/dL) 0.4 AST (17 - 59 U/L) 33 ALT (21 - 72 U/L) 106 H Hematology CBC w Diff NO MAN DIFF REQ WBC (4.8 - 10.8 /CUMM) 5.2 RBC (4.70 - 6.10 /CUMM) 2.93 L Hgb (14.0 - 18.0 G/DL) 8.8 L Hct (42 - 52 %) 26.6 L MCV (80.0 - 94.0 FL) 90.7 MCH (27.0 - 31.0 PG) 29.9 RDW (11.5 - 14.5 %) 16.0 H Plt Count (130 - 400 /CUMM) 273 MPV (7.4 - 10.4 FL) 9.3 Gran % (42.2 - 75.2 %) 64.7 Lymphocytes % (20.5 - 51.1 %) 14.0 L Monocytes % (1.7 - 9.3 %) 13.6 H Eosinophils % (0 - 5 %) 7.3 H Basophils % (0.0 - 2.0 %) 0.4 Absolute Granulocytes (1.4 - 6.5 /CUMM) 3.4 Absolute Lymphocytes (1.2 - 3.4 /CUMM) 0.7 L Absolute Monocytes (0.10 - 0.60 /CUMM) 0.7 H Absolute Eosinophils (0.0 - 0.7 /CUMM) 0.4 Absolute Basophils (0.0 - 0.2 /CUMM) 0 PUBS MCHC (33.0 - 37.0 G/DL) 33.0
[2017-01-10] MEDS ORDERED: LANTUS SOL100 UNIT/1 SC (11:58)
[2017-01-10] MEDS ORDERED: HUMALOG100 UNIT/2 SC ×3 (12:05→12:56)
--- NOTE | 2017-01-10 13:02 | Discharge Summary ---
Visit Information Visit Dates Admission Date: 01/02/17 Discharge Date: 01/10/17 Hospital Course Course Attending Physician: JOSHUA MCDOWELL MD Primary Care Physician: KATARZYNA STUBBS MD Consulting Request: 1 Consulting Specialty: Cardiology Consulting Physician: Dr. Garces Reason for Consult: LE edema, HFrEF, acute anemia, worsening renal insufficiency Consulting Request: 2 Consulting Specialty: Endocrinology Consulting Physician: Dr. Kaplan Reason for Consult: Hyperglycemia Consulting Request: 3 Consulting Specialty: Gastroenterology Consulting Physician: Dr. Guillory Reason for Consult: Anemia with possible GI loss Consulting Request: 4 Consulting Specialty: Nephrology Consulting Physician: Dr. Cedillo Reason for Consult: Elevated serum creatinine Hospital Course: 76-year-old male with past medical history of coronary artery disease status post CABG, recent NSTEMI, type 1 diabetes (uncontrolled), CKD stage IV, hypertension, bladder cancer status post TURBT, who was referred from the CHF clinic with elevated BUN and Cr, high blood sugars, anemia and worsening weakness. Patient reported weakness, SOB and leg swelling starting 2 months prior to admission. He also mentioned that his blood sugar had run as high as 571 and as low as 72 recently. He follows with Dr. Stubbs for diabetes and Dr. Reyes, cardiology. He is on 40 mg Lasix BID and goes to CHF clinic once a week and receives 40 mg IV Lasix. Patient was initially admitted to telemetry, started on Dobutamine drip and IV Lasix. On the second day of admission patient became hypotensive, with BP at 80/ 40, followed by an episode of LOC. Patient was transferred to the ICU on afternoon for closer monitoring. #Cardiopulmonary arrest Upon arrival to the ICU he was noticed to have a few seconds of seizure-like activity followed by bradycardia to low 40s. Asystole was detected on the monitor at 13:30 pm. CPR was performed for 4 minutes with 1 injection of epinephrine. Patient regained consciousness but shortly after started vomiting, which initially contained ingested food mixed with blood, followed by pure bloody vomitus. At 14:04 pm, patient became unresponsive again and pulses were not palpable. He was pavel to 40s on the monitor and central pulses were absent. CPR was performed for two minutes during which he received one dose of Epinephrine and also a dose of Atropine. Pulses were palpated, patient was intubated and was continued on IV NS boluses and started on pRBC infusion. BP was brought up to 100s systolic, and did not require CV-line placement and pressors. He received total of 2 units of pRBC. He remains intubated, however alert and awake and following directions. Beta holli, anticoagulation, dobutamine, lasix, lisinopril, aspirin, plavix were all kept on hold. He received a dose of Keppra, was put on IV protonix, IV Unasyn, and received 3 doses of IV hydrocortisone. #Pulmonary vascular congestion and pleural effusion Patient initially had crackles heard at the bases of the lungs, which resolved upon restarting lasix. Patient was discharged home with O2 as his O2 saturation went below 92% on ambulation. Of note, he was intubated on 01/04/17 after CPR, and extubated the next day. O2 was supplemented through NC was continued and gradually tapered to 1L at discharge. He received total of 6 days of antibiotics for possible aspiration pneumonia after CPR, however remained afebrile with no elevated WBC and was watched off Antibiotics during the rest of his stay. He also received percocet for severe chest wall pain - no rib fracture was noticed on the Xray. * we continued lasix 40 mg BID at discharge. * He is given 10 pills of Percocet to go home with PRN for severe chest wall pain. * He will follow up with Dr. Stahl within 1 week of discharge. #HFrEF Patient had bibasilar crackles and bilateral LE edema. Echo: There is hypokinesia of the inferoposterior and inferoapical segments with an ejectino fraction of 40-45%. Pulmonary HTN with Estimated RV systolic pressure of 40 mmHg. Remained hemodynamically stable after CPR. Per Cardiology we restarted Metoprolol 25 mg BID, Furosemide 40 mg PO BID, aspirin 81 mg daily. Will keep him off of amiodarone and plavix. BP was 132/58 at discharge and HR in 50s-60s. * Patient will follow up with cardiology in 1 week. * Restarted lisinopril at a lower dose of 10 mg daily per nephrology, will follow up with nephro in 2 weeks with results of a BEP check. #History of CAD status post CABG Patient denied any chest pain, 3 set of troponins were negative on admission, after CPR patient had a rise in troponin, maximum level of 2.53, which came down within 24 hours. We held aspirin and Plavix due to concern of GI bleed, also metoprolol was on hold due to bradycardia and low BP. Aspirin and metoprolol were restarted. * Will continue aspirin, metoprolol and NTG at discharge. * Patient will follow up with cardiology in 1 week. #History of paroxysmal A. fib Patient was in normal sinus rhythm during his stay. Amiodarone was kept on hold due to bradycardia. * Patient will follow up with cardiology in 1 week. #Symptomatic anemia Likely multifactorial: CKD, GI blood loss (bloody vomitus on 01/04/17 with prior guaiac (+) stool), underlying malignancy. Transfused 2 units of pRBCs on post-resuscitation. H/H remained stable. GI consulted was consulted and Dr. Reyes recommended EGD/colonoscopy outpatient, also MRI of the liver (to better assess the hypodense lesion in the liver), which will also be done outpt with open MRI as he is claustrophobic and refused to get MRI while in the hospital. * Continued to hold oral anticoagulation and Plavix, continued aspirin at discharge. * He will follow up with GI outpatient in 1 week. #Bladder cancer Underwent TURBT on 06/09/16, reported that he has received 2 cycles of chemotherapy before his heart attack in August 2016. He did 7 weeks of radiotherapy until 2 weeks prior to admission. Please note, Doxazosin dose is decreased from 4 mg to 2 mg daily due to hypotension. * He will continue to follow up outpatient with Heme/Onc (Dr. Meléndez) and Urology (Dr. Proctor) #T1DM Patient came with uncontrolled blood sugars. He is on Lantus and Humalog. Endocrinology consult was placed, he initially received 22 units of levemir BID with Novolog SS, which was adjusted and decreased down to 10 units levemir daily with Novolog sliding scale. * He will be discharged on lantus 10 units daily in the am * Continue Humalog sliding scale at discharge according to current dose of Novolog #CKD stage IV Patient had BUN of 106 and Cr of 2.5 on admission, which improved to BUN 61 and Cr 2.0 at discharge. Avoided nephrotoxic agents. * Will check BEP in 1 week and follow up with nephrology in 2 weeks. DVT prophylaxis Mechanical Full code Allergies: Coded Allergies: NO KNOWN ALLERGIES (09/24/15) Significant Procedures: SERVICE DATE: 01/02/17 EXAM TYPE: RAD - XRY-PORTABLE CHEST XRAY EXAMINATION: CHEST 1 VIEW CLINICAL INFORMATION: Dyspnea upon exertion. COMPARISON: 08/29/2016. TECHNIQUE: An AP view of the chest is provided. FINDINGS: The cardiac silhouette is prominent, but stable. Intact midline sternal wires are present. The mediastinal and hilar contours are unremarkable. There are neither pleural effusions nor pneumothoraces. There are no consolidations. The osseous structures are unremarkable. IMPRESSION: No evidence for acute disease. Stable cardiomegaly. SERVICE DATE: 01/03/17 EXAM TYPE: US - US-RENAL/KIDNEY EXAMINATION: US RETROPERITONEAL COMPLETE (RENAL) CLINICAL INFORMATION: Renal failure. COMPARISON: None. TECHNIQUE: Real-time imaging of the kidneys and bladder. FINDINGS: RIGHT KIDNEY: 12.2 x 6.2 x 6.7 cm (SAG x AP x TRV). The kidney is normal in size, contour, and echogenicity. Renal cortical thickness is normal. No calculi or focal parenchymal lesions. No hydronephrosis. LEFT KIDNEY: 11.7 x 6.3 x 6.5 cm (SAG x AP x TRV). The kidney is normal in size, contour, and echogenicity. Renal cortical thickness is normal. No calculi or focal parenchymal lesions. No hydronephrosis. BLADDER: Well-distended and normal. There is a large prostatic impression upon the bladder base. Bilateral ureteral jets are not demonstrated. OTHER: There is prostatomegaly, with a estimated volume of 180.1 mL. IMPRESSION: 1. Unremarkable bilateral renal ultrasound examination. 2. There is marked prostatomegaly. SERVICE DATE: 01/04/17 EXAM TYPE: US - US-LIMITED ABDOMEN EXAMINATION: US ABDOMEN LIMITED CLINICAL INFORMATION: Elevated transaminase levels; amiodarone therapy. COMPARISON: Renal ultrasound dated 01/03/2017; PET/CT dated 08/12/2016; abdominal ultrasound dated 07/18/0807/15/2016; CT abdomen and pelvis dated 05/20/2016. TECHNIQUE: Real-time imaging of the right upper quadrant abdominal viscera. FINDINGS: PANCREAS: Normal. LIVER: There is mild hepatomegaly, with a longitudinal dimension of 17.9 cm. Within the medial segment of the left hepatic lobe, an isoechoic 2.6 x 3.1 x 3.9 cm mass is seen. This shows no central scar. Ultrasound dimensions on 07/15/2016 were 2.8 x 2.0 x 4.7 cm. The liver demonstrates normal size, contour and echogenicity. No focal lesion or intrahepatic biliary duct dilatation. GALLBLADDER: There is echogenic layering, nonshadowing biliary sludge. The gallbladder is physiologically distended without evidence of stones, polyps, wall thickening or pericholecystic fluid. COMMON BILE DUCT: Normal in caliber measuring 0.4 cm in diameter. RIGHT KIDNEY: Normal. No hydronephrosis. No renal calculi or focal parenchymal lesions. The kidney measures 11.6 cm in maximum dimension. FREE FLUID: None. IMPRESSION: 1. There is mild hepatomegaly. 2. There is a relatively stable left hepatic lobe mass, previously described. Again, this can be more fully evaluated with dynamic MRI, if clinically indicated. 3. There is biliary sludge, without cholelithiasis, cholecystitis or choledocholithiasis. SERVICE DATE: 01/04/17- EXAM TYPE: CARD - [id number] OR LIMITED JACK WINTER Age: 76 : 1940 Gender: M Exam Date: 01/04/2017 11:01 Exam Location: [place] Ht (in): 67 Wt (lb): 213 BSA: 2.17 BP: 110 / 52 Ordering Physician: FAUSTINO SHELTON MD Referring Physician: Carlos Reyes MD Chief, SoC Technologist: [facility] Room Number: 189-01 Indications: PULMONARY HYPERTENSION Rhythm: Sinus Technical Quality: FINDINGS Left Ventricle Normal size left ventricle. Left ventricular wall thickness increased. Hypokinetic inferior wall. [place] hypokinetic. Mildly abnormal left ventricular ejection fraction estimated at 45-50%. Right Ventricle Right ventricle not well visualized, grossly normal. Right Atrium Right atrium not well visualized, grossly normal. Left Atrium Left atrial dilatation. Mitral Valve Mitral valve thickened. Mild thickening/calcification of the anterior mitral valve leaflet. [id number] mitral regurgitation. Aortic Valve Trileaflet aortic valve. Diffuse thickening (sclerosis) of the aortic valve cusps without reduced excursion. No aortic stenosis. No aortic regurgitation. Tricuspid Valve Tricuspid valve not well visualized, grossly normal. Mild-to- moderate tricuspid regurgitation. Right ventricular systolic pressure estimated at 40 mmHg. Pulmonic Valve Pulmonic valve not well visualized, grossly normal. Pericardium No pericardial effusion. Great Vessels Aortic root and proximal ascending aorta not well visualized, grossly normal. CONCLUSIONS 1. MIld aortic sclerosis is present with no valvular stenosis or insufficiency. 2. Thickening and calcification of the mitral leaflets is present with mild to moderate mitral insuffciiency and left atrial enlargement. 3. There is no significnat pericardail fluid present. 4. The left ventricular chamber size is normal. There is hypokinesia of the inferoposterior and inferoapical segments with an ejectino fraction of 40-45%. 5. THe right heart structures are grossly normal with mild to moderate tricuspid insufficiency and an estimated RV systolic pressure of 40 mmHg. Cortney Garces M.D. (Electronically Signed) Final Date: 04 January 2017 17:23 MEASUREMENTS (Male / Female) Normal Values 2D ECHO LV Diastolic Diameter PLAX 5.1 cm 4.2 - 5.9 / 3.9 - 5.3 cm LV Systolic Diameter PLAX 3.6 cm 2.1 - 4.0 cm LV Fractional Shortening PLAX 29.4 % 25 - 46 % LV Ejection Fraction 2D Teich 56.0 % IVS Diastolic Thickness 1.4 cm LVPW Diastolic Thickness 1.2 cm LV Relative Wall Thickness 0.5 RV Internal Dim ED PLAX 2.6 cm 1.9 - 3.8 cm LA Volume 57.0 cm 18 - 58 / 22 - 52 cm DOPPLER MV Peak Velocity 157.0 cm/s MV Peak Gradient 9.9 mmHg MV Mean Velocity 79.3 cm/s MV Mean Gradient 3.0 mmHg Mitral E Point Velocity 136.0 cm/s Mitral A Point Velocity 52.1 cm/s Mitral E to A Ratio 2.6 MV PHT Velocity 158.0 cm/s MV Deceleration Weakley 654.0 cm/s MV Pressure Half Time 72.5 ms MV Area PHT 3.0 cm MV Deceleration Time 158.0 ms TR Peak Velocity 315.0 cm/s TR Peak Gradient 39.7 mmHg Right Atrial Pressure 5.0 mmHg Pulmonary Artery Systolic Pressu 44.7 mmHg Right Ventricular Systolic Press 44.7 mmHg LV E' Lateral Velocity 10.0 cm/s Mitral E to LV E' Lateral Ratio 13.6 LV E' Septal Velocity 4.7 cm/s Mitral E to LV E' Septal Ratio 29.1 SERVICE DATE: 01/04/17 EXAM TYPE: RAD - XRY-PORTABLE CHEST XRAY EXAMINATION: XR PORTABLE CHEST CLINICAL INFORMATION: Status post aspiration. Evaluate for pneumonia. Placement of nasogastric tube. COMPARISON: Multiple priors, most recent chest radiograph dated 01/02/2017. TECHNIQUE: Portable AP semiupright view of the chest was obtained. FINDINGS: There has been interval placement of an endotracheal tube with its tip located approximately 4.3 cm proximal to the vicki. Sternal wires are unchanged. No nasogastric tube is identified. Evaluation of the right costophrenic angle is limited as it is not included on the examination. There are bibasilar atelectatic changes. There is no pneumothorax or significant left-sided pleural effusion. The heart appears mildly enlarged. IMPRESSION: 1. Interval placement of an endotracheal tube with its tip approximately 4.3 cm proximal to the vicki. 2. Bibasilar atelectasis. Mild cardiomegaly. SERVICE DATE: 01/04/17 EXAM TYPE: CAT - CT HEAD WO IV CONTRAST EXAMINATION: CT HEAD WITHOUT CONTRAST CLINICAL INFORMATION: Confusion. Cardiac arrest. COMPARISON: None TECHNIQUE: Contiguous axial imaging was performed from the skull base to vertex without intravenous administration of contrast. DLP: 600.71 mGy-cm FINDINGS: There is no evidence of acute intracranial hemorrhage or territorial infarction. No abnormal mass effect or midline shift is seen. Green to white matter differentiation is well preserved. No extra-axial fluid collections are identified. There is atrophy with prominence of the ventricles and the sulci and hypodensity of the periventricular white matter due to chronic small vessel ischemic disease. There is vascular calcifications of the internal carotid arteries bilaterally. The osseous structures and soft tissues are normal. There is air-fluid level in the left maxillary and left sphenoid sinus. Mucosal thickening in the ethmoid sinuses bilateral. The mastoid air cells and middle ear cavities are normally aerated. IMPRESSION: 1. No acute intracranial pathology. 2. Sinus disease. SERVICE DATE: 01/04/17 EXAM TYPE: RAD - XRY-PORTABLE CHEST XRAY EXAMINATION: XR PORTABLE CHEST CLINICAL INFORMATION: Evaluate orogastric tube placement. COMPARISON: Multiple priors, most recent chest radiograph done 01/04/2017 at 1:41 PM. TECHNIQUE: Portable frontal view of the chest was obtained. FINDINGS: An endotracheal tube is redemonstrated with its tip approximately 5.5 cm proximal to the vicki. There has been interval placement of an orogastric tube with its tip terminating below the left hemidiaphragm. Sternal wires are redemonstrated. Evaluation of the upper lung aponte is limited secondary to technique. There is no airspace consolidation or pleural effusion. The cardiomediastinal silhouette and osseous structures are unchanged. IMPRESSION: Interval placement of an orogastric tube with its tip terminating below the left hemidiaphragm. Endotracheal tube in similar position when compared to the prior examination. SERVICE DATE: 01/04/17 EXAM TYPE: CAT - CT ABD & PELVIS W/O IV CONTRAS EXAMINATION: CT ABDOMEN AND PELVIS WITHOUT CONTRAST CLINICAL INFORMATION: Decreasing H\T\H. Abdominal distention. Bloody vomitus. COMPARISON: CT abdomen pelvis 05/20/2016 TECHNIQUE: Multidetector volumetric imaging was performed from the superior aspect of the liver through the pubic symphysis. Sagittal and coronal reformatted images were obtained on the technologist's workstation. DLP: 1214.44 mGy-cm FINDINGS: Patient was scanned with hands over the abdomen. This causes artifact in the upper abdomen. LUNG BASES: Layering bilateral pleural effusions with bibasilar consolidation/atelectasis. Coronary artery calcifications present calcifications of aorta wall. Nasogastric tube in stomach. LIVER, GALLBLADDER, AND BILIARY TREE: No focal liver lesion. The area of low attenuation in the peripheral left lobe of liver seen on the CAT scan of 05/20/2016 is not apparent on current study. No intrahepatic bile duct dilatation. The gallbladder is unremarkable with no evidence of radiopaque gallstones, gallbladder wall thickening, or obvious pericholecystic inflammatory changes. PANCREAS: Unremarkable. SPLEEN: Unremarkable. ADRENAL GLANDS: Unremarkable. KIDNEYS AND URETERS: The kidneys are normal in size, shape, and attenuation. No hydronephrosis, hydroureter, or calculi seen. No perinephric stranding. BLADDER: Diaz catheter within the bladder. GASTROINTESTINAL TRACT: There is mild diverticulosis of left colon sigmoid. No diverticulitis. No bowel wall thickening or obstruction. No bowel obstruction. No dilated bowel loops. Small volume of stool in the colon. The appendix is not seen. The small bowel loops are unremarkable. Nasogastric tube in stomach. MESENTERY AND RETROPERITONEUM: No free air or free fluid. No intraabdominal or intrapelvic hematoma. ABDOMINAL WALL: No significant hernia is appreciated. Small amount of edema in the subcutaneous tissue anterior abdomen. No air or abscess. This is similar to prior CAT scan of 05/20/2016. LYMPH NODES: Normal. VASCULAR: Atherosclerotic vascular calcifications of the aorta iliac vessels SMA and celiac axis PELVIC VISCERA: Prostate enlarged. OSSEOUS STRUCTURES: Degenerative disc height narrowing L4-L5. Status post median sternotomy. IMPRESSION: 1. No intra-abdominal or intrapelvic hematoma. No acute abnormality of the abdomen or the pelvis. 2. Layering bilateral pleural effusions with bibasilar consolidation. 3. Enlarged prostate. Diaz catheter within the bladder. SERVICE DATE: 01/05/17 EXAM TYPE: RAD - XRY-PORTABLE CHEST XRAY EXAMINATION: XR PORTABLE CHEST CLINICAL INFORMATION: Intubation COMPARISON: 01/04/2017 TECHNIQUE: Portable frontal view of the chest was obtained. FINDINGS: Endotracheal tube tip lies approximately 5 cm above the vicki. Enteric tube is also present, though the tip is not well delineated. Lung volumes are symmetric. There is mild haziness at the bilateral lung bases. No pneumothorax is seen. Small pleural effusions are suspected. The cardiac silhouette is mildly enlarged for technique. No acute osseous findings are seen. IMPRESSION: Endotracheal tube tip approximately 5 cm above the vicki. Hazy bibasilar opacities and suspected small pleural effusions. Enlarged cardiac silhouette. SERVICE DATE: 01/06/17 EXAM TYPE: RAD - XRY-PORTABLE CHEST XRAY EXAMINATION: XR PORTABLE CHEST CLINICAL INFORMATION: Extubated. Rhonchi on exam. Follow-up of pleural effusion. Possible atelectasis. COMPARISON: Several prior chest x-rays, most recent of which is dated 01/05/2017. TECHNIQUE: Portable AP semierect view of the chest was obtained. FINDINGS: Previously seen endotracheal and enteric tubes have been removed. Multiple extrinsic EKG leads overlie the chest obscuring assessment. The patient is status post median sternotomy. Cardiomediastinal silhouette is enlarged, unchanged. Low lung volumes are again noted with bibasilar opacities, which lead to obscuration of the hemidiaphragms. Findings have progressed when compared to prior exam and may be related to atelectasis/pneumonia with associated small effusions. Upper lungs remain clear. Central vascular congestion is seen. Bony structures are unremarkable. IMPRESSION: 1. Increasing bibasilar opacities, nonspecific, possibly due to atelectasis/pneumonia with associated small effusions. 2. Mild central vascular congestion. No overt pulmonary edema. 3. Enlarged cardiac mediastinal silhouette, unchanged. SERVICE DATE: 01/08/17- EXAM TYPE: RAD - XRY-CHEST XRAY, PA AND LATERAL; XRY-RIBS BILATERAL EXAMINATION: XR RIBS, BILATERAL XR CHEST CLINICAL INFORMATION: Crackles in lung bases, tenderness on the left chest wall. Status post CPR. Presumptive diagnosis of pulmonary edema, atelectasis and rib fracture. COMPARISON: Chest x-ray dated 01/06/2017. TECHNIQUE: Frontal and lateral views of the chest and 5 views of the bilateral ribs. FINDINGS: BILATERAL RIBS AND CHEST: The patient is status post median sternotomy and CABG surgery. Cardiomediastinal silhouette is enlarged, unchanged. Low lung volumes are seen with bibasilar subsegmental atelectasis again noted. Central vascular congestion and bilateral small pleural effusions are seen. No pulmonary edema. No pneumothorax or significant pleural effusion. Osseous structures are unremarkable. Ribs are intact. No fractures are identified. IMPRESSION: 1. No rib fracture or pneumothorax identified. 2. Cardiomegaly with central vascular congestion and small bilateral pleural effusions. No overt pulmonary edema. 3. Bibasilar mild subsegmental atelectasis. Pertinent Lab Results: 01/10/17 0600: Anion Gap 14, Estimated GFR 33 L, BUN/Creatinine Ratio 30.5 H, Magnesium 2.4 H, Total Bilirubin 1.3, Direct Bilirubin 0.4, AST 33, ALT 106 H, CBC w Diff NO MAN DIFF REQ, RBC 2.93 L, MCV 90.7, MCH 29.9, RDW 16.0 H, MPV 9.3, Gran % 64.7 , Lymphocytes % 14.0 L, Monocytes % 13.6 H, Eosinophils % 7.3 H, Basophils % 0.4, Absolute Granulocytes 3.4, Absolute Lymphocytes 0.7 L, Absolute Monocytes 0.7 H, Absolute Eosinophils 0.4, Absolute Basophils 0, PUBS MCHC 33.0 01/09/17 0514: Anion Gap 14, Estimated GFR 31 L, BUN/Creatinine Ratio 31.0 H, Magnesium 2.5 H, Total Bilirubin 1.7 H, Direct Bilirubin 0.4, AST 42, ALT 120 H, Alkaline Phosphatase 89, Total Protein 6.1 L, Albumin 3.2 L, CBC w Diff NO MAN DIFF REQ , RBC 2.97 L, MCV 91.2, MCH 29.7, RDW 15.5 H, MPV 9.0, Gran % 66.4, Lymphocytes % 14.0 L, Monocytes % 13.4 H, Eosinophils % 5.9 H, Basophils % 0.3, Absolute Granulocytes 3.2, Absolute Lymphocytes 0.7 L, Absolute Monocytes 0.6, Absolute Eosinophils 0.3, Absolute Basophils 0, PUBS MCHC 32.6 L 01/08/17 0446: Anion Gap 10, Estimated GFR 29 L, BUN/Creatinine Ratio 31.8 H, Magnesium 2.5 H, Total Bilirubin 1.2, Direct Bilirubin 0.4, AST 52, ALT 130 H, Alkaline Phosphatase 83, Total Protein 5.7 L, Albumin 2.8 L, CBC w Diff NO MAN DIFF REQ , RBC 2.77 L, MCV 91.4, MCH 29.8, RDW 16.3 H, MPV 9.3, Gran % 76.2 H, Lymphocytes % 7.1 L, Monocytes % 11.0 H, Eosinophils % 5.3 H, Basophils % 0.4 , Absolute Granulocytes 4.4, Absolute Lymphocytes 0.4 L, Absolute Monocytes 0.6 , Absolute Eosinophils 0.3, Absolute Basophils 0, PUBS MCHC 32.6 L, Ur Random Creatinine 27.9, Ur Random Sodium 96 H, Ur Random Potassium 21.1, Fraction Sodium Excret 5.2 H 01/07/17 0610: Anion Gap 9, Estimated GFR 28 L, BUN/Creatinine Ratio 32.6 H, Magnesium 2.6 H , Total Bilirubin 1.0, Direct Bilirubin 0.3, AST 49, ALT 133 H, Alkaline Phosphatase 74, Total Protein 5.7 L, Albumin 2.9 L, PT 11.5, INR 1.10, APTT 24 L, CBC w Diff NO MAN DIFF REQ, RBC 2.87 L, MCV 92.0, MCH 29.7, RDW 16.5 H, MPV 9.4, Gran % 73.1, Lymphocytes % 9.7 L, Monocytes % 11.4 H, Eosinophils % 5.4 H, Basophils % 0.4, Absolute Granulocytes 3.7, Absolute Lymphocytes 0.5 L, Absolute Monocytes 0.6, Absolute Eosinophils 0.3, Absolute Basophils 0, PUBS MCHC 32.3 L 01/07/17 0610: Anion Gap 9, Estimated GFR 28 L, BUN/Creatinine Ratio 32.6 H, Magnesium 2.6 H , Total Bilirubin 1.0, Direct Bilirubin 0.3, AST 49, ALT 133 H, Alkaline Phosphatase 74, Total Protein 5.7 L, Albumin 2.9 L, PT 11.5, INR 1.10, APTT 24 L, CBC w Diff NO MAN DIFF REQ, RBC 2.87 L, MCV 92.0, MCH 29.7, RDW 16.5 H, MPV 9.4, Gran % 73.1, Lymphocytes % 9.7 L, Monocytes % 11.4 H, Eosinophils % 5.4 H, Basophils % 0.4, Absolute Granulocytes 3.7, Absolute Lymphocytes 0.5 L, Absolute Monocytes 0.6, Absolute Eosinophils 0.3, Absolute Basophils 0, PUBS MCHC 32.3 L 01/02/17 1442: Bicarbonate Actual 24, Mixed VBG pH 7.42 H, Mixed VBG pCO2 38 L, Mixed VBG O2 Saturation 36, P-50 (Temp Corrected) YES, Carboxyhemoglobin 1.3 L, O2 Concentration % RA, Temperature 96.7 L, O2 Delivery Method RA, Anion Gap 13, Estimated GFR 25 L, BUN/Creatinine Ratio 42.4 H, Glucose 407 H, Hemoglobin A1c Pending, Calcium 8.6, Iron 35 L, TIBC 337, Ferritin 28.6, Total Bilirubin 0.9, AST 80 H, ALT 199 H, Alkaline Phosphatase 89, Troponin I 0.02, Pro-B- Natriuretic Pept 3690 H, Total Protein 5.6 L, Albumin 3.0 L, Globulin 2.6, Albumin/Globulin Ratio 1.2, Amylase 41, Lipase 276, Vitamin B12 339, PT 12.5, INR 1.19 H, APTT 27, CBC w Diff NO MAN DIFF REQ, RBC 2.48 L, MCV 91.3, MCH 30.1, RDW 15.7 H, MPV 9.7, Gran % 79.4 H, Lymphocytes % 9.0 L, Monocytes % 8.8, Eosinophils % 2.5, Basophils % 0.3, Absolute Granulocytes 4.4, Absolute Lymphocytes 0.5 L, Absolute Monocytes 0.5, Absolute Eosinophils 0.1, Absolute Basophils 0, PUBS MCHC 32.9 L, Phlebotomy Draw Site RAC, Acetone Level NEGATIVE Disposition Summary Disposition Principal Diagnosis: Acute CHF ecaxerbation Hypotension and bradycardia, status post cardiopulmonary arrest and CPR Hyperglycemia Acute on chronic anemia Additional Diagnosis: History of CAD status post CABG Atrial fibrillation Bladder cancer Chronic kidney disease Discharge Disposition: home health services Discharge Instructions General Discharge Information Code Status: Full Code Patient's Diet: Diabetic, CHF and heart healthy diet Patient's Activity: as tolerated Follow-Up Instructions/Appts: Please: 1. Follow up with Dr. Carlos Reyes, cardiology, in the office in 1 week. Your amiodarone and plavix are stopped during this hospital stay, also you are on a lower dose of lasix, please see below for instructions. 2. Use O2 on ambulation and follow up with Dr. Stahl, pulmonary and critical care, in a week of discharge. 3. Follow up with Dr. Cody Reyes, Gastroenterology regarding possible endoscopy as well as an open MRI for the evaluation of the lesion previously seen in the liver. 4. We have adjusted you insulin coverage, please follow instructions below. Also , follow up with Dr. Stubbs, endocrinology and PCP within 1-2 weeks after discharge 5. Have a blood work done for kidney function in a week and follow up with Dr. Cedillo, nephrology, within 2 weeks 6. Come back to the ED if you experience dizziness, shortness of breath, chest pain, palpitations. Medications at Discharge Discharge Medications: Stop taking the following medications: Doxazosin Mesylate (Cardura) 4 MG TABLET ORAL DAILY Clopidogrel Bisulfate (Clopidogrel) 75 MG TABLET ORAL DAILY Qty = 30 Amiodarone HCl (Amiodarone HCl) 200 MG TABLET ORAL DAILY Furosemide (Lasix) 80 MG TABLET ORAL TWICE DAILY Insulin Lispro (Humalog) 100 UNIT/ML VIAL Inject into fatty tissue BEFORE MEALS AND AT BEDTIME Insulin Glargine,Hum.rec.anlog (Lantus Solostar) 100 UNIT/ML (3 ML) INSULN.PEN Inject into fatty tissue TWICE DAILY Lisinopril (Lisinopril) 20 MG TABLET ORAL DAILY Continue taking these medications: Vitamin B Complex (Vitamin B Complex) 1 EACH CAPSULE 1 Capsule ORAL DAILY Comments: Last Taken:01/10/17 Time:1000 Aspirin (Ecotrin*) 81 MG TABLET. 2 Tablet ORAL DAILY Days = 30 Comments: Last Taken: 01/10/17 Time: 10:00AM Nitroglycerin (Nitroglycerin Patch) 0.4 MG/HOUR PATCH.TD24 1 PATCH On the skin DAILY Days = 30 Instructions: 12 hours on, 12 hours off Comments: Last Taken: 01/10/17 Time: 10:00AM Ezetimibe/Simvastatin (Vytorin 10-80 MG Tablet) 10 MG-80 MG TABLET 1 Tablet ORAL DAILY Comments: Last Taken:01/09/17 Time:1700 Folic Acid (Folic Acid) 0.8 MG CAPSULE 1 Capsule ORAL DAILY Comments: Last Taken:01/10/17 Time:1000 Metoprolol Tartrate (Metoprolol Tartrate) 25 MG TABLET 1 Tablet ORAL TWICE DAILY Qty = 180 Comments: Last Taken:01/10/17 Time:1000 Desoximetasone (Topicort) 0.25 % OINT...G. 1 Application On the skin TWICE DAILY Instructions: apply to affected area(s) Comments: Last Taken:01/10/17 Time:1000 Start taking the following new medications: Insulin Lispro (Humalog) 100 UNIT/ML VIAL 0 Inject into fatty tissue SEE INSTRUCTIONS Qty = 1 No Refills Instructions: check Blood sugar before meals and at bed time Less than 80 mg/dl Please eat & check BS in 15 minutes 80-150 mg/dl 4 units 151-200 mg/dl 6 units 201-250 mg/dl 8 units 251-300 mg/dl 10 units 301-350 mg/dl 12 units 351-400 mg/dl 14 units more than 400 mg/dl 16 units and call MD Comments: Last Taken:01/10/17 Time:1200 Omeprazole (Omeprazole) 20 MG CAPSULE. 40 Milligram ORAL DAILY BEFORE BREAKFAST Qty = 30 No Refills Instructions: Please take 30 minutes before breakfast. Comments: Last Taken:01/10/17 Time:0700 Oxycodone HCl/Acetaminophen (Percocet 5-325 MG Tablet) 5 MG-325 MG TABLET 1 Tablet ORAL EVERY 6 HOURS NEEDED as needed for PAIN SCALE 7-10 (SEVERE) Qty = 10 No Refills Comments: Last Taken:01/09/17 Time:2250 Doxazosin Mesylate (Doxazosin Mesylate) 2 MG TABLET 2 Milligram ORAL DAILY Qty = 30 No Refills Comments: Last Taken:01/10/17 Time:1000 Lisinopril (Lisinopril) 10 MG TABLET 10 Milligram ORAL DAILY Qty = 30 No Refills Comments: Last Taken:01/10/17 Time:1000 Furosemide (Lasix) 40 MG TABLET 40 Milligram ORAL 7:30AM & 4:30PM Qty = 60 No Refills Comments: Last Taken:01/10/17 Time:1000 Insulin Glargine,Hum.rec.anlog (Lantus Solostar) 100 UNIT/ML (3 ML) INSULN.PEN 10 Unit Inject into fatty tissue DAILY Qty = 15 No Refills Comments: Last Taken:01/10/17 Time:1000 Copies To: ZEB VARMA,ADEBAYO Guevara; JENNIFER VARMA,[facility].; EPHRAIM VARMA,KATARZYNA Cuenca.; MUNA VARMA,KATY BJohnathan ; ANN VARMA,SHERRI Guevara; VIPUL VARMA,CODY Jones; VIPUL VARMA,CARLOS VJohnathan; RAMONA VARMA, ISABEL Attending MD Review Statement Documenting Attending: JOSHUA MCDOWELL MD
[2017-01-10] MEDS ORDERED: OMEPRAZOLE20 M2 PO (13:50)
--- NOTE | 2017-01-10 14:02 | NUR ---
PT 93% ON RA AT REST AND 92% UPON AMBULATION, MD NOTIFIED.
[2017-01-10] MEDS ORDERED: PERCOCET 5-3251 EACH PO ×2 (15:20→15:37)
== END 2017-01-10 14:52 | disposition home health service (06) | DRG 291 ==
LOC: ERH 13:23 → ERHI 16:45 → CRI 16:45 → ENRESERV 17:54 → 1NO 19:24 → CRI 01-04 13:37
PROVIDERS: Dermatology; Emergency Medicine; Internal Medicine; Internal Medicine Nephrology; Ophthalmology; Student in an Organized Health Care Education/Training Program; ADMIT Internal Medicine
PROC: 30233N1 Transfusion of Nonautologous Red Blood Cells into Peripheral Vein, Percutaneous Approach (ICD-10-PCS; principal; 2017-01-04)
PROC: 0D9670Z Drainage of Stomach with Drainage Device, Via Natural or Artificial Opening (ICD-10-PCS; 2017-01-04)
PROC: 0BH17EZ Insertion of Endotracheal Airway into Trachea, Via Natural or Artificial Opening (ICD-10-PCS; 2017-01-04)
PROC: 5A12012 Performance of Cardiac Output, Single, Manual (ICD-10-PCS; 2017-01-04)
PROC: 5A1935Z Respiratory Ventilation, Less than 24 Consecutive Hours (ICD-10-PCS; 2017-01-04)
DX: I13.0 Hypertensive heart and chronic kidney disease with heart failure and stage 1 through stage 4 chronic kidney disease, or unspecified chronic kidney disease (principal); I50.23 Acute on chronic systolic (congestive) heart failure; N18.4 Chronic kidney disease, stage 4 (severe); E87.0 Hyperosmolality and hypernatremia; N17.9 Acute kidney failure, unspecified; E11.65 Type 2 diabetes mellitus with hyperglycemia; I27.2 Other secondary pulmonary hypertension; I46.9 Cardiac arrest, cause unspecified; D64.9 Anemia, unspecified; C67.9 Malignant neoplasm of bladder, unspecified; Z95.1 Presence of aortocoronary bypass graft; Z79.01 Long term (current) use of anticoagulants; I48.0 Paroxysmal atrial fibrillation; Z79.4 Long term (current) use of insulin; I25.10 Atherosclerotic heart disease of native coronary artery without angina pectoris; E78.5 Hyperlipidemia, unspecified; M19.90 Unspecified osteoarthritis, unspecified site; I25.2 Old myocardial infarction; Z87.891 Personal history of nicotine dependence
CPT/HCPCS: 1NSP; 84133; 84300; CCU; 36415; 71111; 74176; 76775; 81001; 82436; 82570; 82652; 83010; 86920; 87040; 87070; 87086; 87147; 93005; 93010; 93308; 93321; 94799; 96372; 96374; 97110-GO; 97116-GO; 97161-GP; J1250; J1610; J1720; J1940; J1953; J2060; J2405; J3010; J3490; J7040; J7042; P9016

== ENCOUNTER 2018-01-29 17:06 | Emergency (ER) | payer OTHER, MEDICARE ==
[~2018-01-29] VITALS: Ht 172.7 cm; Wt 93.4 kg
[~2018-01-29 17:06] MED LIST changes: +DOXAZOSIN MESYLA2 M1 PO; +FOLIC ACID0.8 M1 PO; +LASIX40 M1 PO; +LISINOPRIL10 M1 PO; +LISINOPRIL20 M1 PO; +METOPROLOL TART25 M1 PO; +OMEPRAZOLE20 M2 PO; +PERCOCET 5-3251 EACH PO; +TOPICORT60 G1 TOP
[2018-01-29 17:13] VITALS: BP 170/72
[2018-01-29] MEDS ORDERED: BACTRIM DS TAB1 EACH PO (17:25)
[2018-01-29] MEDS ORDERED: AMOXICILLIN875 M1 PO (17:25)
--- NOTE | 2018-01-29 17:25 | ED SKIN/ALLERGY COMPLAINT ---
History of Present Illness General Chief Complaint: Lower Extremity Problems Stated Complaint: "WOUND ON MY RT LEG." Source: patient Exam Limitations: no limitations Vital Signs & Intake/Output Vital Signs & Intake/Output Vital Signs Date Time Temp Pulse Resp B/P B/P Pulse O2 O2 Flow FiO2 Mean Ox Delivery Rate 01/29 1717 96 Room Air 01/29 1713 98.3 74 18 170/72 96 Room Air Allergies Coded Allergies: NO KNOWN ALLERGIES (09/24/15) Reconcile Medications Amoxicillin 875 MG TABLET 1 TAB PO BID cellulitis Aspirin (Ecotrin*) 81 MG TABLET.DR 2 TAB PO DAILY HEART/BLOOD Desoximetasone (Topicort) 0.25 % OINT...G. 1 ROLAND TOP BID SKIN PROBLEMS ( Reported) apply to affected area(s) Doxazosin Mesylate 2 MG TABLET 2 MG PO DAILY prostate Ezetimibe/Simvastatin (Vytorin 10-80 MG Tablet) 10 MG-80 MG TABLET 1 TAB PO DAILY CHOLESTEROL (Reported) Folic Acid 0.8 MG CAPSULE 1 CAP PO DAILY SUPPLEMENT (Reported) Furosemide (Lasix) 40 MG TABLET 40 MG PO 7:30 AM, & 4:30 PM Heart failure Insulin Glargine,Hum.rec.anlog (Lantus Solostar) 100 UNIT/ML (3 ML) INSULN.PEN 10 UNIT SC DAILY Diabetes Insulin Lispro (Humalog) 100 UNIT/ML VIAL 0 SC SEE ADMIN CRITERIA diabetes check Blood sugar before meals and at bed time Less than 80 mg/dl Please eat & check BS in 15 minutes 80-150 mg/dl 4 units 151-200 mg/dl 6 units 201-250 mg/dl 8 units 251-300 mg/dl 10 units 301-350 mg/dl 12 units 351-400 mg/dl 14 units more than 400 mg/dl 16 units and call Lisinopril 10 MG TABLET 10 MG PO DAILY Heart and kidney Health Metoprolol Tartrate 25 MG TABLET 1 TAB PO BID HEART/BP (Reported) Nitroglycerin (Nitroglycerin Patch) 0.4 MG/HOUR PATCH.TD24 1 PATCH TOP DAILY HEART HEALTH 12 hours on, 12 hours off Omeprazole 20 MG CAPSULE. 40 MG PO DAILY AC prevent bleeding from stomach Please take 30 minutes before breakfast. Sulfamethoxazole/Trimethoprim (Bactrim Ds Tablet) 800 MG-160 MG TABLET 1 TAB PO BID cellulitis Vitamin B Complex 1 EACH CAPSULE 1 CAP PO DAILY SUPPLEMENT (Reported) Triage Note: RECEIVED 77 YO MALE WITH A HX OF BLISTERS TO LOWER EXTREMITIES BILATERALLY, C/O NON HEALING OPEN BLISTER TO RIGHT LOWER EXTREMITY WITH REDNESS TO RLE. PT HAS A HEALING BLISTER TO HIS LLE. PT REPORTS NO FEVER OR CHILLS. Triage Nurses Notes Reviewed? yes Onset: Abrupt Duration: day(s): Timing: recent history Severity: moderate Location: extremities No Modifying Factors: none HPI: 77-year-old male comes into the emergency room with a open wound that's been on his right leg for the past week as well as some increased redness. Patient has a history of diabetes. He has chronic redness to his legs bilaterally which is normal for him. He also has chronic edema in his legs which she is on Lasix for. He developed a open wound on the right anterior flores about a week ago. Denies any trauma. Denies any fever chills like symptoms body aches. Some mild pain over the open wound. Comes in for further evaluation. (Mohit Avendano) Past History Travel History Traveled to [place] past 21 day No Medical History Any Pertinent Medical History? see below for history Neurological: NONE EENT: allergies, hearing loss Cardiovascular: CHF, hypertension, hyperlipidemia, myocardial infarction, CABG Respiratory: NONE Gastrointestinal: NONE Hepatic: NONE Renal: NONE Musculoskeletal: osteoarthritis Psychiatric: NONE Endocrine: diabetes Blood Disorders: NONE Cancer(s): bladder cancer CAVITY PUMP OPERATOR/Reproductive: NONE History of MRSA: No History of VRE: No History of CDIFF: No Influenza Vaccine: 06/07/16 Surgical History Surgical History: CABG Psychosocial History Who do you live with Significant Other Services at Home None What is your primary language [place] Tobacco Use: Never used Family History Hx Contributory? No (Mohit Avendano) Review of Systems Review of Systems Constitutional: Reports: no symptoms. EENTM: Reports: no symptoms. Respiratory: Reports: no symptoms. Cardiovascular: Reports: no symptoms. GI: Reports: no symptoms. Genitourinary: Reports: no symptoms. Musculoskeletal: Reports: no symptoms. Skin: Reports: see HPI. Neurological/Psychological: Reports: no symptoms. Hematologic/Endocrine: Reports: no symptoms. Immunologic/Allergic: Reports: no symptoms. All Other Systems: Reviewed and Negative (Mohit Avendano) Physical Exam Physical Exam General Appearance: well developed/nourished, no apparent distress, alert, awake Head: atraumatic Eyes: Bilateral: normal appearance. Ears, Nose, Throat: normal ENT inspection, hearing grossly normal Neck: normal inspection Respiratory: no respiratory distress Back: normal inspection Extremities: normal range of motion, Open wound to right anterior flores, approximately 3 cm in diameter, no purulent drainage, surrounding erythema, warmth, some clear drainage out of the wound, 2+ pitting edema in the leg, the erythema extends from below the knee to the ankle region, the majority of the erythema is concentrated around the open wound at the proximal right anterior tibia region, Neurologic/Psych: awake, alert, oriented x 3, normal mood/affect Skin: SEE ABOVE (Mohit Avendano) Progress Differential Diagnosis: abscess/cellulitis, venous stasis, DVT, sepsis, Plan of Care: 01/29/2018 5:55:12 PM The patient clinically looks well. The patient is in no apparent distress. Shared decision making. At this time patient will return in 2 days for a wound check. Patient would rather not be admitted at this time. Due to the fact that he clinically looks well and does not appear to be toxic appearing and showing no signs of septicemia patient will be started on oral medication and return in 2 days for wound check. Patient was told to increase his Lasix to 80 mg a day. (Mohit Avendano) Departure Departure Disposition: HOME OR SELF CARE Condition: Stable Clinical Impression Primary Impression: Cellulitis of right lower extremity Secondary Impressions: Open wound Referrals: Evelyne VARMA,Greg Jones (PCP/Family) Additional Instructions: Take Bactrim and amoxicillin as prescribed. Elevate your leg. Return in 2 days for wound check. Return sooner if any spreading of redness fever chills body aches or any other concerns. Please go over all results of today's visit with your primary care doctor. Contact your primary care doctor to let them know you were here in the emergency room. There may be nonspecific findings which may not be related to your visit today here in the emergency room but may require further evaluation and chronic monitoring by your primary care doctor. If you had a laceration today the chance of foreign body always remains. You should follow-up with your primary care doctor for recheck in 3-5 days for a wound check. If you had an x-ray done there is a chance that a fracture could have been missed on initial read and you should follow-up with your primary care doctor for repeat x-rays if symptoms persist. If your blood pressure was elevated here in the emergency room please have rechecked by hyour primary care doctor within the next 48. If you were prescribed a narcotic here in the emergency room or any type of controlled substances you're not allowed to drive while taking this medication or operate any type of heavy machinery. Narcotics can make you feel lightheaded dizziness nausea and can cause constipation. You may need to molded goods spot picker a stool softener. Thank you for choosing [facility] emergency room. Please return to the emergency room immediately if you have any other concerns worsening of symptoms. Departure Forms: Customer Survey General Discharge Information Prescriptions: Current Visit Scripts Sulfamethoxazole/Trimethoprim (Bactrim Ds Tablet) 1 TAB PO BID #20 TAB Amoxicillin 1 TAB PO BID #20 TAB (Mohit Avendano) PA/GERIATRICIAN Co-Sign Statement Statement: ED Attending supervision documentation- [X] I saw and evaluated the patient. I have also reviewed all the pertinent lab results and diagnostic results. I agree with the findings and the plan of care as documented in the PA's/GERIATRICIAN's documentation. [X] I have reviewed the ED Record and agree with the PA's/GERIATRICIAN's documentation. [] Additions or exceptions (if any) to the PAs/GERIATRICIAN's note and plan are summarized below: [] (Fernando VARMA,Greg Anglin)
== END 2018-01-29 17:41 ==
LOC: ERH 17:06
DX: S81.801A Unspecified open wound, right lower leg, initial encounter (principal); L03.115 Cellulitis of right lower limb; X58.XXXA Exposure to other specified factors, initial encounter; Y92.9 Unspecified place or not applicable; Y93.9 Activity, unspecified

== ENCOUNTER 2018-02-01 09:13 | Emergency (ER) | payer OTHER, MEDICARE ==
[~2018-02-01] VITALS: Ht 172.7 cm; Wt 93.4 kg
[~2018-02-01 09:13] MED LIST changes: +AMOXICILLIN875 M1 PO; +BACTRIM DS TAB1 EACH PO
[2018-02-01 09:14] VITALS: BP 119/61
--- NOTE | 2018-02-01 09:16 | ED ANIMAL BITE/WOUND CHECK ---
History of Present Illness General Chief Complaint: Suture Removal/Wound Recheck Stated Complaint: WOUND RECHECK Source: patient, family, old records Exam Limitations: no limitations Vital Signs & Intake/Output Vital Signs & Intake/Output Vital Signs Date Time Temp Pulse Resp B/P B/P Pulse O2 O2 Flow FiO2 Mean Ox Delivery Rate 02/01 0914 96.3 58 16 119/61 95 Room Air Allergies Coded Allergies: NO KNOWN ALLERGIES (09/24/15) Reconcile Medications Amoxicillin 875 MG TABLET 1 TAB PO BID cellulitis Aspirin (Ecotrin*) 81 MG TABLET.DR 2 TAB PO DAILY HEART/BLOOD Desoximetasone (Topicort) 0.25 % OINT...G. 1 ROLAND TOP BID SKIN PROBLEMS ( Reported) apply to affected area(s) Doxazosin Mesylate 2 MG TABLET 2 MG PO DAILY prostate Ezetimibe/Simvastatin (Vytorin 10-80 MG Tablet) 10 MG-80 MG TABLET 1 TAB PO DAILY CHOLESTEROL (Reported) Folic Acid 0.8 MG CAPSULE 1 CAP PO DAILY SUPPLEMENT (Reported) Furosemide (Lasix) 40 MG TABLET 40 MG PO 7:30 AM, & 4:30 PM Heart failure Insulin Glargine,Hum.rec.anlog (Lantus Solostar) 100 UNIT/ML (3 ML) INSULN.PEN 10 UNIT SC DAILY Diabetes Insulin Lispro (Humalog) 100 UNIT/ML VIAL 0 SC SEE ADMIN CRITERIA diabetes check Blood sugar before meals and at bed time Less than 80 mg/dl Please eat & check BS in 15 minutes 80-150 mg/dl 4 units 151-200 mg/dl 6 units 201-250 mg/dl 8 units 251-300 mg/dl 10 units 301-350 mg/dl 12 units 351-400 mg/dl 14 units more than 400 mg/dl 16 units and call Lisinopril 10 MG TABLET 10 MG PO DAILY Heart and kidney Health Metoprolol Tartrate 25 MG TABLET 1 TAB PO BID HEART/BP (Reported) Nitroglycerin (Nitroglycerin Patch) 0.4 MG/HOUR PATCH.TD24 1 PATCH TOP DAILY HEART HEALTH 12 hours on, 12 hours off Omeprazole 20 MG CAPSULE. 40 MG PO DAILY AC prevent bleeding from stomach Please take 30 minutes before breakfast. Sulfamethoxazole/Trimethoprim (Bactrim Ds Tablet) 800 MG-160 MG TABLET 1 TAB PO BID cellulitis Vitamin B Complex 1 EACH CAPSULE 1 CAP PO DAILY SUPPLEMENT (Reported) Triage Nurses Notes Reviewed? yes Onset: Abrupt Duration: week(s): (1), better, constant Timing: recent history Injury Environment: home Severity: mild Severity Numbers: 1 No Modifying Factors: none Associated Symptoms: denies HPI: 77-year-old male presents for wound check status post blister that developed for approximately 1 week. He states that he's been compliant with taking antibiotics and the redness has improved he denies any drainage from the wound. No fever no chills chest pain he denies any worsening leg swelling is currently on 40 mg twice a day of Lasix. No modifying factors or associated symptoms otherwise. (Taz Flood) Past History Travel History Traveled to [place] past 21 day No Medical History Any Pertinent Medical History? see below for history Neurological: NONE EENT: allergies, hearing loss Cardiovascular: CHF, hypertension, hyperlipidemia, myocardial infarction, CABG Respiratory: NONE Gastrointestinal: NONE Hepatic: NONE Renal: NONE Musculoskeletal: osteoarthritis Psychiatric: NONE Endocrine: diabetes Blood Disorders: NONE Cancer(s): bladder cancer THRESHER BROOMCORN/Reproductive: NONE History of MRSA: No History of VRE: No History of CDIFF: No Surgical History Surgical History: CABG Psychosocial History Who do you live with Significant Other Services at Home None What is your primary language [place] Tobacco Use: Never used Family History Hx Contributory? No (Taz Flood) Review of Systems Review of Systems Constitutional: Reports: see HPI. Comments Review of systems: See HPI, All other systems negative. Constitutional, no chills no fever HEENT: no sore throat no congestion Cardiovascular: No chest pain Skin: see hpi Respiratory: No dyspnea no cough no sputum GI: No nausea no vomiting, Muscle skeletal: No joint pain, no back pain Heme/endocrine: No bruising (Taz Flood) Physical Exam Physical Exam General Appearance: well developed/nourished, no apparent distress, alert, awake , comfortable Comments: Well-developed well-nourished patient in no apparent distress. HEENT: Atraumatic, extraocular motion intact Neck: Supple, FROM Back: FROM Respiratory: No respiratory distress. Patient speaking in full complete sentences. Extremities: full range of motion Neuro: awake, alert, and oriented to person, place and time. There were no obvious focal neurologic abnormalities. Skin: Warm & dry; normal range of motion, Open wound to right anterior flores, approximately 3 cm in diameter, no purulent drainage, surrounding erythema pt and family states has improved, warmth, some clear drainage out of the wound, 2+ pitting edema in the leg, the erythema extends from below the knee to the ankle region, the majority of the erythema is concentrated around the open wound at the proximal right anterior tibia region, Psych: Mood affect normal, normal memory normal judgment. (Taz Flood) Progress Differential Diagnosis: abscess, cellulitis Plan of Care: I discussed with the patient at length plan of care. I had an extensive conversation regarding need for close follow up with their primary care physician this week as well as return precautions. I answered all of their questions, they feel comfortable with the plan and follow-up care. (Taz Flood) Departure Departure Time of Disposition: 100 Disposition: HOME OR SELF CARE Condition: Stable Clinical Impression Primary Impression: Encounter for wound re-check Referrals: Evelyne VARMA,Greg Jones (PCP/Family) Additional Instructions: Follow-up with your primary care physician this week-continue dressing changes as discussed return if you have worsening redness fever chills or any other concerns Departure Forms: Customer Survey General Discharge Information (Taz Flood) PA/APPLE TURNER Co-Sign Statement Statement: ED Attending supervision documentation- x I saw and evaluated the patient. I have also reviewed all the pertinent lab results and diagnostic results. I agree with the findings and the plan of care as documented in the PA's/APPLE TURNER's documentation. [] I have reviewed the ED Record and agree with the PA's/APPLE TURNER's documentation. [] Additions or exceptions (if any) to the PAs/APPLE TURNER's note and plan are summarized below: [] (Coretta VARMA,Roque)
== END 2018-02-01 09:53 ==
LOC: ERH 09:13
DX: Z48.00 Encounter for change or removal of nonsurgical wound dressing (principal)